=== PATIENT | female | born 1940 | race Caucasian/White ===

== ENCOUNTER 2017-04-21 11:23 | Emergency (ER) | payer MEDICARE, BC ==
[2017-04-21 12:35] LABS: Basophils % (A) 0 %; CH 32.3; CHCM 32.3; Eosinophils % (A) 0 %; HCT 32.3 % (34.0-46.0); HDW 2.77; HGB 10.2 gm/dL (11.4-16.0); Luc # (Auto) 0.16; Luc % (Auto) 1; Lymphocytes # (A) 1.5 k/uL (1.0-4.8); Lymphocytes % (A) 13 %; MCH 31.8 pg (25.0-35.0); MCHC 31.5 g/dL (31.0-37.0); MCV 100.8 fL (80.0-100.0); Macrocytosis Slight; Mean Platelet Volume 7.9; Monocytes # (A) 0.3 k/uL (0-1.0); Monocytes % (A) 2 %; Neutrophils # (A) 9.7 k/uL (1.3-7.7); Neutrophils % (A) 83 %; RDW 15.6 % (11.5-15.5); WBC 11.6 k/uL (3.8-10.6); WBC (Perox) 12.08
[2017-04-21 12:47] LABS: Calcium 9.7 mg/dL (8.4-10.2); Magnesium 1.3 mg/dL (1.6-2.3); Potassium 3.6 mmol/L (3.5-5.1); Total Bilirubin 0.7 mg/dL (0.2-1.3); Total Protein 6.3 g/dL (6.3-8.2)
[2017-04-21 12:55] LABS: Creatine Kinase <20 U/L (30-135)
[2017-04-21 13:08] LABS: Creatine Kinase MB <0.2 ng/mL (0.0-2.4); Troponin I <0.012 ng/mL (0.000-0.034)
[2017-04-21] MEDS: SODIUM CHLORIDE 0.9% 1,000 ML IV STA ×2 (13:11→14:11)
[2017-04-21 13:21] LABS: INR 1.1 (<1.1); Partial Thromboplastin Time 22.6 sec (22.0-30.0); Prothrombin Time 10.7 sec (9.0-12.0)
--- NOTE | 2017-04-21 14:17 | ED ---
Dizziness HPI - General Chief Complaint: Syncope Stated Complaint: General Weakness Time Seen by Provider: 04/21/17 11:40 Source: patient, RN notes reviewed Mode of arrival: wheelchair Limitations: no limitations - History of Present Illness Initial Comments: This is a 76-year-old female was brought here for evaluation. She probably was sitting in the volunteer office in the hospital which she started nodding off her head down. His believes she did eventually pass out. She herself is not sure what she is really here she denies any fevers chills nausea vomiting sweats weakness she does require neurological issues to his left foot drop. Currently it is reported that her glucose is also elevated today. The patient is somewhat vague with her answers. MD Complaint: dizziness, near syncope - Related Data Home Medications Medication Instructions Recorded Confirmed Aspirin 81 mg PO DAILY 02/15/15 04/21/17 Calcium Carbonate/Vitamin D3 1 tab PO DAILY 02/15/15 04/21/17 [Calcium 600 + Vit D Tablet] Lisinopril-Hctz 20-12.5 mg 1 tab PO DAILY 02/15/15 04/21/17 [Zestoretic 20-12.5] Simvastatin [Zocor] 40 mg PO HS 02/15/15 04/21/17 Previous Rx's Medication Instructions Recorded Magnesium 200 mg PO DAILY #14 tablet 04/21/17 Allergies Allergy/AdvReac Type Severity Reaction Status Date / Time No Known Allergies Allergy Verified 04/21/17 12:32 Review of Systems ROS Statement: Those systems with pertinent positive or pertinent negative responses have been documented in the HPI. ROS Other: All systems not noted in ROS Statement are negative. Past Medical History Past Medical History: Hyperlipidemia, Hypertension History of Any Multi-Drug Resistant Organisms: None Reported Past Surgical History: Breast Surgery Past Psychological History: No Psychological Hx Reported Smoking Status: Never smoker Past Alcohol Use History: None Reported Past Drug Use History: None Reported General Exam - General Exam Comments Initial Comments: This is a well-developed well-nourished awake alert oriented 3 female Limitations: no limitations General appearance: alert, in no apparent distress Head exam: Present: atraumatic, normocephalic, normal inspection Eye exam: Present: normal appearance, PERRL, EOMI. Absent: scleral icterus, conjunctival injection, periorbital swelling ENT exam: Present: mucous membranes dry Neck exam: Present: normal inspection. Absent: tenderness, meningismus, lymphadenopathy Respiratory exam: Present: normal lung sounds bilaterally. Absent: respiratory distress, wheezes, rales, rhonchi, stridor Cardiovascular Exam: Present: regular rate, normal rhythm, normal heart sounds. Absent: systolic murmur, diastolic murmur, rubs, gallop, clicks GI/Abdominal exam: Present: soft, normal bowel sounds. Absent: distended, tenderness, guarding, rebound, rigid Extremities exam: Present: normal inspection, full ROM, normal capillary refill. Absent: tenderness, pedal edema, joint swelling, calf tenderness Back exam: Present: normal inspection Neurological exam: Present: alert, oriented X3, CN II-XII intact, motor sensory deficit (Left foot drop there is some extremity weakness) Psychiatric exam: Present: normal affect, normal mood Skin exam: Present: warm, dry, intact, normal color. Absent: rash Course Vital Signs 04/21/17 04/21/17 04/21/17 11:31 11:33 11:56 Temperature 97.3 F L Pulse Rate 82 77 70 Respiratory 18 18 18 Rate Blood Pressure 86/46 82/52 84/51 O2 Sat by Pulse 96 96 98 Oximetry 04/21/17 04/21/17 04/21/17 12:12 13:11 14:12 Temperature Pulse Rate 69 Respiratory 18 Rate Blood Pressure 98/50 92/53 106/53 O2 Sat by Pulse 98 Oximetry 04/21/17 15:46 Temperature Pulse Rate 70 Respiratory 18 Rate Blood Pressure 98/55 O2 Sat by Pulse 93 L Oximetry - Reevaluation(s) Reevaluation #1: 04/21/17 15:51 Reevaluation patient reveals her to be awake alert oriented 3 patient did respond well to IV hydration she will receive IV magnesium be discharged EKG Findings - EKG Results: EKG: interpreted by ERMD, sinus rhythm (Normal sinus rhythm a rate of 71. Interval 176 QRS duration 84 daily since QTC of 3-/417 this is a normal- appearing EKG.), normal axis, normal QRS, normal ST/T, no acute changes Medical Decision Making - Medical Decision Making I did discuss findings with the patient family members patient will be discharged after IV hydration she is encouraged to increase her oral fluid content she will be placed on oral magnesium is follow up with her doctor and return when necessary - Lab Data Result diagrams: 04/21/17 11:40 04/21/17 11:40 Lab Results 04/21/17 04/21/17 04/21/17 Range/Units 11:40 11:40 11:40 WBC 11.6 H (3.8-10.6) k/uL RBC 3.20 L (3.80-5.40) m/uL Hgb 10.2 L (11.4-16.0) gm/dL Hct 32.3 L (34.0-46.0) % MCV 100.8 H (80.0-100.0) fL MCH 31.8 (25.0-35.0) pg MCHC 31.5 (31.0-37.0) g/dL RDW 15.6 H (11.5-15.5) % Plt Count 382 (150-450) k/uL Neutrophils % 83 % Lymphocytes % 13 % Monocytes % 2 % Eosinophils % 0 % Basophils % 0 % Neutrophils # 9.7 H (1.3-7.7) k/uL Lymphocytes # 1.5 (1.0-4.8) k/uL Monocytes # 0.3 (0-1.0) k/uL Eosinophils # 0.0 (0-0.7) k/uL Basophils # 0.0 (0-0.2) k/uL Macrocytosis Slight PT (9.0-12.0) sec INR (<1.1) APTT (22.0-30.0) sec Sodium 136 L (137-145) mmol/L Potassium 3.6 (3.5-5.1) mmol/L Chloride 99 (98-107) mmol/L Carbon Dioxide 25 (22-30) mmol/L Anion Gap 12 mmol/L BUN 39 H (7-17) mg/dL Creatinine 1.80 H (0.52-1.04) mg/dL Est GFR (MDRD) Af Amer 33 (>60 ml/min/1.73 sqM) Est GFR (MDRD) Non-Af 27 (>60 ml/min/1.73 sqM) Glucose 229 H (74-99) mg/dL Calcium 9.7 (8.4-10.2) mg/dL Magnesium 1.3 L (1.6-2.3) mg/dL Total Bilirubin 0.7 (0.2-1.3) mg/dL AST 14 (14-36) U/L ALT 16 (9-52) U/L Alkaline Phosphatase 77 (38-126) U/L Total Creatine Kinase <20 L (30-135) U/L CK-MB (CK-2) <0.2 (0.0-2.4) ng/mL CK-MB (CK-2) Rel Index Troponin I <0.012 (0.000-0.034) ng/mL Total Protein 6.3 (6.3-8.2) g/dL Albumin 3.1 L (3.5-5.0) g/dL 04/21/17 Range/Units 11:40 WBC (3.8-10.6) k/uL RBC (3.80-5.40) m/uL Hgb (11.4-16.0) gm/dL Hct (34.0-46.0) % MCV (80.0-100.0) fL MCH (25.0-35.0) pg MCHC (31.0-37.0) g/dL RDW (11.5-15.5) % Plt Count (150-450) k/uL Neutrophils % % Lymphocytes % % Monocytes % % Eosinophils % % Basophils % % Neutrophils # (1.3-7.7) k/uL Lymphocytes # (1.0-4.8) k/uL Monocytes # (0-1.0) k/uL Eosinophils # (0-0.7) k/uL Basophils # (0-0.2) k/uL Macrocytosis PT 10.7 (9.0-12.0) sec INR 1.1 (<1.1) APTT 22.6 (22.0-30.0) sec Sodium (137-145) mmol/L Potassium (3.5-5.1) mmol/L Chloride (98-107) mmol/L Carbon Dioxide (22-30) mmol/L Anion Gap mmol/L BUN (7-17) mg/dL Creatinine (0.52-1.04) mg/dL Est GFR (MDRD) Af Amer (>60 ml/min/1.73 sqM) Est GFR (MDRD) Non-Af (>60 ml/min/1.73 sqM) Glucose (74-99) mg/dL Calcium (8.4-10.2) mg/dL Magnesium (1.6-2.3) mg/dL Total Bilirubin (0.2-1.3) mg/dL AST (14-36) U/L ALT (9-52) U/L Alkaline Phosphatase (38-126) U/L Total Creatine Kinase (30-135) U/L CK-MB (CK-2) (0.0-2.4) ng/mL CK-MB (CK-2) Rel Index Troponin I (0.000-0.034) ng/mL Total Protein (6.3-8.2) g/dL Albumin (3.5-5.0) g/dL - Radiology Data Radiology results: report reviewed (I did review the imaging and reports no acute findings.), image reviewed Disposition Clinical Impression: Dehydration, Hypomagnesemia, Weakness Disposition: HOME SELF-CARE Condition: Good Instructions: Dehydration (ED), Hypomagnesemia (ED) Prescriptions: Magnesium 200 mg PO DAILY #14 tablet Referrals: Nonstaff,Physician [Primary Care Provider] - 1-2 days
--- NOTE | 2017-04-21 14:24 | CT ---
EXAMINATION TYPE: CT brain wo con DATE OF EXAM: 04/21/2017 HISTORY: Patient complains of syncopal episode and low blood pressure. CT DLP: 766.4 mGycm. Automated Exposure Control for Dose Reduction was Utilized. TECHNIQUE: CT scan of the head is performed without contrast. COMPARISON: CT brain February 07, 2015 FINDINGS: There is no acute intracranial hemorrhage or midline shift identified. There is diffuse v entricular and sulcal prominence consistent with diffuse age-related cerebral atrophy. There is low- attenuation in the periventricular white matter consistent with chronic small vessel ischemic change. 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 Patchy soft t issue density bilateral external auditory canals felt to reflect cerumen. The globes are intact and t he visualized sinuses are clear. There is right frontal calcified 1 cm scalp lesion redemonstrated on axial image 20. IMPRESSION: No acute intracranial hemorrhage or midline shift. 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
--- NOTE | 2017-04-21 14:25 | XR ---
EXAMINATION TYPE: XR chest 2V DATE OF EXAM: 04/21/2017 COMPARISON: Prior chest x-ray 11/27/2015 HISTORY: Syncope TECHNIQUE: Frontal and lateral views of the chest are obtained. FINDINGS: Intrathoracic stomach is again noted. Patient is rotated. No evident pneumothorax or sizab le effusion. Marked arthropathy again noted shoulders. No evident airspace disease. IMPRESSION: No acute cardiopulmonary process. Similar to previous exam.
[2017-04-21] MEDS: MAGNESIUM SULFATE-D5W PMX 1 GM in DEXTROSE/WATER 1 100ML.BAG IVPB ONE (15:45)
[2017-04-21 16:13] VITALS: TEMP 97
[2017-04-21 17:13] VITALS: BP 97/54; PULSE 75; RESP 18
[2017-04-26 07:39] LABS: Glucose,Whole Blood 252 mg/dL (75-99)
== END 2017-04-21 17:09 | disposition home or self-care (01) ==
LOC: EC 11:23
DX: E83.42 Hypomagnesemia (principal); E86.0 Dehydration; M21.372 Foot drop, left foot; E78.5 Hyperlipidemia, unspecified; I10 Essential (primary) hypertension; Z79.82 Long term (current) use of aspirin; Z79.899 Other long term (current) drug therapy
CPT/HCPCS: 36415; 93005; 80053; 82550; 82553; 83735; 84484; 85025; 85610; 85730; 71020; 70450; 99284; 96365; 96361 ×3; J3475

== ENCOUNTER 2017-04-25 10:33 | Inpatient (IN) | payer MEDICARE, BC ==
[2017-04-25] MEDS ORDERED: SODIUM CHLORIDE 0.9% 500 ML IV STA (10:43)
[2017-04-25] MEDS ORDERED: SODIUM CHLORIDE 0.9% 1,000 ML IV STA (10:43)
--- NOTE | 2017-04-25 10:43 | ED ---
General Adult HPI - General Chief complaint: Syncope Stated complaint: near syncope Time Seen by Provider: 04/25/17 10:42 Source: patient, family, EMS, RN notes reviewed, old records reviewed Mode of arrival: EMS Limitations: no limitations - History of Present Illness Initial comments: This is a 76-year-old female ER for evaluation of syncope, near-syncope continued weakness and fall. Patient has medical history consistent of diabetes hypertension and high cholesterol. Patient has no chest pain or stress of breath. Patient was getting in the shower last night, fell and landed on the ground unlikely she connectors overall, patient does low. Assist came to her house today to evaluate patient, helped take the patient to patient take shower patient is syncopal event. Patient is recent hospital ear visit for dehydration and was discharged home. Patient continued to be weak since discharge - Related Data Home Medications Medication Instructions Recorded Confirmed Aspirin 81 mg PO DAILY 02/15/15 04/25/17 Calcium Carbonate/Vitamin D3 1 tab PO DAILY 02/15/15 04/25/17 [Calcium 600 + Vit D Tablet] Lisinopril-Hctz 20-12.5 mg 1 tab PO DAILY 02/15/15 04/25/17 [Zestoretic 20-12.5] Simvastatin [Zocor] 40 mg PO HS 02/15/15 04/25/17 Furosemide [Lasix] 40 mg PO DAILY PRN 04/25/17 04/25/17 Previous Rx's Medication Instructions Recorded Magnesium 200 mg PO DAILY #14 tablet 04/21/17 Allergies Allergy/AdvReac Type Severity Reaction Status Date / Time No Known Allergies Allergy Verified 04/25/17 10:52 Review of Systems ROS Statement: Those systems with pertinent positive or pertinent negative responses have been documented in the HPI. ROS Other: All systems not noted in ROS Statement are negative. Past Medical History Past Medical History: Diabetes Mellitus, Hyperlipidemia, Hypertension History of Any Multi-Drug Resistant Organisms: None Reported Past Surgical History: Orthopedic Surgery Additional Past Surgical History / Comment(s): right wrist Past Psychological History: No Psychological Hx Reported Smoking Status: Never smoker Past Alcohol Use History: None Reported Past Drug Use History: None Reported General Exam Limitations: no limitations General appearance: alert, cachectic Head exam: Present: atraumatic, normocephalic, normal inspection Eye exam: Present: normal appearance, PERRL, EOMI. Absent: scleral icterus, conjunctival injection, periorbital swelling ENT exam: Present: normal exam, mucous membranes dry Neck exam: Present: normal inspection. Absent: tenderness, meningismus, lymphadenopathy Respiratory exam: Present: normal lung sounds bilaterally. Absent: respiratory distress, wheezes, rales, rhonchi, stridor Cardiovascular Exam: Present: regular rate, normal rhythm, normal heart sounds. Absent: systolic murmur, diastolic murmur, rubs, gallop, clicks GI/Abdominal exam: Present: soft, normal bowel sounds. Absent: distended, tenderness, guarding, rebound, rigid Extremities exam: Present: normal inspection, full ROM, normal capillary refill. Absent: tenderness, pedal edema, joint swelling, calf tenderness Back exam: Present: normal inspection Neurological exam: Present: alert, oriented X3, CN II-XII intact Psychiatric exam: Present: normal affect, normal mood Skin exam: Present: warm, dry, intact, normal color. Absent: rash Course Vital Signs 04/25/17 04/25/17 10:34 11:13 Temperature 98.1 F Pulse Rate 74 77 Respiratory 18 Rate Blood Pressure 117/49 96/59 O2 Sat by Pulse 97 96 Oximetry - Reevaluation(s) Reevaluation #1: 04/25/17 12:20 Patient has limited improvement withhydration EKG Findings - EKG Comments: EKG Findings:: EKG shows normal sinus with a rate of 76, OH 160, QRS 68, QTC 432 Medical Decision Making - Medical Decision Making 69 femalte to the ER for evaluation of syncope, near syncope, dehydration and likely UTI. Patient be admitted for IV hydration and continued evaluation cardiopulmonary observation. - Lab Data Result diagrams: 04/25/17 10:47 04/25/17 10:47 Lab Results 04/25/17 04/25/17 04/25/17 Range/Units 10:47 10:47 10:47 WBC 10.4 (3.8-10.6) k/uL RBC 3.24 L (3.80-5.40) m/uL Hgb 10.4 L (11.4-16.0) gm/dL Hct 32.7 L (34.0-46.0) % MCV 100.7 H (80.0-100.0) fL MCH 32.2 (25.0-35.0) pg MCHC 32.0 (31.0-37.0) g/dL RDW 15.5 (11.5-15.5) % Plt Count 384 (150-450) k/uL Neutrophils % 87 % Lymphocytes % 9 % Monocytes % 2 % Eosinophils % 0 % Basophils % 0 % Neutrophils # 9.1 H (1.3-7.7) k/uL Lymphocytes # 1.0 (1.0-4.8) k/uL Monocytes # 0.2 (0-1.0) k/uL Eosinophils # 0.0 (0-0.7) k/uL Basophils # 0.0 (0-0.2) k/uL Macrocytosis Slight PT (9.0-12.0) sec INR (<1.1) APTT (22.0-30.0) sec Sodium 135 L (137-145) mmol/L Potassium 3.6 (3.5-5.1) mmol/L Chloride 100 (98-107) mmol/L Carbon Dioxide 26 (22-30) mmol/L Anion Gap 9 mmol/L BUN 30 H (7-17) mg/dL Creatinine 1.23 H (0.52-1.04) mg/dL Est GFR (MDRD) Af Amer 51 (>60 ml/min/1.73 sqM) Est GFR (MDRD) Non-Af 42 (>60 ml/min/1.73 sqM) Glucose 158 H (74-99) mg/dL Plasma Lactic Acid Erasto (0.7-2.0) mmol/L Calcium 8.7 (8.4-10.2) mg/dL Phosphorus 2.4 L (2.5-4.5) mg/dL Magnesium 1.9 (1.6-2.3) mg/dL Total Bilirubin 0.9 (0.2-1.3) mg/dL AST 25 (14-36) U/L ALT 22 (9-52) U/L Alkaline Phosphatase 81 (38-126) U/L Total Creatine Kinase 250 H (30-135) U/L CK-MB (CK-2) 2.1 (0.0-2.4) ng/mL CK-MB (CK-2) Rel Index 0.8 Troponin I 0.014 (0.000-0.034) ng/mL Total Protein 5.8 L (6.3-8.2) g/dL Albumin 2.8 L (3.5-5.0) g/dL 04/25/17 04/25/17 Range/Units 10:47 10:47 WBC (3.8-10.6) k/uL RBC (3.80-5.40) m/uL Hgb (11.4-16.0) gm/dL Hct (34.0-46.0) % MCV (80.0-100.0) fL MCH (25.0-35.0) pg MCHC (31.0-37.0) g/dL RDW (11.5-15.5) % Plt Count (150-450) k/uL Neutrophils % % Lymphocytes % % Monocytes % % Eosinophils % % Basophils % % Neutrophils # (1.3-7.7) k/uL Lymphocytes # (1.0-4.8) k/uL Monocytes # (0-1.0) k/uL Eosinophils # (0-0.7) k/uL Basophils # (0-0.2) k/uL Macrocytosis PT 10.9 (9.0-12.0) sec INR 1.1 (<1.1) APTT 24.2 (22.0-30.0) sec Sodium (137-145) mmol/L Potassium (3.5-5.1) mmol/L Chloride (98-107) mmol/L Carbon Dioxide (22-30) mmol/L Anion Gap mmol/L BUN (7-17) mg/dL Creatinine (0.52-1.04) mg/dL Est GFR (MDRD) Af Amer (>60 ml/min/1.73 sqM) Est GFR (MDRD) Non-Af (>60 ml/min/1.73 sqM) Glucose (74-99) mg/dL Plasma Lactic Acid Erasto 2.0 (0.7-2.0) mmol/L Calcium (8.4-10.2) mg/dL Phosphorus (2.5-4.5) mg/dL Magnesium (1.6-2.3) mg/dL Total Bilirubin (0.2-1.3) mg/dL AST (14-36) U/L ALT (9-52) U/L Alkaline Phosphatase (38-126) U/L Total Creatine Kinase (30-135) U/L CK-MB (CK-2) (0.0-2.4) ng/mL CK-MB (CK-2) Rel Index Troponin I (0.000-0.034) ng/mL Total Protein (6.3-8.2) g/dL Albumin (3.5-5.0) g/dL Disposition Clinical Impression: Fainting spell, Weakness, Hypomagnesemia, Dehydration Disposition: ADMITTED IP TO THIS [facility] Condition: Fair Referrals: Nonstaff,Physician [Primary Care Provider] - 1-2 days
[2017-04-25 11:00] LABS: Basophils % (A) 0 %; CH 33.2; CHCM 33.2; Eosinophils % (A) 0 %; HCT 32.7 % (34.0-46.0); HGB 10.4 gm/dL (11.4-16.0); Luc % (Auto) 1; Lymphocytes % (A) 9 %; MCH 32.2 pg (25.0-35.0); MCV 100.7 fL (80.0-100.0); Macrocytosis Slight; Monocytes # (A) 0.2 k/uL (0-1.0); Monocytes % (A) 2 %; Neutrophils # (A) 9.1 k/uL (1.3-7.7); Neutrophils % (A) 87 %; RBC 3.24 m/uL (3.80-5.40); RDW 15.5 % (11.5-15.5); WBC 10.4 k/uL (3.8-10.6); WBC (Perox) 10.81
[2017-04-25 11:08] LABS: INR 1.1 (<1.1); Partial Thromboplastin Time 24.2 sec (22.0-30.0); Prothrombin Time 10.9 sec (9.0-12.0)
[2017-04-25 11:14] LABS: Calcium 8.7 mg/dL (8.4-10.2); Magnesium 1.9 mg/dL (1.6-2.3); Phosphorous 2.4 mg/dL (2.5-4.5); Potassium 3.6 mmol/L (3.5-5.1); Total Bilirubin 0.9 mg/dL (0.2-1.3); Total Protein 5.8 g/dL (6.3-8.2)
[2017-04-25 11:37] LABS: Creatine Kinase MB 2.1 ng/mL (0.0-2.4); Troponin I 0.014 ng/mL (0.000-0.034)
[2017-04-25] MEDS ORDERED: SODIUM CHLORIDE 0.9% 1,000 ML IV ONE (12:17)
[2017-04-25 14:28] LABS: Appearance,Urine Cloudy (Clear); Bacteria,Urine Many /hpf; Bilirubin,Urine Negative (Negative); Glucose,Urine (UA) Negative (Negative); Ketones,Urine Negative (Negative); Leukocyte Esterase,Urine Large (Negative); Mucus,Urine Rare /hpf; Nitrite,Urine Negative (Negative); Particle Count 54700; Protein,Urine Negative (Negative); RBC,Urine 11 /hpf (0-5); Specific Gravity,Urine 1.007 (1.001-1.035); Squamous Epithelial Cell,Urine 1 /hpf (0-4); UA Billing (MACRO vs. MICRO) MICRO; Urobilinogen,Urine <2.0 mg/dL (<2.0)
[2017-04-25 17:17] LABS: Glucose,Whole Blood 182 mg/dL (75-99)
[2017-04-25] MEDS: INSULIN LISPRO (humaLOG) 300 UNIT/3 ML VIAL SQ SCH ×2 (17:51→21:23)
[2017-04-25 21:08] LABS: Glucose,Whole Blood 142 mg/dL (75-99)
[2017-04-26 03:24] LABS: Hemoglobin A1C 5.8 % (4.2-6.1)
--- NOTE | 2017-04-26 07:14 | HP ---
DATE OF ADMISSION: CHIEF COMPLAINT: A 76-year-old white female with syncope. HISTORY OF PRESENT ILLNESS: This 76-year-old white female who was admitted for near syncope with weakness following, has a history of hypertension on medications at home. She presents with hypotension here in the hospital. She has diabetes and high cholesterol. No chest pain or shortness of breath. She has been falling at home and she was just in the ER for dehydration and discharged home. She continues to be ( ) at discharge. HOME MEDICATIONS: 1. Aspirin 81 mg a day. 2. Lisinopril hydrochlorothiazide 20/12.5 one daily. 3. Zocor 40 mg daily. 4. Lasix 40 mg daily. ALLERGIES: No known drug allergies. Review of systems negative except for as mentioned in HPI. PAST MEDICAL HISTORY: Hypertension, diabetes mellitus, dyslipidemia, orthopedic surgery. No smoking. No alcohol. No illicit drugs. PHYSICAL EXAM: Vital signs are stable. She is thin, cachectic. OPHTHALMOLOGIC: Pupils equal, round, reactive to light and accommodation. External ear canals within normal limits. CARDIOVASCULAR: S1, S2. LUNGS: Transmitted upper airway sounds. GI: Soft, nontender. HEMATOLOGIC: Negative Homans. VASCULAR: Normal dorsalis pedis, posterior tibial and radial pulses. NEUROLOGIC: Alert and oriented x3. Hemoglobin is 10.4, Sodium 135, potassium 3.6, BUN 30, creatinine 1.23. White count 10.4. Glucose 153. First troponin is negative. Albumin is low at 2.8. ASSESSMENT: 1. Dehydration. 2. Hypotension. 3. Urinary tract infection with urosepsis likely causing hypotension. Blood pressure medicines will be held at this time until rehydration. IV fluids were given. 4. She has got stage III renal insufficiency. 5. Moderate protein calorie malnutrition. Rocephin will be started. IV fluids will be given. Please see further orders. We will monitor lactic acid and hypomagnesium will be replaced. Dehydration, fluid will be given possible orthostatic ( ) will be done.
[2017-04-26 07:15] LABS: Glucose,Whole Blood 104 mg/dL (75-99)
[2017-04-26] MEDS: INSULIN LISPRO (humaLOG) 300 UNIT/3 ML VIAL SQ SCH ×4 (07:44→22:34)
[2017-04-26 08:40] LABS: Basophils % (A) 0 %; CH 33.1; CHCM 33.7; Eosinophils % (A) 1 %; HCT 29.4 % (34.0-46.0); HDW 2.97; HGB 9.6 gm/dL (11.4-16.0); Luc # (Auto) 0.13; Luc % (Auto) 2; Lymphocytes # (A) 1.1 k/uL (1.0-4.8); Lymphocytes % (A) 18 %; MCH 32.4 pg (25.0-35.0); MCHC 32.8 g/dL (31.0-37.0); Macrocytosis Slight; Mean Platelet Volume 7.5; Monocytes # (A) 0.2 k/uL (0-1.0); Monocytes % (A) 3 %; Neutrophils # (A) 4.6 k/uL (1.3-7.7); Neutrophils % (A) 76 %; RBC 2.97 m/uL (3.80-5.40); RDW 15.4 % (11.5-15.5); WBC 6.1 k/uL (3.8-10.6); WBC (Perox) 6.21
[2017-04-26 09:02] LABS: ALT 25 U/L (9-52); AST 20 U/L (14-36); Alkaline Phosphatase 74 U/L (38-126); Anion Gap 7 mmol/L; Blood Urea Nitrogen 23 mg/dL (7-17); Calcium 8.1 mg/dL (8.4-10.2); Carbon Dioxide 24 mmol/L (22-30); Chloride 104 mmol/L (98-107); Glucose 95 mg/dL (74-99); Non-African American GFR(MDRD) >60 (>60 ml/min/1.73 sqM); Potassium 3.4 mmol/L (3.5-5.1); Sodium 135 mmol/L (137-145); Total Bilirubin 0.5 mg/dL (0.2-1.3); Total Protein 5.4 g/dL (6.3-8.2)
[2017-04-26] MEDS ORDERED: Potassium Replacement Protocol 1 EACH MISC MISCELLANE PRN (10:05)
[2017-04-26] MEDS: POTASSIUM CHLORIDE ER 20 MEQ TAB.ER PO SCH ×2 (10:39→12:01)
--- NOTE | 2017-04-26 11:46 | CDI ---
In responding to this query, please exercise your independent professional judgment. The [facility] Coding Staff and Clinical Documentation Specialists appreciate your assistance in clarifying documentation, maintaining compliance with coding guidelines, accurately documenting patients condition and capturing severity of illness. The fact that a question is asked does not imply that any particular answer is desired or expected. Communication forms are a method of clarifying documentation and are not made part of the Legal Health Record. Thank you in advance for your clarification. Last Revision, September 2015 Mehrdad Caldwell [address] [place] [address] Documentation Clarification Form Date: 04/26/2017 11:30:00 AM From: Deepali Burgos RN, CDS Admit Date: 04/25/2017 12:17:00 PM Patient Name: Venessa Morel I Visit Number: [id number] Dr. Mj Snow, 76 yo patient presented to ER for complaints of weakness and falls diagnosed w/ Dehydration, UTI w/ Urosepsis likely causing Hypotension, Stage 3 Renal Insufficiency History/Risk Factors : HTN, DM2 Current BUN/CR/GFR: 23/0.89/>60 -- 30/1./42 on admission Patients Baseline Range: BUN 30-38 CR 1.11-1.80 GFR 28-48 since February 2015: Clinical Indicators : BUN/CR/GFR on admission /., Dehydration and Stage 3 Renal insufficiency documented in H&P, Treatment: NS @100 : In order to capture the severity of condition, please clarify if the condition signifies: CKD Stage 1 (GFR > 90) CKD Stage 2 (GFR 60-89) CKD Stage 3 (GFR 30-59) CKD Stage 4 (GFR 15-29) CKD Stage 5 (GFR <15) Unable to determine Other condition, please specify Please document in your progress notes and discharge summary in order to capture severity of illness and risk of mortality. Include clinical findings that support your diagnosis. FYI: Press F11 to launch patient chart. Place X here if this finding has no clinical significance, is not applicable or if you are not able to provide any additional documentation. DWAIN
--- NOTE | 2017-04-26 12:04 | CDI ---
In responding to this query, please exercise your independent professional judgment. The [facility] Coding Staff and Clinical Documentation Specialists appreciate your assistance in clarifying documentation, maintaining compliance with coding guidelines, accurately documenting patients condition and capturing severity of illness. The fact that a question is asked does not imply that any particular answer is desired or expected. Communication forms are a method of clarifying documentation and are not made part of the Legal Health Record. Thank you in advance for your clarification. Last Revision, September [address] [facility] [place] [address] Documentation Clarification Form Date: 04/26/2017 11:46:00 AM From: Deepali Burgos RN, CDS Admit Date: 04/25/2017 12:17:00 PM Patient Name: Venessa Morel I Visit Number: [id number] Dr. Mj Snow, 76 yo patient presented to ER for complaints of weakness and falls. Diagnosed with Dehydration, UTI with Urosepsis likely causing Hypotension History/Risk Factors: HTN, DM2 Clinical Indicators: UA: small blood, Many Bacteria, Large Leuk Zohreh, Culture pending, "UTI with Urosepsis likely causing Hypotension" documented in H&P Vital Signs: 98.1 74 18 117/49 97 Lowest recorded BP 92/51 and 90/48 WBC: 10.4 and 6.1 Treatment: IV Rocephin, NS@100, UA Culture pending Please document the condition that these clinical indicators signify, whether Present on Admission, and cause if known: UTI Due to Sepsis? Specify organism, if known Identify location of infection (if known) Bladder, Kidney, Urethra, etc.? Unable to determine Other Please document in your progress notes and discharge summary in order to capture severity of illness and risk of mortality. Include clinical findings that support your diagnosis. FYI: Press F11 to launch patient chart. Place X here if this finding has no clinical significance, is not applicable or if you are not able to provide any additional documentation. ANTOND
[2017-04-26 12:16] LABS: Glucose,Whole Blood 99 mg/dL (75-99)
[2017-04-26 13:31] VITALS: BMI 25.1
[2017-04-26 17:20] LABS: Glucose,Whole Blood 121 mg/dL (75-99)
[2017-04-26 21:54] LABS: Glucose,Whole Blood 166 mg/dL (75-99)
[2017-04-26 22:34] LABS: Basophils % (A) 0 %; CH 32.9; CHCM 32.6; Eosinophils % (A) 1 %; HCT 26.1 % (34.0-46.0); HDW 2.83; HGB 8.2 gm/dL (11.4-16.0); Luc % (Auto) 2; Lymphocytes % (A) 16 %; MCH 32.1 pg (25.0-35.0); MCHC 31.6 g/dL (31.0-37.0); MCV 101.6 fL (80.0-100.0); Macrocytosis Slight; Mean Platelet Volume 7.4; Monocytes # (A) 0.2 k/uL (0-1.0); Monocytes % (A) 3 %; Neutrophils # (A) 5.1 k/uL (1.3-7.7); Neutrophils % (A) 79 %; RBC 2.57 m/uL (3.80-5.40); RDW 15.5 % (11.5-15.5); WBC 6.4 k/uL (3.8-10.6); WBC (Perox) 6.56
[2017-04-26 22:57] LABS: ALT 28 U/L (9-52); AST 20 U/L (14-36); Alkaline Phosphatase 70 U/L (38-126); Anion Gap 5 mmol/L; Blood Urea Nitrogen 21 mg/dL (7-17); Calcium 7.3 mg/dL (8.4-10.2); Carbon Dioxide 21 mmol/L (22-30); Chloride 107 mmol/L (98-107); Glucose 132 mg/dL (74-99); Non-African American GFR(MDRD) >60 (>60 ml/min/1.73 sqM); Sodium 133 mmol/L (137-145); Total Bilirubin 0.3 mg/dL (0.2-1.3); Total Protein 4.4 g/dL (6.3-8.2)
[2017-04-27 07:41] LABS: Glucose,Whole Blood 91 mg/dL (75-99)
[2017-04-27] MEDS: INSULIN LISPRO (humaLOG) 300 UNIT/3 ML VIAL SQ SCH ×4 (07:54→20:54)
[2017-04-27 09:46] LABS: Magnesium 1.9 mg/dL (1.6-2.3); Potassium 3.9 mmol/L (3.5-5.1)
[2017-04-27] MEDS ORDERED: FUROSEMIDE 40 MG TAB PO PRN (10:37)
[2017-04-27 12:06] LABS: Glucose,Whole Blood 103 mg/dL (75-99)
[2017-04-27 17:25] LABS: Glucose,Whole Blood 145 mg/dL (75-99)
[2017-04-27 20:32] LABS: Glucose,Whole Blood 164 mg/dL (75-99)
[2017-04-27] MEDS ORDERED: ATORVASTATIN 20 MG TAB PO SCH (21:00)
--- NOTE | 2017-04-28 05:52 | CONS ---
DATE OF CONSULTATION: DATE OF SERVICE: 04/27/2017 REASON FOR CONSULTATION: Urinary tract infection. HISTORY OF PRESENT ILLNESS: The patient is a 76-year-old female who was recently evaluated at [facility] ER on 04/21/2017 where the patient was treated for dehydration and hypomagnesemia, received IV fluid and ( ) subsequently discharged home. Patient apparently did have a fall at home during the shower and the patient said she was unable to get up. The patient did have multiple calls to her neighbor who finally heard her and called the EMS. The patient subsequently has been brought into the ER for further evaluation. Patient does give history of near syncope, weakness and fall. No headache and no chest pain. No shortness of breath or any significant cough. No abdominal pain or any diarrhea. The patient has been evaluated by the ER physician. Patient noticed to have a positive UA with urine now showing gram-negative. She was started on Rocephin. I was asked to see the patient for further recommendation regarding antibiotic therapy. REVIEW OF SYSTEMS: CONSTITUTIONAL: Positive for weakness, but no high-grade fever. EYES: No complaint. ENT: No complaint. RESPIRATORY: No complaint. CARDIOVASCULAR: No complaint. GENITOURINARY: As per HPI. GASTROINTESTINAL: No complaint. INTEGUMENTARY: No complaint. PSYCHOLOGICAL: No complaint. ENDOCRINE: No complaint. NEUROLOGIC: No complaint. PAST MEDICAL HISTORY: Diabetes mellitus, hypertension, hyperlipidemia. PAST SURGICAL HISTORY: Right wrist surgery. SOCIAL HISTORY: No history of smoking, drinking or drug use. FAMILY HISTORY: No pertinent findings were noticed. ALLERGIES: No known drug allergies. Medications include the patient is currently on aspirin, Lipitor, Os-Regino + D, Rocephin 1 gram daily, Lasix, lisinopril hydrochlorothiazide, Humalog, mag oxide. On examination, blood pressure is 101/40 with a pulse of 77, temperature is 97.4. She is 96% on room air. General description is an elderly female lying in bed in no distress. No tachypnea or accessory muscle of respiration use. HEENT EXAMINATION: Pallor. No scleral icterus. Oral mucous membranes dry. NECK: Trachea central. No thyromegaly. LUNGS: Unlabored breathing. Clear to auscultation anteriorly. No wheeze or crackle. HEART: S1, S2. Regular rate and rhythm. ABDOMEN: Soft, no tenderness. No guarding. No rigidity. EXTREMITIES: No edema of feet. SKIN EXAMINATION: No rash or mass palpable. NEUROLOGICALLY: The patient is awake, alert, oriented x3. Mood and affect normal. LABS: Hemoglobin 8.2, white count 6.4 with a BUN of 21, creatinine 0.80. Sodium is 133. Liver enzymes are normal. Urine was positive with large leukocyte esterase and many bacteria. DIAGNOSTIC IMPRESSION AND PLAN: Patient admitted to the hospital with a fall, weakness, lethargy which is likely multifactorial with component of possible ( ). Patient did have positive underlying urinary tract infection from ( ) gram-negative cannot be excluded with the patient currently growing ( ) in her urine. PLAN: 1. Rocephin 1 gram IV ( ) to continue. 2. General dehydration. 3. We will follow up on her clinical condition and cultures to further adjust her medication if needed. Thank you for this consultation. Will follow this patient along with you.
[2017-04-28 07:16] LABS: Glucose,Whole Blood 100 mg/dL (75-99)
[2017-04-28] MEDS: LISINOPRIL-HCTZ 20-12.5 MG 1 EACH TAB PO SCH ×2 (07:16→08:15)
[2017-04-28] MEDS: INSULIN LISPRO (humaLOG) 300 UNIT/3 ML VIAL SQ SCH ×2 (07:24→12:30)
[2017-04-28 07:41] VITALS: PULSE 71; RESP 16; TEMP 98.2
[2017-04-28 09:00] LABS: Basophils % (A) 0 %; CH 32.5; CHCM 33.2; Eosinophils % (A) 1 %; HCT 26.6 % (34.0-46.0); HDW 3.09; HGB 9.1 gm/dL (11.4-16.0); Luc # (Auto) 0.09; Luc % (Auto) 2; Lymphocytes # (A) 1.3 k/uL (1.0-4.8); Lymphocytes % (A) 28 %; MCH 33.7 pg (25.0-35.0); MCHC 34.2 g/dL (31.0-37.0); MCV 98.5 fL (80.0-100.0); Macrocytosis Slight; Mean Platelet Volume 8.3; Monocytes # (A) 0.1 k/uL (0-1.0); Monocytes % (A) 3 %; Neutrophils # (A) 2.9 k/uL (1.3-7.7); Neutrophils % (A) 65 %; RDW 15.8 % (11.5-15.5); WBC 4.4 k/uL (3.8-10.6); WBC (Perox) 4.77
[2017-04-28] MEDS ORDERED: CALCIUM CARB-VIT D 500MG-200UN 1 EACH TAB PO SCH (09:00)
[2017-04-28] MEDS ORDERED: MAGNESIUM OXIDE 400 MG TAB PO SCH (09:00)
[2017-04-28] MEDS ORDERED: ASPIRIN 81 MG CHEW PO SCH (09:00)
[2017-04-28 09:16] LABS: ALT 21 U/L (9-52); AST 24 U/L (14-36); Alkaline Phosphatase 72 U/L (38-126); Anion Gap 4 mmol/L; Blood Urea Nitrogen 13 mg/dL (7-17); Calcium 7.4 mg/dL (8.4-10.2); Carbon Dioxide 22 mmol/L (22-30); Chloride 114 mmol/L (98-107); Glucose 96 mg/dL (74-99); Non-African American GFR(MDRD) >60 (>60 ml/min/1.73 sqM); Potassium 3.8 mmol/L (3.5-5.1); Sodium 140 mmol/L (137-145); Total Bilirubin 0.4 mg/dL (0.2-1.3); Total Protein 4.7 g/dL (6.3-8.2)
--- NOTE | 2017-04-28 12:26 | P.DS ---
Providers Date of admission: 04/25/17 12:17 Expected date of discharge: 04/28/17 Attending physician: Mj Gtz Consults: 04/26/17 21:38 Consult Physician Routine Consulting Provider: Carli Welsh Consult Reason/Comments: urosepsis Do you want consulting provider notified?: Yes Primary care physician: Physician Nonstaff Hospital Course: 76-year-old female presented via the EMS system after patient reportedly had experienced a near syncopal episode. Patient continued to feel weak and had fallen. Patient does have a past medical history consistent with hypertension and hyperlipidemia. Patient denied chest pain denied any shortness of breath. Patient lives in an assisted living facility. In the emergency room a computed tomography scan of the brain was obtained. It showed no acute intracranial hemorrhage. 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 Additionally patient was followed by infectious disease. The urine culture did come back positive for Enterobacter was seen by Dr. Welsh. Started on IV Rocephin. Patient was treated for dehydration sepsis suspect UTI additionally patient was seen by the social media manager patient was requesting to go to a subacute rehab for physical occupational therapy. Patient was felt to be an appropriate candidate was transferred to [facility] patient's choice for subacute rehab Impression discharge diagnosis Present on admission weakness near-syncopal episode poor oral intake with clinical dehydration Present on admission sepsis suspect due to UTI Hypertension essential Present on admission hypotensive suspect due to clinical dehydration with sepsis Chronic debility due to comorbidities Hyperlipidemia Anemia of chronic illness Mild protein calorie malnutrition suspect due to poor caloric intake Present on admission stage III chronic kidney disease The above dictated assessment and findings were discussed with dr gtz Impression and the plan of care have been dictated as directed. Emelina Wilson nurse practitioner acting as a scribe for Dr. Gtz Patient Condition at Discharge: Fair Plan - Discharge Summary New Discharge Prescriptions: New Cefuroxime Axetil [Ceftin] 500 mg PO BID #20 tab Continue Simvastatin [Zocor] 40 mg PO HS Lisinopril-Hctz 20-12.5 mg [Zestoretic 20-12.5] 1 tab PO DAILY Aspirin 81 mg PO DAILY Calcium Carbonate/Vitamin D3 [Calcium 600-Vit D3 400 Tablet] 1 tab PO DAILY Magnesium 200 mg PO DAILY #14 tablet Discontinued Furosemide [Lasix] 40 mg PO DAILY PRN PRN Reason: Edema Discharge Medication List Aspirin 81 mg PO DAILY 02/15/15 [History] Calcium Carbonate/Vitamin D3 [Calcium 600-Vit D3 400 Tablet] 1 tab PO DAILY 09/21 [History] Lisinopril-Hctz 20-12.5 mg [Zestoretic 20-12.5] 1 tab PO DAILY 02/15/15 [History ] Simvastatin [Zocor] 40 mg PO HS 02/15/15 [History] Magnesium 200 mg PO DAILY #14 tablet 04/21/17 [Rx] Cefuroxime Axetil [Ceftin] 500 mg PO BID #20 tab 04/28/17 [Rx] Follow up Appointment(s)/Referral(s): Nonstaff,Physician [Primary Care Provider] - 1-2 days Mj Gtz MD [STAFF PHYSICIAN] - 04/29/17 Discharge Disposition: TRANSFER TO SNF/ECF
[2017-04-28 12:27] LABS: Glucose,Whole Blood 108 mg/dL (75-99)
[2017-04-28] MEDS ORDERED: LEVOFLOXACIN 500 MG TAB PO SCH (12:30)
[2017-04-28 13:57] VITALS: BP 128/56
--- NOTE | 2017-04-28 19:38 | PN ---
DATE OF SERVICE: 04/28/2017 REASON FOR FOLLOWUP: Urinary tract infection. INTERVAL HISTORY: The patient seen early this afternoon. Patient has been breathing comfortably. Denies significant chest pain, shortness of breath or abdominal pain. Did have some diarrhea. On examination, blood pressure 120/57, pulse is 71, temperature 98.2. She is 95% on room air. General description is an elderly female, lying in bed in no distress. RESPIRATORY SYSTEM: Unlabored breathing. Clear to auscultation anteriorly. HEART: S1, S2 with regular rate and rhythm. ABDOMEN: Soft. No tenderness. LAB: Hemoglobin 9.1, white count 4.4 with a BUN of 13, creatinine 0.63. Urine: The Enterobacter there was sensitive to ciprofloxacin. DIAGNOSTIC IMPRESSION AND PLAN: Patient with Enterobacter urinary tract infection, overall clinical improvement. Antibiotic has been switched over to Cipro 500 mg twice daily for another week. Plan of care was discussed with the nurse practitioner for the primary team.
== END 2017-04-28 14:46 | DRG 872 ==
LOC: EC 10:33 → 4MS4W 12:17
PROVIDERS: ADMIT Family Medicine; ATTEND Family Medicine
DX: A41.9 Sepsis, unspecified organism (principal); E44.0 Moderate protein-calorie malnutrition; N39.0 Urinary tract infection, site not specified; D63.8 Anemia in other chronic diseases classified elsewhere; I12.9 Hypertensive chronic kidney disease with stage 1 through stage 4 chronic kidney disease, or unspecified chronic kidney disease; E11.9 Type 2 diabetes mellitus without complications; B96.89 Other specified bacterial agents as the cause of diseases classified elsewhere; E86.0 Dehydration; E78.00 Pure hypercholesterolemia, unspecified; N18.3 Chronic kidney disease, stage 3 (moderate); E78.5 Hyperlipidemia, unspecified; Z91.81 History of falling; Z79.82 Long term (current) use of aspirin; Z79.899 Other long term (current) drug therapy
CPT/HCPCS: 36415; 80053; 81001; 82550; 82553; 83036; 83605; 83735; 84100; 84132; 84484; 85025; 85610; 85730; 87077; 87086; 87186; 93005; 96360; 96361; 99285

== ENCOUNTER 2017-05-17 05:10 | Inpatient (IN) | payer MEDICARE, BC ==
[2017-05-17] MEDS ORDERED: SODIUM CHLORIDE 0.9% 500 ML IV STA (05:34)
[2017-05-17] MEDS ORDERED: ONDANSETRON 4 MG/2 ML VIAL IVP STA (05:34)
[2017-05-17] MEDS ORDERED: SODIUM CHLORIDE 0.9% 1,000 ML IV STA (05:34)
[2017-05-17 05:55] LABS: Basophils % (A) 0 %; CH 32.5; CHCM 33.2; Eosinophils # (A) 0.2 k/uL (0-0.7); Eosinophils % (A) 3 %; HCT 27.2 % (34.0-46.0); HDW 2.89; Luc # (Auto) 0.18; Luc % (Auto) 3; Lymphocytes # (A) 1.5 k/uL (1.0-4.8); Lymphocytes % (A) 20 %; MCH 32.5 pg (25.0-35.0); MCV 98.6 fL (80.0-100.0); Macrocytosis Slight; Mean Platelet Volume 7.3; Monocytes # (A) 0.3 k/uL (0-1.0); Monocytes % (A) 4 %; Neutrophils # (A) 5.2 k/uL (1.3-7.7); Neutrophils % (A) 71 %; RBC 2.76 m/uL (3.80-5.40); RDW 15.5 % (11.5-15.5); WBC 7.3 k/uL (3.8-10.6); WBC (Perox) 7.38
[2017-05-17 06:09] LABS: ALT 30 U/L (9-52); AST 23 U/L (14-36); Alkaline Phosphatase 82 U/L (38-126); Anion Gap 9 mmol/L; Blood Urea Nitrogen 24 mg/dL (7-17); Calcium 9.2 mg/dL (8.4-10.2); Carbon Dioxide 26 mmol/L (22-30); Chloride 104 mmol/L (98-107); Glucose 100 mg/dL (74-99); Magnesium 1.7 mg/dL (1.6-2.3); Non-African American GFR(MDRD) 53 (>60 ml/min/1.73 sqM); Potassium 4.2 mmol/L (3.5-5.1); Sodium 139 mmol/L (137-145); Total Bilirubin 0.4 mg/dL (0.2-1.3)
[2017-05-17 06:10] LABS: Prothrombin Time 10.2 sec (9.0-12.0)
[2017-05-17 06:21] LABS: Creatine Kinase <20 U/L (30-135)
[2017-05-17 06:34] LABS: Creatine Kinase MB <0.2 ng/mL (0.0-2.4); Troponin I <0.012 ng/mL (0.000-0.034)
[2017-05-17 06:43] LABS: Partial Thromboplastin Time 21.9 sec (22.0-30.0)
--- NOTE | 2017-05-17 06:45 | ED ---
General Adult HPI - General Chief complaint: Nausea/Vomiting/Diarrhea Stated complaint: diarrhea Time Seen by Provider: 05/17/17 05:34 Source: patient, EMS, RN notes reviewed, old records reviewed Mode of arrival: EMS Limitations: no limitations - History of Present Illness Initial comments: This is a 76-year-old female the ER for evaluation. This patient presents for evaluation of blood in her stool. Patient sent from [facility] where she is going rehab at this time. The patient herself denies any complaints, no lightheadedness or dizziness no weakness no lightheadedness no abdominal pain. No episodes of syncope or presyncope. Patient is unsure if she is on blood thinners. History obtained from chart and EMS, transferred for evaluation regarding blood in stool - Related Data Home Medications Medication Instructions Recorded Confirmed Aspirin 81 mg PO DAILY 02/15/15 04/25/17 Calcium Carbonate/Vitamin D3 1 tab PO DAILY 02/15/15 04/25/17 [Calcium 600-Vit D3 400 Tablet] Lisinopril-Hctz 20-12.5 mg 1 tab PO DAILY 02/15/15 04/25/17 [Zestoretic 20-12.5] Simvastatin [Zocor] 40 mg PO HS 02/15/15 04/25/17 Previous Rx's Medication Instructions Recorded Magnesium 200 mg PO DAILY #14 tablet 04/21/17 Ciprofloxacin HCl [Cipro] 500 mg PO Q12HR #20 tablet 04/28/17 Allergies Allergy/AdvReac Type Severity Reaction Status Date / Time No Known Allergies Allergy Verified 05/17/17 05:12 Review of Systems ROS Statement: Those systems with pertinent positive or pertinent negative responses have been documented in the HPI. ROS Other: All systems not noted in ROS Statement are negative. Past Medical History Past Medical History: Diabetes Mellitus, Hyperlipidemia, Hypertension, Musculoskeletal Disorder, Neurologic Disorder, Osteoarthritis (OA), Syncope Additional Past Medical History / Comment(s): "Borderline diabetes", current bedsore on sacrum after a recent fall, cerebral palsey, vasovagal syncopal episode, scoliosis, UTIs, some limitated ROM to R hand/wrist. History of Any Multi-Drug Resistant Organisms: None Reported Past Surgical History: Orthopedic Surgery Additional Past Surgical History / Comment(s): right wrist fusion, R knee arthroscopy, L elbow fracture with surgery. Past Psychological History: No Psychological Hx Reported Smoking Status: Never smoker Past Alcohol Use History: None Reported Past Drug Use History: None Reported - Past Family History Father Family Medical History: Myocardial Infarction (DE) Additional Family Medical History / Comment(s): Father of a DE at the age of 60yrs. Mother Family Medical History: Cancer Additional Family Medical History / Comment(s): Mother had leukemia. She at the age of 81 yrs. General Exam Limitations: no limitations General appearance: alert, in no apparent distress Head exam: Present: atraumatic, normocephalic, normal inspection Eye exam: Present: normal appearance, PERRL, EOMI. Absent: scleral icterus, conjunctival injection, periorbital swelling ENT exam: Present: normal exam, mucous membranes moist Neck exam: Present: normal inspection. Absent: tenderness, meningismus, lymphadenopathy Respiratory exam: Present: normal lung sounds bilaterally. Absent: respiratory distress, wheezes, rales, rhonchi, stridor Cardiovascular Exam: Present: regular rate, normal rhythm, normal heart sounds. Absent: systolic murmur, diastolic murmur, rubs, gallop, clicks GI/Abdominal exam: Present: soft, normal bowel sounds. Absent: distended, tenderness, guarding, rebound, rigid Extremities exam: Present: normal inspection, full ROM, normal capillary refill. Absent: tenderness, pedal edema, joint swelling, calf tenderness Back exam: Present: normal inspection Neurological exam: Present: alert, oriented X3, CN II-XII intact Psychiatric exam: Present: normal affect, normal mood Skin exam: Present: warm, dry, intact, normal color. Absent: rash Course Vital Signs 05/17/17 05:12 Temperature 98.9 F Pulse Rate 82 Respiratory 18 Rate Blood Pressure 125/60 O2 Sat by Pulse 95 Oximetry - Reevaluation(s) Reevaluation #1: 05/17/17 06:44 Patient did have 1 positive bloody bowel movement here in the emergency room Medical Decision Making - Medical Decision Making 76 female Status. ER for evaluation. Patient is coming in for evaluation for blood in stool, invasive diarrhea but persistent diarrhea per family. Recent change to blood in her stool. Patient denies complaints of vitamins dizziness or weakness hemoglobin is round I will suggest below baseline vital signs are normal and stable, patient will be admitted for GI evaluation - Lab Data Result diagrams: 05/17/17 05:30 05/17/17 05:30 Lab Results 05/17/17 05/17/17 05/17/17 Range/Units 05:30 05:30 05:30 WBC 7.3 (3.8-10.6) k/uL RBC 2.76 L (3.80-5.40) m/uL Hgb 9.0 L (11.4-16.0) gm/dL Hct 27.2 L (34.0-46.0) % MCV 98.6 (80.0-100.0) fL MCH 32.5 (25.0-35.0) pg MCHC 33.0 (31.0-37.0) g/dL RDW 15.5 (11.5-15.5) % Plt Count 442 (150-450) k/uL Neutrophils % 71 % Lymphocytes % 20 % Monocytes % 4 % Eosinophils % 3 % Basophils % 0 % Neutrophils # 5.2 (1.3-7.7) k/uL Lymphocytes # 1.5 (1.0-4.8) k/uL Monocytes # 0.3 (0-1.0) k/uL Eosinophils # 0.2 (0-0.7) k/uL Basophils # 0.0 (0-0.2) k/uL Macrocytosis Slight Sodium 139 (137-145) mmol/L Potassium 4.2 (3.5-5.1) mmol/L Chloride 104 (98-107) mmol/L Carbon Dioxide 26 (22-30) mmol/L Anion Gap 9 mmol/L BUN 24 H (7-17) mg/dL Creatinine 1.02 (0.52-1.04) mg/dL Est GFR (MDRD) Af Amer >60 (>60 ml/min/1.73 sqM) Est GFR (MDRD) Non-Af 53 (>60 ml/min/1.73 sqM) Glucose 100 H (74-99) mg/dL Plasma Lactic Acid Erasto 0.7 (0.7-2.0) mmol/L Calcium 9.2 (8.4-10.2) mg/dL Magnesium 1.7 (1.6-2.3) mg/dL Total Bilirubin 0.4 (0.2-1.3) mg/dL AST 23 (14-36) U/L ALT 30 (9-52) U/L Alkaline Phosphatase 82 (38-126) U/L Total Protein 6.0 L (6.3-8.2) g/dL Albumin 2.8 L (3.5-5.0) g/dL Lipase 105 (23-300) U/L Disposition Clinical Impression: Diarrhea, GIB (gastrointestinal bleeding), Anemia Disposition: ADMITTED IP TO THIS HOSP Referrals: Nonstaff,Physician [Primary Care Provider] - 1-2 days
[2017-05-17 12:08] LABS: HCT 25.8 % (34.0-46.0); HGB 8.5 gm/dL (11.4-16.0); Hypochromasia Slight; MCH 33.3 pg (25.0-35.0); MCHC 33.1 g/dL (31.0-37.0); MCV 100.7 fL (80.0-100.0); Macrocytosis Slight; Mean Platelet Volume 7.8; RBC 2.56 m/uL (3.80-5.40); RDW 15.1 % (11.5-15.5)
--- NOTE | 2017-05-17 15:56 | P.HPIM ---
History of Present Illness H&P Date: 05/17/17 Chief Complaint: Blood in stool This is a 76-year-old female was recently admitted to a fdc after sustaining a fall due to generalized weakness. Patient was brought into the hospital with concern for a GI bleed Patient was noted to have a large bright red blood stool. Patient's last hemoglobin was around 12 g per DL Currently patient's hemoglobin is around 8.5 mg DL Patient denies having any headaches blurry vision nausea vomiting chest pain dizziness abdominal pain urinary urgency or frequency Patient denies having any pain on defecation No history of hemorrhoids reported Patient has been having loose stools for the last few weeks Patient apparently was last admitted to the hospital with a urinary tract infection Patient has never had a colonoscopy. No overuse of NSAIDs is reported by the patient or family was at bedside Review of Systems All systems: negative (Noted in HPI) Past Medical History Past Medical History: Diabetes Mellitus, Hyperlipidemia, Hypertension, Musculoskeletal Disorder, Neurologic Disorder, Osteoarthritis (OA), Renal Disease, Syncope Additional Past Medical History / Comment(s): Pt recently admitted to [facility] on with near syncope, dehydration, sepsis suspected due to UTI. Other hx: "Borderline diabetes", current decubitus R buttock and yeast infection groins, CKD stage III, chronic anemia, mild protein calorie malnutrition, falls , cerebral palsey, vasovagal syncopal episode, scoliosis, UTIs, some limitated ROM to R hand/wrist. History of Any Multi-Drug Resistant Organisms: None Reported Past Surgical History: Orthopedic Surgery Additional Past Surgical History / Comment(s): right wrist fusion, R knee arthroscopy, L elbow fracture with surgery. Smoking Status: Never smoker - Past Family History Father Family Medical History: Myocardial Infarction (AR) Additional Family Medical History / Comment(s): Father of a AR at the age of 60yrs. Mother Family Medical History: Cancer Additional Family Medical History / Comment(s): Mother had leukemia. She at the age of 81 yrs. Medications and Allergies Home Medications Medication Instructions Recorded Confirmed Type Aspirin 81 mg PO DAILY@1700 02/15/15 05/17/17 History Calcium Carbonate/Vitamin D3 1 tab PO DAILY@1700 02/15/15 05/17/17 History [Calcium 600-Vit D3 400 Tablet] Lisinopril-Hctz 20-12.5 mg 1 tab PO DAILY@0800 02/15/15 05/17/17 History [Zestoretic 20-12.5] Simvastatin [Zocor] 40 mg PO HS@2100 02/15/15 05/17/17 History Bisacodyl [Dulcolax] 10 mg RECTAL DAILY PRN 05/17/17 05/17/17 History Ensure Clear 240 ml PO BID@0800,1700 05/17/17 05/17/17 History Loperamide HCl [Imodium A-D] 2 mg PO DIRECTED PRN MDD 8MG 05/17/17 05/17/17 History Magnesium Hydroxide [Milk of 2,400 mg PO DAILY PRN 05/17/17 05/17/17 History Magnesia] Multivitamins, Thera [Multivitamin 1 tab PO DAILY@1700 05/17/17 05/17/17 History (formulary)] Na Phos,M-B/Na Phos,Di-Ba [Fleet 133 ml RECTAL ONCE PRN 05/17/17 05/17/17 History Adult] Nystatin 1 applic TOPICAL BID 05/17/17 05/17/17 History Allergies Allergy/AdvReac Type Severity Reaction Status Date / Time No Known Allergies Allergy Verified 05/17/17 07:11 Physical Exam Vitals: Vital Signs Temp Pulse Pulse Resp BP BP Pulse Ox 05/17/17 12:00 97.9 F 72 20 99/51 95 05/17/17 08:12 97.1 F L 72 20 101/50 97 05/17/17 06:53 77 16 104/45 98 05/17/17 05:12 98.9 F 82 18 125/60 95 Intake and Output 05/17/17 05/17/17 05/17/17 06:59 14:59 22:59 Intake Total 240 Balance 240 Intake: Oral 240 Other: Voiding Method Diaper Weight 72.575 kg Physical exam Gen. appearance oriented 3 in no distress Neck is supple no JVD Lungs good air entry clear to auscultation no rhonchi or wheezing Heart S1-S2 heard regular rate and rhythm no murmurs appreciated Abdomen is soft nontender no organomegaly bowel sounds are intact Neurologically cranial nerves II-12 grossly intact no focal motor or sensory deficits noted Skin no abnormalities appreciated Results CBC & Chem 7: 05/17/17 11:36 05/17/17 05:30 Labs: Abnormal Lab Results - Last 24 Hours (Table) 05/17/17 05/17/17 05/17/17 Range/Units 05:30 05:30 05:30 RBC 2.76 L (3.80-5.40) m/uL Hgb 9.0 L (11.4-16.0) gm/dL Hct 27.2 L (34.0-46.0) % MCV (80.0-100.0) fL APTT (22.0-30.0) sec BUN 24 H (7-17) mg/dL Glucose 100 H (74-99) mg/dL Total Creatine Kinase <20 L (30-135) U/L Total Protein 6.0 L (6.3-8.2) g/dL Albumin 2.8 L (3.5-5.0) g/dL 05/17/17 05/17/17 Range/Units 05:30 11:36 RBC 2.56 L (3.80-5.40) m/uL Hgb 8.5 L (11.4-16.0) gm/dL Hct 25.8 L (34.0-46.0) % MCV 100.7 H (80.0-100.0) fL APTT 21.9 L (22.0-30.0) sec BUN (7-17) mg/dL Glucose (74-99) mg/dL Total Creatine Kinase (30-135) U/L Total Protein (6.3-8.2) g/dL Albumin (3.5-5.0) g/dL Thrombosis Risk Factor Assmnt - Choose All That Apply Any of the Below Risk Factors Present?: Yes Each Factor Represents 1 point: Obesity (BMI >25) Other Risk Factors: Yes Each Risk Factor Represents 3 Points: Age 75 years or older Other congenital or acquired thrombophilia - If yes, enter type in comment: No Thrombosis Risk Factor Assessment Total Risk Factor Score: 4 Thrombosis Risk Factor Assessment Level: Moderate Risk Assessment and Plan Plan: #1 GI bleed concern for a lower source #2 essential hypertension #3 debility #4 recent urinary tract infection #5 chronic diarrhea #6 vitamin D insufficiency Plan We'll have GI evaluate the patient Hold aspirin at this time Serial hemoglobins Patient is asymptomatic at this time did discuss a conservative approach However patient has never had a colonoscopy
[2017-05-17] MEDS ORDERED: ENSURE CLEAR PO SCH (17:00)
[2017-05-17 17:51] LABS: CHCM 32.3; HCT 24.7 % (34.0-46.0); HDW 2.93; HGB 8.4 gm/dL (11.4-16.0); MCH 33.9 pg (25.0-35.0); MCHC 34.1 g/dL (31.0-37.0); MCV 99.6 fL (80.0-100.0); Macrocytosis Slight; Mean Platelet Volume 7.5; RBC 2.48 m/uL (3.80-5.40); RDW 15.5 % (11.5-15.5); WBC 4.9 k/uL (3.8-10.6)
[2017-05-17] MEDS: ATORVASTATIN 20 MG TAB PO SCH (21:46)
[2017-05-17 23:40] LABS: CH 32.2; CHCM 32.6; HCT 24.2 % (34.0-46.0); HDW 2.95; HGB 7.9 gm/dL (11.4-16.0); MCH 32.8 pg (25.0-35.0); MCHC 32.9 g/dL (31.0-37.0); MCV 99.6 fL (80.0-100.0); Macrocytosis Slight; Mean Platelet Volume 7.2; RBC 2.43 m/uL (3.80-5.40); RDW 15.6 % (11.5-15.5); WBC 4.8 k/uL (3.8-10.6)
--- NOTE | 2017-05-18 03:31 | P.CONS ---
History of Present Illness - Reason for Consult Consult date: 05/17/17 Rectal bleeding. - History of Present Illness Patient is a 76-year old female who was evaluated in the ER for rectal bleeding. Was at [facility] rehab following a fall she had secondary to weakness. Had loose stools over last few weeks, but no abdominal pains or UGI complaints. Has FH of leukemia and breast cancer. No prior colonoscopy. In the hospital, patient continued to pass small clots with liquidy, initially pinkish then turned yellowish stools, and dropped her Hb from around 12 to 8.5 Review of Systems REVIEW OF SYSTEMS: CARDIOPULMONARY: No chest pain or shortness of breath. GENITOURINARY: No dysuria or hematuria. MUSCULOSKELETAL: Unremarkable. SKIN: Unremarkable. ENDOCRINE: Unremarkable. PSYCHIATRIC: Unremarkable. NEUROLOGY: Unremarkable. ENT: Vision unremarkable. CONSTITUTIONAL: No recent weight loss. No fever, chills, night sweats. Past Medical History Past Medical History: Diabetes Mellitus, Hyperlipidemia, Hypertension, Musculoskeletal Disorder, Neurologic Disorder, Osteoarthritis (OA), Renal Disease, Syncope Additional Past Medical History / Comment(s): Pt recently admitted to [facility] on with near syncope, dehydration, sepsis suspected due to UTI. Other hx: "Borderline diabetes", current decubitus R buttock and yeast infection groins, CKD stage III, chronic anemia, mild protein calorie malnutrition, falls , cerebral palsey, vasovagal syncopal episode, scoliosis, UTIs, some limitated ROM to R hand/wrist. History of Any Multi-Drug Resistant Organisms: None Reported Past Surgical History: Orthopedic Surgery Additional Past Surgical History / Comment(s): right wrist fusion, R knee arthroscopy, L elbow fracture with surgery. Smoking Status: Never smoker - Past Family History Father Family Medical History: Myocardial Infarction (NM) Additional Family Medical History / Comment(s): Father of a NM at the age of 60yrs. Mother Family Medical History: Cancer Additional Family Medical History / Comment(s): Mother had leukemia. She at the age of 81 yrs. Medications and Allergies Home Medications Medication Instructions Recorded Confirmed Type Aspirin 81 mg PO DAILY@1700 02/15/15 05/17/17 History Calcium Carbonate/Vitamin D3 1 tab PO DAILY@1700 02/15/15 05/17/17 History [Calcium 600-Vit D3 400 Tablet] Lisinopril-Hctz 20-12.5 mg 1 tab PO DAILY@0800 02/15/15 05/17/17 History [Zestoretic 20-12.5] Simvastatin [Zocor] 40 mg PO HS@2100 02/15/15 05/17/17 History Bisacodyl [Dulcolax] 10 mg RECTAL DAILY PRN 05/17/17 05/17/17 History Ensure Clear 240 ml PO BID@0800,1700 05/17/17 05/17/17 History Loperamide HCl [Imodium A-D] 2 mg PO DIRECTED PRN MDD 8MG 05/17/17 05/17/17 History Magnesium Hydroxide [Milk of 2,400 mg PO DAILY PRN 05/17/17 05/17/17 History Magnesia] Multivitamins, Thera [Multivitamin 1 tab PO DAILY@1700 05/17/17 05/17/17 History (formulary)] Na Phos,M-B/Na Phos,Di-Ba [Fleet 133 ml RECTAL ONCE PRN 05/17/17 05/17/17 History Adult] Nystatin 1 applic TOPICAL BID 05/17/17 05/17/17 History Allergies Allergy/AdvReac Type Severity Reaction Status Date / Time No Known Allergies Allergy Verified 05/17/17 07:11 Physical Exam Vitals: Vital Signs Temp Pulse Pulse Resp BP BP Pulse Ox 05/17/17 15:57 98.2 F 76 20 104/51 93 L 05/17/17 12:00 97.9 F 72 20 99/51 95 05/17/17 08:12 97.1 F L 72 20 101/50 97 05/17/17 06:53 77 16 104/45 98 05/17/17 05:12 98.9 F 82 18 125/60 95 Intake and Output 05/17/17 05/17/17 05/17/17 06:59 14:59 22:59 Intake Total 240 1780 Balance 240 1780 Intake: IV 1300 Sodium Chloride 0.9% 1, 800 000 ml @ 100 mls/hr IV . Q10H STA Rx#:[id number] Sodium Chloride 0.9% 500 500 ml @ 999 mls/hr IV .Q31M STA Rx#:[id number] Oral 240 480 Other: Voiding Method Diaper Diaper Weight 72.575 kg On physical examination, patient appears comfortable in no apparent distress. Vital signs are stable. HEENT: Unremarkable. Conjunctivae pink. Sclerae anicteric. Oral cavity no lesions. NECK: No JVD or lymph node enlargement. CHEST: Clear to auscultation. HEART: Regular rate and rhythm. ABDOMEN: Soft. Bowel sounds are positive. No organomegaly. RECTAL: Yellowish stools. Irregular, firm mass felt in the proximal rectum/ distal sigmoid EXTREMITIES: No pedal edema. SKIN: No rashes. NEUROLOGIC: Alert and oriented x3. No focal deficits. Results CBC & Chem 7: 05/17/17 23:27 05/17/17 05:30 Labs: Abnormal Lab Results - Last 24 Hours (Table) 05/17/17 05/17/17 05/17/17 Range/Units 05:30 05:30 05:30 RBC 2.76 L (3.80-5.40) m/uL Hgb 9.0 L (11.4-16.0) gm/dL Hct 27.2 L (34.0-46.0) % MCV (80.0-100.0) fL APTT (22.0-30.0) sec BUN 24 H (7-17) mg/dL Glucose 100 H (74-99) mg/dL Total Creatine Kinase <20 L (30-135) U/L Total Protein 6.0 L (6.3-8.2) g/dL Albumin 2.8 L (3.5-5.0) g/dL 05/17/17 05/17/17 05/17/17 Range/Units 05:30 11:36 17:36 RBC 2.56 L 2.48 L (3.80-5.40) m/uL Hgb 8.5 L 8.4 L (11.4-16.0) gm/dL Hct 25.8 L 24.7 L (34.0-46.0) % MCV 100.7 H (80.0-100.0) fL APTT 21.9 L (22.0-30.0) sec BUN (7-17) mg/dL Glucose (74-99) mg/dL Total Creatine Kinase (30-135) U/L Total Protein (6.3-8.2) g/dL Albumin (3.5-5.0) g/dL Assessment and Plan Plan: 76-year old female with rectal bleeding, drop in Hb and abnormal rectal exam. Never had colonoscopy. The possibility of a neoplasm is considered. Will prepare tomorrow for colonoscopy . Discussed with patient and family indications, possible complications and alternatives.
[2017-05-18] MEDS ORDERED: LISINOPRIL-HCTZ 20-12.5 MG 1 EACH TAB PO SCH (08:00)
--- NOTE | 2017-05-18 09:01 | P.PN ---
Subjective Principal diagnosis: Anemia and rectal bleeding 76-year-old female [facility] resident admitted with rectal bleeding. Proximal rectum mass felt on exam yesterday. No recurrent bleeding. Denies abdominal pain. Afebrile. Hemoglobin 7.9 last night. Objective - Vital Signs Vital signs: Vital Signs Temp 97.8 F 05/18/17 08:00 Pulse 78 05/18/17 08:00 Resp 16 05/18/17 08:00 BP 106/55 05/18/17 08:00 Pulse Ox 95 05/18/17 08:00 Intake & Output 05/17/17 05/18/17 05/18/17 18:59 06:59 18:59 Intake Total 2019 Balance 2019 Weight 147.5 kg Intake: IV 1300 Sodium Chloride 0.9% 1, 800 000 ml @ 100 mls/hr IV . Q10H STA Rx#:[id number] Sodium Chloride 0.9% 500 500 ml @ 999 mls/hr IV .Q31M STA Rx#:[id number] Oral 720 Other: Voiding Method Diaper Diaper # Voids 2 # Bowel Movements 2 - Exam General appearance: The patient is alert, oriented, in no acute distress. HET: Head is normocephalic and atraumatic. Pupils are equal and reactive. Oropharynx is clear without lesions. Neck: Supple without lymphadenopathy. Trachea midline. Heart: S1 S2. Regular rate and rhythm. Lungs: No crackles or wheezes are heard. Abdomen: Soft, nontender, nondistended with bowel sounds. No peritoneal signs. No palpable organomegaly or masses. Extremities: Normal skin color and turgor. No cyanosis, rash, ulceration, clubbing, or edema. Radial and pedal pulses are 2/4 bilaterally. Neurological: No focal deficits. Strength and sensation are grossly intact. - Labs CBC & Chem 7: 05/17/17 23:27 05/17/17 05:30 Labs: Abnormal Lab Results - Last 24 Hours (Table) 05/17/17 05/17/17 05/17/17 Range/Units 11:36 17:36 23:27 RBC 2.56 L 2.48 L 2.43 L (3.80-5.40) m/uL Hgb 8.5 L 8.4 L 7.9 L (11.4-16.0) gm/dL Hct 25.8 L 24.7 L 24.2 L (34.0-46.0) % MCV 100.7 H (80.0-100.0) fL RDW 15.6 H (11.5-15.5) % Assessment and Plan (1) Rectal bleeding Status: Acute (2) Mass in rectum Status: Acute (3) Acute blood loss anemia Status: Acute Plan: 1. Colonoscopy evaluation tomorrow. CEA level. Nothing by mouth after midnight. The corporate communications manager has discussed the risks, benefits and alternative therapies for the above-mentioned procedure and for both sedation/analgesia as well as necessary blood product administration, if indicated, as they pertain to this patient. The patient has indicated understanding and acceptance of the risks and procedures discussed. Assessment and plan of care discussed with Dr. Benz
[2017-05-18 11:55] LABS: Basophils % (A) 1 %; CH 31.8; CHCM 30.6; Eosinophils # (A) 0.1 k/uL (0-0.7); Eosinophils % (A) 3 %; HDW 2.96; HGB 10.2 gm/dL (11.4-16.0); Hypochromasia Moderate; Luc # (Auto) 0.13; Luc % (Auto) 3; Lymphocytes # (A) 1.2 k/uL (1.0-4.8); Lymphocytes % (A) 24 %; MCH 32.3 pg (25.0-35.0); MCHC 30.8 g/dL (31.0-37.0); Macrocytosis Moderate; Mean Platelet Volume 7.2; Monocytes # (A) 0.2 k/uL (0-1.0); Monocytes % (A) 3 %; Neutrophils # (A) 3.5 k/uL (1.3-7.7); Neutrophils % (A) 68 %; RBC 3.15 m/uL (3.80-5.40); RDW 15.3 % (11.5-15.5); WBC 5.1 k/uL (3.8-10.6); WBC (Perox) 5.22
[2017-05-18 12:03] LABS: MCV 104.8 fL (80.0-100.0)
[2017-05-18] MEDS ORDERED: PEG 3350-NA SULF,BICARB,CL/KCL 4,000 ML BOTTLE PO ONE (15:00)
--- NOTE | 2017-05-18 16:00 | P.PN ---
Subjective This is a 76-year-old female was recently admitted to a [facility] after sustaining a fall due to generalized weakness. Patient was brought into the hospital with concern for a GI bleed Patient was noted to have a large bright red blood stool. Patient's last hemoglobin was around 12 g per DL Currently patient's hemoglobin is around 8.5 mg DL Patient denies having any headaches blurry vision nausea vomiting chest pain dizziness abdominal pain urinary urgency or frequency Patient denies having any pain on defecation No history of hemorrhoids reported Patient has been having loose stools for the last few weeks Patient apparently was last admitted to the hospital with a urinary tract infection Patient has never had a colonoscopy. No overuse of NSAIDs is reported by the patient or family was at bedside 05/18/2017 Patient states to be doing well denies having blurry vision dizziness nausea vomiting chest pain abdominal pain Has had a bowel movement without any blood loss 24 hours Objective - Vital Signs Vital signs: Vital Signs Temp 97.9 F 05/18/17 15:41 Pulse 68 05/18/17 15:41 Resp 16 05/18/17 15:41 BP 105/53 05/18/17 15:41 Pulse Ox 97 05/18/17 15:41 Intake & Output 05/17/17 05/18/17 05/18/17 18:59 06:59 18:59 Intake Total 2019 250 Balance 2019 250 Weight 147.5 kg Intake: IV 1300 Sodium Chloride 0.9% 1, 800 000 ml @ 100 mls/hr IV . Q10H STA Rx#:[id number] Sodium Chloride 0.9% 500 500 ml @ 999 mls/hr IV .Q31M STA Rx#:[id number] Oral 720 250 Other: Voiding Method Diaper Diaper # Voids 2 # Bowel Movements 2 - Exam Physical exam Gen. appearance oriented 3 in no distress Neck is supple no JVD Lungs good air entry clear to auscultation no rhonchi or wheezing Heart S1-S2 heard regular rate and rhythm no murmurs appreciated Abdomen is soft nontender no organomegaly bowel sounds are intact Neurologically cranial nerves II-12 grossly intact no focal motor or sensory deficits noted Skin no abnormalities appreciated - Labs CBC & Chem 7: 05/18/17 10:43 05/17/17 05:30 Labs: Abnormal Lab Results - Last 24 Hours (Table) 05/17/17 05/17/17 05/18/17 Range/Units 17:36 23:27 10:43 RBC 2.48 L 2.43 L 3.15 L (3.80-5.40) m/uL Hgb 8.4 L 7.9 L 10.2 L (11.4-16.0) gm/dL Hct 24.7 L 24.2 L 33.0 L (34.0-46.0) % MCV 104.8 H D (80.0-100.0) fL MCHC 30.8 L (31.0-37.0) g/dL RDW 15.6 H (11.5-15.5) % Plt Count 458 H (150-450) k/uL Assessment and Plan Plan: #1 GI bleed concern for a lower source, a rectal mass #2 essential hypertension #3 debility #4 recent urinary tract infection #5 chronic diarrhea #6 vitamin D insufficiency Plan Colonoscopy in the a.m. Monitor serial hemoglobins Patient can be triaged out of the selective floor
[2017-05-18 21:41] LABS: Glucose,Whole Blood 111 mg/dL (75-99)
[2017-05-18] MEDS: ATORVASTATIN 20 MG TAB PO SCH (21:53)
[2017-05-18] MEDS: LACTATED RINGERS 1,000 ML IV SCH (21:53)
[2017-05-19 07:48] LABS: Glucose,Whole Blood 93 mg/dL (75-99)
[2017-05-19] MEDS ORDERED: ePHEDrine 50 MG/ML 1 ML AMP ONE ×2 (09:07)
[2017-05-19] MEDS ORDERED: ePHEDrine SULFATE/0.9% NACL/PF 50 MG/5 ML SYRINGE IV ONE (09:07)
[2017-05-19] MEDS ORDERED: IV FLUID CONTINUATION 800 ML IV ONE (09:07)
[2017-05-19] MEDS ORDERED: PROPOFOL 10 MG/ML 20 ML VIAL IV ONE (09:07)
--- NOTE | 2017-05-19 09:27 | P.PCN ---
Date of Procedure: 05/19/17 Preoperative Diagnosis: Postoperative Diagnosis: Procedure(s) Performed: Procedure: Sigmoidoscopy and biopsy/this was a planned colonoscopy. Preoperative diagnosis: Rectal bleeding. Postoperative diagnosis: Partially obstructing mass in the distal sigmoid/ rectosigmoid junction biopsy. Preparation: GoLYTELY prep. Sedation: Was provided by anesthesia. Brief clinical history: The patient is a 76-year old female who was evaluated in the ER for rectal bleeding. Was at [facility] rehab following a fall she had secondary to weakness. Had loose stools over last few weeks, but no abdominal pains or UGI complaints. Has FH of leukemia and breast cancer. No prior colonoscopy. In the hospital, patient continued to pass small clots with liquidy , initially pinkish then turned yellowish stools, and dropped her Hb from around 12 to 8.5, then dropped further to 7.9 for which she received transfusions. There was a possible mass on digital rectal examination. This evaluation is to assess for a source of rectal bleeding. The details as summarized in the history and physical and dictated consultation. Procedure: With the patient on her left lateral decubitus position and after informed consent and adequate sedation, the perianal area was inspected and it did not show any fissures or fistulas. There were no masses definitely felt on digital rectal examination. The Olympus CFQ 160L video colonoscope was then inserted in the rectum and the usual fashion, however, I was not able to advance beyond the distal sigmoid/rectosigmoid junction because of a partially obstructing mass consistent with cancer. I obtained a picture and biopsy then the endoscope was withdrawn. The patient tolerated the procedure well. Plan: I summarized her findings to the patient. We will consult surgery and await the biopsy results. Implants: Indications for Procedure: Operative Findings: Description of Procedure:
[2017-05-19 10:15] LABS: Basophils % (A) 0 %; CH 32.2; CHCM 32.5; Eosinophils # (A) 0.1 k/uL (0-0.7); Eosinophils % (A) 2 %; HCT 24.6 % (34.0-46.0); HDW 3.03; Luc % (Auto) 2; Lymphocytes # (A) 0.9 k/uL (1.0-4.8); Lymphocytes % (A) 20 %; MCH 32.2 pg (25.0-35.0); MCHC 32.2 g/dL (31.0-37.0); Macrocytosis Slight; Mean Platelet Volume 7.5; Monocytes # (A) 0.2 k/uL (0-1.0); Monocytes % (A) 4 %; Neutrophils # (A) 3.2 k/uL (1.3-7.7); Neutrophils % (A) 72 %; RBC 2.46 m/uL (3.80-5.40); RDW 15.2 % (11.5-15.5); WBC 4.5 k/uL (3.8-10.6); WBC (Perox) 4.64
[2017-05-19 10:17] LABS: HGB 7.9 gm/dL (11.4-16.0); MCV 99.8 fL (80.0-100.0)
--- NOTE | 2017-05-19 12:50 | P.GSCN ---
History of Present Illness Consult date: 05/19/17 Reason for Consult: Sigmoid colon obstructing mass History of present illness: Is a 76-year-old female who underwent colonoscopy by Dr. Frankel today. Patient has a history of GI bleed. Dr. Frankel performed colonoscopy is found have a suspicious mass in the sigmoid colon causing high-grade obstruction. Past Medical History Past Medical History: Diabetes Mellitus, Hyperlipidemia, Hypertension, Musculoskeletal Disorder, Neurologic Disorder, Osteoarthritis (OA), Renal Disease, Syncope Additional Past Medical History / Comment(s): Pt recently admitted to [facility] on with near syncope, dehydration, sepsis suspected due to UTI. Other hx: "Borderline diabetes", current decubitus R buttock and yeast infection groins, CKD stage III, chronic anemia, mild protein calorie malnutrition, falls , cerebral palsey, vasovagal syncopal episode, scoliosis, UTIs, some limitated ROM to R hand/wrist. History of Any Multi-Drug Resistant Organisms: None Reported Past Surgical History: Orthopedic Surgery Additional Past Surgical History / Comment(s): right wrist fusion, R knee arthroscopy, L elbow fracture with surgery. Smoking Status: Never smoker - Past Family History Father Family Medical History: Myocardial Infarction (HI) Additional Family Medical History / Comment(s): Father of a HI at the age of 60yrs. Mother Family Medical History: Cancer Additional Family Medical History / Comment(s): Mother had leukemia. She at the age of 81 yrs. Medications and Allergies Home Medications Medication Instructions Recorded Confirmed Type Aspirin 81 mg PO DAILY@1700 02/15/15 05/17/17 History Calcium Carbonate/Vitamin D3 1 tab PO DAILY@1700 02/15/15 05/17/17 History [Calcium 600-Vit D3 400 Tablet] Lisinopril-Hctz 20-12.5 mg 1 tab PO DAILY@0800 02/15/15 05/17/17 History [Zestoretic 20-12.5] Simvastatin [Zocor] 40 mg PO HS@2100 02/15/15 05/17/17 History Bisacodyl [Dulcolax] 10 mg RECTAL DAILY PRN 05/17/17 05/17/17 History Ensure Clear 240 ml PO BID@0800,1700 05/17/17 05/17/17 History Loperamide HCl [Imodium A-D] 2 mg PO DIRECTED PRN MDD 8MG 05/17/17 05/17/17 History Magnesium Hydroxide [Milk of 2,400 mg PO DAILY PRN 05/17/17 05/17/17 History Magnesia] Multivitamins, Thera [Multivitamin 1 tab PO DAILY@1700 05/17/17 05/17/17 History (formulary)] Na Phos,M-B/Na Phos,Di-Ba [Fleet 133 ml RECTAL ONCE PRN 05/17/17 05/17/17 History Adult] Nystatin 1 applic TOPICAL BID 05/17/17 05/17/17 History Allergies Allergy/AdvReac Type Severity Reaction Status Date / Time No Known Allergies Allergy Verified 05/17/17 07:11 Surgical - Exam Vital Signs Temp Pulse Resp BP Pulse Ox 98.9 F 82 18 125/60 95 05/17/17 05:12 05/17/17 05:12 05/17/17 05:12 05/17/17 05:12 05/17/17 05:12 - General well developed, no distress - Eyes PERRL - ENT normal pinna - Neck no masses - Respiratory normal expansion - Cardiovascular Rhythm: regular - Abdomen Abdomen: soft, non tender Results - Labs 05/19/17 09:53 05/17/17 05:30 Abnormal Lab Results - Last 24 Hours (Table) 05/18/17 05/19/17 Range/Units 21:27 09:53 RBC 2.46 L (3.80-5.40) m/uL Hgb 7.9 L D (11.4-16.0) gm/dL Hct 24.6 L (34.0-46.0) % Lymphocytes # 0.9 L (1.0-4.8) k/uL POC Glucose (mg/dL) 111 H (75-99) mg/dL Assessment and Plan Plan: Sigmoid colon mass causing high-grade obstruction. Patient will undergo low anterior resection tomorrow. I discussed the patient and her family the risk of possible colostomy, bleeding and wound infection.
--- NOTE | 2017-05-19 16:26 | P.PN ---
Subjective This is a 76-year-old female was recently admitted to a correction after sustaining a fall due to generalized weakness. Patient was brought into the hospital with concern for a GI bleed Patient was noted to have a large bright red blood stool. Patient's last hemoglobin was around 12 g per DL Currently patient's hemoglobin is around 8.5 mg DL Patient denies having any headaches blurry vision nausea vomiting chest pain dizziness abdominal pain urinary urgency or frequency Patient denies having any pain on defecation No history of hemorrhoids reported Patient has been having loose stools for the last few weeks Patient apparently was last admitted to the hospital with a urinary tract infection Patient has never had a colonoscopy. No overuse of NSAIDs is reported by the patient or family was at bedside 05/18/2017 Patient states to be doing well denies having blurry vision dizziness nausea vomiting chest pain abdominal pain Has had a bowel movement without any blood loss 24 hours 05/19/2017 Patient went to an attempted colonoscopy. However scope could not be passed due to significant obstructive mass Denies having dizziness chest pain nausea vomiting headaches blurry vision abdominal pain Objective - Vital Signs Vital signs: Vital Signs Temp 98.0 F 05/19/17 15:00 Pulse 75 05/19/17 15:00 Resp 16 05/19/17 15:00 BP 88/47 05/19/17 15:00 Pulse Ox 92 L 05/19/17 15:00 Intake & Output 05/18/17 05/19/17 05/19/17 18:59 06:59 18:59 Intake Total 950 600 520 Balance 950 600 520 Intake: IV 200 Oral 950 600 320 Other: Voiding Method Diaper Diaper Diaper # Voids 1 2 # Bowel Movements 1 1 2 - Exam Physical exam Gen. appearance oriented 3 in no distress Neck is supple no JVD Lungs good air entry clear to auscultation no rhonchi or wheezing Heart S1-S2 heard regular rate and rhythm no murmurs appreciated Abdomen is soft nontender no organomegaly bowel sounds are intact Neurologically cranial nerves II-12 grossly intact no focal motor or sensory deficits noted Skin no abnormalities appreciated - Labs CBC & Chem 7: 05/19/17 09:53 05/17/17 05:30 Labs: Abnormal Lab Results - Last 24 Hours (Table) 05/18/17 05/19/17 Range/Units 21:27 09:53 RBC 2.46 L (3.80-5.40) m/uL Hgb 7.9 L D (11.4-16.0) gm/dL Hct 24.6 L (34.0-46.0) % Lymphocytes # 0.9 L (1.0-4.8) k/uL POC Glucose (mg/dL) 111 H (75-99) mg/dL Assessment and Plan Plan: #1 GI bleed concern for a lower source, a rectal mass #2 essential hypertension #3 debility #4 recent urinary tract infection #5 chronic diarrhea #6 vitamin D insufficiency Plan Patient will have a surgical resection tomorrow Patient was able to ambulate with help with the urgency of this procedure no further workup is necessary for cardiovascular risk assessment Did discuss that patient would have a high risk as patient is not able to perform 4 METS at baseline. However the patient and the family member at bedside verbalized understanding the risks and decided to proceed with surgery Repeat hemoglobin continue monitoring
[2017-05-19] MEDS ORDERED: HYDROmorphone 1 MG/ML 1 ML SYRINGE IVP PRN (19:18)
[2017-05-19] MEDS ORDERED: MIDAZOLAM 2 MG/2 ML VIAL IV PRN (19:18)
[2017-05-19] MEDS: ATORVASTATIN 20 MG TAB PO SCH (21:16)
[2017-05-19] MEDS: LACTATED RINGERS 1,000 ML IV SCH ×2 (21:16→22:18)
[2017-05-19] MEDS: DEXAMETHASONE SOD PHOSPHATE 10 MG/ML 1 ML VIAL IV ONE (22:14)
[2017-05-19] MEDS: ONDANSETRON 4 MG/2 ML VIAL IVP ONE (22:15)
[2017-05-20 08:03] LABS: Basophils % (A) 0 %; CH 31.8; CHCM 31.6; Eosinophils % (A) 1 %; HCT 26.4 % (34.0-46.0); HDW 2.97; HGB 8.5 gm/dL (11.4-16.0); Hypochromasia Slight; Luc # (Auto) 0.04; Luc % (Auto) 2; Lymphocytes # (A) 0.7 k/uL (1.0-4.8); Lymphocytes % (A) 22 %; MCH 32.6 pg (25.0-35.0); MCHC 32.2 g/dL (31.0-37.0); MCV 101.2 fL (80.0-100.0); Macrocytosis Slight; Monocytes % (A) 1 %; Neutrophils # (A) 2.2 k/uL (1.3-7.7); Neutrophils % (A) 74 %; RBC 2.61 m/uL (3.80-5.40); WBC 2.9 k/uL (3.8-10.6); WBC (Perox) 3.08
[2017-05-20 08:13] LABS: ALT 21 U/L (9-52); AST 16 U/L (14-36); Alkaline Phosphatase 77 U/L (38-126); Anion Gap 6 mmol/L; Blood Urea Nitrogen 11 mg/dL (7-17); Calcium 8.5 mg/dL (8.4-10.2); Carbon Dioxide 26 mmol/L (22-30); Chloride 107 mmol/L (98-107); Glucose 131 mg/dL (74-99); Non-African American GFR(MDRD) >60 (>60 ml/min/1.73 sqM); Potassium 4.4 mmol/L (3.5-5.1); Sodium 139 mmol/L (137-145); Total Bilirubin 0.2 mg/dL (0.2-1.3); Total Protein 5.3 g/dL (6.3-8.2)
[2017-05-20] MEDS: LACTATED RINGERS 1,000 ML IV SCH ×3 (11:58→20:34)
[2017-05-20] MEDS: ONDANSETRON 4 MG/2 ML VIAL IVP ONE (12:01)
[2017-05-20] MEDS: DEXAMETHASONE SOD PHOSPHATE 10 MG/ML 1 ML VIAL IV ONE (12:01)
[2017-05-20] MEDS ORDERED: fentaNYL (PF) 50 MCG/ML 2 ML AMP IVP ONE (12:30)
[2017-05-20] MEDS ORDERED: HEPARIN SODIUM,PORCINE 5,000 UNIT/ML 1 ML VIAL SQ ONE (12:46)
[2017-05-20] MEDS ORDERED: NALOXONE 0.4 MG/ML 1 ML VIAL IV PRN (12:51)
[2017-05-20] MEDS ORDERED: HYDROmorphone (PF) 1 MG/ML ONE (13:18)
[2017-05-20] MEDS ORDERED: NEOSTIGMINE 1 MG/ML 10 ML VIAL ONE (13:18)
[2017-05-20] MEDS ORDERED: MIDAZOLAM 2 MG/2 ML VIAL ONE (13:18)
[2017-05-20] MEDS ORDERED: LIDOCAINE 1% INJ 10MG/ML (20 ML MDV) ONE (13:18)
[2017-05-20] MEDS ORDERED: ROCURONIUM BROMIDE 10 MG/ML 10 ML VIAL IV ONE (13:18)
[2017-05-20] MEDS ORDERED: fentaNYL (PF) 50 MCG/ML 2 ML AMP ONE (13:18)
[2017-05-20] MEDS ORDERED: GLYCOPYRROLATE 0.2 MG/ML 2 ML VIAL ONE (13:18)
[2017-05-20] MEDS ORDERED: PROPOFOL 10 MG/ML 20 ML VIAL IV ONE (13:18)
[2017-05-20] MEDS ORDERED: metroNIDAZOLE-NS PMX 500 MG in SALINE 1 100ML.BAG IVPB STA (13:35)
[2017-05-20] MEDS ORDERED: SODIUM CHLORIDE 0.9% 50 ML with ceFAZolin 2,000 MG IV ONE ×2 (13:48)
[2017-05-20] MEDS ORDERED: BENZOCAINE/MENTHOL LOZENG 1 EACH LOZENGE MUCOUS MEM PRN (14:28)
[2017-05-20] MEDS ORDERED: HYDROmorphone 1 MG/ML 1 ML SYRINGE IVP PRN (14:28)
--- NOTE | 2017-05-20 14:28 | P.OP ---
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 She received general anesthesia. Her abdomen was prepped and draped usual sterile fashion. He was placed in dorsal 5 position. The abdomen was entered through a low midline incision. The descending colon appeared to be grossly distended. The tumor was seen in the distal sigmoid. Just above the peritoneal reflection. This point the proximal; was transected with a GI stapler. And then using sharp and then sharp dissection and LigaSure device the colon was mobilized medially. There was extension of the tumor to the lateral pelvic wall. The tumor extended down towards the rectum. There appeared to be evidence of tumor extension into the pelvic sidewall on the left side. The old appeared to be entirely replaced by tumor just below the peritoneal reflection. The dissection continued towards the rectum and the rectum was then transected with the contour stapler. The rectum. Be very friable. It was decided not to perform anastomosis due to the poor condition of the distal rectum and the evidence of metastatic tumor. At this point the specimens of pathology. The abdomen was irrigated. There is no significant bleeding in the pelvis. A WALTER drain is placed into the pelvic area and brought out through the right lower quadrant and then the colostomy was brought up through the left abdominal wall. The fascia was closed with #1 PDS suture. A fascial WALTER drain is placed over top of the fascial closure and brought out through the epigastric position. The skin was closed angella. The colostomy was matured with 3-0 Vicryl suture. Patient was sent to recovery in stable condition.
[2017-05-20] MEDS ORDERED: LACTATED RINGERS 1,000 ML IV ONE (14:30)
[2017-05-20] MEDS: BUPIVACAINE (PF) 0.5% 31.3 ML, HYDROMORPHONE (PF) 5 MG in SODIUM CHLORIDE 0.9% 218 ML EPIDURAL PRN ×2 (14:56→15:26)
[2017-05-20 16:43] LABS: Basophils % (A) 0 %; CHCM 32.1; Eosinophils # (A) 0.2 k/uL (0-0.7); Eosinophils % (A) 1 %; HCT 29.9 % (34.0-46.0); HGB 9.7 gm/dL (11.4-16.0); Hypochromasia Slight; Luc # (Auto) 0.09; Luc % (Auto) 1; Lymphocytes # (A) 1.3 k/uL (1.0-4.8); Lymphocytes % (A) 9 %; MCH 32.6 pg (25.0-35.0); MCHC 32.5 g/dL (31.0-37.0); MCV 100.4 fL (80.0-100.0); Macrocytosis Slight; Mean Platelet Volume 8.4; Monocytes # (A) 0.2 k/uL (0-1.0); Monocytes % (A) 1 %; Neutrophils # (A) 12.3 k/uL (1.3-7.7); Neutrophils % (A) 87 %; RBC 2.98 m/uL (3.80-5.40); WBC 14.1 k/uL (3.8-10.6); WBC (Perox) 15.13
[2017-05-20 17:01] LABS: Anion Gap 8 mmol/L; Blood Urea Nitrogen 12 mg/dL (7-17); Calcium 8.6 mg/dL (8.4-10.2); Carbon Dioxide 22 mmol/L (22-30); Chloride 108 mmol/L (98-107); Glucose 162 mg/dL (74-99); Non-African American GFR(MDRD) >60 (>60 ml/min/1.73 sqM); Potassium 4.5 mmol/L (3.5-5.1); Sodium 138 mmol/L (137-145)
[2017-05-20] MEDS: D5-0.45% NACL WITH KCL 20MEQ/L 1,000 ML IV SCH ×2 (17:50→23:59)
[2017-05-20] MEDS: PIPERACILLIN-TAZOBACTAM 3.375 GM in DEXTROSE/WATER 1 50ML.BAG IVPB SCH ×2 (17:50→23:31)
[2017-05-20] MEDS: ATORVASTATIN 20 MG TAB PO SCH (20:45)
[2017-05-20] MEDS: FAMOTIDINE 20 MG/2 ML VIAL IV SCH (21:32)
[2017-05-20] MEDS: HEPARIN SODIUM,PORCINE 5,000 UNIT/ML 1 ML VIAL SQ SCH (23:59)
[2017-05-21] MEDS: D5-0.45% NACL WITH KCL 20MEQ/L 1,000 ML IV SCH ×3 (05:11→22:03)
[2017-05-21] MEDS: FAMOTIDINE 20 MG/2 ML VIAL IV SCH ×2 (08:00→22:02)
[2017-05-21] MEDS: PIPERACILLIN-TAZOBACTAM 3.375 GM in DEXTROSE/WATER 1 50ML.BAG IVPB SCH ×3 (08:01→23:50)
[2017-05-21] MEDS: HEPARIN SODIUM,PORCINE 5,000 UNIT/ML 1 ML VIAL SQ SCH ×3 (08:01→23:50)
[2017-05-21] MEDS: ONDANSETRON 4 MG/2 ML VIAL IVP PRN (08:11)
[2017-05-21 08:46] LABS: Basophils % (A) 0 %; CHCM 31.2; Eosinophils % (A) 0 %; HDW 3.03; HGB 9.1 gm/dL (11.4-16.0); Hypochromasia Slight; Luc # (Auto) 0.15; Luc % (Auto) 1; Lymphocytes # (A) 1.1 k/uL (1.0-4.8); Lymphocytes % (A) 11 %; MCH 32.3 pg (25.0-35.0); MCHC 31.3 g/dL (31.0-37.0); MCV 103.1 fL (80.0-100.0); Macrocytosis Slight; Monocytes # (A) 0.4 k/uL (0-1.0); Monocytes % (A) 4 %; Neutrophils # (A) 8.7 k/uL (1.3-7.7); Neutrophils % (A) 83 %; RBC 2.81 m/uL (3.80-5.40); RDW 15.2 % (11.5-15.5); WBC 10.4 k/uL (3.8-10.6); WBC (Perox) 10.71
[2017-05-21 09:10] LABS: Anion Gap 5 mmol/L; Blood Urea Nitrogen 15 mg/dL (7-17); Calcium 8.3 mg/dL (8.4-10.2); Carbon Dioxide 25 mmol/L (22-30); Chloride 106 mmol/L (98-107); Glucose 171 mg/dL (74-99); Non-African American GFR(MDRD) 57 (>60 ml/min/1.73 sqM); Potassium 4.7 mmol/L (3.5-5.1); Sodium 136 mmol/L (137-145)
--- NOTE | 2017-05-21 09:15 | PN ---
DATE OF SERVICE: 05/20/2017 INTERVAL HISTORY: Mr. Morel is a 76-year-old female who was recently [facility] the [facility] after sustaining fall due to generalized weakness. The patient was brought to the hospital with concerns for GI bleed. Patient had attempted colonoscopy initially on 05/19/2017 and scope could not be passed due to significant obstructing mass. Today patient was taken to OR for low anterior resection of the sigmoid and colostomy bag placement was done today. Otherwise currently the patient is drowsy and could not provide any history. Complete review of systems could not be obtained at this time. The patient is still drowsy due to general anesthesia. Current medications include: Lipitor, Cepacol, Bupivacaine, Pepcid, heparin subcu, Dilaudid, Ringer lactate, Narcan, Zofran, Zosyn, potassium chloride, dextrose. PHYSICAL EXAMINATION: A 76-year-old female lying in bed comfortably, awake, alert, oriented x2 to 3. Appears to be in no apparent distress. VITALS: Blood pressure is 113/60, pulse rate is 60, respiratory rate 16, temperature afebrile, pulse ox 94% on room air. HEENT: Atraumatic, normocephalic. NECK: Supple. No JVD. CVS: S1, S2 heard. No murmurs, no gallop, no rub. LUNGS: Bilateral air entry is present. No wheezing, no crackles. Nonlabored breathing. ABDOMEN: Soft, nontender. Colostomy bag is in place. No active bleeding at the site. 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 EXTREMITIES: No edema. Pulses palpable bilaterally. No clubbing or cyanosis. PSYCHIATRY: Cooperative. LABORATORY DATA: WBC 14.1, hemoglobin 9.7, platelets 589, sodium 138, potassium 4.5, chloride 108, bicarb is 22, BUN 12, creatinine 0.8, calcium 8.6, albumin is 2.6. IMPRESSION: 1. Acute blood loss anemia secondary to lower gastrointestinal bleed secondary to sigmoid mass. 2. Sigmoid mass status post low anterior resection and colostomy bag placement , postoperative day 0. 3. Essential hypertension. 4. Medical debility. 5. Recent urinary tract infection. 6. Chronic diarrhea. 7. Vitamin D deficiency. DISCUSSION AND PLAN: The patient will be continued with pain management, continue with colostomy bag and will start on diet in the next 24 hours and follow closely. General Surgery is following the patient. Continue with IV fluids. Further recommendations based on the clinical course. MTDD
--- NOTE | 2017-05-21 09:57 | P.PN ---
Progress Note - Text Patient is postop low anterior resection w Colostomy by Dr. Levy . Coming along fairly well. Somewhat resistant to doing her incentive spirometry and to ambulate. Strongly encouraged to do both the today and she now agrees. Feels a little nauseous. The not really able to take any po fluids. On examination the patient is awake alert the. No fever. Vitals are stable. Mucous membranes a moist. Abdomen is soft incision looks fine. Colostomy is viable and pink no activity just yet as expected. Usual postoperative tenderness. Labs were noted the. BUN/creatinine's stable. Impression stable postoperative course. Usual tenderness and nausea. Recommendation encouraged to ambulate incentive spirometry. Monitor her INR was spastic from the WALTER drains. Also urine output will be monitored symphysis borderline right now.
--- NOTE | 2017-05-21 12:55 | P.PN ---
Progress Note - Text Postop day 1 from low anterior resection, epidural catheter inserted for postop pain control. Epidural solution: Bupivacaine 0.625% with Dilaudid 20 mcgs/ml running at 5 mL an hour. Patient pain is well controlled with visual analog score of 0-1/10. No nausea vomiting, itching, weakness or numbness in the legs or headache reported by the patient. Plan: To continue the epidural infusion at the current rate.
[2017-05-21] MEDS: ATORVASTATIN 20 MG TAB PO SCH (22:02)
[2017-05-22] MEDS: D5-0.45% NACL WITH KCL 20MEQ/L 1,000 ML IV SCH ×3 (06:03→21:14)
[2017-05-22] MEDS: PIPERACILLIN-TAZOBACTAM 3.375 GM in DEXTROSE/WATER 1 50ML.BAG IVPB SCH ×2 (07:55→15:13)
[2017-05-22] MEDS: HEPARIN SODIUM,PORCINE 5,000 UNIT/ML 1 ML VIAL SQ SCH ×2 (07:56→15:13)
[2017-05-22] MEDS: FAMOTIDINE 20 MG/2 ML VIAL IV SCH ×2 (07:56→21:14)
[2017-05-22] MEDS ORDERED: HYDROmorphone 1 MG/ML 1 ML SYRINGE IV PRN (10:11)
--- NOTE | 2017-05-22 10:24 | P.PN ---
Progress Note - Text The patient is tolerating a liquid diet. Denies any urinary or vomiting. Minimal discomfort. On examination she is afebrile. Vitals are stable. She is in good spirits. Abdomen is soft with mild the tenderness. Incision looks good. Stoma is healthy. No activity yet. Urine output is improved. Impression stable post low anterior resection with colostomy for large obstructing malignancy. Improving. Recommendation. Plan is to DC the epidural. We'll DC Galo tomorrow. Advance her diet. Encouraged ambulation.
[2017-05-22] MEDS: ONDANSETRON 4 MG/2 ML VIAL IVP PRN (12:08)
--- NOTE | 2017-05-22 16:39 | P.PN ---
Subjective Principal diagnosis: Sigmoid colon cancer status post resection Mr. Morel is a 76-year-old female who was recently admitted to the long-term after sustaining fall due to generalized weakness. The patient was brought to the hospital with concerns for GI bleed. Patient had attempted colonoscopy initially on 05/19/2017 and scope could not be passed due to significant obstructing mass. On 05/20/2017 patient was taken to OR for low anterior resection of the sigmoid and colostomy bag placement was done. On 05/21/2017 Agent is more awake and oriented today. Patient is tolerating liquid diet but feels nauseous now, as her chest pain or short of breath. Hemoglobin is stable. Patient is on epidural. Review of systems Patient denied any, soft chest pain or short of breath. Patient is nauseous no abdominal pain noted no longer drinks. No cough or phlegm production. No numbness or tingling. No headache or dizziness. All other review of systems negative except above Objective - Vital Signs Vital signs: Vital Signs Temp 96.8 F L 05/22/17 07:46 Pulse 57 L 05/22/17 07:46 Resp 20 05/22/17 07:46 BP 105/70 05/22/17 07:46 Pulse Ox 100 05/22/17 07:46 Intake & Output 05/21/17 05/22/17 05/22/17 18:59 06:59 18:59 Intake Total 1090 1550 1090 Output Total 330 525 180 Balance 760 1025 910 Weight 81.647 kg Intake: IV 1090 Bupivacaine (Pf) 0.5% 31. 40 3 ml Hydromorphone (Pf) 5 mg In Sodium Chloride 0. 9% 218 ml @ Per Protocol EPIDURAL .Q0M PRN Rx#: [id number] D5-0.45% NaCl with KCl 1000 20Meq/l 1,000 ml @ 125 mls/hr IV .Q8H [facility] Rx#: [id number] Piperacillin-Tazobactam 3 50 .375 gm In Dextrose/Water 1 50ml.bag @ 12.5 mls/hr IVPB Q8HR [facility] Rx#: [id number] Intake, IV Titration 1090 1550 Amount Bupivacaine (Pf) 0.5% 31. 40 3 ml Hydromorphone (Pf) 5 mg In Sodium Chloride 0. 9% 218 ml @ Per Protocol EPIDURAL .Q0M PRN Rx#: [id number] D5-0.45% NaCl with KCl 1000 1500 20Meq/l 1,000 ml @ 125 mls/hr IV .Q8H [facility] Rx#: [id number] Piperacillin-Tazobactam 3 50 50 .375 gm In Dextrose/Water 1 50ml.bag @ 12.5 mls/hr IVPB Q8HR [facility] Rx#: [id number] Output: Drainage 80 80 180 Left Abdomen 10 20 0 Right Abdomen 70 60 180 Urine 250 445 Other: Voiding Method Indwelling Catheter Indwelling Catheter Indwelling Catheter # Voids 1 - Exam A 76-year-old female lying in bed comfortably, awake, alert, oriented x2 to 3. Appears to be in no apparent distress. HEENT: Atraumatic, normocephalic. No nostril area discharge NECK: Supple. No JVD. CVS: S1, S2 heard. No murmurs, no gallop, no rub. LUNGS: Bilateral air entry is present. No wheezing, no crackles. Nonlabored breathing. ABDOMEN: Soft, nontender. Colostomy bag is in place. No active bleeding at the site. Bowel sounds are sluggish to absent CONSTITUTIONAL LAW PROFESSOR: Awake, alert, oriented x3 able to move all extremities. EXTREMITIES: No edema. Pulses palpable bilaterally. No clubbing or cyanosis. PSYCHIATRY: Cooperative. - Labs CBC & Chem 7: 05/21/17 07:49 05/21/17 07:49 Assessment and Plan Plan: 1. Acute blood loss anemia secondary to lower gastrointestinal bleed secondary to sigmoid mass. Hemoglobin stable 2. Sigmoid mass status post low anterior resection and colostomy bag placement , postoperative day 1 3. Essential hypertension. 4. Medical debility. 5. Recent urinary tract infection. 6. Chronic diarrhea. 7. Vitamin D deficiency. DISCUSSION AND PLAN: The patient will be continued with pain management, continue with colostomy bag and started on liquid diet. General Surgery is following the patient. Continue with IV fluids. Further recommendations based on the clinical course. Patient was encouraged with ambulation and also incentive spirometry. Time with Patient: Greater than 30
--- NOTE | 2017-05-22 17:13 | P.PN ---
Subjective Principal diagnosis: Sigmoid colon cancer status post resection Mr. Morel is a 76-year-old female who was recently admitted to the custodial after sustaining fall due to generalized weakness. The patient was brought to the hospital with concerns for GI bleed. Patient had attempted colonoscopy initially on 05/19/2017 and scope could not be passed due to significant obstructing mass. On 05/20/2017 patient was taken to OR for low anterior resection of the sigmoid and colostomy bag placement was done. On 05/21/2017 Agent is more awake and oriented today. Patient is tolerating liquid diet but feels nauseous now, as her chest pain or short of breath. Hemoglobin is stable. Patient is on epidural. On 05/22/2017 Patient says that her nausea is improved. Epidural pain management is being discontinued today. No fever no chills. No complaints of abdominal pain. Patient is tolerating liquid diet today. Otherwise no chest pain or short of breath. Review of systems Patient denied any, soft chest pain or short of breath. Patient is nauseous no abdominal pain noted no longer drinks. No cough or phlegm production. No numbness or tingling. No headache or dizziness. All other review of systems negative except above Objective - Vital Signs Vital signs: Vital Signs Temp 96.8 F L 05/22/17 07:46 Pulse 57 L 05/22/17 07:46 Resp 20 05/22/17 07:46 BP 105/70 05/22/17 07:46 Pulse Ox 100 05/22/17 07:46 Intake & Output 05/21/17 05/22/17 05/22/17 18:59 06:59 18:59 Intake Total 1090 1550 1090 Output Total 330 525 180 Balance 760 1025 910 Weight 81.647 kg Intake: IV 1090 Bupivacaine (Pf) 0.5% 31. 40 3 ml Hydromorphone (Pf) 5 mg In Sodium Chloride 0. 9% 218 ml @ Per Protocol EPIDURAL .Q0M [facility] Rx#: [id number] D5-0.45% NaCl with KCl 1000 20Meq/l 1,000 ml @ 125 mls/hr IV .Q8H [facility] Rx#: [id number] Piperacillin-Tazobactam 3 50 .375 gm In Dextrose/Water 1 50ml.bag @ 12.5 mls/hr IVPB Q8HR [facility] Rx#: [id number] Intake, IV Titration 1090 1550 Amount Bupivacaine (Pf) 0.5% 31. 40 3 ml Hydromorphone (Pf) 5 mg In Sodium Chloride 0. 9% 218 ml @ Per Protocol EPIDURAL .Q0M [facility] Rx#: [id number] D5-0.45% NaCl with KCl 1000 1500 20Meq/l 1,000 ml @ 125 mls/hr IV .Q8H [facility] Rx#: [id number] Piperacillin-Tazobactam 3 50 50 .375 gm In Dextrose/Water 1 50ml.bag @ 12.5 mls/hr IVPB Q8HR [facility] Rx#: [id number] Output: Drainage 80 80 180 Left Abdomen 10 20 0 Right Abdomen 70 60 180 Urine 250 445 Other: Voiding Method Indwelling Catheter Indwelling Catheter Indwelling Catheter # Voids 1 - Exam A 76-year-old female lying in bed comfortably, awake, alert, oriented x2 to 3. Appears to be in no apparent distress. HEENT: Atraumatic, normocephalic. No nostril area discharge NECK: Supple. No JVD. CVS: S1, S2 heard. No murmurs, no gallop, no rub. LUNGS: Bilateral air entry is present. No wheezing, no crackles. Nonlabored breathing. ABDOMEN: Soft, nontender. Colostomy bag is in place. No active bleeding at the site. Bowel sounds are sluggish to absent VALIDATION ARCHITECT: Awake, alert, oriented x3 able to move all extremities. EXTREMITIES: No edema. Pulses palpable bilaterally. No clubbing or cyanosis. PSYCHIATRY: Cooperative. - Labs CBC & Chem 7: 05/21/17 07:49 05/21/17 07:49 Assessment and Plan Plan: 1. Acute blood loss anemia secondary to lower gastrointestinal bleed secondary to sigmoid mass. Hemoglobin stable 2. Sigmoid mass status post low anterior resection and colostomy bag placement , postoperative day 2 3. Essential hypertension. 4. Medical debility. 5. Recent urinary tract infection. 6. Chronic diarrhea. 7. Vitamin D deficiency. DISCUSSION AND PLAN: The patient will be continued with pain management, continue with colostomy bag and started on liquid diet. Patient is tolerating liquid diet. patient General Surgery is following the patient. Continue with IV fluids. Further recommendations based on the clinical course. Patient was encouraged with ambulation and also incentive spirometry. Time with Patient: Less than 30
--- NOTE | 2017-05-22 20:19 | P.PN ---
Progress Note - Text Postop day 2 status post low anterior resection, epidural catheter inserted for post operative pain control , patient was on combination infusion bupivacaine/ Dilaudid, at 5 ML per hour , patient doing well, vital signs stable, pain well controlled, the epidural catheter, continued, and management as per primary team
[2017-05-22] MEDS: ATORVASTATIN 20 MG TAB PO SCH (21:14)
[2017-05-23] MEDS: HEPARIN SODIUM,PORCINE 5,000 UNIT/ML 1 ML VIAL SQ SCH ×3 (00:14→17:44)
[2017-05-23] MEDS: PIPERACILLIN-TAZOBACTAM 3.375 GM in DEXTROSE/WATER 1 50ML.BAG IVPB SCH ×3 (00:15→17:44)
[2017-05-23] MEDS: ONDANSETRON 4 MG/2 ML VIAL IVP PRN ×2 (00:25→13:36)
[2017-05-23] MEDS: D5-0.45% NACL WITH KCL 20MEQ/L 1,000 ML IV SCH ×2 (04:55→17:47)
[2017-05-23] MEDS: FAMOTIDINE 20 MG/2 ML VIAL IV SCH (08:29)
[2017-05-23 08:45] LABS: Basophils % (A) 0 %; CH 32.1; CHCM 31.8; Eosinophils % (A) 0 %; HCT 31.7 % (34.0-46.0); HDW 3.19; HGB 10.2 gm/dL (11.4-16.0); Hypochromasia Slight; Luc # (Auto) 0.08; Luc % (Auto) 1; Lymphocytes # (A) 0.9 k/uL (1.0-4.8); Lymphocytes % (A) 8 %; MCH 32.7 pg (25.0-35.0); Macrocytosis Slight; Mean Platelet Volume 7.9; Monocytes # (A) 0.2 k/uL (0-1.0); Monocytes % (A) 2 %; Neutrophils # (A) 9.6 k/uL (1.3-7.7); Neutrophils % (A) 89 %; RBC 3.11 m/uL (3.80-5.40); RDW 15.1 % (11.5-15.5); WBC 10.8 k/uL (3.8-10.6); WBC (Perox) 11.52
[2017-05-23 09:21] LABS: ALT 18 U/L (9-52); AST 18 U/L (14-36); Alkaline Phosphatase 59 U/L (38-126); Anion Gap 6 mmol/L; Blood Urea Nitrogen 12 mg/dL (7-17); Calcium 8.4 mg/dL (8.4-10.2); Carbon Dioxide 21 mmol/L (22-30); Chloride 106 mmol/L (98-107); Glucose 171 mg/dL (74-99); Non-African American GFR(MDRD) 59 (>60 ml/min/1.73 sqM); Potassium 5.1 mmol/L (3.5-5.1); Sodium 133 mmol/L (137-145); Total Bilirubin 0.2 mg/dL (0.2-1.3)
[2017-05-23 09:51] LABS: Appearance,Urine Turbid (Clear); Bilirubin,Urine Negative (Negative); Glucose,Urine (UA) Trace (Negative); Ketones,Urine Negative (Negative); Leukocyte Esterase,Urine Moderate (Negative); Nitrite,Urine Negative (Negative); PH, Urine 5.5 (5.0-8.0); Particle Count 49925; Protein,Urine 1+ (Negative); RBC,Urine 94 /hpf (0-5); Specific Gravity,Urine 1.016 (1.001-1.035); UA Billing (MACRO vs. MICRO) MICRO; Uric Acid Crystals,Urine Many /hpf; Urobilinogen,Urine <2.0 mg/dL (<2.0); WBC,Urine 3 /hpf (0-5)
[2017-05-23 10:04] LABS: Total Protein 5.2 g/dL (6.3-8.2)
--- NOTE | 2017-05-23 14:39 | P.PN ---
Progress Note - Text The patient is afebrile. Did have a little nausea and 1 episode of vomiting last night. Feels a little hungry today. Has had very minimal output from her colostomy. WALTER drain drained about the 400 the over the last 24 hours but less so over the last 8 hours. Appears to be serosanguineous in nature. Nation the patient is awake, alert in no distress. Vitals are stable. Abdomen is soft not particularly distended stoma looks healthy. There is a small amount of brownish stool in the bag. Incision looks fine. No significant tenderness. Labs were noted BUN/creatinine are normal. WBC is normal. Impression. Ileus improving. Recommendation. We will try her back on clear liquid diet the closely monitor her. I suspect in the next day or 2 she should start having increasing bowel action and will progressively advance the diet then.
[2017-05-23] MEDS: ATORVASTATIN 20 MG TAB PO SCH (20:23)
[2017-05-24] MEDS: PIPERACILLIN-TAZOBACTAM 3.375 GM in DEXTROSE/WATER 1 50ML.BAG IVPB SCH ×3 (00:19→15:53)
[2017-05-24] MEDS: HEPARIN SODIUM,PORCINE 5,000 UNIT/ML 1 ML VIAL SQ SCH ×3 (00:19→15:52)
[2017-05-24] MEDS: D5-0.45% NACL WITH KCL 20MEQ/L 1,000 ML IV SCH ×3 (00:21→15:52)
--- NOTE | 2017-05-24 07:29 | P.PN ---
Progress Note - Text The patient remains fairly stable. Still having nausea and a few episodes of small amounts of emesis. She is now day for almost the low anterior resection with colostomy for a large obstructing Ca. No output from her colostomy. Has a fair amount of drainage from her WALTER drain over 300 MLS in 24 hours. The The otherwise on exam patient is awake alert in no distress. Temperature is normal vitals are normal. Abdomen is quite soft not distended incision looks good. Stoma looks healthy with no output yet. Her graft noted. The creatinine is normal. Urine output is still borderline. Impression stable postop course. Still protuberant bowel function. Probably ileus. We will check a urine and the WALTER drain for creatinine. Obtain abdominal x-rays today.
--- NOTE | 2017-05-24 08:15 | XR ---
EXAMINATION TYPE: XR abdomen complete w decub , 4 VIEWS DATE OF EXAM ORDERED: 05/24/2017 HISTORY: vomiting. COMPARISON: None. FINDINGS: There are surgical angella overlying the lower abdomen and pelvis on the right. Multiple d rainage tubes are in place. A mildly dilated loops of large and small bowel throughout the abdomen. T here are multiple air-fluid levels. I cannot exclude a small amount of free air on the decubitus view . There are degenerative changes in the spine. There is evidence of previous trauma to the symphysis pu bis on the right. IMPRESSION: 1. POSTOPERATIVE CHANGE. 2. I CANNOT EXCLUDE A SMALL AMOUNT OF FREE AIR. 3. FINDINGS CONSISTENT WITH GENERALIZED ILEUS.
[2017-05-24] MEDS: FAMOTIDINE 20 MG/2 ML VIAL IV SCH (08:51)
[2017-05-24 10:21] LABS: Amorphous Sediment,Urine Rare /hpf; Appearance,Urine Turbid (Clear); Bilirubin,Urine Negative (Negative); Calcium Oxalate Crystals,Urine Many /hpf; Glucose,Urine (UA) Trace (Negative); Ketones,Urine Negative (Negative); Leukocyte Esterase,Urine Moderate (Negative); Mucus,Urine Rare /hpf; Nitrite,Urine Negative (Negative); Particle Count 39299; Protein,Urine 2+ (Negative); RBC,Urine >182 /hpf (0-5); Specific Gravity,Urine 1.019 (1.001-1.035); UA Billing (MACRO vs. MICRO) MICRO; Urobilinogen,Urine <2.0 mg/dL (<2.0); WBC,Urine 63 /hpf (0-5)
[2017-05-24] MEDS: HYDROcodone/APAP 5-325MG 1 EACH TAB PO PRN (18:07)
[2017-05-24] MEDS: ATORVASTATIN 20 MG TAB PO SCH (20:06)
--- NOTE | 2017-05-24 22:58 | P.PN ---
Subjective Principal diagnosis: Sigmoid colon cancer status post resection Mr. Morel is a 76-year-old female who was recently admitted to the correction after sustaining fall due to generalized weakness. The patient was brought to the hospital with concerns for GI bleed. Patient had attempted colonoscopy initially on 05/19/2017 and scope could not be passed due to significant obstructing mass. On 05/20/2017 patient was taken to OR for low anterior resection of the sigmoid and colostomy bag placement was done. On 05/21/2017 Agent is more awake and oriented today. Patient is tolerating liquid diet but feels nauseous now, as her chest pain or short of breath. Hemoglobin is stable. Patient is on epidural. On 05/22/2017 Patient says that her nausea is improved. Epidural pain management is being discontinued today. No fever no chills. No complaints of abdominal pain. Patient is tolerating liquid diet today. Otherwise no chest pain or short of breath. On 05/23/2017 Patient is tolerating by mouth liquid diet. She has been moving her bowels and has some stool in the colostomy bag. Review of systems Patient denied any, soft chest pain or short of breath. Patient is nauseous no abdominal pain noted no longer drinks. No cough or phlegm production. No numbness or tingling. No headache or dizziness. All other review of systems negative except above Objective - Vital Signs Vital signs: Vital Signs Temp 97.6 F 05/23/17 14:55 Pulse 77 05/23/17 14:55 Resp 18 05/23/17 14:55 BP 131/62 05/23/17 14:55 Pulse Ox 97 05/23/17 14:55 Intake & Output 05/23/17 05/23/17 05/24/17 06:59 18:59 06:59 Intake Total 1550 Output Total 1075 466 81 Balance 475 -466 -81 Intake: IV 1550 D5-0.45% NaCl with KCl 1500 20Meq/l 1,000 ml @ 125 mls/hr IV .Q8H [facility] Rx#: [id number] Piperacillin-Tazobactam 3 50 .375 gm In Dextrose/Water 1 50ml.bag @ 12.5 mls/hr IVPB Q8HR [facility] Rx#: [id number] Output: Drainage 425 63 81 Left Abdomen 5 3 1 Right Abdomen 420 60 80 Urine 500 200 Emesis 150 203 Other: Voiding Method Indwelling Catheter Indwelling Catheter # Voids 1 # Emeses 1 - Exam A 76-year-old female lying in bed comfortably, awake, alert, oriented x2 to 3. Appears to be in no apparent distress. HEENT: Atraumatic, normocephalic. No nostril area discharge NECK: Supple. No JVD. CVS: S1, S2 heard. No murmurs, no gallop, no rub. LUNGS: Bilateral air entry is present. No wheezing, no crackles. Nonlabored breathing. ABDOMEN: Soft, nontender. Colostomy bag is in place. No active bleeding at the site. Bowel sounds are sluggish to absent LABORATORY APPARATUS GLASS BLOWER: Awake, alert, oriented x3 able to move all extremities. EXTREMITIES: No edema. Pulses palpable bilaterally. No clubbing or cyanosis. PSYCHIATRY: Cooperative. - Labs CBC & Chem 7: 05/23/17 07:33 05/23/17 07:33 Labs: Abnormal Lab Results - Last 24 Hours (Table) 05/23/17 05/23/17 05/23/17 Range/Units 07:33 07:33 08:57 WBC 10.8 H (3.8-10.6) k/uL RBC 3.11 L (3.80-5.40) m/uL Hgb 10.2 L (11.4-16.0) gm/dL Hct 31.7 L (34.0-46.0) % MCV 102.0 H (80.0-100.0) fL Plt Count 515 H (150-450) k/uL Neutrophils # 9.6 H (1.3-7.7) k/uL Lymphocytes # 0.9 L (1.0-4.8) k/uL Sodium 133 L (137-145) mmol/L Carbon Dioxide 21 L (22-30) mmol/L Glucose 171 H (74-99) mg/dL Total Protein 5.2 L (6.3-8.2) g/dL Albumin 2.4 L (3.5-5.0) g/dL Urine Appearance Turbid H (Clear) Urine Protein 1+ H (Negative) Urine Glucose (UA) Trace H (Negative) Urine Blood Moderate H (Negative) Ur Leukocyte Esterase Moderate H (Negative) Urine RBC 94 H (0-5) /hpf Uric Acid Crystals Many H (None) /hpf Microbiology - Last 24 Hours (Table) 05/23/17 08:57 Urine Culture - Preliminary Urine,Catheterized Assessment and Plan Plan: 1. Acute blood loss anemia secondary to lower gastrointestinal bleed secondary to sigmoid mass. Hemoglobin stable 2. Sigmoid mass status post low anterior resection and colostomy bag placement , postoperative day 2 3. Essential hypertension. 4. Medical debility. 5. Recent urinary tract infection. 6. Chronic diarrhea. 7. Vitamin D deficiency. DISCUSSION AND PLAN: The patient will be continued with pain management, continue with colostomy bag and started on liquid diet. Patient is tolerating liquid diet. patient General Surgery is following the patient. Continue with IV fluids. Further recommendations based on the clinical course. Patient was encouraged with ambulation and also incentive spirometry.
--- NOTE | 2017-05-24 23:02 | P.PN ---
Subjective Principal diagnosis: Sigmoid colon cancer status post resection Mr. Morel is a 76-year-old female who was recently admitted to the [facility] after sustaining fall due to generalized weakness. The patient was brought to the hospital with concerns for GI bleed. Patient had attempted colonoscopy initially on 05/19/2017 and scope could not be passed due to significant obstructing mass. On 05/20/2017 patient was taken to OR for low anterior resection of the sigmoid and colostomy bag placement was done. On 05/21/2017 Agent is more awake and oriented today. Patient is tolerating liquid diet but feels nauseous now, as her chest pain or short of breath. Hemoglobin is stable. Patient is on epidural. On 05/22/2017 Patient says that her nausea is improved. Epidural pain management is being discontinued today. No fever no chills. No complaints of abdominal pain. Patient is tolerating liquid diet today. Otherwise no chest pain or short of breath. On 05/23/2017 Patient is tolerating by mouth liquid diet. She has been moving her bowels and has some stool in the colostomy bag. On 05/24/2017 Patient has been tolerating liquid diet well. Patient has been transferred to a chair beside the bed. Patient has a small amount of stool in the colostomy bag and passing flatus. Review of systems Patient denied any, soft chest pain or short of breath. Patient is nauseous no abdominal pain noted no longer drinks. No cough or phlegm production. No numbness or tingling. No headache or dizziness. All other review of systems negative except above Objective - Vital Signs Vital signs: Vital Signs Temp 97.2 F L 05/24/17 14:48 Pulse 98 05/24/17 14:48 Resp 16 05/24/17 14:48 BP 110/53 05/24/17 14:48 Pulse Ox 96 05/24/17 14:48 Intake & Output 05/24/17 05/24/17 05/25/17 06:59 18:59 06:59 Intake Total 500 Output Total 152 310 Balance -152 190 Weight 81.647 kg Intake: Oral 500 Output: Drainage 152 60 Left Abdomen 2 Right Abdomen 150 60 Urine 250 Other: Voiding Method Indwelling Catheter # Emeses 4 - Exam A 76-year-old female lying in bed comfortably, awake, alert, oriented x2 to 3. Appears to be in no apparent distress. HEENT: Atraumatic, normocephalic. No nostril area discharge NECK: Supple. No JVD. CVS: S1, S2 heard. No murmurs, no gallop, no rub. LUNGS: Bilateral air entry is present. No wheezing, no crackles. Nonlabored breathing. ABDOMEN: Soft, nontender. Colostomy bag is in place. No active bleeding at the site. 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 EXTREMITIES: No edema. Pulses palpable bilaterally. No clubbing or cyanosis. PSYCHIATRY: Cooperative. - Labs CBC & Chem 7: 05/23/17 07:33 05/23/17 07:33 Labs: Abnormal Lab Results - Last 24 Hours (Table) 05/24/17 Range/Units 09:00 Urine Appearance Turbid H (Clear) Urine Protein 2+ H (Negative) Urine Glucose (UA) Trace H (Negative) Urine Blood Large H (Negative) Ur Leukocyte Esterase Moderate H (Negative) Urine RBC >182 H (0-5) /hpf Urine WBC 63 H (0-5) /hpf Calcium Oxalate Crystal Many H (None) /hpf Amorphous Sediment Rare H (None) /hpf Urine Mucus Rare H (None) /hpf Microbiology - Last 24 Hours (Table) 05/24/17 09:00 Urine Culture - Preliminary Urine,Catheterized 05/23/17 08:57 Urine Culture - Final Urine,Catheterized Assessment and Plan Plan: 1. Acute blood loss anemia secondary to lower gastrointestinal bleed secondary to sigmoid mass. Hemoglobin stable 2. Sigmoid mass status post low anterior resection and colostomy bag placement 3. Essential hypertension. 4. Medical debility. 5. Recent urinary tract infection. 6. Chronic diarrhea. 7. Vitamin D deficiency. DISCUSSION AND PLAN: The patient will be continued with pain management, continue with colostomy bag and started on liquid diet. Patient is tolerating liquid diet. patient General Surgery is following the patient. Continue with IV fluids. Further recommendations based on the clinical course. Patient was encouraged with ambulation and also incentive spirometry.
[2017-05-25] MEDS: D5-0.45% NACL WITH KCL 20MEQ/L 1,000 ML IV SCH ×2 (00:07→10:03)
[2017-05-25] MEDS: HEPARIN SODIUM,PORCINE 5,000 UNIT/ML 1 ML VIAL SQ SCH ×3 (00:07→16:10)
[2017-05-25] MEDS: PIPERACILLIN-TAZOBACTAM 3.375 GM in DEXTROSE/WATER 1 50ML.BAG IVPB SCH ×3 (00:11→16:14)
[2017-05-25] MEDS ORDERED: FUROSEMIDE 10 MG/ML 4 ML VIAL IV STA (00:29)
[2017-05-25] MEDS ORDERED: PROPOFOL 1,000 MG/100 ML VIAL IV ONE (02:22)
[2017-05-25] MEDS ORDERED: NOREPINEPHRIN 4 MG-0.9% NS PMX 4 MG/250 ML ML IV ONE (03:12)
[2017-05-25] MEDS ORDERED: IPRATROPIUM-ALBUTEROL 3 ML NEB INHALATION PRN (03:24)
--- NOTE | 2017-05-25 03:52 | XR ---
EXAM: XR Chest, 1 View CLINICAL HISTORY: Reason: ETT placement TECHNIQUE: Frontal view of the chest. COMPARISON: 04/21/2017 FINDINGS: Lungs: Opacity with air bronchograms overlying the right lower lung zone suggestive of consolidation, not seen on prior study, likely within the right middle lobe. Pleural space: Unremarkable. No pneumothorax. Heart: The heart is unchanged. Mediastinum: The mediastinum is unchanged. Bones/joints: Degenerative changes involving both shoulders, unchanged. Tubes, lines and devices: Interval placement of ET tube distal and entering the right mainstem bronchus. Interval placement of NG tube with distal end curled up within a large hiatal hernia. IMPRESSION: Interval placement of ET tube with distal and entering the right mainstem bronchus; approximate 5 cm retraction recommended. Interval placement of NG tube with distal end curled up within a large hiatal hernia. Opacity with air bronchograms overlying the right lower lung zone suggestive of consolidation, likely within the right middle lobe. [employer] 05/25/17 03:47 Call Doctor Regarding Other, called ALYSON Guillen on 05/25 03:46 (-04:00)
[2017-05-25 03:56] LABS: INR 1.5 (<1.2); Prothrombin Time 14.6 sec (9.0-12.0)
[2017-05-25 03:58] LABS: CH 31.8; CHCM 30.6; HCT 28.4 % (34.0-46.0); HDW 3.24; Hypochromasia Marked; Immature Gran Flag Slight; MCH 32.1 pg (25.0-35.0); MCHC 30.7 g/dL (31.0-37.0); MCV 104.5 fL (80.0-100.0); Macrocytosis Moderate; Mean Platelet Volume 7.2; RBC 2.72 m/uL (3.80-5.40); RDW 15.1 % (11.5-15.5); WBC (Perox) 45.24
--- NOTE | 2017-05-25 04:02 | XR ---
EXAM: XR Abdomen Complete, 2 or More Views CLINICAL HISTORY: Reason: ABD surgery TECHNIQUE: Frontal view of the abdomen/pelvis with upright view of the abdomen. COMPARISON: 05/24/2017 FINDINGS: Intraperitoneal space: A small amount of free air cannot be definitively excluded. Gastrointestinal tract: Mildly dilated air-filled small and large bowel loops are again seen, measuring up to 3.3 and 6.8 cm, respectively, more conspicuous on this study than the prior, likely representing ileus. Bones/joints: Degenerative changes of the spine are again seen, stable. Prior trauma to the right symphysis pubis is again seen, unchanged. Other findings: Surgical angella are again seen overlying the lower abdomen and pelvis on the right. Multiple drains are again seen, unchanged. Distal end of NG tube is again noted to be curled within a large hiatal hernia, as seen on recent chest x-ray. IMPRESSION: Mildly dilated air-filled small and large bowel loops, measuring up to 3. 3 and 6.8 cm, respectively, more conspicuous on this study than the prior, likely representing ileus given the patient's postsurgical state. [employer] 05/25/17 04:01 Call Doctor Regarding Other, called ALYSON Guillen on pervious exam on 05/25 04:00 (-04:00)
[2017-05-25] MEDS: IPRATROPIUM-ALBUTEROL 3 ML NEB INHALATION SCH ×6 (04:03→23:03)
[2017-05-25 04:05] LABS: ABG Base Excess -10.9 mmol/L; ABG HCO3 16 mmol/L (21-25); ABG PCO2 49 mmHg (35-45); ABG PH 7.15 (7.35-7.45); ABG PO2 205 mmHg (83-108); ABG TCO2 18 mmol/L (19-24)
[2017-05-25 04:06] LABS: HGB 8.7 gm/dL (11.4-16.0)
[2017-05-25 04:07] LABS: WBC 42.4 k/uL (3.8-10.6)
[2017-05-25 04:17] LABS: Add Differential Manual Differential
[2017-05-25] MEDS: NOREPINEPHRIN 16 MG-0.9%NS PMX 16 MG/250 ML ML IV SCH ×3 (04:17→21:17)
[2017-05-25 04:19] LABS: Manual Review Performed; Nucleated Red Blood Cells 0 /100 WBC (0-0); Total Cells Counted 100
[2017-05-25 04:21] LABS: Calcium 7.3 mg/dL (8.4-10.2); Magnesium 1.2 mg/dL (1.6-2.3); Phosphorous 3.3 mg/dL (2.5-4.5); Potassium 4.9 mmol/L (3.5-5.1); Total Bilirubin 0.3 mg/dL (0.2-1.3); Total Protein 4.1 g/dL (6.3-8.2)
[2017-05-25 04:25] LABS: Toxic Granulation Present; Toxic Vacuolation Present
[2017-05-25] MEDS ORDERED: SODIUM CHLORIDE 0.9% 2,000 ML IV ONE (04:45)
[2017-05-25] MEDS ORDERED: IV VANCOMYCIN PER PHARMACY 1 EACH MISC MISCELLANE PRN (04:45)
[2017-05-25] MEDS: LEVOFLOXACIN 500MG-D5W PMX 500 MG in DEXTROSE/WATER 1 100ML.BAG IVPB SCH (05:44)
[2017-05-25] MEDS: VANCOMYCIN 1,500 MG in SODIUM CHLORIDE 0.9% 250 ML IVPB SCH (05:45)
[2017-05-25] MEDS ORDERED: Magnesium Replacement Protocol 1 EACH MISC MISCELLANE PRN (06:17)
[2017-05-25] MEDS: MAGNESIUM SULFATE-D5W PMX 1 GM in DEXTROSE/WATER 1 100ML.BAG IVPB SCH ×3 (06:50→10:03)
[2017-05-25] MEDS: PROPOFOL 1,000 MG/100 ML VIAL IV SCH ×4 (07:14→21:15)
--- NOTE | 2017-05-25 07:17 | ED ---
CPR HPI - General Chief Complaint: Nausea/Vomiting/Diarrhea Stated Complaint: diarrhea Time Seen by Provider: 05/17/17 05:34 Source: patient, EMS, RN notes reviewed, old records reviewed Mode of arrival: EMS Limitations: no limitations - History of Present Illness Initial Comments: This patient was found unresponsive and a CODE BLUE was called. I arrived to find the patient's being resuscitated by ACLS procedure. CPR was in progress and bag mask ventilation performed. Epinephrine administered. Patient intubated by anesthesia. Good bilateral breath sounds. After rounds of epinephrine there was ROSC. I then becoming the patient to the ICU, where I placed a central line, please see the procedure note. MD Complaint: found unresponsive - Related Data Home Medications Medication Instructions Recorded Confirmed Aspirin 81 mg PO DAILY@1700 02/15/15 05/17/17 Calcium Carbonate/Vitamin D3 1 tab PO DAILY@1700 02/15/15 05/17/17 [Calcium 600-Vit D3 400 Tablet] Lisinopril-Hctz 20-12.5 mg 1 tab PO DAILY@0800 02/15/15 05/17/17 [Zestoretic 20-12.5] Simvastatin [Zocor] 40 mg PO HS@2100 02/15/15 05/17/17 Bisacodyl [Dulcolax] 10 mg RECTAL DAILY PRN 05/17/17 05/17/17 Ensure Clear 240 ml PO BID@0800,1700 05/17/17 05/17/17 Loperamide HCl [Imodium A-D] 2 mg PO DIRECTED PRN MDD 8MG 05/17/17 05/17/17 Magnesium Hydroxide [Milk of 2,400 mg PO DAILY PRN 05/17/17 05/17/17 Magnesia] Multivitamins, Thera [Multivitamin 1 tab PO DAILY@1700 05/17/17 05/17/17 (formulary)] Na Phos,M-B/Na Phos,Di-Ba [Fleet 133 ml RECTAL ONCE PRN 05/17/17 05/17/17 Adult] Nystatin 1 applic TOPICAL BID 05/17/17 05/17/17 Allergies Allergy/AdvReac Type Severity Reaction Status Date / Time No Known Allergies Allergy Verified 05/17/17 07:11 Review of Systems ROS Statement: Those systems with pertinent positive or pertinent negative responses have been documented in the HPI. ROS Other: All systems not noted in ROS Statement are negative. Past Medical History Past Medical History: Diabetes Mellitus, Hyperlipidemia, Hypertension, Musculoskeletal Disorder, Neurologic Disorder, Osteoarthritis (OA), Renal Disease, Syncope Additional Past Medical History / Comment(s): Pt recently admitted to [facility] on with near syncope, dehydration, sepsis suspected due to UTI. Other hx: "Borderline diabetes", current decubitus R buttock and yeast infection groins, CKD stage III, chronic anemia, mild protein calorie malnutrition, falls , cerebral palsey, vasovagal syncopal episode, scoliosis, UTIs, some limitated ROM to R hand/wrist. History of Any Multi-Drug Resistant Organisms: None Reported Past Surgical History: Orthopedic Surgery Additional Past Surgical History / Comment(s): right wrist fusion, R knee arthroscopy, L elbow fracture with surgery. Smoking Status: Never smoker - Past Family History Father Family Medical History: Myocardial Infarction (SD) Additional Family Medical History / Comment(s): Father of a SD at the age of 60yrs. Mother Family Medical History: Cancer Additional Family Medical History / Comment(s): Mother had leukemia. She at the age of 81 yrs. General Exam Limitations: no limitations General appearance: alert, in no apparent distress Course Vital Signs 05/17/17 05/17/17 05:12 06:53 Temperature 98.9 F Pulse Rate 82 77 Respiratory 18 16 Rate Blood Pressure 125/60 104/45 O2 Sat by Pulse 95 98 Oximetry Procedures - Central Line Placement Right Femoral Consent Obtained: emergent situation Patient Placed on Monitor/Pulse Ox: Yes MD Prep: mask, gown, gloves Central Line Prep: Chlorhexidine scrub Local Anesthesia Used: Lidocaine 1% Central Line Lumen Inserted: triple Central Line Position: good blood return, all ports aspirated, flushed, capped, sutured in place with 3-0 nylon Patient Tolerated Procedure: no complications Additional Comments: I initially attempted to place a central line in the patient's right subclavian or the right IJ area and was not successful. I switched the right femoral area and the line was placed without complication. Chest x-ray was reviewed and I do not observe any pneumothorax. Medical Decision Making - Lab Data Result diagrams: 05/25/17 03:20 05/25/17 03:20 Lab Results 05/17/17 05/17/1705/17/17 Range/Units 05:30 05:30 05:30 WBC 7.3 (3.8-10.6) k/uL RBC 2.76 L (3.80-5.40) m/uL Hgb 9.0 L (11.4-16.0) gm/dL Hct 27.2 L (34.0-46.0) % MCV 98.6 (80.0-100.0) fL MCH 32.5 (25.0-35.0) pg MCHC 33.0 (31.0-37.0) g/dL RDW 15.5 (11.5-15.5) % Plt Count 442 (150-450) k/uL Neutrophils % 71 % Lymphocytes % 20 % Monocytes % 4 % Eosinophils % 3 % Basophils % 0 % Neutrophils # 5.2 (1.3-7.7) k/uL Lymphocytes # 1.5 (1.0-4.8) k/uL Monocytes # 0.3 (0-1.0) k/uL Eosinophils # 0.2 (0-0.7) k/uL Basophils # 0.0 (0-0.2) k/uL Macrocytosis Slight PT (9.0-12.0) sec INR (<1.1) APTT (22.0-30.0) sec Sodium 139 (137-145) mmol/L Potassium 4.2 (3.5-5.1) mmol/L Chloride 104 (98-107) mmol/L Carbon Dioxide 26 (22-30) mmol/L Anion Gap 9 mmol/L BUN 24 H (7-17) mg/dL Creatinine 1.02 (0.52-1.04) mg/dL Est GFR (MDRD) Af Amer >60 (>60 ml/min/1.73 sqM) Est GFR (MDRD) Non-Af 53 (>60 ml/min/1.73 sqM) Glucose 100 H (74-99) mg/dL Plasma Lactic Acid Erasto (0.7-2.0) mmol/L Calcium 9.2 (8.4-10.2) mg/dL Magnesium 1.7 (1.6-2.3) mg/dL Total Bilirubin 0.4 (0.2-1.3) mg/dL AST 23 (14-36) U/L ALT 30 (9-52) U/L Alkaline Phosphatase 82 (38-126) U/L Total Creatine Kinase <20 L (30-135) U/L CK-MB (CK-2) <0.2 (0.0-2.4) ng/mL CK-MB (CK-2) Rel Index Troponin I <0.012 (0.000-0.034) ng/mL Total Protein 6.0 L (6.3-8.2) g/dL Albumin 2.8 L (3.5-5.0) g/dL Lipase 105 (23-300) U/L Carcinoembryonic Ag (0.0-5.0) ng/mL Blood Type Blood Type Recheck Antibody Screen Spec Expiration Date 05/17/17 05/17/17 05/17/17 Range/Units 05:30 05:30 05:30 WBC (3.8-10.6) k/uL RBC (3.80-5.40) m/uL Hgb (11.4-16.0) gm/dL Hct (34.0-46.0) % MCV (80.0-100.0) fL MCH (25.0-35.0) pg MCHC (31.0-37.0) g/dL RDW (11.5-15.5) % Plt Count (150-450) k/uL Neutrophils % % Lymphocytes % % Monocytes % % Eosinophils % % Basophils % % Neutrophils # (1.3-7.7) k/uL Lymphocytes # (1.0-4.8) k/uL Monocytes # (0-1.0) k/uL Eosinophils # (0-0.7) k/uL Basophils # (0-0.2) k/uL Macrocytosis PT 10.2 (9.0-12.0) sec INR 1.0 (<1.1) APTT 21.9 L (22.0-30.0) sec Sodium (137-145) mmol/L Potassium (3.5-5.1) mmol/L Chloride (98-107) mmol/L Carbon Dioxide (22-30) mmol/L Anion Gap mmol/L BUN (7-17) mg/dL Creatinine (0.52-1.04) mg/dL Est GFR (MDRD) Af Amer (>60 ml/min/1.73 sqM) Est GFR (MDRD) Non-Af (>60 ml/min/1.73 sqM) Glucose (74-99) mg/dL Plasma Lactic Acid Erasto 0.7 (0.7-2.0) mmol/L Calcium (8.4-10.2) mg/dL Magnesium (1.6-2.3) mg/dL Total Bilirubin (0.2-1.3) mg/dL AST (14-36) U/L ALT (9-52) U/L Alkaline Phosphatase (38-126) U/L Total Creatine Kinase (30-135) U/L CK-MB (CK-2) (0.0-2.4) ng/mL CK-MB (CK-2) Rel Index Troponin I (0.000-0.034) ng/mL Total Protein (6.3-8.2) g/dL Albumin (3.5-5.0) g/dL Lipase (23-300) U/L Carcinoembryonic Ag (0.0-5.0) ng/mL Blood Type O Negative Blood Type Recheck No Antibody Screen NEGATIVE Spec Expiration Date 05/20/2017 - 232905/17/17 Range/Units 05:30 WBC (3.8-10.6) k/uL RBC (3.80-5.40) m/uL Hgb (11.4-16.0) gm/dL Hct (34.0-46.0) % MCV (80.0-100.0) fL MCH (25.0-35.0) pg MCHC (31.0-37.0) g/dL RDW (11.5-15.5) % Plt Count (150-450) k/uL Neutrophils % % Lymphocytes % % Monocytes % % Eosinophils % % Basophils % % Neutrophils # (1.3-7.7) k/uL Lymphocytes # (1.0-4.8) k/uL Monocytes # (0-1.0) k/uL Eosinophils # (0-0.7) k/uL Basophils # (0-0.2) k/uL Macrocytosis PT (9.0-12.0) sec INR (<1.1) APTT (22.0-30.0) sec Sodium (137-145) mmol/L Potassium (3.5-5.1) mmol/L Chloride (98-107) mmol/L Carbon Dioxide (22-30) mmol/L Anion Gap mmol/L BUN (7-17) mg/dL Creatinine (0.52-1.04) mg/dL Est GFR (MDRD) Af Amer (>60 ml/min/1.73 sqM) Est GFR (MDRD) Non-Af (>60 ml/min/1.73 sqM) Glucose (74-99) mg/dL Plasma Lactic Acid Erasto (0.7-2.0) mmol/L Calcium (8.4-10.2) mg/dL Magnesium (1.6-2.3) mg/dL Total Bilirubin (0.2-1.3) mg/dL AST (14-36) U/L ALT (9-52) U/L Alkaline Phosphatase (38-126) U/L Total Creatine Kinase (30-135) U/L CK-MB (CK-2) (0.0-2.4) ng/mL CK-MB (CK-2) Rel Index Troponin I (0.000-0.034) ng/mL Total Protein (6.3-8.2) g/dL Albumin (3.5-5.0) g/dL Lipase (23-300) U/L Carcinoembryonic Ag 2.1 (0.0-5.0) ng/mL Blood Type Blood Type Recheck Antibody Screen Spec Expiration Date Disposition Clinical Impression: Diarrhea, GIB (gastrointestinal bleeding), Anemia Disposition: ADMITTED IP TO THIS HOSP
[2017-05-25] MEDS: SODIUM CHLORIDE 0.9% 99 ML with VASOPRESSIN 20 UNIT IV SCH ×4 (07:55→18:03)
[2017-05-25 08:01] LABS: Amorphous Sediment,Urine Rare /hpf; Appearance,Urine Turbid (Clear); Bilirubin,Urine Negative (Negative); Calcium Oxalate Crystals,Urine Few /hpf; Glucose,Urine (UA) 1+ (Negative); Ketones,Urine Trace (Negative); Leukocyte Esterase,Urine Large (Negative); Nitrite,Urine Negative (Negative); PH, Urine 5.5 (5.0-8.0); Particle Count 40244; Protein,Urine 2+ (Negative); RBC,Urine >182 /hpf (0-5); Specific Gravity,Urine 1.021 (1.001-1.035); Squamous Epithelial Cell,Urine <1 /hpf (0-4); UA Billing (MACRO vs. MICRO) MICRO; Urobilinogen,Urine <2.0 mg/dL (<2.0); WBC,Urine 8 /hpf (0-5)
[2017-05-25] MEDS ORDERED: SODIUM CHLORIDE 0.9% 1,000 ML IV ONE (08:01)
[2017-05-25] MEDS ORDERED: EPINEPHrine 10 ML SYRINGE (0.1 MG/ML) ONE (08:22)
[2017-05-25 08:23] LABS: ABG HCO3 14 mmol/L (21-25); ABG PCO2 26 mmHg (35-45); ABG PH 7.36 (7.35-7.45); ABG PO2 123 mmHg (83-108)
[2017-05-25 08:24] LABS: ABG Base Excess -10.3 mmol/L; ABG Oxygen Saturation 98.7 % (94-97); ABG TCO2 15 mmol/L (19-24)
[2017-05-25 09:06] LABS: Glucose,Whole Blood 175 mg/dL (75-99)
[2017-05-25] MEDS: FAMOTIDINE 20 MG/2 ML VIAL IV SCH (09:15)
[2017-05-25] MEDS: CHLORHEXIDINE GLUCONATE 15 ML CUP MUCOUS MEM SCH ×2 (09:15→21:15)
[2017-05-25 09:38] LABS: Potassium 5.4 mmol/L (3.5-5.1)
[2017-05-25 09:49] LABS: Glucose,Whole Blood 191 mg/dL (75-99)
--- NOTE | 2017-05-25 09:52 | P.CNPUL ---
History of Present Illness Consult date: 05/25/17 Chief complaint: Acute cardiopulmonary arrest History of present illness: 76-year-old female patient who presented to the hospital because of a high grade sigmoid colon obstruction with a suspicious mass. The patient underwent a colonoscopy by gastroenterology and the patient was found to have a partially obstructing mass in the distal sigmoid colon/rectosigmoid junction. The patient was having on and off rectal bleeding. She was rehabilitating at [facility] after a fall due to a generalized weakness. She was having some loose stools over the past few weeks but no significant abdominal pain or GI discomfort. The patient's hemoglobin had dropped down to 7.9 from a baseline of 12 and she was receiving transfusion. Based on all this, the patient was taken to the operating room on 05/23/2017 and the patient underwent a low AP resection with diverting colostomy. 2 abdominal drains also placed. Last night, the patient was found to be in acute respiratory distress.. The patient had a witnessed respiratory arrest and subsequent cardiac arrest. This occurred at around 1:50 AM this morning. Initially the pulse was identified. The patient was resuscitated for a total of 9 minutes and she was given 3 doses of epinephrine 1 mg. She was intubated and placed on a mechanical ventilator. She was given a triple lumen catheter in her right femoral vein. She was given a total of 2 L of IV fluids and her blood pressure remained low in the mid 60s. Following that she was started on pressors which ultimately titrated and she was placed on high-dose epinephrine infusion today to 60 g. The post intubation blood gas showed a pH of 7.15 with a pCO2 of 49 and pO2 of 205 this was an FiO2 of 100% with a PEEP of 5 and tidal volume of 350 and the rate of 14 Overnight the patient was given further fluid resuscitation and she has already received a total of 5 L of IV fluids. Currently she is on vasopressin 0.03 units per minute and she is also on norepinephrine infusion at 40 mics. She started making some urine output. Her urine output over the past 1 hour is around 100 mL an hour. The patient is sedated Diprivan at 40 mics. She would respond to painful stimuli and she would move all 4 extremities once she is taken to lower dose of Diprivan. Meanwhile, the necessity vent changes were done. I increased tidal volume to 450. I put the rate of 24 and drop the FiO2 down to 60%. Subsequent blood gases showed a pH of 7.36 with a pCO2 of 26 and pO2 of 123. Chest x-ray shows a large consolidation of the right lung involving the right middle lobe and right lower lobe. Orogastric tube was placed immediately following intubation and a total of 1600 mL of gastric aspirate was obtained. Note that the chest x-ray preoperatively had shown or the a large intrathoracic hiatal hernia. The patient subsequently had an abdominal x-ray yesterday that was indicating some ileus. The chest x-ray from this morning is showing that the patient has a right lung pneumonia and the OG tube is coiled in the hiatal hernia within the thorax. No gastric material is being suctioned from the TRACHEAL tube although is very much likely the patient could have aspirated. Her white cell count is up to 42. Venous lactate is at 1.7. The patient's colostomy site is functional. There is some minimal amount of fecal material collecting in the colostomy bag. Abdomen is nondistended at this point. Positive lower oximetry is palpable. Review of Systems ROS unobtainable: due to endotracheal tube Past Medical History Past Medical History: Diabetes Mellitus, Hyperlipidemia, Hypertension, Musculoskeletal Disorder, Neurologic Disorder, Osteoarthritis (OA), Renal Disease, Syncope Additional Past Medical History / Comment(s): Cerebral palsy, diabetes mellitus , hyperlipidemia, chronic renal failure, osteoarthritis, chronic anemia, high- grade rectosigmoid obstruction details discussed above, history of vasovagal syncope, scoliosis, frequent urine checked infections, Limited mobility and the patient has been using a walker based on the family members. The patient also had a limited range of motion the right hand and right wrist area. History of Any Multi-Drug Resistant Organisms: None Reported Past Surgical History: Orthopedic Surgery Additional Past Surgical History / Comment(s): right wrist fusion, R knee arthroscopy, L elbow fracture with surgery. Smoking Status: Never smoker - Past Family History Father Family Medical History: Myocardial Infarction (AR) Additional Family Medical History / Comment(s): Father of a AR at the age of 60yrs. Mother Family Medical History: Cancer Additional Family Medical History / Comment(s): Mother had leukemia. She at the age of 81 yrs. Medications and Allergies Home Medications Medication Instructions Recorded Confirmed Type Aspirin 81 mg PO DAILY@1700 02/15/15 05/17/17 History Calcium Carbonate/Vitamin D3 1 tab PO DAILY@1700 02/15/15 05/17/17 History [Calcium 600-Vit D3 400 Tablet] Lisinopril-Hctz 20-12.5 mg 1 tab PO DAILY@0800 02/15/15 05/17/17 History [Zestoretic 20-12.5] Simvastatin [Zocor] 40 mg PO HS@2100 02/15/15 05/17/17 History Bisacodyl [Dulcolax] 10 mg RECTAL DAILY PRN 05/17/17 05/17/17 History Ensure Clear 240 ml PO BID@0800,1700 05/17/17 05/17/17 History Loperamide HCl [Imodium A-D] 2 mg PO DIRECTED PRN MDD 8MG 05/17/17 05/17/17 History Magnesium Hydroxide [Milk of 2,400 mg PO DAILY PRN 05/17/17 05/17/17 History Magnesia] Multivitamins, Thera [Multivitamin 1 tab PO DAILY@1700 05/17/17 05/17/17 History (formulary)] Na Phos,M-B/Na Phos,Di-Ba [Fleet 133 ml RECTAL ONCE PRN 05/17/17 05/17/17 History Adult] Nystatin 1 applic TOPICAL BID 05/17/17 05/17/17 History Allergies Allergy/AdvReac Type Severity Reaction Status Date / Time No Known Allergies Allergy Verified 05/17/17 07:11 Physical Exam Vitals: Vital Signs Temp Pulse Pulse Resp BP BP Pulse Ox 05/25/17 09:00 75 24 115/60 100 05/25/17 08:30 79 24 123/59 98 05/25/17 08:27 82 05/25/17 08:09 80 05/25/17 08:00 87 24 91/41 99 05/25/17 07:30 81 24 82/43 99 05/25/17 07:00 89 24 80/46 98 05/25/17 06:50 94 24 93/43 98 05/25/17 06:40 91 24 91/44 99 05/25/17 06:30 93 24 94/45 98 05/25/17 06:20 92 24 91/46 98 05/25/17 06:10 92 24 98/48 98 05/25/17 06:00 87 24 103/47 98 05/25/17 05:50 87 24 95/44 98 05/25/17 05:40 88 24 103/48 98 05/25/17 05:30 90 24 98/49 98 05/25/17 05:20 89 13 106/49 98 05/25/17 05:10 88 23 95/46 98 05/25/17 05:00 87 6 L 91/46 98 05/25/17 04:50 88 19 91/49 99 05/25/17 04:40 80 19 79/35 99 05/25/17 04:30 82 19 99 05/25/17 04:20 87 20 83/34 99 05/25/17 04:10 101 H 28 H 63/51 96 05/25/17 04:00 96 96/46 98 05/25/17 03:50 99 75/51 99 05/25/17 03:40 95 88/35 99 05/25/17 03:30 113 H 98 05/25/17 03:20 144 H 98 05/25/17 03:10 108 H 97 05/25/17 03:00 110 H 22 77/51 97 05/25/17 02:50 117 H 28 H 137/73 98 05/25/17 02:40 101 H 22 137/73 96 05/25/17 02:30 103 H 19 122/69 97 05/25/17 01:30 93 26 H 128/57 95 05/25/17 00:30 109 H 24 102/52 94 L 05/25/17 00:24 90 22 124/66 05/24/17 23:00 97.3 F L 93 20 143/64 94 L 05/24/17 14:48 97.2 F L 98 16 110/53 96 Intake and Output 05/24/17 05/25/17 05/25/17 22:59 06:59 14:59 Intake Total 4055.625 1309.282 Output Total 85 295 Balance 3970.625 1014.282 Intake: IV 4000 50 D5-0.45% NaCl with KCl 0 20Meq/l 1,000 ml @ 125 mls/hr IV .Q8H AMAN Rx#: [id number] Piperacillin-Tazobactam 3 50 .375 gm In Dextrose/Water 1 50ml.bag @ 12.5 mls/hr IVPB Q8HR AMAN Rx#: [id number] Sodium Chloride 0.9% 2, 4000 000 ml @ 999 mls/hr IV . Q2H1M ONE Rx#:[id number] Intake, IV Titration 55.625 1259.282 Amount Magnesium Sulfate-D5w Pmx 100 1 gm In Dextrose/Water 1 100ml.bag @ 100 mls/hr IVPB Q1H [facility] Rx#: [id number] Norepinephrin 16 mg-0.9% 55.625 159.282 Ns Pmx 16 mg In 250 ml @ Titrate IV .Q0M [facility] Rx#: [id number] Sodium Chloride 0.9% 1, 1000 000 ml @ 999 mls/hr IV . Q1H1M ONE Rx#:[id number] Output: Urine 85 295 Other: Voiding Method Indwelling Catheter Indwelling Catheter Weight 81.647 kg Head exam was generally normal. There was no scleral icterus or corneal arcus. Mucous membranes were moist. The patient is intubated on a mechanical ventilator. Orogastric and orotracheal tube are both in place.Neck was supple and without jugular venous distension, thyromegaly, or carotid bruits. Carotids were easily palpable bilaterally. There was no adenopathy. Lung sounds are equal and symmetrical bilaterally and there is no significant wheezes overall currently crackles. Heart sounds are regular rate and rhythm normal S1-S2 and there is no significant murmurs appreciated. Abdomen is soft. Nondistended. Colostomy site is viable and functional. The patient has a infraumbilical incision with angella are being replaced. No active drainage. WALTER drains also in place and output is essentially serosanguineous and minimal. Extremities are showing diminished pulses and there is no cyanosis or clubbing. Neurologic the patient is sedated. No facial asymmetry. Pupils around 2 mm in size. No nystagmus. She is withdrawing to deep painful stimuli in all 4 extremities. Results - Laboratory Findings CBC and BMP: 05/25/17 03:20 05/25/17 03:20 ABG ABG pH 7.36 (7.35-7.45) 05/25/17 08:09 ABG pCO2 26 mmHg (35-45) L 05/25/17 08:09 ABG pO2 123 mmHg (83-108) H 05/25/17 08:09 ABG O2 Saturation 98.7 % (94-97) H 05/25/17 08:09 PT/INR, D-dimer PT 14.6 sec (9.0-12.0) H 05/25/17 03:20 INR 1.5 (<1.2) H 05/25/17 03:20 Abnormal lab findings: Abnormal Labs 05/17/17 05/17/17 05/17/17 05:30 05:30 05:30 WBC RBC 2.76 L Hgb 9.0 L Hct 27.2 L MCV MCHC RDW Plt Count Neutrophils # Neutrophils # (Manual) Lymphocytes # PT INR APTT ABG pH ABG pCO2 ABG pO2 ABG HCO3 ABG Total CO2 ABG O2 Saturation Sodium Chloride Carbon Dioxide BUN 24 H Creatinine Glucose 100 H POC Glucose (mg/dL) Calcium Magnesium AST Total Creatine Kinase <20 L Total Protein 6.0 L Albumin 2.8 L Urine Appearance Urine Protein Urine Glucose (UA) Urine Ketones Urine Blood Ur Leukocyte Esterase Urine RBC Urine WBC Calcium Oxalate Crystal Uric Acid Crystals Amorphous Sediment Urine Mucus 05/17/17 05/17/17 05/17/17 05:30 11:36 17:36 WBC RBC 2.56 L 2.48 L Hgb 8.5 L 8.4 L Hct 25.8 L 24.7 L MCV 100.7 H MCHC RDW Plt Count Neutrophils # Neutrophils # (Manual) Lymphocytes # PT INR APTT 21.9 L ABG pH ABG pCO2 ABG pO2 ABG HCO3 ABG Total CO2 ABG O2 Saturation Sodium Chloride Carbon Dioxide BUN Creatinine Glucose POC Glucose (mg/dL) Calcium Magnesium AST Total Creatine Kinase Total Protein Albumin Urine Appearance Urine Protein Urine Glucose (UA) Urine Ketones Urine Blood Ur Leukocyte Esterase Urine RBC Urine WBC Calcium Oxalate Crystal Uric Acid Crystals Amorphous Sediment Urine Mucus 05/17/17 05/18/17 05/18/17 23:27 10:43 21:27 WBC RBC 2.43 L 3.15 L Hgb 7.9 L 10.2 L Hct 24.2 L 33.0 L MCV 104.8 H D MCHC 30.8 L RDW 15.6 H Plt Count 458 H Neutrophils # Neutrophils # (Manual) Lymphocytes # PT INR APTT ABG pH ABG pCO2 ABG pO2 ABG HCO3 ABG Total CO2 ABG O2 Saturation Sodium Chloride Carbon Dioxide BUN Creatinine Glucose POC Glucose (mg/dL) 111 H Calcium Magnesium AST Total Creatine Kinase Total Protein Albumin Urine Appearance Urine Protein Urine Glucose (UA) Urine Ketones Urine Blood Ur Leukocyte Esterase Urine RBC Urine WBC Calcium Oxalate Crystal Uric Acid Crystals Amorphous Sediment Urine Mucus 05/19/17 05/20/17 05/20/17 09:53 07:21 07:21 WBC 2.9 L RBC 2.46 L 2.61 L Hgb 7.9 L D 8.5 L Hct 24.6 L 26.4 L MCV 101.2 H MCHC RDW Plt Count 456 H Neutrophils # Neutrophils # (Manual) Lymphocytes # 0.9 L 0.7 L PT INR APTT ABG pH ABG pCO2 ABG pO2 ABG HCO3 ABG Total CO2 ABG O2 Saturation Sodium Chloride Carbon Dioxide BUN Creatinine Glucose 131 H POC Glucose (mg/dL) Calcium Magnesium AST Total Creatine Kinase Total Protein 5.3 L Albumin 2.6 L Urine Appearance Urine Protein Urine Glucose (UA) Urine Ketones Urine Blood Ur Leukocyte Esterase Urine RBC Urine WBC Calcium Oxalate Crystal Uric Acid Crystals Amorphous Sediment Urine Mucus 05/20/17 05/20/17 05/21/17 16:26 16:26 07:49 WBC 14.1 H RBC 2.98 L 2.81 L Hgb 9.7 L 9.1 L Hct 29.9 L 29.0 L MCV 100.4 H 103.1 H MCHC RDW Plt Count 589 H 595 H Neutrophils # 12.3 H 8.7 H Neutrophils # (Manual) Lymphocytes # PT INR APTT ABG pH ABG pCO2 ABG pO2 ABG HCO3 ABG Total CO2 ABG O2 Saturation Sodium Chloride 108 H Carbon Dioxide BUN Creatinine Glucose 162 H POC Glucose (mg/dL) Calcium Magnesium AST Total Creatine Kinase Total Protein Albumin Urine Appearance Urine Protein Urine Glucose (UA) Urine Ketones Urine Blood Ur Leukocyte Esterase Urine RBC Urine WBC Calcium Oxalate Crystal Uric Acid Crystals Amorphous Sediment Urine Mucus 05/21/17 05/23/17 05/23/17 07:49 07:33 07:33 WBC 10.8 H RBC 3.11 L Hgb 10.2 L Hct 31.7 L MCV 102.0 H MCHC RDW Plt Count 515 H Neutrophils # 9.6 H Neutrophils # (Manual) Lymphocytes # 0.9 L PT INR APTT ABG pH ABG pCO2 ABG pO2 ABG HCO3 ABG Total CO2 ABG O2 Saturation Sodium 136 L 133 L Chloride Carbon Dioxide 21 L BUN Creatinine Glucose 171 H 171 H POC Glucose (mg/dL) Calcium 8.3 L Magnesium AST Total Creatine Kinase Total Protein 5.2 L Albumin 2.4 L Urine Appearance Urine Protein Urine Glucose (UA) Urine Ketones Urine Blood Ur Leukocyte Esterase Urine RBC Urine WBC Calcium Oxalate Crystal Uric Acid Crystals Amorphous Sediment Urine Mucus 05/23/17 05/24/17 05/25/17 08:57 09:00 03:20 WBC RBC Hgb Hct MCV MCHC RDW Plt Count Neutrophils # Neutrophils # (Manual) Lymphocytes # PT INR APTT ABG pH ABG pCO2 ABG pO2 ABG HCO3 ABG Total CO2 ABG O2 Saturation Sodium 128 L Chloride Carbon Dioxide 16 L BUN 19 H Creatinine 1.10 H Glucose 183 H POC Glucose (mg/dL) Calcium 7.3 L Magnesium 1.2 L AST 41 H Total Creatine Kinase Total Protein 4.1 L Albumin 1.9 L Urine Appearance Turbid H Turbid H Urine Protein 1+ H 2+ H Urine Glucose (UA) Trace H Trace H Urine Ketones Urine Blood Moderate H Large H Ur Leukocyte Esterase Moderate H Moderate H Urine RBC 94 H >182 H Urine WBC 63 H Calcium Oxalate Crystal Many H Uric Acid Crystals Many H Amorphous Sediment Rare H Urine Mucus Rare H 05/25/17 05/25/17 05/25/17 03:20 03:20 03:34 WBC 42.4 H* RBC 2.72 L Hgb 8.7 L D Hct 28.4 L MCV 104.5 H MCHC 30.7 L RDW Plt Count 696 H Neutrophils # Neutrophils # (Manual) 38.2 H Lymphocytes # PT 14.6 H INR 1.5 H APTT 36.0 H ABG pH 7.15 L* ABG pCO2 49 H ABG pO2 205 H ABG HCO3 16 L ABG Total CO2 18 L ABG O2 Saturation 99.0 H Sodium Chloride Carbon Dioxide BUN Creatinine Glucose POC Glucose (mg/dL) Calcium Magnesium AST Total Creatine Kinase Total Protein Albumin Urine Appearance Urine Protein Urine Glucose (UA) Urine Ketones Urine Blood Ur Leukocyte Esterase Urine RBC Urine WBC Calcium Oxalate Crystal Uric Acid Crystals Amorphous Sediment Urine Mucus 05/25/17 05/25/17 05/25/17 06:30 08:09 09:05 WBC RBC Hgb Hct MCV MCHC RDW Plt Count Neutrophils # Neutrophils # (Manual) Lymphocytes # PT INR APTT ABG pH ABG pCO2 26 L ABG pO2 123 H ABG HCO3 14 L ABG Total CO2 15 L ABG O2 Saturation 98.7 H Sodium Chloride Carbon Dioxide BUN Creatinine Glucose POC Glucose (mg/dL) 175 H Calcium Magnesium AST Total Creatine Kinase Total Protein Albumin Urine Appearance Turbid H Urine Protein 2+ H Urine Glucose (UA) 1+ H Urine Ketones Trace H Urine Blood Moderate H Ur Leukocyte Esterase Large H Urine RBC >182 H Urine WBC 8 H Calcium Oxalate Crystal Few H Uric Acid Crystals Amorphous Sediment Rare H Urine Mucus - Diagnostic Findings Chest x-ray: image reviewed Assessment and Plan Plan: Assessment 1 acute cardiopulmonary arrest. I think the patient essentially went to respiratory arrest with subsequent cardiac arrest and she was down for less than 10 minutes. The patient during the code received a total of 3 rounds of epinephrine and she was intubated placed on mechanical ventilator and got transferred to the intensive care unit. Rule out pneumonia causing acute respiratory failure. Rule out possibility of an aspiration pneumonia versus a hospital-acquired pneumonia knowing that the patient's right lung is extensively consolidated 2 extensive right lung pneumonia. Suspect aspiration pneumonia versus a hospital-acquired pneumonia 3 shock with profound hypotension and the patient is pressor dependent at this point with a combination of norepinephrine infusion and vasopressin. The patient has been given a total of 5 L of IV fluids. Urine output is improving. Triple-lumen catheter is in place. Strongly suspect septic shock. Doubt a cardiogenic component at this point 4 high-grade bowel obstruction at the level of rectosigmoid. The patient underwent a low AP resection with diverting colostomy. The patient is postop day #2. 5 anemia secondary to lower gastrointestinal bleeding secondary to rectosigmoid mass 6 hyponatremia 7 mild non-anion gap metabolic acidosis 8 acute respiratory failure, currently intubated on a mechanical ventilator, secondary to above 9 cerebral palsy, history of with significant permanent AV performance and functional status 10 diabetes mellitus 11 hyperlipidemia, 12 chronic renal failure, as the patient has chronic stage III kidney disease 13 history of vasovagal syncope, scoliosis 14 frequent urine checked infections 15 Limited mobility and the patient has been using a walker based on the family members. The patient also had a limited range of motion the right hand and right wrist area. 16 large intrathoracic hiatal hernia as evident on the patient's chest x-ray. NG tube scored within the stomach. Plan Condition is critical at this point. The patient is in profound septic shock likely secondary to right lung pneumonia which could be potentially aspiration versus hospital-acquired. We'll check an echocardiogram to assess for LV function. We'll continue fluid resuscitation will put the patient on D5 normal saline infusion today to 1 25 mL an hour. Continue pressors and gradually wean down the norepinephrine infusion to deep a map of above 65. Continue monitoring the urine output. Continue vent support. The necessary vent changes were done. Keep the patient broad-spectrum antibiotics and I cover this patient with a combination of Zosyn, Levaquin and vancomycin. Sputum Gram stain and culture. Blood culture. Sliding scale insulin coverage for blood sugar control. CAT scan of the abdomen and pelvis with oral contrast. May consider TPN if unable to initiate enteral feeding. Wrapped FiO2 down to 50%. Continue the rest of the supportive care. In our clinic B inserted. We'll continue to follow. Condition is critical. Family has been updated. There is only a brother a few cousins. The patient has never been and she doesn' t have any significant other or any kids.
--- NOTE | 2017-05-25 10:08 | ECHOF ---
Referral Reason:cardiac arrest MEASUREMENTS -------- HEIGHT: 154.9 cm WEIGHT: 81.6 kg BP: 80/46 IVSd: 1.0 cm (0.6 - 1.1) LVIDd: 3.2 cm (3.9 - 5.3) LVPWd: 1.1 cm (0.6 - 1.1) IVSs: 1.4 cm LVIDs: 2.2 cm LVPWs: 1.3 cm LAESV Index (A-L): 28.37 ml/m Ao Diam: 2.9 cm (2.0 - 3.7) AV Cusp: 1.6 cm (1.5 - 2.6) LA Diam: 3.3 cm (2.7 - 3.8) MV EXCURSION: 16.399 mm (> 18.000) MV EF SLOPE: 119 mm/s (70 - 150) EPSS: 0.4 cm MV E [place]: 1.01 m/s MV DecT: 134 ms MV A [place]: 1.34 m/s MV E/A Ratio: 0.76 RAP: 5.00 mmHg RVSP: 61.00 mmHg FINDINGS -------- Sinus rhythm. This was a technically good study. The left ventricular size is normal. Left ventricular wall thickness is normal. Overall left ventricular systolic function is normal with, an EF between 55 - 60 %. The right ventricle is normal in size and function. Normal LA size by volume 22+/-6 ml/m2. The right atrium is normal in size. Aortic valve is trileaflet and is mildly thickened. The mitral valve leaflets are mildly thickened. Severe mitral regurgitation is present. Moderate to severe tricuspid regurgitation present. There is moderate to severe pulmonary hypertension. The right ventricular systolic pressure, as measured by Doppler, is 61.00mmHg. There is no pulmonic regurgitation present. The aortic root size is normal. There is no pericardial effusion. CONCLUSIONS -------- 1. Sinus rhythm. 2. There is moderate to severe pulmonary hypertension. 3. There is no pulmonic regurgitation present. 4. The aortic root size is normal. 5. There is no pericardial effusion. 6. This was a technically good study. 7. Left ventricular wall thickness is normal. 8. Overall left ventricular systolic function is normal with, an EF between 55 - 60 %. 9. Normal LA size by volume 22+/-6 ml/m2. 10. Aortic valve is trileaflet and is mildly thickened. 11. The mitral valve leaflets are mildly thickened. 12. Severe mitral regurgitation is present. 13. Moderate to severe tricuspid regurgitation present. CLERK SECRETARY: Ines Wilder RDCS
[2017-05-25] MEDS: IOHEXOL 350 MG/ML 25 ML BOTTLE (ORAL USE) PO PRN ×2 (10:49→11:58)
[2017-05-25] MEDS: DEXTROSE 5%-0.9% NACL 1,000 ML IV SCH ×2 (11:00→21:18)
[2017-05-25] MEDS ORDERED: IOHEXOL 350 MG/ML 25 ML BOTTLE (ORAL USE) PO ONE (11:43)
[2017-05-25] MEDS: INSULIN LISPRO (humaLOG) 300 UNIT/3 ML VIAL SQ SCH ×3 (11:56→21:18)
[2017-05-25 11:57] LABS: Glucose,Whole Blood 231 mg/dL (75-99)
--- NOTE | 2017-05-25 12:15 | CDI ---
In responding to this query, please exercise your independent professional judgment. The [facility] Coding Staff and Clinical Documentation Specialists appreciate your assistance in clarifying documentation, maintaining compliance with coding guidelines, accurately documenting patients condition and capturing severity of illness. The fact that a question is asked does not imply that any particular answer is desired or expected. Communication forms are a method of clarifying documentation and are not made part of the Legal Health Record. Thank you in advance for your clarification. Last Revision, January 2016 Mehrdad Caldwell [address] [place] [place] [address] Documentation Clarification Form Date: 05/25/2017 12:00:00 PM From: Diamond Leone CCS, CCDS Admit Date: 05/17/2017 6:43:00 AM Patient Name: Venessa Morel I Visit Number: [id number] Discharge Date: Dr. Venita De Anda: 76 yo female, admitted with possible GI bleed, status post Sigmoidoscopy with biopsy for rectal mass, status post Stefan procedure with colostomy. Postoperative, patient went into acute respiratory & cardiac arrest requiring resuscitation, currently in ICU intubated & on mechanical ventilation. History/Risk Factors: DM II, Hypertension, Recurrent UTIs, Cerebral palsy, recent fall with admission to rehab. Clinical Indicators: VS postop 05/25: P 103-117, R 26-28, BP 122/69-77/51, PO 95 on nrb. Lung/Breathing assessment: SOB, labored, shallow, prior to intubation. ABG/CBG: pH 7.15*, pCO2 49^, pHCO3 16 Treatment: Intubated on vent, IV Dilaudid, IV Dextrose, Albuterol INH, IV Lasix , IV Narcan, IV Norepinephrine, IV Diprivan, IV Vanco, IV fluid bolus x2, IV MagSulfate. In your professional opinion, can you please clarify if these findings signify one of the following conditions? Acuity: o Acute o Chronic o Acute on Chronic Respiratory Status: o Respiratory failure o Respiratory failure with hypercapnia o Respiratory failure with hypoxia o Acute Respiratory Distress o Other Diagnosis, please specify o Unable to determine Please document in your progress notes and discharge summary in order to capture severity of illness and risk of mortality. Include clinical findings that support your diagnosis. FYI: Press F11 to launch patient chart. MTDD
--- NOTE | 2017-05-25 12:27 | CDI ---
In responding to this query, please exercise your independent professional judgment. The [facility] Coding Staff and Clinical Documentation Specialists appreciate your assistance in clarifying documentation, maintaining compliance with coding guidelines, accurately documenting patients condition and capturing severity of illness. The fact that a question is asked does not imply that any particular answer is desired or expected. Communication forms are a method of clarifying documentation and are not made part of the Legal Health Record. Thank you in advance for your clarification. Last Revision, January 2016 Mehrdad Caldwell [address] [place] [address] Documentation Clarification Form Date: 05/25/2017 12:16:00 PM From: Diamond Leone CCS, CCDS Admit Date: 05/17/2017 6:43:00 AM Patient Name: Venessa Morel I Visit Number: [id number] Discharge Date: Dr. Roman Alvarenga: Per the Surgical Progress Note 05/24: Impression stable postop course. Still protuberant bowel function. Probably ileus. 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 Clinical Indicators: Radiology: Abdominal XR: Mildly dilated air-filled small & large bowel loops measuring up to 3.3 & 6.8 cm, respectively, more conspicuous on this study than the prior, likely representing ileus given the patient's postsurgical state. Labs: WBC 42.4^^, Hgb 8.7*, Hct 28.4*, Pl Ct 696^, Regino 7.0, Mag 1.2, AST 41, Total Prot 4.1, Albumin 1.9 VS: T 96.1*, P 69, R 24, BP 103/53, PO 100 on vent. Treatment: IV fluids, IV antibiotics, Updrafts, mechanical ventilation, IV Lasix , IV mag Sulfate. Please confirm in your documentation if the patient's ileus is an expected or unexpected outcome of the surgery: Ileus o Postoperative expected outcome of surgery o Postoperative unexpected outcome of surgery o Integral to surgery o Inherent to surgery o Undetermined o Other If this condition was ruled out or documented in error, please indicate in your progress notes and/or discharge summary. FYI: Press F11 to launch patient chart Thank You. DWAIN
[2017-05-25 12:32] LABS: Basophils % (A) 0 %; CH 31.9; Eosinophils % (A) 0 %; HCT 27.8 % (34.0-46.0); HDW 3.44; Hypochromasia Slight; Luc % (Auto) 0; Lymphocytes # (A) 2.2 k/uL (1.0-4.8); Lymphocytes % (A) 8 %; MCH 32.5 pg (25.0-35.0); MCHC 32.3 g/dL (31.0-37.0); MCV 100.5 fL (80.0-100.0); Macrocytosis Slight; Mean Platelet Volume 7.6; Monocytes # (A) 0.5 k/uL (0-1.0); Monocytes % (A) 2 %; Neutrophils # (A) 25.2 k/uL (1.3-7.7); Neutrophils % (A) 90 %; Poikilocytosis Slight; RBC 2.77 m/uL (3.80-5.40); RDW 15.4 % (11.5-15.5); WBC (Perox) 27.49
[2017-05-25 12:32] LABS: Hemoglobin A1C 5.9 % (4.2-6.1)
[2017-05-25 12:36] LABS: Calcium 6.9 mg/dL (8.4-10.2); Potassium 4.9 mmol/L (3.5-5.1)
[2017-05-25 12:53] LABS: Manual Review Performed
[2017-05-25 12:54] LABS: Toxic Granulation Present
--- NOTE | 2017-05-25 13:25 | CT ---
EXAMINATION TYPE: CT ChestAbdPelvis wo con DATE OF EXAM: 05/25/2017 COMPARISON: NONE HISTORY: Patient had recent surgery for mass removal and resection. Patient condition worsening. CT DLP: 1251 mGycm Automated exposure control for dose reduction was used. TECHNIQUE: Helical acquisition through the abdomen and pelvis was obtained with oral but without intr avenous contrast. The data was formatted in the axial, coronal and sagittal projections. FINDINGS: The patient is intubated. There is bibasilar airspace disease. There are bilateral effusions there is atelectatic change in the left upper lobe. There is diffuse groundglass opacity which may be an invasive alveolitis or pulmona ry edema. There is a small, 5 mm pericardial effusion. The heart is mildly enlarged. There is a large hiatal hernia. Within the abdomen, there are small calculi within the gallbladder. Liver and spleen appear normal. Both adrenal glands appear normal. There is no evidence of hydronephrosis or nephrolithiasis. The pancreas is not well-visualized. There is mild/moderate atheromatous calcification of the aorta. There is no significant retroperitone al adenopathy. The uterus is unremarkable. The ovaries are not seen with certainty. There is a Galo catheter within the bladder. There is a percutaneous drain extending into the pelvis. There are radiopaque bodies within the dista l sigmoid colon. There is no significant diverticular disease and is no radiographic evidence of diverticulitis. There are prominent loops of small bowel without a definite transition point. No significant free fluid is seen. No free air is identified. There is stranding about the pelvis. This is likely postsurgical change. There is diffuse anasarca. There is a moderate dextroscoliosis. There is moderately severe hypertrophic spondylosis at the thora columbar junction. There is diffuse degenerative disc disease and facet arthropathy in the lumbar spi ne. IMPRESSION: 1. BILATERAL EFFUSIONS, GREATER ON THE RIGHT THAN THE LEFT. 2. BIBASILAR CONSOLIDATION. 3. SMALL PERICARDIAL EFFUSION. 4. CARDIOMEGALY. 5. LARGE HIATAL HERNIA. 6. CHOLELITHIASIS. 7. DIFFUSE ANASARCA. 8. POSTSURGICAL CHANGE. 9. MODERATELY SEVERE DEXTROSCOLIOSIS AND ASSOCIATED DEGENERATIVE CHANGES WITHIN THE SPINE.
[2017-05-25 16:27] LABS: Glucose,Whole Blood 248 mg/dL (75-99)
--- NOTE | 2017-05-25 18:25 | P.PN ---
Subjective Principal diagnosis: Sigmoid mass Overnight the patient experienced a respiratory arrest. She is currently on the ventilator. White blood cell count is elevated. She is on pressors. CAT scan was performed which shows no evidence of intra-abdominal sepsis. Patient had 1600 cc of gastric output after placement of a oral gastric tube. There was a suspected aspiration at the time of the respiratory arrest. Objective - Vital Signs Vital signs: Vital Signs Temp 96.7 F L 05/25/17 17:00 Pulse 77 05/25/17 18:00 Resp 24 05/25/17 18:00 BP 90/53 05/25/17 18:00 Pulse Ox 99 05/25/17 18:00 Intake & Output 05/24/17 05/25/17 05/25/17 18:59 06:59 18:59 Intake Total 500 4055.625 3424.312 Output Total 310 85 735 Balance 190 3970.625 2689.312 Weight 81.647 kg 81.647 kg 81.647 kg Intake: IV 4000 100 D5-0.45% NaCl with KCl 0 20Meq/l 1,000 ml @ 125 mls/hr IV .Q8H AMAN Rx#: [id number] Piperacillin-Tazobactam 3 100 .375 gm In Dextrose/Water 1 50ml.bag @ 12.5 mls/hr IVPB Q8HR AMAN Rx#: [id number] Sodium Chloride 0.9% 2, 4000 000 ml @ 999 mls/hr IV . Q2H1M ONE Rx#:[id number] Intake, IV Titration 55.625 2724.312 Amount Dextrose 5%-0.9% NaCl 1, 1000 000 ml @ 125 mls/hr IV . Q8H AMAN Rx#:[id number] Magnesium Sulfate-D5w Pmx 200 1 gm In Dextrose/Water 1 100ml.bag @ 100 mls/hr IVPB Q1H AMAN Rx#: [id number] Norepinephrin 16 mg-0.9% 55.625 330.909 Ns Pmx 16 mg In 250 ml @ Titrate IV .Q0M AMAN Rx#: [id number] Propofol 1,000 mg In 100 193.403 ml @ Titrate IV .Q0M AMAN Rx#:[id number] Sodium Chloride 0.9% 1, 1000 000 ml @ 999 mls/hr IV . Q1H1M ONE Rx#:[id number] Oral 500 600 Output: Drainage 60 25 Left Abdomen 0 Right Abdomen 60 25 Urine 250 85 710 Other: Voiding Method Indwelling Catheter Indwelling Catheter Indwelling Catheter ABP, PAP, CO, CI - Last Documented Arterial Blood Pressure 92/45 - Exam Abdomen: Soft, minimal distention, ostomy with small amount of stool, dressing intact - Labs CBC & Chem 7: 05/25/17 11:55 05/25/17 11:55 Labs: Abnormal Lab Results - Last 24 Hours (Table) 05/25/17 05/25/17 05/25/17 Range/Units 03:20 03:20 03:20 WBC 42.4 H* (3.8-10.6) k/uL RBC 2.72 L (3.80-5.40) m/uL Hgb 8.7 L D (11.4-16.0) gm/dL Hct 28.4 L (34.0-46.0) % MCV 104.5 H (80.0-100.0) fL MCHC 30.7 L (31.0-37.0) g/dL Plt Count 696 H (150-450) k/uL Neutrophils # (1.3-7.7) k/uL Neutrophils # (Manual) 38.2 H (1.3-7.7) k/uL PT 14.6 H (9.0-12.0) sec INR 1.5 H (<1.2) APTT 36.0 H (22.0-30.0) sec ABG pH (7.35-7.45) ABG pCO2 (35-45) mmHg ABG pO2 (83-108) mmHg ABG HCO3 (21-25) mmol/L ABG Total CO2 (19-24) mmol/L ABG O2 Saturation (94-97) % Sodium 128 L (137-145) mmol/L Potassium (3.5-5.1) mmol/L Chloride (98-107) mmol/L Carbon Dioxide 16 L (22-30) mmol/L BUN 19 H (7-17) mg/dL Creatinine 1.10 H (0.52-1.04) mg/dL Glucose 183 H (74-99) mg/dL POC Glucose (mg/dL) (75-99) mg/dL Calcium 7.3 L (8.4-10.2) mg/dL Magnesium 1.2 L (1.6-2.3) mg/dL AST 41 H (14-36) U/L Total Protein 4.1 L (6.3-8.2) g/dL Albumin 1.9 L (3.5-5.0) g/dL Urine Appearance (Clear) Urine Protein (Negative) Urine Glucose (UA) (Negative) Urine Ketones (Negative) Urine Blood (Negative) Ur Leukocyte Esterase (Negative) Urine RBC (0-5) /hpf Urine WBC (0-5) /hpf Calcium Oxalate Crystal (None) /hpf Amorphous Sediment (None) /hpf 05/25/17 05/25/17 05/25/17 Range/Units 03:34 06:30 08:09 WBC (3.8-10.6) k/uL RBC (3.80-5.40) m/uL Hgb (11.4-16.0) gm/dL Hct (34.0-46.0) % MCV (80.0-100.0) fL MCHC (31.0-37.0) g/dL Plt Count (150-450) k/uL Neutrophils # (1.3-7.7) k/uL Neutrophils # (Manual) (1.3-7.7) k/uL PT (9.0-12.0) sec INR (<1.2) APTT (22.0-30.0) sec ABG pH 7.15 L* (7.35-7.45) ABG pCO2 49 H 26 L (35-45) mmHg ABG pO2 205 H 123 H (83-108) mmHg ABG HCO3 16 L 14 L (21-25) mmol/L ABG Total CO2 18 L 15 L (19-24) mmol/L ABG O2 Saturation 99.0 H 98.7 H (94-97) % Sodium (137-145) mmol/L Potassium (3.5-5.1) mmol/L Chloride (98-107) mmol/L Carbon Dioxide (22-30) mmol/L BUN (7-17) mg/dL Creatinine (0.52-1.04) mg/dL Glucose (74-99) mg/dL POC Glucose (mg/dL) (75-99) mg/dL Calcium (8.4-10.2) mg/dL Magnesium (1.6-2.3) mg/dL AST (14-36) U/L Total Protein (6.3-8.2) g/dL Albumin (3.5-5.0) g/dL Urine Appearance Turbid H (Clear) Urine Protein 2+ H (Negative) Urine Glucose (UA) 1+ H (Negative) Urine Ketones Trace H (Negative) Urine Blood Moderate H (Negative) Ur Leukocyte Esterase Large H (Negative) Urine RBC >182 H (0-5) /hpf Urine WBC 8 H (0-5) /hpf Calcium Oxalate Crystal Few H (None) /hpf Amorphous Sediment Rare H (None) /hpf 05/25/17 05/25/17 05/25/17 Range/Units 08:40 09:05 09:47 WBC (3.8-10.6) k/uL RBC (3.80-5.40) m/uL Hgb (11.4-16.0) gm/dL Hct (34.0-46.0) % MCV (80.0-100.0) fL MCHC (31.0-37.0) g/dL Plt Count (150-450) k/uL Neutrophils # (1.3-7.7) k/uL Neutrophils # (Manual) (1.3-7.7) k/uL PT (9.0-12.0) sec INR (<1.2) APTT (22.0-30.0) sec ABG pH (7.35-7.45) ABG pCO2 (35-45) mmHg ABG pO2 (83-108) mmHg ABG HCO3 (21-25) mmol/L ABG Total CO2 (19-24) mmol/L ABG O2 Saturation (94-97) % Sodium 129 L (137-145) mmol/L Potassium 5.4 H (3.5-5.1) mmol/L Chloride 110 H (98-107) mmol/L Carbon Dioxide 13 L (22-30) mmol/L BUN 18 H (7-17) mg/dL Creatinine 1.08 H (0.52-1.04) mg/dL Glucose 161 H (74-99) mg/dL POC Glucose (mg/dL) 175 H 191 H (75-99) mg/dL Calcium 7.0 L (8.4-10.2) mg/dL Magnesium (1.6-2.3) mg/dL AST (14-36) U/L Total Protein (6.3-8.2) g/dL Albumin (3.5-5.0) g/dL Urine Appearance (Clear) Urine Protein (Negative) Urine Glucose (UA) (Negative) Urine Ketones (Negative) Urine Blood (Negative) Ur Leukocyte Esterase (Negative) Urine RBC (0-5) /hpf Urine WBC (0-5) /hpf Calcium Oxalate Crystal (None) /hpf Amorphous Sediment (None) /hpf 05/25/17 05/25/17 05/25/17 Range/Units 11:54 11:55 11:55 WBC 28.0 H* (3.8-10.6) k/uL RBC 2.77 L (3.80-5.40) m/uL Hgb 9.0 L (11.4-16.0) gm/dL Hct 27.8 L (34.0-46.0) % MCV 100.5 H (80.0-100.0) fL MCHC (31.0-37.0) g/dL Plt Count 652 H (150-450) k/uL Neutrophils # 25.2 H (1.3-7.7) k/uL Neutrophils # (Manual) (1.3-7.7) k/uL PT (9.0-12.0) sec INR (<1.2) APTT (22.0-30.0) sec ABG pH (7.35-7.45) ABG pCO2 (35-45) mmHg ABG pO2 (83-108) mmHg ABG HCO3 (21-25) mmol/L ABG Total CO2 (19-24) mmol/L ABG O2 Saturation (94-97) % Sodium 127 L (137-145) mmol/L Potassium (3.5-5.1) mmol/L Chloride (98-107) mmol/L Carbon Dioxide 13 L (22-30) mmol/L BUN 18 H (7-17) mg/dL Creatinine 1.12 H (0.52-1.04) mg/dL Glucose 214 H (74-99) mg/dL POC Glucose (mg/dL) 231 H (75-99) mg/dL Calcium 6.9 L (8.4-10.2) mg/dL Magnesium (1.6-2.3) mg/dL AST (14-36) U/L Total Protein (6.3-8.2) g/dL Albumin (3.5-5.0) g/dL Urine Appearance (Clear) Urine Protein (Negative) Urine Glucose (UA) (Negative) Urine Ketones (Negative) Urine Blood (Negative) Ur Leukocyte Esterase (Negative) Urine RBC (0-5) /hpf Urine WBC (0-5) /hpf Calcium Oxalate Crystal (None) /hpf Amorphous Sediment (None) /hpf 05/25/17 Range/Units 16:24 WBC (3.8-10.6) k/uL RBC (3.80-5.40) m/uL Hgb (11.4-16.0) gm/dL Hct (34.0-46.0) % MCV (80.0-100.0) fL MCHC (31.0-37.0) g/dL Plt Count (150-450) k/uL Neutrophils # (1.3-7.7) k/uL Neutrophils # (Manual) (1.3-7.7) k/uL PT (9.0-12.0) sec INR (<1.2) APTT (22.0-30.0) sec ABG pH (7.35-7.45) ABG pCO2 (35-45) mmHg ABG pO2 (83-108) mmHg ABG HCO3 (21-25) mmol/L ABG Total CO2 (19-24) mmol/L ABG O2 Saturation (94-97) % Sodium (137-145) mmol/L Potassium (3.5-5.1) mmol/L Chloride (98-107) mmol/L Carbon Dioxide (22-30) mmol/L BUN (7-17) mg/dL Creatinine (0.52-1.04) mg/dL Glucose (74-99) mg/dL POC Glucose (mg/dL) 248 H (75-99) mg/dL Calcium (8.4-10.2) mg/dL Magnesium (1.6-2.3) mg/dL AST (14-36) U/L Total Protein (6.3-8.2) g/dL Albumin (3.5-5.0) g/dL Urine Appearance (Clear) Urine Protein (Negative) Urine Glucose (UA) (Negative) Urine Ketones (Negative) Urine Blood (Negative) Ur Leukocyte Esterase (Negative) Urine RBC (0-5) /hpf Urine WBC (0-5) /hpf Calcium Oxalate Crystal (None) /hpf Amorphous Sediment (None) /hpf Microbiology - Last 24 Hours (Table) 05/24/17 09:00 Urine Culture - Final Urine,Catheterized Assessment and Plan (1) Mass in rectum Narrative/Plan: Continue nothing by mouth for now. Wean pressors as able. IV antibiotics. Pulmonary support. Status: Acute
[2017-05-25 19:48] LABS: Glucose,Whole Blood 210 mg/dL (75-99)
[2017-05-25] MEDS: ATORVASTATIN 20 MG TAB PO SCH (21:45)
--- NOTE | 2017-05-25 22:49 | PCN ---
ARTERIAL LINE PLACEMENT Indication: Hemodynamic monitoring. PREOPERATIVE DIAGNOSIS: Septic shock. POSTOPERATIVE DIAGNOSIS: Septic shock. A time-out was completed verifying correct patient, procedure, site, positioning , and implant(s) or special equipment if applicable. Allens test was performed to ensure adequate perfusion. The patients left wrist was prepped and draped in sterile fashion. 1% Lidocaine was used to anesthetize the area. An 18G Arrow arterial line was introduced into the left radial artery. The catheter was threaded over the guide wire and the needle was removed with appropriate pulsatile blood return. Blood loss was minimal. The catheter was then sutured in place to the skin and a sterile dressing applied. Perfusion to the extremity distal to the point of catheter insertion was checked and found to be adequate. The patient tolerated the procedure well and there were no bedside complications or bleeding at this point. DWAIN
--- NOTE | 2017-05-25 23:36 | P.PN ---
Subjective Principal diagnosis: Sigmoid colon cancer status post resection Mr. Morel is a 76-year-old female who was recently admitted to the detention after sustaining fall due to generalized weakness. The patient was brought to the hospital with concerns for GI bleed. Patient had attempted colonoscopy initially on 05/19/2017 and scope could not be passed due to significant obstructing mass. On 05/20/2017 patient was taken to OR for low anterior resection of the sigmoid and colostomy bag placement was done. On 05/21/2017 Agent is more awake and oriented today. Patient is tolerating liquid diet but feels nauseous now, as her chest pain or short of breath. Hemoglobin is stable. Patient is on epidural. On 05/22/2017 Patient says that her nausea is improved. Epidural pain management is being discontinued today. No fever no chills. No complaints of abdominal pain. Patient is tolerating liquid diet today. Otherwise no chest pain or short of breath. On 05/23/2017 Patient is tolerating by mouth liquid diet. She has been moving her bowels and has some stool in the colostomy bag. On 05/24/2017 Patient has been tolerating liquid diet well. Patient has been transferred to a chair beside the bed. Patient has a small amount of stool in the colostomy bag and passing flatus. On 05/25/2017 Last night the patient developed respiratory failure and eventually had cardiac arrest. Patient was resuscitated for a total of 9 minutes. She received 3 doses of epinephrine and received 2 L of IV fluid bolus , intubated and taken to the ICU. As her blood pressure was running her she was also started on pressors . Overnight the patient was given 5 more Lt of IV fluids. Her blood pressure was still running low and she was started on Levophed and vasopressin. The patient subsequently had a chest x-ray was showing a large right lung consolidation, and the patient has a large intrathoracic had a hernia. So most likely that the patient might have aspirated overnight. Review of systems - could not be done as the patient is intubated Objective - Vital Signs Vital signs: Vital Signs Temp 97.5 F L 05/25/17 20:00 Pulse 82 05/25/17 23:05 Resp 24 05/25/17 23:00 BP 92/45 05/25/17 22:00 Pulse Ox 98 05/25/17 23:00 Intake & Output 07/05/25/17 05/26/17 06:59 18:59 06:59 Intake Total 4055.625 3482.437 613.042 Output Total 85 735 137 Balance 3970.625 2747.437 476.042 Weight 81.647 kg 81.647 kg Intake: IV 4000 100 375 D5-0.45% NaCl with KCl 0 20Meq/l 1,000 ml @ 125 mls/hr IV .Q8H AMAN Rx#: [id number] Dextrose 5%-0.9% NaCl 1, 375 000 ml @ 125 mls/hr IV . Q8H AMAN Rx#:[id number] Piperacillin-Tazobactam 3 100 .375 gm In Dextrose/Water 1 50ml.bag @ 12.5 mls/hr IVPB Q8HR AMAN Rx#: [id number] Sodium Chloride 0.9% 2, 4000 000 ml @ 999 mls/hr IV . Q2H1M ONE Rx#:[id number] Intake, IV Titration 55.625 2782.437 238.042 Amount Dextrose 5%-0.9% NaCl 1, 1000 125 000 ml @ 125 mls/hr IV . Q8H AMAN Rx#:[id number] Magnesium Sulfate-D5w Pmx 200 1 gm In Dextrose/Water 1 100ml.bag @ 100 mls/hr IVPB Q1H AMAN Rx#: [id number] Norepinephrin 16 mg-0.9% 55.625 389.034 55.341 Ns Pmx 16 mg In 250 ml @ Titrate IV .Q0M AMAN Rx#: [id number] Propofol 1,000 mg In 100 193.403 57.701 ml @ Titrate IV .Q0M AMAN Rx#:[id number] Sodium Chloride 0.9% 1, 1000 000 ml @ 999 mls/hr IV . Q1H1M ONE Rx#:[id number] Oral 600 Output: Drainage 25 Left Abdomen 0 Right Abdomen 25 Urine 85 710 137 Other: Voiding Method Indwelling Catheter Indwelling Catheter Indwelling Catheter ABP, PAP, CO, CI - Last Documented Arterial Blood Pressure 105/52 - Exam A 76-year-old female lying in bed in the ICU. She is sedated. HEENT: Atraumatic, normocephalic. No nostril area discharge NECK: Supple. No JVD. CVS: S1, S2 heard. No murmurs, no gallop, no rub. LUNGS: Coarse breath sounds bilaterally. ABDOMEN: Soft, nontender. Colostomy bag is in place. No active bleeding at the site. Bowel sounds are sluggish to absent [employer]: Awake, alert, oriented x3 able to move all extremities. EXTREMITIES: No edema. Pulses palpable bilaterally. No clubbing or cyanosis. . - Labs CBC & Chem 7: 05/25/17 11:55 05/25/17 11:55 Labs: Abnormal Lab Results - Last 24 Hours (Table) 05/25/17 05/25/17 05/25/17 Range/Units 03:20 03:20 03:20 WBC 42.4 H* (3.8-10.6) k/uL RBC 2.72 L (3.80-5.40) m/uL Hgb 8.7 L D (11.4-16.0) gm/dL Hct 28.4 L (34.0-46.0) % MCV 104.5 H (80.0-100.0) fL MCHC 30.7 L (31.0-37.0) g/dL Plt Count 696 H (150-450) k/uL Neutrophils # (1.3-7.7) k/uL Neutrophils # (Manual) 38.2 H (1.3-7.7) k/uL PT 14.6 H (9.0-12.0) sec INR 1.5 H (<1.2) APTT 36.0 H (22.0-30.0) sec ABG pH (7.35-7.45) ABG pCO2 (35-45) mmHg ABG pO2 (83-108) mmHg ABG HCO3 (21-25) mmol/L ABG Total CO2 (19-24) mmol/L ABG O2 Saturation (94-97) % Sodium 128 L (137-145) mmol/L Potassium (3.5-5.1) mmol/L Chloride (98-107) mmol/L Carbon Dioxide 16 L (22-30) mmol/L BUN 19 H (7-17) mg/dL Creatinine 1.10 H (0.52-1.04) mg/dL Glucose 183 H (74-99) mg/dL POC Glucose (mg/dL) (75-99) mg/dL Calcium 7.3 L (8.4-10.2) mg/dL Magnesium 1.2 L (1.6-2.3) mg/dL AST 41 H (14-36) U/L Total Protein 4.1 L (6.3-8.2) g/dL Albumin 1.9 L (3.5-5.0) g/dL Urine Appearance (Clear) Urine Protein (Negative) Urine Glucose (UA) (Negative) Urine Ketones (Negative) Urine Blood (Negative) Ur Leukocyte Esterase (Negative) Urine RBC (0-5) /hpf Urine WBC (0-5) /hpf Calcium Oxalate Crystal (None) /hpf Amorphous Sediment (None) /hpf 05/25/17 05/25/17 05/25/17 Range/Units 03:34 06:30 08:09 WBC (3.8-10.6) k/uL RBC (3.80-5.40) m/uL Hgb (11.4-16.0) gm/dL Hct (34.0-46.0) % MCV (80.0-100.0) fL MCHC (31.0-37.0) g/dL Plt Count (150-450) k/uL Neutrophils # (1.3-7.7) k/uL Neutrophils # (Manual) (1.3-7.7) k/uL PT (9.0-12.0) sec INR (<1.2) APTT (22.0-30.0) sec ABG pH 7.15 L* (7.35-7.45) ABG pCO2 49 H 26 L (35-45) mmHg ABG pO2 205 H 123 H (83-108) mmHg ABG HCO3 16 L 14 L (21-25) mmol/L ABG Total CO2 18 L 15 L (19-24) mmol/L ABG O2 Saturation 99.0 H 98.7 H (94-97) % Sodium (137-145) mmol/L Potassium (3.5-5.1) mmol/L Chloride (98-107) mmol/L Carbon Dioxide (22-30) mmol/L BUN (7-17) mg/dL Creatinine (0.52-1.04) mg/dL Glucose (74-99) mg/dL POC Glucose (mg/dL) (75-99) mg/dL Calcium (8.4-10.2) mg/dL Magnesium (1.6-2.3) mg/dL AST (14-36) U/L Total Protein (6.3-8.2) g/dL Albumin (3.5-5.0) g/dL Urine Appearance Turbid H (Clear) Urine Protein 2+ H (Negative) Urine Glucose (UA) 1+ H (Negative) Urine Ketones Trace H (Negative) Urine Blood Moderate H (Negative) Ur Leukocyte Esterase Large H (Negative) Urine RBC >182 H (0-5) /hpf Urine WBC 8 H (0-5) /hpf Calcium Oxalate Crystal Few H (None) /hpf Amorphous Sediment Rare H (None) /hpf 05/25/17 05/25/17 05/25/17 Range/Units 08:40 09:05 09:47 WBC (3.8-10.6) k/uL RBC (3.80-5.40) m/uL Hgb (11.4-16.0) gm/dL Hct (34.0-46.0) % MCV (80.0-100.0) fL MCHC (31.0-37.0) g/dL Plt Count (150-450) k/uL Neutrophils # (1.3-7.7) k/uL Neutrophils # (Manual) (1.3-7.7) k/uL PT (9.0-12.0) sec INR (<1.2) APTT (22.0-30.0) sec ABG pH (7.35-7.45) ABG pCO2 (35-45) mmHg ABG pO2 (83-108) mmHg ABG HCO3 (21-25) mmol/L ABG Total CO2 (19-24) mmol/L ABG O2 Saturation (94-97) % Sodium 129 L (137-145) mmol/L Potassium 5.4 H (3.5-5.1) mmol/L Chloride 110 H (98-107) mmol/L Carbon Dioxide 13 L (22-30) mmol/L BUN 18 H (7-17) mg/dL Creatinine 1.08 H (0.52-1.04) mg/dL Glucose 161 H (74-99) mg/dL POC Glucose (mg/dL) 175 H 191 H (75-99) mg/dL Calcium 7.0 L (8.4-10.2) mg/dL Magnesium (1.6-2.3) mg/dL AST (14-36) U/L Total Protein (6.3-8.2) g/dL Albumin (3.5-5.0) g/dL Urine Appearance (Clear) Urine Protein (Negative) Urine Glucose (UA) (Negative) Urine Ketones (Negative) Urine Blood (Negative) Ur Leukocyte Esterase (Negative) Urine RBC (0-5) /hpf Urine WBC (0-5) /hpf Calcium Oxalate Crystal (None) /hpf Amorphous Sediment (None) /hpf 05/25/17 05/25/17 05/25/17 Range/Units 11:54 11:55 11:55 WBC 28.0 H* (3.8-10.6) k/uL RBC 2.77 L (3.80-5.40) m/uL Hgb 9.0 L (11.4-16.0) gm/dL Hct 27.8 L (34.0-46.0) % MCV 100.5 H (80.0-100.0) fL MCHC (31.0-37.0) g/dL Plt Count 652 H (150-450) k/uL Neutrophils # 25.2 H (1.3-7.7) k/uL Neutrophils # (Manual) (1.3-7.7) k/uL PT (9.0-12.0) sec INR (<1.2) APTT (22.0-30.0) sec ABG pH (7.35-7.45) ABG pCO2 (35-45) mmHg ABG pO2 (83-108) mmHg ABG HCO3 (21-25) mmol/L ABG Total CO2 (19-24) mmol/L ABG O2 Saturation (94-97) % Sodium 127 L (137-145) mmol/L Potassium (3.5-5.1) mmol/L Chloride (98-107) mmol/L Carbon Dioxide 13 L (22-30) mmol/L BUN 18 H (7-17) mg/dL Creatinine 1.12 H (0.52-1.04) mg/dL Glucose 214 H (74-99) mg/dL POC Glucose (mg/dL) 231 H (75-99) mg/dL Calcium 6.9 L (8.4-10.2) mg/dL Magnesium (1.6-2.3) mg/dL AST (14-36) U/L Total Protein (6.3-8.2) g/dL Albumin (3.5-5.0) g/dL Urine Appearance (Clear) Urine Protein (Negative) Urine Glucose (UA) (Negative) Urine Ketones (Negative) Urine Blood (Negative) Ur Leukocyte Esterase (Negative) Urine RBC (0-5) /hpf Urine WBC (0-5) /hpf Calcium Oxalate Crystal (None) /hpf Amorphous Sediment (None) /hpf 05/25/17 05/25/17 Range/Units 16:24 19:47 WBC (3.8-10.6) k/uL RBC (3.80-5.40) m/uL Hgb (11.4-16.0) gm/dL Hct (34.0-46.0) % MCV (80.0-100.0) fL MCHC (31.0-37.0) g/dL Plt Count (150-450) k/uL Neutrophils # (1.3-7.7) k/uL Neutrophils # (Manual) (1.3-7.7) k/uL PT (9.0-12.0) sec INR (<1.2) APTT (22.0-30.0) sec ABG pH (7.35-7.45) ABG pCO2 (35-45) mmHg ABG pO2 (83-108) mmHg ABG HCO3 (21-25) mmol/L ABG Total CO2 (19-24) mmol/L ABG O2 Saturation (94-97) % Sodium (137-145) mmol/L Potassium (3.5-5.1) mmol/L Chloride (98-107) mmol/L Carbon Dioxide (22-30) mmol/L BUN (7-17) mg/dL Creatinine (0.52-1.04) mg/dL Glucose (74-99) mg/dL POC Glucose (mg/dL) 248 H 210 H (75-99) mg/dL Calcium (8.4-10.2) mg/dL Magnesium (1.6-2.3) mg/dL AST (14-36) U/L Total Protein (6.3-8.2) g/dL Albumin (3.5-5.0) g/dL Urine Appearance (Clear) Urine Protein (Negative) Urine Glucose (UA) (Negative) Urine Ketones (Negative) Urine Blood (Negative) Ur Leukocyte Esterase (Negative) Urine RBC (0-5) /hpf Urine WBC (0-5) /hpf Calcium Oxalate Crystal (None) /hpf Amorphous Sediment (None) /hpf Microbiology - Last 24 Hours (Table) 05/24/17 09:00 Urine Culture - Final Urine,Catheterized Assessment and Plan Plan: ASSESSMENT Acute cardiopulmonary arrest -downtime of 9-10 mins Right Lung Pneumonia - most likely secondary to Aspiration Septic shock - most likley secondary to above Acute blood loss anemia secondary to lower gastrointestinal bleed secondary to sigmoid mass. Hemoglobin stable Sigmoid mass status post low anterior resection and colostomy bag placement Hyponatremia Essential hypertension. Medical debility. Recent urinary tract infection. Chronic diarrhea. Vitamin D deficiency. DISCUSSION AND PLAN: Patient is currently on pressor support and mechanically ventilated. Antibiotics initiated. Overall prognosis is poor. Patient's family members that have been informed of her status. Further recommendations to follow depending on the progress of the patient.
[2017-05-26] MEDS: PIPERACILLIN-TAZOBACTAM 3.375 GM in DEXTROSE/WATER 1 50ML.BAG IVPB SCH ×4 (00:28→23:11)
[2017-05-26 00:29] LABS: Glucose,Whole Blood 185 mg/dL (75-99)
[2017-05-26] MEDS: HEPARIN SODIUM,PORCINE 5,000 UNIT/ML 1 ML VIAL SQ SCH ×4 (00:29→23:12)
[2017-05-26] MEDS: INSULIN LISPRO (humaLOG) 300 UNIT/3 ML VIAL SQ SCH ×7 (00:29→23:41)
[2017-05-26] MEDS: DEXTROSE 5%-0.9% NACL 1,000 ML IV SCH ×3 (02:37→16:09)
[2017-05-26] MEDS: PROPOFOL 1,000 MG/100 ML VIAL IV SCH ×4 (02:38→23:11)
[2017-05-26] MEDS: IPRATROPIUM-ALBUTEROL 3 ML NEB INHALATION SCH ×6 (03:04→23:16)
[2017-05-26 03:58] LABS: Glucose,Whole Blood 164 mg/dL (75-99)
[2017-05-26 04:05] LABS: Basophils % (A) 0 %; CH 32.6; CHCM 32.9; Eosinophils # (A) 0.2 k/uL (0-0.7); Eosinophils % (A) 1 %; HDW 3.53; HGB 7.9 gm/dL (11.4-16.0); Luc # (Auto) 0.09; Luc % (Auto) 1; Lymphocytes # (A) 1.7 k/uL (1.0-4.8); Lymphocytes % (A) 13 %; MCV 99.9 fL (80.0-100.0); Macrocytosis Slight; Mean Platelet Volume 8.5; Monocytes # (A) 0.3 k/uL (0-1.0); Monocytes % (A) 2 %; Neutrophils # (A) 11.3 k/uL (1.3-7.7); Neutrophils % (A) 83 %; Poikilocytosis Slight; WBC 13.5 k/uL (3.8-10.6); WBC (Perox) 12.35
[2017-05-26 04:30] LABS: Calcium 6.9 mg/dL (8.4-10.2); Magnesium 1.6 mg/dL (1.6-2.3); Phosphorous 2.2 mg/dL (2.5-4.5); Potassium 4.3 mmol/L (3.5-5.1)
[2017-05-26] MEDS: LEVOFLOXACIN 500MG-D5W PMX 500 MG in DEXTROSE/WATER 1 100ML.BAG IVPB SCH (05:00)
[2017-05-26 05:23] LABS: ABG Base Excess -10.8 mmol/L; ABG HCO3 13 mmol/L (21-25); ABG PCO2 23 mmHg (35-45); ABG PH 7.38 (7.35-7.45); ABG PO2 150 mmHg (83-108); ABG TCO2 14 mmol/L (19-24)
[2017-05-26] MEDS ORDERED: Magnesium Replacement Protocol 1 EACH MISC MISCELLANE PRN (05:42)
[2017-05-26] MEDS: MAGNESIUM SULFATE-D5W PMX 1 GM in DEXTROSE/WATER 1 100ML.BAG IVPB SCH ×2 (07:04→08:49)
[2017-05-26] MEDS: SODIUM CHLORIDE 0.9% 99 ML with VASOPRESSIN 20 UNIT IV SCH ×4 (07:05→15:50)
[2017-05-26] MEDS: VANCOMYCIN 1,500 MG in SODIUM CHLORIDE 0.9% 250 ML IVPB SCH (07:05)
--- NOTE | 2017-05-26 08:32 | P.PN ---
Progress Note - Text The patient's ileus is a expected outcome of the patient's colon resection surgery.
--- NOTE | 2017-05-26 08:47 | XR ---
EXAMINATION TYPE: XR chest 1V portable DATE OF EXAM: 05/26/2017 COMPARISON: 05/25/2017 HISTORY: Tube placement TECHNIQUE: Single frontal view of the chest is obtained. FINDINGS: ET tube seen in somewhat low in position approximately 1.4 cm above the mony. NG tube is seen extending into the abdomen. Bilateral infiltrate and pleural effusion seen. Arthropathy of the shoulders. No pneumothorax. Heart size stable. Scoliotic curvature and degenerative change of the spi ne. IMPRESSION: 1. Bilateral infiltrate and pleural effusion. Underlying venous congestion not excluded. 2. ET tube a slightly low in position measuring 1.4 cm above mony.
[2017-05-26 08:58] LABS: Glucose,Whole Blood 142 mg/dL (75-99)
[2017-05-26] MEDS: CHLORHEXIDINE GLUCONATE 15 ML CUP MUCOUS MEM SCH ×2 (09:03→20:06)
[2017-05-26] MEDS: FAMOTIDINE 20 MG/2 ML VIAL IV SCH (09:03)
[2017-05-26] MEDS: NOREPINEPHRIN 16 MG-0.9%NS PMX 16 MG/250 ML ML IV SCH (09:06)
[2017-05-26 12:33] LABS: Glucose,Whole Blood 124 mg/dL (75-99)
[2017-05-26] MEDS: METOCLOPRAMIDE 5 MG/ML 2 ML VIAL IVP SCH ×3 (12:51→23:13)
--- NOTE | 2017-05-26 13:32 | P.PN ---
Subjective 76-year-old female patient who presented to the hospital because of a high grade sigmoid colon obstruction with a suspicious mass. The patient underwent a colonoscopy by gastroenterology and the patient was found to have a partially obstructing mass in the distal sigmoid colon/rectosigmoid junction. The patient was having on and off rectal bleeding. She was rehabilitating at [facility] after a fall due to a generalized weakness. She was having some loose stools over the past few weeks but no significant abdominal pain or GI discomfort. The patient's hemoglobin had dropped down to 7.9 from a baseline of 12 and she was receiving transfusion. Based on all this, the patient was taken to the operating room on 05/23/2017 and the patient underwent a low AP resection with diverting colostomy. 2 abdominal drains also placed. Last night, the patient was found to be in acute respiratory distress.. The patient had a witnessed respiratory arrest and subsequent cardiac arrest. This occurred at around 1:50 AM this morning. Initially the pulse was identified. The patient was resuscitated for a total of 9 minutes and she was given 3 doses of epinephrine 1 mg. She was intubated and placed on a mechanical ventilator. She was given a triple lumen catheter in her right femoral vein. She was given a total of 2 L of IV fluids and her blood pressure remained low in the mid 60s. Following that she was started on pressors which ultimately titrated and she was placed on high-dose epinephrine infusion today to 60 g. The post intubation blood gas showed a pH of 7.15 with a pCO2 of 49 and pO2 of 205 this was an FiO2 of 100% with a PEEP of 5 and tidal volume of 350 and the rate of 14 Overnight the patient was given further fluid resuscitation and she has already received a total of 5 L of IV fluids. Currently she is on vasopressin 0.03 units per minute and she is also on norepinephrine infusion at 40 mics. She started making some urine output. Her urine output over the past 1 hour is around 100 mL an hour. The patient is sedated Diprivan at 40 mics. She would respond to painful stimuli and she would move all 4 extremities once she is taken to lower dose of Diprivan. Meanwhile, the necessity vent changes were done. I increased tidal volume to 450. I put the rate of 24 and drop the FiO2 down to 60%. Subsequent blood gases showed a pH of 7.36 with a pCO2 of 26 and pO2 of 123. Chest x-ray shows a large consolidation of the right lung involving the right middle lobe and right lower lobe. Orogastric tube was placed immediately following intubation and a total of 1600 mL of gastric aspirate was obtained. Note that the chest x-ray preoperatively had shown or the a large intrathoracic hiatal hernia. The patient subsequently had an abdominal x-ray yesterday that was indicating some ileus. The chest x-ray from this morning is showing that the patient has a right lung pneumonia and the OG tube is coiled in the hiatal hernia within the thorax. No gastric material is being suctioned from the TRACHEAL tube although is very much likely the patient could have aspirated. Her white cell count is up to 42. Venous lactate is at 1.7. The patient's colostomy site is functional. There is some minimal amount of fecal material collecting in the colostomy bag. Abdomen is nondistended at this point. Positive lower oximetry is palpable. On 05/26/2017 the patient is being seen in follow-up. The patient is still intubated on a mechanical ventilator. The patient is afebrile. She is doing well on a mechanical ventilator and she is in a assist-control mode at the rate of 24, tidal volume 450, FiO2 is down to 40% and PEEP of 5. Her morning blood gases with a pH of 7.38 with a pCO2 of 23 and pO2 150. Chest x-ray showing small bilateral pleural effusions and infiltrates in lung bases bilaterally. ET tube is in a good location. There is also a triple lumen catheter in place. The patient had a CAT scan of the abdomen and pelvis yesterday that showed lower lobe consolidation of the lungs along with pleural effusions. No intra- abdominal abscess. No other intra-abdominal abnormalities. The patient is a large hiatal hernia. Orogastric tube is in place and the patient will be started on tube feeds today. Colostomy site is healthy and viable looking. Hemodynamically she is improved compared to yesterday. She is on a vasopressin drip at physiologic dose and the patient is also on norepinephrine infusion that was weaned down to 20 mics. The patient is sedated with Diprivan and she is calm and comfortable. The patient remains on a combination of Zosyn and Levaquin and vancomycin. The blood cultures of been negative. The sputum culture been negative. White cell count is improving. Afebrile. Producing adequate amount of urine output. Echocardiogram showed a preserved LV function. There was a severe degree of mitral regurgitation secondary pulmonary hypertension. Objective - Vital Signs Vital signs: Vital Signs Temp 96.8 F L 05/26/17 05:00 Pulse 75 05/26/17 12:00 Resp 24 05/26/17 12:00 BP 93/49 05/26/17 12:00 Pulse Ox 99 05/26/17 12:00 Intake & Output 05/25/17 05/26/17 05/26/17 18:59 06:59 18:59 Intake Total 3482.437 5436.844 2030.031 Output Total 735 1442 1175 Balance 2747.437 326.167 -12.969 Weight 81.647 kg 82.6 kg 82.6 kg Intake: IV 100 1375 475 D5-0.45% NaCl with KCl 0 20Meq/l 1,000 ml @ 125 mls/hr IV .Q8H AMAN Rx#: [id number] Dextrose 5%-0.9% NaCl 1, 1375 375 000 ml @ 125 mls/hr IV . Q8H AMAN Rx#:[id number] Piperacillin-Tazobactam 3 100 100 .375 gm In Dextrose/Water 1 50ml.bag @ 12.5 mls/hr IVPB Q8HR AMAN Rx#: [id number] Intake, IV Titration 2782.437 393.167 677.031 Amount Dextrose 5%-0.9% NaCl 1, 1000 125 000 ml @ 125 mls/hr IV . Q8H AMAN Rx#:[id number] Dextrose 5%-0.9% NaCl 1, 120 000 ml @ 40 mls/hr IV . Q24H AMAN Rx#:[id number] Levofloxacin 250Mg-D5w 200 Pmx 250 mg In Dextrose/ Water 1 50ml.bag @ 50 mls /hr IVPB Q24H AMAN Rx#: [id number] Magnesium Sulfate-D5w Pmx 200 1 gm In Dextrose/Water 1 100ml.bag @ 100 mls/hr IVPB Q1H AMAN Rx#: [id number] Norepinephrin 16 mg-0.9% 389.034 110.466 257.031 Ns Pmx 16 mg In 250 ml @ Titrate IV .Q0M AMAN Rx#: [id number] Propofol 1,000 mg In 100 193.403 157.701 100 ml @ Titrate IV .Q0M AMAN Rx#:[id number] Sodium Chloride 0.9% 1, 1000 000 ml @ 999 mls/hr IV . Q1H1M ONE Rx#:[id number] Oral 600 Tube Feeding 10 Output: Drainage 25 30 Left Abdomen 0 10 Right Abdomen 25 20 Urine 710 442 245 Stool 1000 900 Other: Voiding Method Indwelling Catheter Indwelling Catheter Indwelling Catheter ABP, PAP, CO, CI - Last Documented Arterial Blood Pressure 113/50 - Exam Head exam was generally normal. There was no scleral icterus or corneal arcus. Mucous membranes were moist. The patient is intubated on a mechanical ventilator. Orogastric and orotracheal tube are both in place.Neck was supple and without jugular venous distension, thyromegaly, or carotid bruits. Carotids were easily palpable bilaterally. There was no adenopathy. Lung sounds are equal and symmetrical bilaterally and there is no significant wheezes overall currently crackles. Heart sounds are regular rate and rhythm normal S1-S2 and there is no significant murmurs appreciated. Abdomen is soft. Nondistended. Colostomy site is viable and functional. The patient has a infraumbilical incision with angella are being replaced. No active drainage. WALTER drains also in place and output is essentially serosanguineous and minimal. Extremities are showing diminished pulses and there is no cyanosis or clubbing. Neurologic the patient is sedated. No facial asymmetry. Pupils around 2 mm in size. No nystagmus. She is withdrawing to deep painful stimuli in all 4 extremities. - Labs CBC & Chem 7: 05/26/17 03:20 05/26/17 03:20 Labs: Abnormal Lab Results - Last 24 Hours (Table) 05/25/17 05/25/17 05/26/17 Range/Units 16:24 19:47 00:27 WBC (3.8-10.6) k/uL RBC (3.80-5.40) m/uL Hgb (11.4-16.0) gm/dL Hct (34.0-46.0) % RDW (11.5-15.5) % Neutrophils # (1.3-7.7) k/uL ABG pCO2 (35-45) mmHg ABG pO2 (83-108) mmHg ABG HCO3 (21-25) mmol/L ABG Total CO2 (19-24) mmol/L ABG O2 Saturation (94-97) % Sodium (137-145) mmol/L Chloride (98-107) mmol/L Carbon Dioxide (22-30) mmol/L BUN (7-17) mg/dL Creatinine (0.52-1.04) mg/dL Glucose (74-99) mg/dL POC Glucose (mg/dL) 248 H 210 H 185 H (75-99) mg/dL Calcium (8.4-10.2) mg/dL Phosphorus (2.5-4.5) mg/dL 05/26/17 05/26/17 05/26/17 Range/Units 03:20 03:20 03:56 WBC 13.5 H (3.8-10.6) k/uL RBC 2.40 L (3.80-5.40) m/uL Hgb 7.9 L (11.4-16.0) gm/dL Hct 24.0 L (34.0-46.0) % RDW 16.0 H (11.5-15.5) % Neutrophils # 11.3 H (1.3-7.7) k/uL ABG pCO2 (35-45) mmHg ABG pO2 (83-108) mmHg ABG HCO3 (21-25) mmol/L ABG Total CO2 (19-24) mmol/L ABG O2 Saturation (94-97) % Sodium 129 L (137-145) mmol/L Chloride 108 H (98-107) mmol/L Carbon Dioxide 14 L (22-30) mmol/L BUN 20 H (7-17) mg/dL Creatinine 1.38 H (0.52-1.04) mg/dL Glucose 145 H (74-99) mg/dL POC Glucose (mg/dL) 164 H (75-99) mg/dL Calcium 6.9 L (8.4-10.2) mg/dL Phosphorus 2.2 L (2.5-4.5) mg/dL 05/26/17 05/26/17 05/26/17 Range/Units 05:11 08:53 12:32 WBC (3.8-10.6) k/uL RBC (3.80-5.40) m/uL Hgb (11.4-16.0) gm/dL Hct (34.0-46.0) % RDW (11.5-15.5) % Neutrophils # (1.3-7.7) k/uL ABG pCO2 23 L (35-45) mmHg ABG pO2 150 H (83-108) mmHg ABG HCO3 13 L (21-25) mmol/L ABG Total CO2 14 L (19-24) mmol/L ABG O2 Saturation 99.0 H (94-97) % Sodium (137-145) mmol/L Chloride (98-107) mmol/L Carbon Dioxide (22-30) mmol/L BUN (7-17) mg/dL Creatinine (0.52-1.04) mg/dL Glucose (74-99) mg/dL POC Glucose (mg/dL) 142 H 124 H (75-99) mg/dL Calcium (8.4-10.2) mg/dL Phosphorus (2.5-4.5) mg/dL Microbiology - Last 24 Hours (Table) 05/25/17 13:05 Gram Stain - Preliminary Sputum 05/24/17 09:00 Urine Culture - Final Urine,Catheterized Assessment and Plan Plan: Assessment 1 acute cardiopulmonary arrest. I think the patient essentially went to respiratory arrest with subsequent cardiac arrest and she was down for less than 10 minutes. The patient during the code received a total of 3 rounds of epinephrine and she was intubated placed on mechanical ventilator and got transferred to the intensive care unit. Patient has developed bilateral pneumonia involving the lower lobes. Rule out aspiration pneumonia. Rule out hospital-acquired pneumonia. The patient remains intubated on a mechanical ventilator. A sedation holiday was given today and she seems to be arousing well and moving all 4 extremities. 2 bilateral lower lobe pneumonia. Suspect aspiration pneumonia versus a hospital-acquired pneumonia 3 shock with profound hypotension and the patient is pressor dependent at this point with a combination of norepinephrine infusion and vasopressin. This is likely a septic shock and the patient has been aggressively resuscitated IV fluids and pressors and antibiotics. Echocardiogram showing preserved LV function. 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 The patient underwent a low AP resection with diverting colostomy. The patient is postop day #6. 5 anemia secondary to lower gastrointestinal bleeding secondary to rectosigmoid mass, stable hemoglobin at 7.9 6 hyponatremia, mild 7 mild non-anion gap metabolic acidosis 8 acute respiratory failure, currently intubated on a mechanical ventilator, secondary to above 9 cerebral palsy, history of with significant permanent AV performance and functional status 10 diabetes mellitus 11 hyperlipidemia, 12 chronic renal failure, as the patient has chronic stage III kidney disease 13 history of vasovagal syncope, scoliosis 14 frequent urine checked infections 15 Limited mobility and the patient has been using a walker based on the family members. The patient also had a limited range of motion the right hand and right wrist area. 16 large intrathoracic hiatal hernia as evident on the patient's chest x-ray. NG tube scored within the stomach. 17 severe mitral regurgitation with a preserved LV function and secondary pulmonary hypertension. Plan Condition remains critical. The patient remains in profound septic shock. She is aggressively resuscitated with IV fluids. We will cut down the fluids to 40 mL an hour. We'll initiate tube feeds and dietary consultation was requested. I think is reasonable to initiate feeding knowing that the patient has not been eating well since her surgery and the patient may be able to tolerate enteral feeding for nutritional support. We will add Reglan for bowel motility. Colostomy site is viable at this point. Surgical wound site is clean. WALTER drains are all in place. CAT scan of the abdomen and pelvis was noted. Surgeries on the case. Continue same antibiotic coverage. Wean down the pressors with prior to above weaning down the norepinephrine infusion. Continue the vasopressin. Continue rest of the supportive care. No changes on the vent. The patient has been actually taking well. She is well ventilated. Chest x-ray was reviewed. We'll continue to follow. Echocardiac Nasir was noted. Condition is critical. Evaluation was done and more than 30 minutes. Family was updated on the condition I spoke with her cousin at the bedside. Time with Patient: Greater than 30
[2017-05-26 15:54] LABS: Glucose,Whole Blood 123 mg/dL (75-99)
[2017-05-26 20:06] LABS: Glucose,Whole Blood 165 mg/dL (75-99)
[2017-05-26] MEDS: ATORVASTATIN 20 MG TAB PO SCH (20:06)
--- NOTE | 2017-05-26 22:48 | P.PN ---
Subjective Principal diagnosis: Sigmoid mass Patient stable on vent. She still on high-dose pressors. No significant bowel function. Oral gastric tube output has improved. Objective - Vital Signs Vital signs: Vital Signs Temp 97.7 F 05/26/17 20:00 Pulse 83 05/26/17 21:00 Resp 24 05/26/17 21:00 BP 102/49 05/26/17 19:00 Pulse Ox 99 05/26/17 21:00 Intake & Output 05/26/17 05/26/17 05/27/17 06:59 18:59 06:59 Intake Total 5024.451 5380.134 140 Output Total 1442 845 83 Balance 326.167 906.134 57 Weight 82.6 kg 82.6 kg Intake: IV 1375 615 120 Dextrose 5%-0.9% NaCl 1, 1375 375 000 ml @ 125 mls/hr IV . Q8H AMAN Rx#:[id number] Dextrose 5%-0.9% NaCl 1, 40 120 000 ml @ 40 mls/hr IV . Q24H AMAN Rx#:[id number] Piperacillin-Tazobactam 3 200 .375 gm In Dextrose/Water 1 50ml.bag @ 12.5 mls/hr IVPB Q8HR AMAN Rx#: [id number] Intake, IV Titration 852.207 9840.134 Amount Dextrose 5%-0.9% NaCl 1, 125 000 ml @ 125 mls/hr IV . Q8H AMAN Rx#:[id number] Dextrose 5%-0.9% NaCl 1, 320 000 ml @ 40 mls/hr IV . Q24H AMAN Rx#:[id number] Levofloxacin 250Mg-D5w 200 Pmx 250 mg In Dextrose/ Water 1 50ml.bag @ 50 mls /hr IVPB Q24H MAAN Rx#: [id number] Norepinephrin 16 mg-0.9% 110.466 340.844 Ns Pmx 16 mg In 250 ml @ Titrate IV .Q0M AMAN Rx#: [id number] Propofol 1,000 mg In 100 157.701 155.290 ml @ Titrate IV .Q0M AMAN Rx#:[id number] Tube Feeding 60 20 Other 60 Output: Drainage 60 20 Left Abdomen 10 0 Right Abdomen 50 20 Urine 442 385 63 Stool 1000 400 Other: Voiding Method Indwelling Catheter Indwelling Catheter Indwelling Catheter ABP, PAP, CO, CI - Last Documented Arterial Blood Pressure 129/48 - Exam Abdomen: Soft, minimal distention, nontender, incision clean and dry, ostomy pink - Labs CBC & Chem 7: 05/26/17 03:20 05/26/17 03:20 Labs: Abnormal Lab Results - Last 24 Hours (Table) 05/26/17 05/26/17 05/26/17 Range/Units 00:27 03:20 03:20 WBC 13.5 H (3.8-10.6) k/uL RBC 2.40 L (3.80-5.40) m/uL Hgb 7.9 L (11.4-16.0) gm/dL Hct 24.0 L (34.0-46.0) % RDW 16.0 H (11.5-15.5) % Neutrophils # 11.3 H (1.3-7.7) k/uL ABG pCO2 (35-45) mmHg ABG pO2 (83-108) mmHg ABG HCO3 (21-25) mmol/L ABG Total CO2 (19-24) mmol/L ABG O2 Saturation (94-97) % Sodium 129 L (137-145) mmol/L Chloride 108 H (98-107) mmol/L Carbon Dioxide 14 L (22-30) mmol/L BUN 20 H (7-17) mg/dL Creatinine 1.38 H (0.52-1.04) mg/dL Glucose 145 H (74-99) mg/dL POC Glucose (mg/dL) 185 H (75-99) mg/dL Calcium 6.9 L (8.4-10.2) mg/dL Phosphorus 2.2 L (2.5-4.5) mg/dL 05/26/17 05/26/17 05/26/17 Range/Units 03:56 05:11 08:53 WBC (3.8-10.6) k/uL RBC (3.80-5.40) m/uL Hgb (11.4-16.0) gm/dL Hct (34.0-46.0) % RDW (11.5-15.5) % Neutrophils # (1.3-7.7) k/uL ABG pCO2 23 L (35-45) mmHg ABG pO2 150 H (83-108) mmHg ABG HCO3 13 L (21-25) mmol/L ABG Total CO2 14 L (19-24) mmol/L ABG O2 Saturation 99.0 H (94-97) % Sodium (137-145) mmol/L Chloride (98-107) mmol/L Carbon Dioxide (22-30) mmol/L BUN (7-17) mg/dL Creatinine (0.52-1.04) mg/dL Glucose (74-99) mg/dL POC Glucose (mg/dL) 164 H 142 H (75-99) mg/dL Calcium (8.4-10.2) mg/dL Phosphorus (2.5-4.5) mg/dL 05/26/17 05/26/17 05/26/17 Range/Units 12:32 15:52 20:05 WBC (3.8-10.6) k/uL RBC (3.80-5.40) m/uL Hgb (11.4-16.0) gm/dL Hct (34.0-46.0) % RDW (11.5-15.5) % Neutrophils # (1.3-7.7) k/uL ABG pCO2 (35-45) mmHg ABG pO2 (83-108) mmHg ABG HCO3 (21-25) mmol/L ABG Total CO2 (19-24) mmol/L ABG O2 Saturation (94-97) % Sodium (137-145) mmol/L Chloride (98-107) mmol/L Carbon Dioxide (22-30) mmol/L BUN (7-17) mg/dL Creatinine (0.52-1.04) mg/dL Glucose (74-99) mg/dL POC Glucose (mg/dL) 124 H 123 H 165 H (75-99) mg/dL Calcium (8.4-10.2) mg/dL Phosphorus (2.5-4.5) mg/dL Microbiology - Last 24 Hours (Table) 05/25/17 19:00 Blood Culture - Preliminary Blood No Growth after 24 hours 05/25/17 13:05 Gram Stain - Preliminary Sputum Assessment and Plan (1) Mass in rectum Narrative/Plan: Continue oral gastric tube to suction. Wean pressors as able. Prognosis remains guarded. Status: Acute
[2017-05-26 23:42] LABS: Glucose,Whole Blood 114 mg/dL (75-99)
[2017-05-27] MEDS: IPRATROPIUM-ALBUTEROL 3 ML NEB INHALATION SCH ×6 (03:22→23:29)
[2017-05-27] MEDS: PROPOFOL 1,000 MG/100 ML VIAL IV SCH (03:38)
[2017-05-27] MEDS: NOREPINEPHRIN 16 MG-0.9%NS PMX 16 MG/250 ML ML IV SCH (03:39)
[2017-05-27] MEDS: SODIUM CHLORIDE 0.9% 99 ML with VASOPRESSIN 20 UNIT IV SCH ×4 (03:40→16:56)
[2017-05-27] MEDS: INSULIN LISPRO (humaLOG) 300 UNIT/3 ML VIAL SQ SCH ×5 (03:42→20:10)
[2017-05-27 03:44] LABS: Glucose,Whole Blood 126 mg/dL (75-99)
[2017-05-27 04:45] LABS: Anisocytosis Slight; Basophils % (A) 0 %; CH 32.6; CHCM 32.5; Eosinophils % (A) 1 %; HCT 22.2 % (34.0-46.0); HDW 3.53; HGB 7.1 gm/dL (11.4-16.0); Hypochromasia Slight; Luc # (Auto) 0.08; Luc % (Auto) 1; Lymphocytes % (A) 10 %; MCH 32.3 pg (25.0-35.0); MCHC 31.9 g/dL (31.0-37.0); MCV 101.2 fL (80.0-100.0); Macrocytosis Slight; Mean Platelet Volume 8.9; Monocytes # (A) 0.3 k/uL (0-1.0); Monocytes % (A) 3 %; Neutrophils # (A) 8.2 k/uL (1.3-7.7); Neutrophils % (A) 86 %; Poikilocytosis Slight; RBC 2.19 m/uL (3.80-5.40); RDW 16.1 % (11.5-15.5); WBC 9.5 k/uL (3.8-10.6); WBC (Perox) 9.02
[2017-05-27 05:10] LABS: Calcium 7.1 mg/dL (8.4-10.2); Phosphorous 2.7 mg/dL (2.5-4.5); Potassium 4.1 mmol/L (3.5-5.1)
[2017-05-27] MEDS: LEVOFLOXACIN 250MG-D5W PMX 250 MG in DEXTROSE/WATER 1 50ML.BAG IVPB SCH (05:15)
[2017-05-27] MEDS: VANCOMYCIN 1,500 MG in SODIUM CHLORIDE 0.9% 250 ML IVPB SCH (05:15)
[2017-05-27] MEDS: METOCLOPRAMIDE 5 MG/ML 2 ML VIAL IVP SCH ×3 (05:16→17:00)
[2017-05-27 05:27] LABS: ABG PCO2 22 mmHg (35-45); ABG PH 7.38 (7.35-7.45)
[2017-05-27 05:28] LABS: ABG Base Excess -11.3 mmol/L; ABG HCO3 13 mmol/L (21-25); ABG PO2 124 mmHg (83-108); ABG TCO2 14 mmol/L (19-24)
[2017-05-27 07:56] LABS: Glucose,Whole Blood 138 mg/dL (75-99)
--- NOTE | 2017-05-27 08:28 | XR ---
EXAMINATION TYPE: XR chest 1V portable DATE OF EXAM: 05/27/2017 COMPARISON: 05/26/2017 HISTORY: Shortness of breath TECHNIQUE: Single frontal view of the chest is obtained. FINDINGS: Interstitial pattern with bilateral infiltrate and pleural effusion stable. ET tube 2.8 cm above mony and NG tube noted. No pneumothorax. Arthropathy of the shoulders. IMPRESSION: 1. Bilateral lower lobe infiltrate and small effusion with findings suggestive of CHF.
[2017-05-27] MEDS: PIPERACILLIN-TAZOBACTAM 3.375 GM in DEXTROSE/WATER 1 50ML.BAG IVPB SCH ×2 (08:42→16:55)
[2017-05-27] MEDS: HEPARIN SODIUM,PORCINE 5,000 UNIT/ML 1 ML VIAL SQ SCH ×2 (08:43→16:56)
[2017-05-27] MEDS: CHLORHEXIDINE GLUCONATE 15 ML CUP MUCOUS MEM SCH ×2 (08:44→21:55)
[2017-05-27] MEDS: FAMOTIDINE 20 MG/2 ML VIAL IV SCH (08:44)
[2017-05-27 10:49] LABS: Mis test requested (Non-blood) BODY FLUID CREAT
[2017-05-27] MEDS ORDERED: FUROSEMIDE 10 MG/ML 4 ML VIAL IV STA (10:59)
--- NOTE | 2017-05-27 11:08 | CDI ---
In responding to this query, please exercise your independent professional judgment. The [facility] Coding Staff and Clinical Documentation Specialists appreciate your assistance in clarifying documentation, maintaining compliance with coding guidelines, accurately documenting patients condition and capturing severity of illness. The fact that a question is asked does not imply that any particular answer is desired or expected. Communication forms are a method of clarifying documentation and are not made part of the Legal Health Record. Thank you in advance for your clarification. Last Revision, January 2016 Mehrdad Caldwell [address] [place] [address] Documentation Clarification Form Date: 05/25/2017 12:00:00 PM From: Diamond Leone CCS, CCDS Admit Date: 05/17/2017 6:43:00 AM Patient Name: Venessa Morel I Visit Number: [id number] Discharge Date: Dr. Venita De Anda: 76 yo female, admitted with possible GI bleed, status post Sigmoidoscopy with biopsy for rectal mass, status post Stefan procedure with colostomy. Postoperative, patient went into acute respiratory & cardiac arrest requiring resuscitation, currently in ICU intubated & on mechanical ventilation. History/Risk Factors: DM II, Hypertension, Recurrent UTIs, Cerebral palsy, recent fall with admission to rehab. Clinical Indicators: VS postop 05/25: P 103-117, R 26-28, BP 122/69-77/51, PO 95 on nrb. Lung/Breathing assessment: SOB, labored, shallow, prior to intubation. ABG/CBG: pH 7.15*, pCO2 49^, pHCO3 16 Treatment: Intubated on vent, IV Dilaudid, IV Dextrose, Albuterol INH, IV Lasix , IV Narcan, IV Norepinephrine, IV Diprivan, IV Vanco, IV fluid bolus x2, IV MagSulfate. In your professional opinion, can you please clarify if these findings signify one of the following conditions? Respiratory Status: o Respiratory failure with hypercapnia o Respiratory failure with hypoxia o Other Diagnosis, please specify o Unable to determine Please document in your progress notes and discharge summary in order to capture severity of illness and risk of mortality. Include clinical findings that support your diagnosis. FYI: Press F11 to launch patient chart. Thank You. DWAIN
[2017-05-27 11:58] LABS: Glucose,Whole Blood 120 mg/dL (75-99)
--- NOTE | 2017-05-27 12:38 | P.PN ---
Subjective 76-year-old female patient who presented to the hospital because of a high grade sigmoid colon obstruction with a suspicious mass. The patient underwent a colonoscopy by gastroenterology and the patient was found to have a partially obstructing mass in the distal sigmoid colon/rectosigmoid junction. The patient was having on and off rectal bleeding. She was rehabilitating at [facility] after a fall due to a generalized weakness. She was having some loose stools over the past few weeks but no significant abdominal pain or GI discomfort. The patient's hemoglobin had dropped down to 7.9 from a baseline of 12 and she was receiving transfusion. Based on all this, the patient was taken to the operating room on 05/23/2017 and the patient underwent a low AP resection with diverting colostomy. 2 abdominal drains also placed. Last night, the patient was found to be in acute respiratory distress.. The patient had a witnessed respiratory arrest and subsequent cardiac arrest. This occurred at around 1:50 AM this morning. Initially the pulse was identified. The patient was resuscitated for a total of 9 minutes and she was given 3 doses of epinephrine 1 mg. She was intubated and placed on a mechanical ventilator. She was given a triple lumen catheter in her right femoral vein. She was given a total of 2 L of IV fluids and her blood pressure remained low in the mid 60s. Following that she was started on pressors which ultimately titrated and she was placed on high-dose epinephrine infusion today to 60 g. The post intubation blood gas showed a pH of 7.15 with a pCO2 of 49 and pO2 of 205 this was an FiO2 of 100% with a PEEP of 5 and tidal volume of 350 and the rate of 14 Overnight the patient was given further fluid resuscitation and she has already received a total of 5 L of IV fluids. Currently she is on vasopressin 0.03 units per minute and she is also on norepinephrine infusion at 40 mics. She started making some urine output. Her urine output over the past 1 hour is around 100 mL an hour. The patient is sedated Diprivan at 40 mics. She would respond to painful stimuli and she would move all 4 extremities once she is taken to lower dose of Diprivan. Meanwhile, the necessity vent changes were done. I increased tidal volume to 450. I put the rate of 24 and drop the FiO2 down to 60%. Subsequent blood gases showed a pH of 7.36 with a pCO2 of 26 and pO2 of 123. Chest x-ray shows a large consolidation of the right lung involving the right middle lobe and right lower lobe. Orogastric tube was placed immediately following intubation and a total of 1600 mL of gastric aspirate was obtained. Note that the chest x-ray preoperatively had shown or the a large intrathoracic hiatal hernia. The patient subsequently had an abdominal x-ray yesterday that was indicating some ileus. The chest x-ray from this morning is showing that the patient has a right lung pneumonia and the OG tube is coiled in the hiatal hernia within the thorax. No gastric material is being suctioned from the TRACHEAL tube although is very much likely the patient could have aspirated. Her white cell count is up to 42. Venous lactate is at 1.7. The patient's colostomy site is functional. There is some minimal amount of fecal material collecting in the colostomy bag. Abdomen is nondistended at this point. Positive lower oximetry is palpable. On 05/26/2017 the patient is being seen in follow-up. The patient is still intubated on a mechanical ventilator. The patient is afebrile. She is doing well on a mechanical ventilator and she is in a assist-control mode at the rate of 24, tidal volume 450, FiO2 is down to 40% and PEEP of 5. Her morning blood gases with a pH of 7.38 with a pCO2 of 23 and pO2 150. Chest x-ray showing small bilateral pleural effusions and infiltrates in lung bases bilaterally. ET tube is in a good location. There is also a triple lumen catheter in place. The patient had a CAT scan of the abdomen and pelvis yesterday that showed lower lobe consolidation of the lungs along with pleural effusions. No intra- abdominal abscess. No other intra-abdominal abnormalities. The patient is a large hiatal hernia. Orogastric tube is in place and the patient will be started on tube feeds today. Colostomy site is healthy and viable looking. Hemodynamically she is improved compared to yesterday. She is on a vasopressin drip at physiologic dose and the patient is also on norepinephrine infusion that was weaned down to 20 mics. The patient is sedated with Diprivan and she is calm and comfortable. The patient remains on a combination of Zosyn and Levaquin and vancomycin. The blood cultures of been negative. The sputum culture been negative. White cell count is improving. Afebrile. Producing adequate amount of urine output. Echocardiogram showed a preserved LV function. There was a severe degree of mitral regurgitation secondary pulmonary hypertension. On 05/27/2017 the patient is being seen in follow-up. Earlier this morning the patient was still intubated on a mechanical ventilator. She was taken off the sedation and she woke up appropriately and she was able to follow commands and move her extremities without any limitation. She had a weak cough. Had rapid shallow breathing index was less than 100. She was given a spontaneous breathing trial with a pressure support of 5 and a PEEP of 5 and following that the patient was extubated to a nasal cannula. Note that the extubation blood gases showed a pH of 7.38 with a pCO2 of 22 and pO2 of 124 and this was done assist-control mode of ventilation with an FiO2 of 40%. The chest x-ray from earlier this morning shows interval improvement of the right lung pneumonia. His left-sided atelectasis and small effusion. Hemodynamically, the patient is still pressor dependent. The patient is on a physiologic dose of vasopressin 0.03 units per minute and the patient is levo fed has been weaned down to 12 mics. She is producing urine output in the order of 20-25 mL an hour. She has however developed an acute kidney injury, probably a hypotension-induced ATN with a creatinine is up to 1.6 and this is a non-oliguric renal failure. She is on broad-spectrum antibiotics which included a combination of Zosyn, Levaquin and vancomycin. Sputum analysis has yielded no positivity and there is no microbial growth for now. The patient has been tolerating her tube feeds. She is receiving enteral nutrition and her colostomy site is functional and intact at this point. No abdominal distention. Trace edema in the lower extremities bilaterally. Objective - Vital Signs Vital signs: Vital Signs Temp 98.7 F 05/27/17 08:00 Pulse 82 05/27/17 11:23 Resp 24 05/27/17 11:00 BP 100/47 05/27/17 11:00 Pulse Ox 98 05/27/17 11:00 Intake & Output 05/26/17 05/27/17 05/27/17 18:59 06:59 18:59 Intake Total 3081.072 4038.991 431.227 Output Total 845 333 25 Balance 906.134 707.991 406.227 Weight 82.6 kg 84.7 kg 84.7 kg Intake: IV 615 480 250.0 Dextrose 5%-0.9% NaCl 1, 375 000 ml @ 125 mls/hr IV . Q8H [facility]AN Rx#:[id number] Dextrose 5%-0.9% NaCl 1, 40 480 200 000 ml @ 40 mls/hr IV . Q24H [facility]AN Rx#:[id number] Piperacillin-Tazobactam 3 200 50.0 .375 gm In Dextrose/Water 1 50ml.bag @ 12.5 mls/hr IVPB Q8HR [facility]AN Rx#: [id number] Intake, IV Titration 1016.134 250.991 156.227 Amount Dextrose 5%-0.9% NaCl 1, 320 000 ml @ 40 mls/hr IV . Q24H [facility]AN Rx#:[id number] Levofloxacin 250Mg-D5w 200 Pmx 250 mg In Dextrose/ Water 1 50ml.bag @ 50 mls /hr IVPB Q24H [facility]AN Rx#: [id number] Norepinephrin 16 mg-0.9% 340.844 104.031 84.706 Ns Pmx 16 mg In 250 ml @ Titrate IV .Q0M [facility]AN Rx#: [id number] Propofol 1,000 mg In 100 155.290 146.960 71.521 ml @ Titrate IV .Q0M AMAN Rx#:[id number] Tube Feeding 60 250 25 Other 60 60 Output: Drainage 60 40 Left Abdomen 10 0 Right Abdomen 50 40 Urine 385 293 25 Stool 400 Other: Voiding Method Indwelling Catheter Indwelling Catheter Indwelling Catheter ABP, PAP, CO, CI - Last Documented Arterial Blood Pressure 137/54 - Exam Head exam was generally normal. The patient is awake and following simple commands. The patient is still intubated on a mechanical ventilator. She has been given a sedation holiday and currently she is off sedation. There was no scleral icterus or corneal arcus. Mucous membranes were moist. The patient is intubated on a mechanical ventilator. Orogastric and orotracheal tube are both in place.Neck was supple and without jugular venous distension, thyromegaly, or carotid bruits. Carotids were easily palpable bilaterally. There was no adenopathy. Lung sounds are equal and symmetrical bilaterally and there is no significant wheezes overall currently crackles. Heart sounds are regular rate and rhythm normal S1-S2 and there is no significant murmurs appreciated. Abdomen is soft. Nondistended. Colostomy site is viable and functional. The patient has a infraumbilical incision with angella are being replaced. No active drainage. WALTER drains also in place and output is essentially serosanguineous and minimal. Extremities are showing diminished pulses and there is no cyanosis or clubbing. Neurologic the patient is awake. No facial asymmetry. Pupils around 5 mm in size. No nystagmus. She is withdrawing and moving all 4 extremities without any limitation. - Labs CBC & Chem 7: 05/27/17 04:30 05/27/17 04:30 Labs: Abnormal Lab Results - Last 24 Hours (Table) 05/26/17 05/26/17 05/26/17 Range/Units 12:32 15:52 20:05 RBC (3.80-5.40) m/uL Hgb (11.4-16.0) gm/dL Hct (34.0-46.0) % MCV (80.0-100.0) fL RDW (11.5-15.5) % Neutrophils # (1.3-7.7) k/uL ABG pCO2 (35-45) mmHg ABG pO2 (83-108) mmHg ABG HCO3 (21-25) mmol/L ABG Total CO2 (19-24) mmol/L ABG O2 Saturation (94-97) % Sodium (137-145) mmol/L Chloride (98-107) mmol/L Carbon Dioxide (22-30) mmol/L BUN (7-17) mg/dL Creatinine (0.52-1.04) mg/dL Glucose (74-99) mg/dL POC Glucose (mg/dL) 124 H 123 H 165 H (75-99) mg/dL Calcium (8.4-10.2) mg/dL 05/26/17 05/27/17 05/27/17 Range/Units 23:40 03:42 04:30 RBC 2.19 L (3.80-5.40) m/uL Hgb 7.1 L (11.4-16.0) gm/dL Hct 22.2 L (34.0-46.0) % MCV 101.2 H (80.0-100.0) fL RDW 16.1 H (11.5-15.5) % Neutrophils # 8.2 H (1.3-7.7) k/uL ABG pCO2 (35-45) mmHg ABG pO2 (83-108) mmHg ABG HCO3 (21-25) mmol/L ABG Total CO2 (19-24) mmol/L ABG O2 Saturation (94-97) % Sodium (137-145) mmol/L Chloride (98-107) mmol/L Carbon Dioxide (22-30) mmol/L BUN (7-17) mg/dL Creatinine (0.52-1.04) mg/dL Glucose (74-99) mg/dL POC Glucose (mg/dL) 114 H 126 H (75-99) mg/dL Calcium (8.4-10.2) mg/dL 05/27/17 05/27/17 05/27/17 Range/Units 04:30 05:14 07:54 RBC (3.80-5.40) m/uL Hgb (11.4-16.0) gm/dL Hct (34.0-46.0) % MCV (80.0-100.0) fL RDW (11.5-15.5) % Neutrophils # (1.3-7.7) k/uL ABG pCO2 22 L (35-45) mmHg ABG pO2 124 H (83-108) mmHg ABG HCO3 13 L (21-25) mmol/L ABG Total CO2 14 L (19-24) mmol/L ABG O2 Saturation 99.0 H (94-97) % Sodium 127 L (137-145) mmol/L Chloride 108 H (98-107) mmol/L Carbon Dioxide 13 L (22-30) mmol/L BUN 23 H (7-17) mg/dL Creatinine 1.60 H (0.52-1.04) mg/dL Glucose 123 H (74-99) mg/dL POC Glucose (mg/dL) 138 H (75-99) mg/dL Calcium 7.1 L (8.4-10.2) mg/dL 05/27/17 Range/Units 11:57 RBC (3.80-5.40) m/uL Hgb (11.4-16.0) gm/dL Hct (34.0-46.0) % MCV (80.0-100.0) fL RDW (11.5-15.5) % Neutrophils # (1.3-7.7) k/uL ABG pCO2 (35-45) mmHg ABG pO2 (83-108) mmHg ABG HCO3 (21-25) mmol/L ABG Total CO2 (19-24) mmol/L ABG O2 Saturation (94-97) % Sodium (137-145) mmol/L Chloride (98-107) mmol/L Carbon Dioxide (22-30) mmol/L BUN (7-17) mg/dL Creatinine (0.52-1.04) mg/dL Glucose (74-99) mg/dL POC Glucose (mg/dL) 120 H (75-99) mg/dL Calcium (8.4-10.2) mg/dL Microbiology - Last 24 Hours (Table) 05/25/17 13:05 Gram Stain - Final Sputum Sputum Culture - Final 05/25/17 19:00 Blood Culture - Preliminary Blood No Growth after 24 hours Assessment and Plan Plan: Assessment 1 acute cardiopulmonary arrest. I think the patient essentially went to respiratory arrest with subsequent cardiac arrest and she was down for less than 10 minutes. The patient during the code received a total of 3 rounds of epinephrine and she was intubated placed on mechanical ventilator and got transferred to the intensive care unit. Patient has developed bilateral pneumonia involving the lower lobes. Rule out aspiration pneumonia. Rule out hospital-acquired pneumonia. The patient remains intubated on a mechanical ventilator. A sedation holiday was given today and she seems to be arousing well and moving all 4 extremities. 2 bilateral lower lobe pneumonia. Suspect aspiration pneumonia versus a hospital-acquired pneumonia 3 shock with profound hypotension and the patient is pressor dependent at this point with a combination of norepinephrine infusion and vasopressin. This is likely a septic shock and the patient has been aggressively resuscitated IV fluids and pressors and antibiotics. Echocardiogram showing preserved LV function. 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 The patient underwent a low AP resection with diverting colostomy. The patient is postop day #7. 5 anemia secondary to lower gastrointestinal bleeding secondary to rectosigmoid mass, stable hemoglobin at 7.1 6 hyponatremia, mild 7 mild non-anion gap metabolic acidosis 8 acute respiratory failure, currently intubated on a mechanical ventilator, secondary to above 9 cerebral palsy, history of with significant permanent AV performance and functional status 10 diabetes mellitus 11 hyperlipidemia, 12 acute kidney injury, possibly secondary to hypotension-induced ATN. 13 history of vasovagal syncope, scoliosis 14 frequent urine checked infections 15 Limited mobility and the patient has been using a walker based on the family members. The patient also had a limited range of motion the right hand and right wrist area. 16 large intrathoracic hiatal hernia as evident on the patient's chest x-ray. NG tube scored within the stomach. 17 severe mitral regurgitation with a preserved LV function and secondary pulmonary hypertension. Plan Patient's condition is more stabilized. The pneumonia is clearing up on the right. The patient is improved in terms of her hemodynamics. Pressors have been cut down and she is on a lower dose of norepinephrine infusion. The patient will be extubated to nasal cannula. The patient will have her or G- tube converted to an NG and will continue enteral feeding to keep up with her nutrition. A swallow evaluation will be done at a later stage. We'll give her 40 of Lasix IV push. We'll monitor the urine output. Monitor renal function. Monitor sodium level. Monitor hemoglobin. Keep her in the ICU. Aspiration precautions. We'll continue to follow. Critically care evaluation. More than 30 minutes. Time with Patient: Greater than 30
--- NOTE | 2017-05-27 13:07 | XR ---
EXAMINATION TYPE: XR chest 1V portable DATE OF EXAM: 05/27/2017 COMPARISON: 05/27/2017 HISTORY: Tube placement TECHNIQUE: Single frontal view of the chest is obtained. FINDINGS: NG tube appears to be coiled overlying the central part of the heart which may be within a hiatal hernia. ET tube appears to been removed. Diffuse interstitial pattern with bilateral effusion and consolidation noted. Severe arthropathy of the shoulders with diffuse osteopenia. IMPRESSION: 1. Progressive airspace disease compatible with worsening CHF or pneumonia. 2. NG tube appears coiled overlying the central aspect of the heart which may lie within a large hiat al hernia. Previous CT scan has been reviewed and this does correspond to the hernia noted.
[2017-05-27 16:07] LABS: Glucose,Whole Blood 104 mg/dL (75-99)
--- NOTE | 2017-05-27 18:47 | P.PN ---
Progress Note - Text The patient was extubated earlier today. Her oral gastric tube was exchanged for a nasogastric tube. Patient's NG tube was coiled in her hiatal hernia. I' ve asked the nurses to remove the NG tube. On exam her vital signs appear stable. Patient is on low-dose Levophed. Her abdomen soft nontender. Status post low anterior section with aspiration was likely related to hiatal hernia. Patient will undergo swallowing evaluation. She may try some clear liquids.
[2017-05-27 20:08] LABS: Glucose,Whole Blood 87 mg/dL (75-99)
[2017-05-27] MEDS: ATORVASTATIN 20 MG TAB PO SCH (21:55)
--- NOTE | 2017-05-27 23:11 | P.PN ---
Subjective Principal diagnosis: Sigmoid colon cancer status post resection Mr. Morel is a 76-year-old female who was recently admitted to the correction after sustaining fall due to generalized weakness. The patient was brought to the hospital with concerns for GI bleed. Patient had attempted colonoscopy initially on 05/19/2017 and scope could not be passed due to significant obstructing mass. On 05/20/2017 patient was taken to OR for low anterior resection of the sigmoid and colostomy bag placement was done. On 05/21/2017 Agent is more awake and oriented today. Patient is tolerating liquid diet but feels nauseous now, as her chest pain or short of breath. Hemoglobin is stable. Patient is on epidural. On 05/22/2017 Patient says that her nausea is improved. Epidural pain management is being discontinued today. No fever no chills. No complaints of abdominal pain. Patient is tolerating liquid diet today. Otherwise no chest pain or short of breath. On 05/23/2017 Patient is tolerating by mouth liquid diet. She has been moving her bowels and has some stool in the colostomy bag. On 05/24/2017 Patient has been tolerating liquid diet well. Patient has been transferred to a chair beside the bed. Patient has a small amount of stool in the colostomy bag and passing flatus. On 05/25/2017 Last night the patient developed respiratory failure and eventually had cardiac arrest. Patient was resuscitated for a total of 9 minutes. She received 3 doses of epinephrine and received 2 L of IV fluid bolus , intubated and taken to the ICU. As her blood pressure was running her she was also started on pressors . Overnight the patient was given 5 more Lt of IV fluids. Her blood pressure was still running low and she was started on Levophed and vasopressin. The patient subsequently had a chest x-ray was showing a large right lung consolidation, and the patient has a large intrathoracic had a hernia. So most likely that the patient might have aspirated overnight. On 05/26 - Pt is still intubated. CT abdomen was done showing post surgical ileus. Still on vasopressors. NG tube feeds have been started, She had a large bowel movement yesterday. Review of systems - could not be done as the patient is intubated Objective - Vital Signs Vital signs: Vital Signs Vital Signs Temp 96.8 F L 05/26/17 05:00 Pulse 75 05/26/17 12:00 Resp 24 05/26/17 12:00 BP 93/49 05/26/17 12:00 Pulse Ox 99 05/26/17 12:00 - Exam A 76-year-old female lying in bed in the ICU. She is sedated and intubated. HEENT: Atraumatic, normocephalic. No nostril area discharge NECK: Supple. No JVD. CVS: S1, S2 heard. No murmurs, no gallop, no rub. LUNGS: Coarse breath sounds bilaterally. ABDOMEN: Soft, nontender. Colostomy bag is in place. No active bleeding at the site. Bowel sounds are sluggish to absent THERAPIST: Awake, alert, oriented x3 able to move all extremities. EXTREMITIES: No edema. Pulses palpable bilaterally. No clubbing or cyanosis. . - Labs CBC & Chem 7: 05/27/17 04:30 05/27/17 04:30 Labs: Abnormal Lab Results - Last 24 Hours (Table) 05/26/17 05/27/17 05/27/17 Range/Units 23:40 03:42 04:30 RBC 2.19 L (3.80-5.40) m/uL Hgb 7.1 L (11.4-16.0) gm/dL Hct 22.2 L (34.0-46.0) % MCV 101.2 H (80.0-100.0) fL RDW 16.1 H (11.5-15.5) % Neutrophils # 8.2 H (1.3-7.7) k/uL ABG pCO2 (35-45) mmHg ABG pO2 (83-108) mmHg ABG HCO3 (21-25) mmol/L ABG Total CO2 (19-24) mmol/L ABG O2 Saturation (94-97) % Sodium (137-145) mmol/L Chloride (98-107) mmol/L Carbon Dioxide (22-30) mmol/L BUN (7-17) mg/dL Creatinine (0.52-1.04) mg/dL Glucose (74-99) mg/dL POC Glucose (mg/dL) 114 H 126 H (75-99) mg/dL Calcium (8.4-10.2) mg/dL 05/27/17 05/27/17 05/27/17 Range/Units 04:30 05:14 07:54 RBC (3.80-5.40) m/uL Hgb (11.4-16.0) gm/dL Hct (34.0-46.0) % MCV (80.0-100.0) fL RDW (11.5-15.5) % Neutrophils # (1.3-7.7) k/uL ABG pCO2 22 L (35-45) mmHg ABG pO2 124 H (83-108) mmHg ABG HCO3 13 L (21-25) mmol/L ABG Total CO2 14 L (19-24) mmol/L ABG O2 Saturation 99.0 H (94-97) % Sodium 127 L (137-145) mmol/L Chloride 108 H (98-107) mmol/L Carbon Dioxide 13 L (22-30) mmol/L BUN 23 H (7-17) mg/dL Creatinine 1.60 H (0.52-1.04) mg/dL Glucose 123 H (74-99) mg/dL POC Glucose (mg/dL) 138 H (75-99) mg/dL Calcium 7.1 L (8.4-10.2) mg/dL 05/27/17 05/27/17 Range/Units 11:57 16:05 RBC (3.80-5.40) m/uL Hgb (11.4-16.0) gm/dL Hct (34.0-46.0) % MCV (80.0-100.0) fL RDW (11.5-15.5) % Neutrophils # (1.3-7.7) k/uL ABG pCO2 (35-45) mmHg ABG pO2 (83-108) mmHg ABG HCO3 (21-25) mmol/L ABG Total CO2 (19-24) mmol/L ABG O2 Saturation (94-97) % Sodium (137-145) mmol/L Chloride (98-107) mmol/L Carbon Dioxide (22-30) mmol/L BUN (7-17) mg/dL Creatinine (0.52-1.04) mg/dL Glucose (74-99) mg/dL POC Glucose (mg/dL) 120 H 104 H (75-99) mg/dL Calcium (8.4-10.2) mg/dL Microbiology - Last 24 Hours (Table) 05/25/17 19:00 Blood Culture - Preliminary Blood No Growth after 48 hours 05/25/17 13:05 Gram Stain - Final Sputum Sputum Culture - Final Assessment and Plan Plan: ASSESSMENT Acute cardiopulmonary arrest -downtime of 9-10 mins Right Lung Pneumonia - most likely secondary to Aspiration Septic shock - most likley secondary to above Acute blood loss anemia secondary to lower gastrointestinal bleed secondary to sigmoid mass. Hemoglobin stable Sigmoid mass status post low anterior resection and colostomy bag placement Hyponatremia Essential hypertension. Medical debility. Recent urinary tract infection. Chronic diarrhea. Vitamin D deficiency. DISCUSSION AND PLAN: Patient is currently on pressor support and mechanically ventilated. Antibiotics initiated. Overall prognosis is poor. Patient's family members that have been informed of her status. Further recommendations to follow depending on the progress of the patient.
[2017-05-28 00:34] LABS: Glucose,Whole Blood 88 mg/dL (75-99)
[2017-05-28] MEDS: INSULIN LISPRO (humaLOG) 300 UNIT/3 ML VIAL SQ SCH ×5 (00:34→20:28)
[2017-05-28] MEDS: METOCLOPRAMIDE 5 MG/ML 2 ML VIAL IVP SCH ×4 (00:40→19:02)
[2017-05-28] MEDS: HEPARIN SODIUM,PORCINE 5,000 UNIT/ML 1 ML VIAL SQ SCH ×3 (00:40→16:17)
[2017-05-28] MEDS: PIPERACILLIN-TAZOBACTAM 3.375 GM in DEXTROSE/WATER 1 50ML.BAG IVPB SCH ×3 (00:40→15:57)
--- NOTE | 2017-05-28 01:54 | P.PN ---
Subjective Principal diagnosis: Sigmoid colon cancer status post resection Mr. Morel is a 76-year-old female who was recently admitted to the assisted after sustaining fall due to generalized weakness. The patient was brought to the hospital with concerns for GI bleed. Patient had attempted colonoscopy initially on 05/19/2017 and scope could not be passed due to significant obstructing mass. On 05/20/2017 patient was taken to OR for low anterior resection of the sigmoid and colostomy bag placement was done. On 05/21/2017 Agent is more awake and oriented today. Patient is tolerating liquid diet but feels nauseous now, as her chest pain or short of breath. Hemoglobin is stable. Patient is on epidural. On 05/22/2017 Patient says that her nausea is improved. Epidural pain management is being discontinued today. No fever no chills. No complaints of abdominal pain. Patient is tolerating liquid diet today. Otherwise no chest pain or short of breath. On 05/23/2017 Patient is tolerating by mouth liquid diet. She has been moving her bowels and has some stool in the colostomy bag. On 05/24/2017 Patient has been tolerating liquid diet well. Patient has been transferred to a chair beside the bed. Patient has a small amount of stool in the colostomy bag and passing flatus. On 05/25/2017 Last night the patient developed respiratory failure and eventually had cardiac arrest. Patient was resuscitated for a total of 9 minutes. She received 3 doses of epinephrine and received 2 L of IV fluid bolus , intubated and taken to the ICU. As her blood pressure was running her she was also started on pressors . Overnight the patient was given 5 more Lt of IV fluids. Her blood pressure was still running low and she was started on Levophed and vasopressin. The patient subsequently had a chest x-ray was showing a large right lung consolidation, and the patient has a large intrathoracic had a hernia. So most likely that the patient might have aspirated overnight. On 05/26 - Pt is still intubated. CT abdomen was done showing post surgical ileus. Still on vasopressors. NG tube feeds have been started, She had a large bowel movement yesterday. on 05/27/17 Pt. was succcessfull extubated. Pt. is awake but could not speak at this time. Still on Pressor support. no fever/chills. Review of systems - could not be done as the patient is intubated Objective - Vital Signs Vital signs: Vital Signs Temp 96.4 F L 05/27/17 20:00 Pulse 80 05/27/17 21:28 Resp 21 05/27/17 20:00 BP 82/56 05/27/17 18:00 Pulse Ox 100 05/27/17 20:00 Intake & Output 05/27/17 05/27/17 05/28/17 06:59 18:59 06:59 Intake Total 1040.991 696.227 173.469 Output Total 333 885 175 Balance 707.991 -188.773 -1.531 Weight 84.7 kg 95.4 kg Intake: IV 480 515.0 83.0 Dextrose 5%-0.9% NaCl 1, 480 440 40 000 ml @ 40 mls/hr IV . Q24H [facility] Rx#:[id number] Piperacillin-Tazobactam 3 75.0 25.0 .375 gm In Dextrose/Water 1 50ml.bag @ 12.5 mls/hr IVPB Q8HR [facility] Rx#: [id number] Sodium Chloride 0.9% 99 18 ml @ 0.03 UNITS/MIN 9 mls /hr IV .Q11H7M [facility] with Vasopressin 20 unit Rx#: [id number] Intake, IV Titration 250.991 156.227 90.469 Amount Norepinephrin 16 mg-0.9% 104.031 84.706 90.469 Ns Pmx 16 mg In 250 ml @ Titrate IV .Q0M [facility] Rx#: [id number] Propofol 1,000 mg In 100 146.960 71.521 ml @ Titrate IV .Q0M [facility] Rx#:[id number] Tube Feeding 250 25 Other 60 Output: Drainage 40 160 Left Abdomen 0 130 Right Abdomen 40 30 Urine 293 625 175 Stool 100 Other: Voiding Method Indwelling Catheter Indwelling Catheter ABP, PAP, CO, CI - Last Documented Arterial Blood Pressure 107/38 - Exam A 76-year-old female lying in bed in the ICU. She is sedated and intubated. HEENT: Atraumatic, normocephalic. No nostril area discharge NECK: Supple. No JVD. CVS: S1, S2 heard. No murmurs, no gallop, no rub. LUNGS: Coarse breath sounds bilaterally. ABDOMEN: Soft, nontender. Colostomy bag is in place. No active bleeding at the site. Bowel sounds are sluggish to absent PIE TOPPER: Awake, alert, oriented x3 able to move all extremities. EXTREMITIES: No edema. Pulses palpable bilaterally. No clubbing or cyanosis. . - Labs CBC & Chem 7: 05/27/17 04:30 05/27/17 04:30 Labs: Abnormal Lab Results - Last 24 Hours (Table) 05/26/17 05/27/17 05/27/17 Range/Units 23:40 03:42 04:30 RBC 2.19 L (3.80-5.40) m/uL Hgb 7.1 L (11.4-16.0) gm/dL Hct 22.2 L (34.0-46.0) % MCV 101.2 H (80.0-100.0) fL RDW 16.1 H (11.5-15.5) % Neutrophils # 8.2 H (1.3-7.7) k/uL ABG pCO2 (35-45) mmHg ABG pO2 (83-108) mmHg ABG HCO3 (21-25) mmol/L ABG Total CO2 (19-24) mmol/L ABG O2 Saturation (94-97) % Sodium (137-145) mmol/L Chloride (98-107) mmol/L Carbon Dioxide (22-30) mmol/L BUN (7-17) mg/dL Creatinine (0.52-1.04) mg/dL Glucose (74-99) mg/dL POC Glucose (mg/dL) 114 H 126 H (75-99) mg/dL Calcium (8.4-10.2) mg/dL 05/27/17 05/27/17 05/27/17 Range/Units 04:30 05:14 07:54 RBC (3.80-5.40) m/uL Hgb (11.4-16.0) gm/dL Hct (34.0-46.0) % MCV (80.0-100.0) fL RDW (11.5-15.5) % Neutrophils # (1.3-7.7) k/uL ABG pCO2 22 L (35-45) mmHg ABG pO2 124 H (83-108) mmHg ABG HCO3 13 L (21-25) mmol/L ABG Total CO2 14 L (19-24) mmol/L ABG O2 Saturation 99.0 H (94-97) % Sodium 127 L (137-145) mmol/L Chloride 108 H (98-107) mmol/L Carbon Dioxide 13 L (22-30) mmol/L BUN 23 H (7-17) mg/dL Creatinine 1.60 H (0.52-1.04) mg/dL Glucose 123 H (74-99) mg/dL POC Glucose (mg/dL) 138 H (75-99) mg/dL Calcium 7.1 L (8.4-10.2) mg/dL 05/27/17 05/27/17 Range/Units 11:57 16:05 RBC (3.80-5.40) m/uL Hgb (11.4-16.0) gm/dL Hct (34.0-46.0) % MCV (80.0-100.0) fL RDW (11.5-15.5) % Neutrophils # (1.3-7.7) k/uL ABG pCO2 (35-45) mmHg ABG pO2 (83-108) mmHg ABG HCO3 (21-25) mmol/L ABG Total CO2 (19-24) mmol/L ABG O2 Saturation (94-97) % Sodium (137-145) mmol/L Chloride (98-107) mmol/L Carbon Dioxide (22-30) mmol/L BUN (7-17) mg/dL Creatinine (0.52-1.04) mg/dL Glucose (74-99) mg/dL POC Glucose (mg/dL) 120 H 104 H (75-99) mg/dL Calcium (8.4-10.2) mg/dL Microbiology - Last 24 Hours (Table) 05/25/17 19:00 Blood Culture - Preliminary Blood No Growth after 48 hours 05/25/17 13:05 Gram Stain - Final Sputum Sputum Culture - Final Assessment and Plan Plan: ASSESSMENT Acute cardiopulmonary arrest -downtime of 9-10 mins Right Lung Pneumonia - most likely secondary to Aspiration Septic shock - most likley secondary to above. still on Pressor support Acute blood loss anemia secondary to lower gastrointestinal bleed secondary to sigmoid mass. Hemoglobin stable Sigmoid mass status post low anterior resection and colostomy bag placement colonic ileus. improved Hyponatremia Essential hypertension. Medical debility. Recent urinary tract infection. Chronic diarrhea. Vitamin D deficiency. DISCUSSION AND PLAN: Patient is currently on pressor support. extubated sucessfully. Antibiotics initiated. Overall prognosis is guarded. Patient's family members that have been informed of her status. Further recommendations to follow depending on the progress of the patient.
[2017-05-28] MEDS: IPRATROPIUM-ALBUTEROL 3 ML NEB INHALATION SCH ×6 (02:36→23:41)
[2017-05-28] MEDS: SODIUM CHLORIDE 0.9% 99 ML with VASOPRESSIN 20 UNIT IV SCH ×6 (03:30→16:35)
[2017-05-28 04:38] LABS: Glucose,Whole Blood 72 mg/dL (75-99)
[2017-05-28 05:08] LABS: Glucose,Whole Blood 75 mg/dL (75-99)
[2017-05-28 05:20] LABS: Anisocytosis Slight; Basophils % (A) 0 %; CH 32.2; CHCM 31.8; Eosinophils % (A) 0 %; HCT 22.1 % (34.0-46.0); HDW 3.63; Hypochromasia Slight; Luc % (Auto) 1; Lymphocytes # (A) 0.8 k/uL (1.0-4.8); Lymphocytes % (A) 11 %; MCH 32.6 pg (25.0-35.0); MCHC 31.9 g/dL (31.0-37.0); MCV 102.3 fL (80.0-100.0); Macrocytosis Slight; Mean Platelet Volume 9.2; Monocytes # (A) 0.2 k/uL (0-1.0); Monocytes % (A) 3 %; Neutrophils # (A) 6.3 k/uL (1.3-7.7); Neutrophils % (A) 84 %; Poikilocytosis Slight; RBC 2.16 m/uL (3.80-5.40); WBC 7.5 k/uL (3.8-10.6); WBC (Perox) 7.53
[2017-05-28 05:39] LABS: Calcium 7.5 mg/dL (8.4-10.2); Magnesium 1.9 mg/dL (1.6-2.3); Phosphorous 3.8 mg/dL (2.5-4.5)
--- NOTE | 2017-05-28 08:01 | XR ---
EXAMINATION TYPE: XR chest 1V portable DATE OF EXAM: 05/28/2017 HISTORY: Shortness of breath. COMPARISON: 05/27/2017 TECHNIQUE: Single view of the chest is submitted. FINDINGS: NG tube has been removed. Demonstrated are scattered senescent parenchymal change. There is continued cardiomegaly with pulmonary venous congestion scattered infiltrates as well as eff usions suspicious for congestive failure. Hilar and mediastinal structures are within normal limits. Degenerative changes are seen of the dorsal spine. Arthropathy of the shoulders. IMPRESSION: 1. There is continued cardiomegaly with pulmonary venous congestion scattered infiltrates as well as effusions suspicious for congestive failure.
[2017-05-28 08:12] LABS: Glucose,Whole Blood 71 mg/dL (75-99)
[2017-05-28] MEDS: FAMOTIDINE 20 MG/2 ML VIAL IV SCH (08:47)
[2017-05-28] MEDS: LEVOFLOXACIN 250MG-D5W PMX 250 MG in DEXTROSE/WATER 1 50ML.BAG IVPB SCH (08:47)
[2017-05-28 12:32] LABS: Glucose,Whole Blood 85 mg/dL (75-99)
--- NOTE | 2017-05-28 12:41 | P.PN ---
Progress Note - Text The patient is resting in her bed. She has no significant complaints of pain. On exam her vital signs appear stable. Her abdomen soft. Her incision site is clean dry and intact. Status post heart procedure for obstructing colon cancer. Patient has had aspiration due to a large hiatal hernia. The patient will be observed. When she is medically stable we will consider J-tube placement. She'll receive TPN currently.
--- NOTE | 2017-05-28 12:47 | P.PN ---
Subjective 76-year-old female patient who presented to the hospital because of a high grade sigmoid colon obstruction with a suspicious mass. The patient underwent a colonoscopy by gastroenterology and the patient was found to have a partially obstructing mass in the distal sigmoid colon/rectosigmoid junction. The patient was having on and off rectal bleeding. She was rehabilitating at [facility] after a fall due to a generalized weakness. She was having some loose stools over the past few weeks but no significant abdominal pain or GI discomfort. The patient's hemoglobin had dropped down to 7.9 from a baseline of 12 and she was receiving transfusion. Based on all this, the patient was taken to the operating room on 05/23/2017 and the patient underwent a low AP resection with diverting colostomy. 2 abdominal drains also placed. Last night, the patient was found to be in acute respiratory distress.. The patient had a witnessed respiratory arrest and subsequent cardiac arrest. This occurred at around 1:50 AM this morning. Initially the pulse was identified. The patient was resuscitated for a total of 9 minutes and she was given 3 doses of epinephrine 1 mg. She was intubated and placed on a mechanical ventilator. She was given a triple lumen catheter in her right femoral vein. She was given a total of 2 L of IV fluids and her blood pressure remained low in the mid 60s. Following that she was started on pressors which ultimately titrated and she was placed on high-dose epinephrine infusion today to 60 g. The post intubation blood gas showed a pH of 7.15 with a pCO2 of 49 and pO2 of 205 this was an FiO2 of 100% with a PEEP of 5 and tidal volume of 350 and the rate of 14 Overnight the patient was given further fluid resuscitation and she has already received a total of 5 L of IV fluids. Currently she is on vasopressin 0.03 units per minute and she is also on norepinephrine infusion at 40 mics. She started making some urine output. Her urine output over the past 1 hour is around 100 mL an hour. The patient is sedated Diprivan at 40 mics. She would respond to painful stimuli and she would move all 4 extremities once she is taken to lower dose of Diprivan. Meanwhile, the necessity vent changes were done. I increased tidal volume to 450. I put the rate of 24 and drop the FiO2 down to 60%. Subsequent blood gases showed a pH of 7.36 with a pCO2 of 26 and pO2 of 123. Chest x-ray shows a large consolidation of the right lung involving the right middle lobe and right lower lobe. Orogastric tube was placed immediately following intubation and a total of 1600 mL of gastric aspirate was obtained. Note that the chest x-ray preoperatively had shown or the a large intrathoracic hiatal hernia. The patient subsequently had an abdominal x-ray yesterday that was indicating some ileus. The chest x-ray from this morning is showing that the patient has a right lung pneumonia and the OG tube is coiled in the hiatal hernia within the thorax. No gastric material is being suctioned from the TRACHEAL tube although is very much likely the patient could have aspirated. Her white cell count is up to 42. Venous lactate is at 1.7. The patient's colostomy site is functional. There is some minimal amount of fecal material collecting in the colostomy bag. Abdomen is nondistended at this point. Positive lower oximetry is palpable. On 05/26/2017 the patient is being seen in follow-up. The patient is still intubated on a mechanical ventilator. The patient is afebrile. She is doing well on a mechanical ventilator and she is in a assist-control mode at the rate of 24, tidal volume 450, FiO2 is down to 40% and PEEP of 5. Her morning blood gases with a pH of 7.38 with a pCO2 of 23 and pO2 150. Chest x-ray showing small bilateral pleural effusions and infiltrates in lung bases bilaterally. ET tube is in a good location. There is also a triple lumen catheter in place. The patient had a CAT scan of the abdomen and pelvis yesterday that showed lower lobe consolidation of the lungs along with pleural effusions. No intra- abdominal abscess. No other intra-abdominal abnormalities. The patient is a large hiatal hernia. Orogastric tube is in place and the patient will be started on tube feeds today. Colostomy site is healthy and viable looking. Hemodynamically she is improved compared to yesterday. She is on a vasopressin drip at physiologic dose and the patient is also on norepinephrine infusion that was weaned down to 20 mics. The patient is sedated with Diprivan and she is calm and comfortable. The patient remains on a combination of Zosyn and Levaquin and vancomycin. The blood cultures of been negative. The sputum culture been negative. White cell count is improving. Afebrile. Producing adequate amount of urine output. Echocardiogram showed a preserved LV function. There was a severe degree of mitral regurgitation secondary pulmonary hypertension. On 05/27/2017 the patient is being seen in follow-up. Earlier this morning the patient was still intubated on a mechanical ventilator. She was taken off the sedation and she woke up appropriately and she was able to follow commands and move her extremities without any limitation. She had a weak cough. Had rapid shallow breathing index was less than 100. She was given a spontaneous breathing trial with a pressure support of 5 and a PEEP of 5 and following that the patient was extubated to a nasal cannula. Note that the extubation blood gases showed a pH of 7.38 with a pCO2 of 22 and pO2 of 124 and this was done assist-control mode of ventilation with an FiO2 of 40%. The chest x-ray from earlier this morning shows interval improvement of the right lung pneumonia. His left-sided atelectasis and small effusion. Hemodynamically, the patient is still pressor dependent. The patient is on a physiologic dose of vasopressin 0.03 units per minute and the patient is levo fed has been weaned down to 12 mics. She is producing urine output in the order of 20-25 mL an hour. She has however developed an acute kidney injury, probably a hypotension-induced ATN with a creatinine is up to 1.6 and this is a non-oliguric renal failure. She is on broad-spectrum antibiotics which included a combination of Zosyn, Levaquin and vancomycin. Sputum analysis has yielded no positivity and there is no microbial growth for now. The patient has been tolerating her tube feeds. She is receiving enteral nutrition and her colostomy site is functional and intact at this point. No abdominal distention. Trace edema in the lower extremities bilaterally. On 05/28/2017 the patient remains extubated. She is awake and following simple commands. She has a congested cough and the chest x-ray from today shows worsening in the volume status and development of bilateral pleural effusions. There is haziness bilaterally nothing it's related to pleural effusion. The patient has not been fed enterally knowing that there is a concern of the positioning of the NG tube. I discussed this further with Dr. Tristian coy from surgery. We have decided not to feed again due to concern of recurrent aspiration knowing that the patient has a large hiatal hernia. Ultimately she may benefit from a PEG tube or NG tube if she is unable to swallow. She failed her swallow evaluation for the time being. Meanwhile, I thought is reasonable to start the patient on some hyperalimentation via TPN to meet her caloric requirements. She is hemodynamically improving however she has developed an acute kidney injury. Her pressors are much less and currently she is still on a physiologic dose vasopressin and 2-3 mics of norepinephrine infusion. She is however producing less urine output in the creatinine is up to 2.0. She is anemic with a hemoglobin of 7.0. Rest of the electrodes showed a component of non-anion gap metabolic acidosis. Her colostomy site is functional and intact at this point and is viable. No abdominal distention. WALTER drains are all in place. Objective - Vital Signs Vital signs: Vital Signs Temp 98.9 F 05/28/17 08:00 Pulse 78 05/28/17 11:48 Resp 19 05/28/17 08:00 BP 84/49 05/28/17 02:00 Pulse Ox 98 05/28/17 08:34 Intake & Output 05/27/17 05/28/17 05/28/17 18:59 06:59 18:59 Intake Total 696.227 633.469 157.25 Output Total 885 950 230 Balance -188.773 -316.531 -72.75 Weight 95.4 kg 95.2 kg Intake: IV 515.0 543.0 110.5 Dextrose 5%-0.9% NaCl 1, 440 360 80 000 ml @ 40 mls/hr IV . Q24H [facility] Rx#:[id number] Piperacillin-Tazobactam 3 75.0 75.0 12.5 .375 gm In Dextrose/Water 1 50ml.bag @ 12.5 mls/hr IVPB Q8HR [facility] Rx#: [id number] Sodium Chloride 0.9% 99 108 18 ml @ 0.03 UNITS/MIN 9 mls /hr IV .Q11H7M [facility] with Vasopressin 20 unit Rx#: [id number] Intake, IV Titration 156.227 90.469 46.75 Amount Norepinephrin 16 mg-0.9% 84.706 90.469 46.75 Ns Pmx 16 mg In 250 ml @ Titrate IV .Q0M [facility] Rx#: [id number] Propofol 1,000 mg In 100 71.521 ml @ Titrate IV .Q0M [facility] Rx#:[id number] Tube Feeding 25 Output: Drainage 160 70 Left Abdomen 130 0 Right Abdomen 30 70 Urine 625 880 130 Stool 100 100 Other: Voiding Method Indwelling Catheter Indwelling Catheter Indwelling Catheter ABP, PAP, CO, CI - Last Documented Arterial Blood Pressure 106/42 - Exam Head exam was generally normal. The patient is awake and following simple commands. The patient is extubated currently on oxygen by nasal cannula at 2 L/ m. . There was no scleral icterus or corneal arcus. Mucous membranes were moist. The patient is intubated on a mechanical ventilator. Neck was supple and without jugular venous distension, thyromegaly, or carotid bruits. Carotids were easily palpable bilaterally. There was no adenopathy. Lung sounds are equal and symmetrical bilaterally and there is no significant wheezes overall currently crackles. Heart sounds are regular rate and rhythm normal S1-S2 and there is no significant murmurs appreciated. Abdomen is soft. Nondistended. Colostomy site is viable and functional. The patient has a infraumbilical incision with angella are being replaced. No active drainage. WALTER drains also in place and output is essentially serosanguineous and minimal. Extremities are showing diminished pulses and there is no cyanosis or clubbing. Neurologic the patient is awake. No facial asymmetry. Pupils around 5 mm in size. No nystagmus. She is withdrawing and moving all 4 extremities without any limitation. - Labs CBC & Chem 7: 05/28/17 05:05 05/28/17 05:05 Labs: Abnormal Lab Results - Last 24 Hours (Table) 05/27/17 05/28/17 05/28/17 Range/Units 16:05 04:37 05:05 RBC 2.16 L (3.80-5.40) m/uL Hgb 7.0 L* (11.4-16.0) gm/dL Hct 22.1 L (34.0-46.0) % MCV 102.3 H (80.0-100.0) fL RDW 16.0 H (11.5-15.5) % Lymphocytes # 0.8 L (1.0-4.8) k/uL Sodium (137-145) mmol/L Chloride (98-107) mmol/L Carbon Dioxide (22-30) mmol/L BUN (7-17) mg/dL Creatinine (0.52-1.04) mg/dL Glucose (74-99) mg/dL POC Glucose (mg/dL) 104 H 72 L (75-99) mg/dL Calcium (8.4-10.2) mg/dL 05/28/17 05/28/17 Range/Units 05:05 08:11 RBC (3.80-5.40) m/uL Hgb (11.4-16.0) gm/dL Hct (34.0-46.0) % MCV (80.0-100.0) fL RDW (11.5-15.5) % Lymphocytes # (1.0-4.8) k/uL Sodium 132 L (137-145) mmol/L Chloride 110 H (98-107) mmol/L Carbon Dioxide 14 L (22-30) mmol/L BUN 25 H (7-17) mg/dL Creatinine 2.05 H (0.52-1.04) mg/dL Glucose 65 L (74-99) mg/dL POC Glucose (mg/dL) 71 L (75-99) mg/dL Calcium 7.5 L (8.4-10.2) mg/dL Microbiology - Last 24 Hours (Table) 05/25/17 19:00 Blood Culture - Preliminary Blood No Growth after 48 hours 05/25/17 13:05 Gram Stain - Final Sputum Sputum Culture - Final Assessment and Plan Plan: Assessment 1 acute cardiopulmonary arrest. I think the patient essentially went to respiratory arrest with subsequent cardiac arrest and she was down for less than 10 minutes. The patient during the code received a total of 3 rounds of epinephrine and she was intubated placed on mechanical ventilator and got transferred to the intensive care unit. Patient has developed bilateral pneumonia involving the lower lobes. Rule out aspiration pneumonia. Rule out hospital-acquired pneumonia. The patient was intubated due to pneumonia, septic shock and hemodynamic collapse and the patient was aggressively resuscitated IV fluids and pressors and she had to be also intubated and placed on a mechanical ventilator and she was extubated yesterday. 2 bilateral lower lobe pneumonia. Suspect aspiration pneumonia versus a hospital-acquired pneumonia 3 shock with profound hypotension and the patient is pressor dependent at this point with a combination of norepinephrine infusion and vasopressin. Echocardiogram showing preserved LV function. The patient's pressor requirements have improved considerably and currently she is only a few mics of levo fed and physiologic dose of vasopressin. 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 The patient underwent a low AP resection with diverting colostomy. The patient is postop day #8. 5 anemia secondary to lower gastrointestinal bleeding secondary to rectosigmoid mass, stable hemoglobin at 7.0 6 hyponatremia, mild, recovered 7 mild non-anion gap metabolic acidosis 8 acute respiratory failure, currently intubated on a mechanical ventilator, secondary to above 9 cerebral palsy, history of with significant permanent AV performance and functional status 10 diabetes mellitus 11 hyperlipidemia, 12 acute kidney injury, possibly secondary to hypotension-induced ATN. 13 history of vasovagal syncope, scoliosis 14 frequent urine checked infections 15 Limited mobility and the patient has been using a walker based on the family members. The patient also had a limited range of motion the right hand and right wrist area. 16 large intrathoracic hiatal hernia as evident on the patient's chest x-ray. NG tube scored within the stomach. 17 severe mitral regurgitation with a preserved LV function and secondary pulmonary hypertension. Plan The patient is to be stated ICU. The patient will be started on TPN for nutritional support. Kept on IV fluids to KVO. Start the patient on Lasix 40 mg every 12 hours. Aspiration precautions. Continue same antibiotic coverage. Consult with surgery for a possibility of a PEG or a J-tube insertion at a later stage. Kept on the norepinephrine infusion and wean it off and discontinue if possible. Vasopressin can be discontinued later stage was the patient is more hemodynamically stable. Continue same antibiotic coverage. Cultures have not resulted in to any positive findings. We'll continue to follow make further recommendations based on her progress. She is weak and somewhat lethargic. She has underlying cerebral palsy. She is however cooperating with the treatment. Her swallowing is weak yet and she cannot swallow and she has failed a swallow evaluation. Her condition remains critical. We'll continue to follow make further recommendations based on her progress. This examination was done more than 30 minutes. Time with Patient: Greater than 30
[2017-05-28] MEDS ORDERED: MVI, ADULT NO.4 WITH VIT K 10 ML, TRACE (CONC-1ML/DOSE) 1 ML in AMINO ACID 4.25%-D10W+L... IV SCH ×3 (14:00)
[2017-05-28 16:07] LABS: Glucose,Whole Blood 80 mg/dL (75-99)
[2017-05-28] MEDS: FUROSEMIDE 10 MG/ML 4 ML VIAL IV SCH ×2 (16:13→20:29)
[2017-05-28] MEDS: DEXTROSE 5%-0.9% NACL 1,000 ML IV SCH (16:18)
--- NOTE | 2017-05-28 19:20 | P.PN ---
Subjective Mr. Morel is a 76-year-old female who was recently admitted to the assisted after sustaining fall due to generalized weakness. The patient was brought to the hospital with concerns for GI bleed. Patient had attempted colonoscopy initially on 05/19/2017 and scope could not be passed due to significant obstructing mass. On 05/20/2017 patient was taken to OR for low anterior resection of the sigmoid and colostomy bag placement was done. On 05/21/2017 Agent is more awake and oriented today. Patient is tolerating liquid diet but feels nauseous now, as her chest pain or short of breath. Hemoglobin is stable. Patient is on epidural. On 05/22/2017 Patient says that her nausea is improved. Epidural pain management is being discontinued today. No fever no chills. No complaints of abdominal pain. Patient is tolerating liquid diet today. Otherwise no chest pain or short of breath. On 05/23/2017 Patient is tolerating by mouth liquid diet. She has been moving her bowels and has some stool in the colostomy bag. On 05/24/2017 Patient has been tolerating liquid diet well. Patient has been transferred to a chair beside the bed. Patient has a small amount of stool in the colostomy bag and passing flatus. On 05/25/2017 Last night the patient developed respiratory failure and eventually had cardiac arrest. Patient was resuscitated for a total of 9 minutes. She received 3 doses of epinephrine and received 2 L of IV fluid bolus , intubated and taken to the ICU. As her blood pressure was running her she was also started on pressors . Overnight the patient was given 5 more Lt of IV fluids. Her blood pressure was still running low and she was started on Levophed and vasopressin. The patient subsequently had a chest x-ray was showing a large right lung consolidation, and the patient has a large intrathoracic had a hernia. So most likely that the patient might have aspirated overnight. On 05/26 - Pt is still intubated. CT abdomen was done showing post surgical ileus. Still on vasopressors. NG tube feeds have been started, She had a large bowel movement yesterday. on 05/27/17 Pt. was succcessfull extubated. Pt. is awake but could not speak at this time. Still on Pressor support. no fever/chills. Review of systems - could not be done as the patient is intubated 05/28/17 failed NG placement Continues to be on a trivial dose of levophed and vasopressin to be started on TPN today - Exam A 76-year-old female lying in bed in the ICU. awake however non verbal HEENT: Atraumatic, normocephalic. NECK: Supple. No JVD. CVS: S1, S2 heard. No murmurs, no gallop, no rub. LUNGS: Coarse breath sounds bilaterally. ABDOMEN: Soft, nontender. Colostomy bag is in place. No active bleeding at the site. Bowel sounds are sluggish to absent ASSISTANT PROFESSOR OF PHYSICS: Aable to move all extremities. EXTREMITIES: anasarca Pulses palpable bilaterally. No clubbing or cyanosis. Assessment and Plan Plan: ASSESSMENT Acute cardiopulmonary arrest -downtime of 9-10 mins Right Lung Pneumonia - most likely secondary to Aspiration Septic shock - most likley secondary to above. still on Pressor support Acute blood loss anemia secondary to lower gastrointestinal bleed secondary to sigmoid mass. Hemoglobin stable Sigmoid mass status post low anterior resection and colostomy bag placement colonic ileus. improved Hyponatremia Essential hypertension. Medical debility. Recent urinary tract infection. Chronic diarrhea. Vitamin D deficiency. DISCUSSION AND PLAN: titrate off vasopressor support has anasarca TPN to be started diuretics as needed critically ill prognosis is poor Objective - Vital Signs Vital signs: Vital Signs Temp 97.6 F 05/28/17 16:00 Pulse 84 05/28/17 19:00 Resp 22 05/28/17 19:00 BP 94/52 05/28/17 18:00 Pulse Ox 83 L 05/28/17 19:00 Intake & Output 05/28/17 05/28/17 05/29/17 06:59 18:59 06:59 Intake Total 633.469 810.325 81.5 Output Total 950 850 100 Balance -316.531 -39.675 -18.5 Weight 95.2 kg Intake: IV 543.0 735.5 81.5 Dextrose 5%-0.9% NaCl 1, 360 390 10 000 ml @ 10 mls/hr IV . Q24H [facility] Rx#:[id number] Mvi, Adult No.4 with Vit 150 50 K 10 ml Trace (Conc-1Ml/ Dose) 1 ml In Amino Acid 4.25%-D10w+Lytes*E* 1,000 ml @ 50 mls/hr IV . [id number] [facility] Rx#:[id number] Piperacillin-Tazobactam 3 75.0 87.5 12.5 .375 gm In Dextrose/Water 1 50ml.bag @ 12.5 mls/hr IVPB Q8HR [facility] Rx#: [id number] Sodium Chloride 0.9% 99 108 108 9 ml @ 0.03 UNITS/MIN 9 mls /hr IV .Q11H7M [facility] with Vasopressin 20 unit Rx#: [id number] Intake, IV Titration 90.469 74.825 Amount Norepinephrin 16 mg-0.9% 90.469 74.825 Ns Pmx 16 mg In 250 ml @ Titrate IV .Q0M [facility] Rx#: [id number] Output: Drainage 70 Left Abdomen 0 Right Abdomen 70 Urine 880 650 100 Stool 200 Other: Voiding Method Indwelling Catheter Indwelling Catheter ABP, PAP, CO, CI - Last Documented Arterial Blood Pressure 101/47 - Labs CBC & Chem 7: 05/28/17 05:05 05/28/17 05:05 Labs: Abnormal Lab Results - Last 24 Hours (Table) 05/28/17 05/28/17 05/28/17 Range/Units 04:37 05:05 05:05 RBC 2.16 L (3.80-5.40) m/uL Hgb 7.0 L* (11.4-16.0) gm/dL Hct 22.1 L (34.0-46.0) % MCV 102.3 H (80.0-100.0) fL RDW 16.0 H (11.5-15.5) % Lymphocytes # 0.8 L (1.0-4.8) k/uL Sodium 132 L (137-145) mmol/L Chloride 110 H (98-107) mmol/L Carbon Dioxide 14 L (22-30) mmol/L BUN 25 H (7-17) mg/dL Creatinine 2.05 H (0.52-1.04) mg/dL Glucose 65 L (74-99) mg/dL POC Glucose (mg/dL) 72 L (75-99) mg/dL Calcium 7.5 L (8.4-10.2) mg/dL 05/28/17 Range/Units 08:11 RBC (3.80-5.40) m/uL Hgb (11.4-16.0) gm/dL Hct (34.0-46.0) % MCV (80.0-100.0) fL RDW (11.5-15.5) % Lymphocytes # (1.0-4.8) k/uL Sodium (137-145) mmol/L Chloride (98-107) mmol/L Carbon Dioxide (22-30) mmol/L BUN (7-17) mg/dL Creatinine (0.52-1.04) mg/dL Glucose (74-99) mg/dL POC Glucose (mg/dL) 71 L (75-99) mg/dL Calcium (8.4-10.2) mg/dL Microbiology - Last 24 Hours (Table) 05/25/17 19:00 Blood Culture - Preliminary Blood No Growth after 48 hours
[2017-05-28 20:13] LABS: Glucose,Whole Blood 109 mg/dL (75-99)
[2017-05-28] MEDS: ATORVASTATIN 20 MG TAB PO SCH (20:28)
[2017-05-28] MEDS: NOREPINEPHRIN 16 MG-0.9%NS PMX 16 MG/250 ML ML IV SCH (21:17)
[2017-05-29] MEDS: HEPARIN SODIUM,PORCINE 5,000 UNIT/ML 1 ML VIAL SQ SCH ×3 (00:04→17:02)
[2017-05-29] MEDS: INSULIN LISPRO (humaLOG) 300 UNIT/3 ML VIAL SQ SCH ×4 (00:05→18:07)
[2017-05-29 00:08] LABS: Glucose,Whole Blood 116 mg/dL (75-99)
[2017-05-29] MEDS: PIPERACILLIN-TAZOBACTAM 3.375 GM in DEXTROSE/WATER 1 50ML.BAG IVPB SCH ×3 (00:08→17:06)
[2017-05-29] MEDS: METOCLOPRAMIDE 5 MG/ML 2 ML VIAL IVP SCH ×4 (00:08→18:06)
[2017-05-29] MEDS: IPRATROPIUM-ALBUTEROL 3 ML NEB INHALATION SCH ×6 (03:25→23:40)
[2017-05-29 04:11] LABS: Basophils % (A) 0 %; CH 32.1; CHCM 31.6; Eosinophils # (A) 0.1 k/uL (0-0.7); Eosinophils % (A) 1 %; HCT 22.3 % (34.0-46.0); HDW 3.65; HGB 7.1 gm/dL (11.4-16.0); Hypochromasia Moderate; Luc # (Auto) 0.07; Luc % (Auto) 1; Lymphocytes # (A) 0.8 k/uL (1.0-4.8); Lymphocytes % (A) 13 %; MCH 32.8 pg (25.0-35.0); MCHC 31.9 g/dL (31.0-37.0); MCV 102.8 fL (80.0-100.0); Macrocytosis Slight; Mean Platelet Volume 9.2; Monocytes # (A) 0.2 k/uL (0-1.0); Monocytes % (A) 3 %; Neutrophils # (A) 4.9 k/uL (1.3-7.7); Neutrophils % (A) 82 %; Poikilocytosis Slight; RBC 2.17 m/uL (3.80-5.40); RDW 15.9 % (11.5-15.5); WBC (Perox) 5.89
[2017-05-29 04:45] LABS: Calcium 8.1 mg/dL (8.4-10.2); Phosphorous 4.9 mg/dL (2.5-4.5)
[2017-05-29] MEDS: LEVOFLOXACIN 250MG-D5W PMX 250 MG in DEXTROSE/WATER 1 50ML.BAG IVPB SCH (05:15)
--- NOTE | 2017-05-29 08:01 | XR ---
EXAMINATION TYPE: XR chest 1V portable DATE OF EXAM: 05/29/2017 HISTORY: Shortness of breath. COMPARISON: 05/28/2017 TECHNIQUE: Single view of the chest is submitted. FINDINGS: Demonstrated are scattered senescent parenchymal change. Stable diffuse airspace infiltrates and pleural effusions noted. The heart is stable. Hilar and mediastinal structures are within normal limits. Degenerative changes are seen of the dorsal spine. Suspect large fixed hiatal hernia. IMPRESSION: 1. Stable diffuse airspace infiltrates and pleural effusions noted.
[2017-05-29] MEDS: FAMOTIDINE 20 MG/2 ML VIAL IV SCH (08:36)
[2017-05-29] MEDS: FUROSEMIDE 10 MG/ML 4 ML VIAL IV SCH ×2 (08:36→22:31)
[2017-05-29] MEDS: 1: MVI, ADULT NO.4 WITH VIT K 10 ML, TRACE (CONC-1ML/DOSE) 1 ML in AMINO ACID 4.25%-D10W IV SCH ×6 (09:27→22:33)
--- NOTE | 2017-05-29 10:16 | P.PN ---
Progress Note - Text The patient remains in the ICU. She is almost entirely off of her vasopressor support. She still having some pulmonary issues. On exam her vital signs are stable. Her abdomen soft. Incision sites clean dry and intact. The subcutaneous drain is leaking some air. There is some serous drainage in her pelvic drain. The patient will be scheduled for J-tube insertion once she is medically stable. Patient had a good candidate for a PEG tube due to her large hiatal hernia. The patient will be at risk of future aspiration she had a PEG tube.
--- NOTE | 2017-05-29 11:33 | P.PN ---
Subjective 76-year-old female patient who presented to the hospital because of a high grade sigmoid colon obstruction with a suspicious mass. The patient underwent a colonoscopy by gastroenterology and the patient was found to have a partially obstructing mass in the distal sigmoid colon/rectosigmoid junction. The patient was having on and off rectal bleeding. She was rehabilitating at [facility] after a fall due to a generalized weakness. She was having some loose stools over the past few weeks but no significant abdominal pain or GI discomfort. The patient's hemoglobin had dropped down to 7.9 from a baseline of 12 and she was receiving transfusion. Based on all this, the patient was taken to the operating room on 05/23/2017 and the patient underwent a low AP resection with diverting colostomy. 2 abdominal drains also placed. Last night, the patient was found to be in acute respiratory distress.. The patient had a witnessed respiratory arrest and subsequent cardiac arrest. This occurred at around 1:50 AM this morning. Initially the pulse was identified. The patient was resuscitated for a total of 9 minutes and she was given 3 doses of epinephrine 1 mg. She was intubated and placed on a mechanical ventilator. She was given a triple lumen catheter in her right femoral vein. She was given a total of 2 L of IV fluids and her blood pressure remained low in the mid 60s. Following that she was started on pressors which ultimately titrated and she was placed on high-dose epinephrine infusion today to 60 g. The post intubation blood gas showed a pH of 7.15 with a pCO2 of 49 and pO2 of 205 this was an FiO2 of 100% with a PEEP of 5 and tidal volume of 350 and the rate of 14 Overnight the patient was given further fluid resuscitation and she has already received a total of 5 L of IV fluids. Currently she is on vasopressin 0.03 units per minute and she is also on norepinephrine infusion at 40 mics. She started making some urine output. Her urine output over the past 1 hour is around 100 mL an hour. The patient is sedated Diprivan at 40 mics. She would respond to painful stimuli and she would move all 4 extremities once she is taken to lower dose of Diprivan. Meanwhile, the necessity vent changes were done. I increased tidal volume to 450. I put the rate of 24 and drop the FiO2 down to 60%. Subsequent blood gases showed a pH of 7.36 with a pCO2 of 26 and pO2 of 123. Chest x-ray shows a large consolidation of the right lung involving the right middle lobe and right lower lobe. Orogastric tube was placed immediately following intubation and a total of 1600 mL of gastric aspirate was obtained. Note that the chest x-ray preoperatively had shown or the a large intrathoracic hiatal hernia. The patient subsequently had an abdominal x-ray yesterday that was indicating some ileus. The chest x-ray from this morning is showing that the patient has a right lung pneumonia and the OG tube is coiled in the hiatal hernia within the thorax. No gastric material is being suctioned from the TRACHEAL tube although is very much likely the patient could have aspirated. Her white cell count is up to 42. Venous lactate is at 1.7. The patient's colostomy site is functional. There is some minimal amount of fecal material collecting in the colostomy bag. Abdomen is nondistended at this point. Positive lower oximetry is palpable. On 05/26/2017 the patient is being seen in follow-up. The patient is still intubated on a mechanical ventilator. The patient is afebrile. She is doing well on a mechanical ventilator and she is in a assist-control mode at the rate of 24, tidal volume 450, FiO2 is down to 40% and PEEP of 5. Her morning blood gases with a pH of 7.38 with a pCO2 of 23 and pO2 150. Chest x-ray showing small bilateral pleural effusions and infiltrates in lung bases bilaterally. ET tube is in a good location. There is also a triple lumen catheter in place. The patient had a CAT scan of the abdomen and pelvis yesterday that showed lower lobe consolidation of the lungs along with pleural effusions. No intra- abdominal abscess. No other intra-abdominal abnormalities. The patient is a large hiatal hernia. Orogastric tube is in place and the patient will be started on tube feeds today. Colostomy site is healthy and viable looking. Hemodynamically she is improved compared to yesterday. She is on a vasopressin drip at physiologic dose and the patient is also on norepinephrine infusion that was weaned down to 20 mics. The patient is sedated with Diprivan and she is calm and comfortable. The patient remains on a combination of Zosyn and Levaquin and vancomycin. The blood cultures of been negative. The sputum culture been negative. White cell count is improving. Afebrile. Producing adequate amount of urine output. Echocardiogram showed a preserved LV function. There was a severe degree of mitral regurgitation secondary pulmonary hypertension. On 05/27/2017 the patient is being seen in follow-up. Earlier this morning the patient was still intubated on a mechanical ventilator. She was taken off the sedation and she woke up appropriately and she was able to follow commands and move her extremities without any limitation. She had a weak cough. Had rapid shallow breathing index was less than 100. She was given a spontaneous breathing trial with a pressure support of 5 and a PEEP of 5 and following that the patient was extubated to a nasal cannula. Note that the extubation blood gases showed a pH of 7.38 with a pCO2 of 22 and pO2 of 124 and this was done assist-control mode of ventilation with an FiO2 of 40%. The chest x-ray from earlier this morning shows interval improvement of the right lung pneumonia. His left-sided atelectasis and small effusion. Hemodynamically, the patient is still pressor dependent. The patient is on a physiologic dose of vasopressin 0.03 units per minute and the patient is levo fed has been weaned down to 12 mics. She is producing urine output in the order of 20-25 mL an hour. She has however developed an acute kidney injury, probably a hypotension-induced ATN with a creatinine is up to 1.6 and this is a non-oliguric renal failure. She is on broad-spectrum antibiotics which included a combination of Zosyn, Levaquin and vancomycin. Sputum analysis has yielded no positivity and there is no microbial growth for now. The patient has been tolerating her tube feeds. She is receiving enteral nutrition and her colostomy site is functional and intact at this point. No abdominal distention. Trace edema in the lower extremities bilaterally. On 05/28/2017 the patient remains extubated. She is awake and following simple commands. She has a congested cough and the chest x-ray from today shows worsening in the volume status and development of bilateral pleural effusions. There is haziness bilaterally nothing it's related to pleural effusion. The patient has not been fed enterally knowing that there is a concern of the positioning of the NG tube. I discussed this further with Dr. Tristian coy from surgery. We have decided not to feed again due to concern of recurrent aspiration knowing that the patient has a large hiatal hernia. Ultimately she may benefit from a PEG tube or NG tube if she is unable to swallow. She failed her swallow evaluation for the time being. Meanwhile, I thought is reasonable to start the patient on some hyperalimentation via TPN to meet her caloric requirements. She is hemodynamically improving however she has developed an acute kidney injury. Her pressors are much less and currently she is still on a physiologic dose vasopressin and 2-3 mics of norepinephrine infusion. She is however producing less urine output in the creatinine is up to 2.0. She is anemic with a hemoglobin of 7.0. Rest of the electrodes showed a component of non-anion gap metabolic acidosis. Her colostomy site is functional and intact at this point and is viable. No abdominal distention. WALTER drains are all in place. On 05/26/2017 the patient remains extubated. She is much more alert and interactive today. She is being treated with broad-spectrum antibiotics for aspiration pneumonia. Chest x-ray from today shows consolidation in bilateral pleural effusion in addition to a large intrathoracic hiatal hernia. Nevertheless, the volume status is slightly improved compared to yesterday knowing that the patient is being diuresis with IV Lasix 40 mg IV push every 12 hours. The patient has been producing more than 100 mL an hour of urine output on an hourly basis. Her creatinine is up to 2.4 however she is nonoliguric. Rest of the electrodes are all within normal limits. The patient's hemoglobin is stable at 7.1. White cell count is dropped down to 6. She is still on broad -spectrum antibiotics. Abdominal wound is clean and there is some minimal drainage from the WALTER insertion site. The colostomy site is functional and intact and viable. The patient is unable to swallow yet. TPN was started yesterday for nutritional support. IV fluids to KVO. Afebrile. Trying to do adequate pulmonate toileting however she is unable to cough up rest or secretions. Family is at the bedside. Objective - Vital Signs Vital signs: Vital Signs Temp 97.7 F 05/29/17 04:00 Pulse 79 05/29/17 08:20 Resp 22 05/29/17 07:00 BP 98/51 05/29/17 07:00 Pulse Ox 99 05/29/17 08:02 Intake & Output 05/28/17 05/29/17 05/29/17 18:59 06:59 18:59 Intake Total 810.325 963.721 Output Total 850 2340 Balance -39.675 -1376.279 Weight 95.2 kg Intake: IV 735.5 950.5 Amino Acid 4.25%-D10w+ 249 Lytes*E* 1,000 ml @ 83 mls/hr IV .[facility] Rx#:[id number] Dextrose 5%-0.9% NaCl 1, 390 80 000 ml @ 10 mls/hr IV . Q24H [facility] Rx#:[id number] Levofloxacin 250Mg-D5w 50 Pmx 250 mg In Dextrose/ Water 1 50ml.bag @ 50 mls /hr IVPB Q24H [facility] Rx#: [id number] Mvi, Adult No.4 with Vit 150 500 K 10 ml Trace (Conc-1Ml/ Dose) 1 ml In Amino Acid 4.25%-D10w+Lytes*E* 1,000 ml @ 50 mls/hr IV . [id number] [facility] Rx#:[id number] Piperacillin-Tazobactam 3 87.5 62.5 .375 gm In Dextrose/Water 1 50ml.bag @ 12.5 mls/hr IVPB Q8HR [facility] Rx#: [id number] Sodium Chloride 0.9% 99 108 9 ml @ 0.03 UNITS/MIN 9 mls /hr IV .Q11H7M [facility] with Vasopressin 20 unit Rx#: [id number] Intake, IV Titration 74.825 13.221 Amount Norepinephrin 16 mg-0.9% 74.825 13.221 Ns Pmx 16 mg In 250 ml @ Titrate IV .Q0M [facility] Rx#: [id number] Output: Drainage 15 Right Abdomen 15 Urine 650 1775 Stool 200 550 Other: Voiding Method Indwelling Catheter Indwelling Catheter ABP, PAP, CO, CI - Last Documented Arterial Blood Pressure 94/85 - Exam Head exam was generally normal. The patient is awake and following simple commands. The patient is extubated currently on oxygen by nasal cannula at 2 L/ m. There was no scleral icterus or corneal arcus. Mucous membranes were moist. Neck was supple and without jugular venous distension, thyromegaly, or carotid bruits. Carotids were easily palpable bilaterally. There was no adenopathy. Lung sounds are equal and symmetrical bilaterally and there is no significant wheezes overall currently crackles. Heart sounds are regular rate and rhythm normal S1-S2 and there is no significant murmurs appreciated. Abdomen is soft. Nondistended. Colostomy site is viable and functional. The patient has a infraumbilical incision with angella are being replaced. No active drainage. WALTER drains also in place and output is essentially serosanguineous and minimal. Extremities are showing diminished pulses and there is no cyanosis or clubbing. Neurologic the patient is awake. The cough and mechanism is weak. Unable to bring up her respiratory secretions yet. She has cerebral palsy and some chronic contractures in the upper extremities bilaterally. - Labs CBC & Chem 7: 05/29/17 04:05 05/29/17 04:05 Labs: Abnormal Lab Results - Last 24 Hours (Table) 05/28/17 05/29/17 05/29/17 Range/Units 20:11 00:05 04:05 RBC 2.17 L (3.80-5.40) m/uL Hgb 7.1 L (11.4-16.0) gm/dL Hct 22.3 L (34.0-46.0) % MCV 102.8 H (80.0-100.0) fL RDW 15.9 H (11.5-15.5) % Lymphocytes # 0.8 L (1.0-4.8) k/uL Sodium (137-145) mmol/L Chloride (98-107) mmol/L Carbon Dioxide (22-30) mmol/L BUN (7-17) mg/dL Creatinine (0.52-1.04) mg/dL Glucose (74-99) mg/dL POC Glucose (mg/dL) 109 H 116 H (75-99) mg/dL Calcium (8.4-10.2) mg/dL Phosphorus (2.5-4.5) mg/dL 05/29/17 Range/Units 04:05 RBC (3.80-5.40) m/uL Hgb (11.4-16.0) gm/dL Hct (34.0-46.0) % MCV (80.0-100.0) fL RDW (11.5-15.5) % Lymphocytes # (1.0-4.8) k/uL Sodium 131 L (137-145) mmol/L Chloride 109 H (98-107) mmol/L Carbon Dioxide 14 L (22-30) mmol/L BUN 31 H (7-17) mg/dL Creatinine 2.40 H (0.52-1.04) mg/dL Glucose 106 H (74-99) mg/dL POC Glucose (mg/dL) (75-99) mg/dL Calcium 8.1 L (8.4-10.2) mg/dL Phosphorus 4.9 H (2.5-4.5) mg/dL Microbiology - Last 24 Hours (Table) 05/25/17 19:00 Blood Culture - Preliminary Blood No Growth after 72 hours Assessment and Plan Plan: Assessment 1 acute cardiopulmonary arrest. I think the patient essentially went to respiratory arrest with subsequent cardiac arrest and she was down for less than 10 minutes. The patient during the code received a total of 3 rounds of epinephrine and she was intubated placed on mechanical ventilator and got transferred to the intensive care unit. Patient has developed bilateral pneumonia involving the lower lobes. Rule out aspiration pneumonia. Rule out hospital-acquired pneumonia. The patient was intubated due to pneumonia, septic shock and hemodynamic collapse and the patient was aggressively resuscitated IV fluids and pressors and she had to be also intubated and placed on a mechanical ventilator and she was extubated for more than 48 hours. 2 bilateral lower lobe pneumonia. Suspect aspiration pneumonia versus a hospital-acquired pneumonia 3 shock with profound hypotension and the patient is pressor dependent at this point with a combination of norepinephrine infusion and vasopressin. Echocardiogram showing preserved LV function. The patient's pressor requirements have improved considerably and currently she is only a few mics of levo fed and physiologic dose of vasopressin. 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 The patient underwent a low AP resection with diverting colostomy. The patient is postop day #8. 5 anemia secondary to lower gastrointestinal bleeding secondary to rectosigmoid mass, stable hemoglobin at 7.1 6 hyponatremia, mild, recovered 7 mild non-anion gap metabolic acidosis 8 acute respiratory failure, currently intubated on a mechanical ventilator, secondary to above 9 cerebral palsy, history of with significant permanent AV performance and functional status 10 diabetes mellitus 11 hyperlipidemia, 12 acute kidney injury, possibly secondary to hypotension-induced ATN. Is on the rise is up to 2.4. The patient is nonoliguric and producing adequate amount of urine output. 13 history of vasovagal syncope, scoliosis 14 frequent urine infections 15 Limited mobility and the patient has been using a walker based on the family members. The patient also had a limited range of motion the right hand and right wrist area. 16 large intrathoracic hiatal hernia as evident on the patient's chest x-ray. Unable to swallow. The patient is receiving TPN for nutritional support. 17 severe mitral regurgitation with a preserved LV function and secondary pulmonary hypertension. Plan Keep the patient in the intensive care units. Continue TPN for nutritional support. A official swallow evaluation to be done tomorrow. Contemplating J- tube insertion for enteral feeding and nutritional support. Monitor the urine output. Monitor electrolytes. Repeat renal function in a.m. Continue Lasix. Wean off levo fed and discontinue to keep him map of above 65. Aggressive pulmonary toileting. We'll set that up on a chair. We'll try to set up in a sitting up position in her bed. We'll continue to follow make further recommendations based on her progress. Family is the bedside. There were informed of the above-mentioned changes.
[2017-05-29 12:17] LABS: Glucose,Whole Blood 154 mg/dL (75-99)
[2017-05-29] MEDS: DEXTROSE 5%-0.9% NACL 1,000 ML IV SCH (13:18)
[2017-05-29] MEDS: SODIUM CHLORIDE 0.9% 99 ML with VASOPRESSIN 20 UNIT IV SCH ×4 (13:22→17:02)
--- NOTE | 2017-05-29 14:50 | P.PN ---
Subjective Mr. Morel is a 76-year-old female who was recently admitted to the group home after sustaining fall due to generalized weakness. The patient was brought to the hospital with concerns for GI bleed. Patient had attempted colonoscopy initially on 05/19/2017 and scope could not be passed due to significant obstructing mass. On 05/20/2017 patient was taken to OR for low anterior resection of the sigmoid and colostomy bag placement was done. On 05/21/2017 Agent is more awake and oriented today. Patient is tolerating liquid diet but feels nauseous now, as her chest pain or short of breath. Hemoglobin is stable. Patient is on epidural. On 05/22/2017 Patient says that her nausea is improved. Epidural pain management is being discontinued today. No fever no chills. No complaints of abdominal pain. Patient is tolerating liquid diet today. Otherwise no chest pain or short of breath. On 05/23/2017 Patient is tolerating by mouth liquid diet. She has been moving her bowels and has some stool in the colostomy bag. On 05/24/2017 Patient has been tolerating liquid diet well. Patient has been transferred to a chair beside the bed. Patient has a small amount of stool in the colostomy bag and passing flatus. On 05/25/2017 Last night the patient developed respiratory failure and eventually had cardiac arrest. Patient was resuscitated for a total of 9 minutes. She received 3 doses of epinephrine and received 2 L of IV fluid bolus , intubated and taken to the ICU. As her blood pressure was running her she was also started on pressors . Overnight the patient was given 5 more Lt of IV fluids. Her blood pressure was still running low and she was started on Levophed and vasopressin. The patient subsequently had a chest x-ray was showing a large right lung consolidation, and the patient has a large intrathoracic had a hernia. So most likely that the patient might have aspirated overnight. On 05/26 - Pt is still intubated. CT abdomen was done showing post surgical ileus. Still on vasopressors. NG tube feeds have been started, She had a large bowel movement yesterday. on 05/27/17 Pt. was succcessfull extubated. Pt. is awake but could not speak at this time. Still on Pressor support. no fever/chills. Review of systems - could not be done as the patient is intubated 05/28/17 failed NG placement Continues to be on a trivial dose of levophed and vasopressin to be started on TPN today 05/29/2017 Patient is more awake Is still on a trivial dose of Levophed and vasopressin Still strict nothing by mouth No overnight events reported - Exam A 76-year-old female lying in bed in the ICU. awake however non verbal HEENT: Atraumatic, normocephalic. NECK: Supple. No JVD. CVS: S1, S2 heard. No murmurs, no gallop, no rub. LUNGS: Coarse breath sounds bilaterally. ABDOMEN: Soft, nontender. Colostomy bag is in place. No active bleeding at the site. Bowel sounds are sluggish to absent [employer]: Aable to move all extremities. EXTREMITIES: anasarca Pulses palpable bilaterally. No clubbing or cyanosis. Assessment and Plan Plan: ASSESSMENT Acute cardiopulmonary arrest -downtime of 9-10 mins Right Lung Pneumonia - most likely secondary to Aspiration Septic shock - most likley secondary to above. still on Pressor support Acute blood loss anemia secondary to lower gastrointestinal bleed secondary to sigmoid mass. Hemoglobin stable Sigmoid mass status post low anterior resection and colostomy bag placement colonic ileus. improved Hyponatremia Essential hypertension. Medical debility. Recent urinary tract infection. Chronic diarrhea. Vitamin D deficiency. Acute kidney injury likely multifactorial including ATN due to hypotension Swallow eval TPN to continue IV Lasix to continue due to anasarca Continue renal function monitoring We'll obtain a urine sodium and urine osmolarity at this time as patient has complex volume status Objective - Vital Signs Vital signs: Vital Signs Temp 97.7 F 05/29/17 04:00 Pulse 75 05/29/17 12:10 Resp 22 05/29/17 07:00 BP 98/51 05/29/17 07:00 Pulse Ox 99 05/29/17 08:02 Intake & Output 05/28/17 05/29/17 05/29/17 18:59 06:59 18:59 Intake Total 810.325 963.721 Output Total 850 2340 Balance -39.675 -1376.279 Weight 95.2 kg Intake: IV 735.5 950.5 Amino Acid 4.25%-D10w+ 249 Lytes*E* 1,000 ml @ 83 mls/hr IV .BY DURATION [facility] Rx#:[id number] Dextrose 5%-0.9% NaCl 1, 390 80 000 ml @ 10 mls/hr IV . Q24H [facility] Rx#:[id number] Levofloxacin 250Mg-D5w 50 Pmx 250 mg In Dextrose/ Water 1 50ml.bag @ 50 mls /hr IVPB Q24H [facility] Rx#: [id number] Mvi, Adult No.4 with Vit 150 500 K 10 ml Trace (Conc-1Ml/ Dose) 1 ml In Amino Acid 4.25%-D10w+Lytes*E* 1,000 ml @ 50 mls/hr IV . [id number] [facility] Rx#:[id number] Piperacillin-Tazobactam 3 87.5 62.5 .375 gm In Dextrose/Water 1 50ml.bag @ 12.5 mls/hr IVPB Q8HR [facility] Rx#: [id number] Sodium Chloride 0.9% 99 108 9 ml @ 0.03 UNITS/MIN 9 mls /hr IV .[id number] [facility] with Vasopressin 20 unit Rx#: [id number] Intake, IV Titration 74.825 13.221 Amount Norepinephrin 16 mg-0.9% 74.825 13.221 Ns Pmx 16 mg In 250 ml @ Titrate IV .Q0M [facility] Rx#: [id number] Output: Drainage 15 Right Abdomen 15 Urine 650 1775 Stool 200 550 Other: Voiding Method Indwelling Catheter Indwelling Catheter ABP, PAP, CO, CI - Last Documented Arterial Blood Pressure 94/85 - Labs CBC & Chem 7: 05/29/17 04:05 05/29/17 04:05 Labs: Abnormal Lab Results - Last 24 Hours (Table) 05/28/17 05/29/17 05/29/17 Range/Units 20:11 00:05 04:05 RBC 2.17 L (3.80-5.40) m/uL Hgb 7.1 L (11.4-16.0) gm/dL Hct 22.3 L (34.0-46.0) % MCV 102.8 H (80.0-100.0) fL RDW 15.9 H (11.5-15.5) % Lymphocytes # 0.8 L (1.0-4.8) k/uL Sodium (137-145) mmol/L Chloride (98-107) mmol/L Carbon Dioxide (22-30) mmol/L BUN (7-17) mg/dL Creatinine (0.52-1.04) mg/dL Glucose (74-99) mg/dL POC Glucose (mg/dL) 109 H 116 H (75-99) mg/dL Calcium (8.4-10.2) mg/dL Phosphorus (2.5-4.5) mg/dL 05/29/17 05/29/17 Range/Units 04:05 12:16 RBC (3.80-5.40) m/uL Hgb (11.4-16.0) gm/dL Hct (34.0-46.0) % MCV (80.0-100.0) fL RDW (11.5-15.5) % Lymphocytes # (1.0-4.8) k/uL Sodium 131 L (137-145) mmol/L Chloride 109 H (98-107) mmol/L Carbon Dioxide 14 L (22-30) mmol/L BUN 31 H (7-17) mg/dL Creatinine 2.40 H (0.52-1.04) mg/dL Glucose 106 H (74-99) mg/dL POC Glucose (mg/dL) 154 H (75-99) mg/dL Calcium 8.1 L (8.4-10.2) mg/dL Phosphorus 4.9 H (2.5-4.5) mg/dL Microbiology - Last 24 Hours (Table) 05/25/17 19:00 Blood Culture - Preliminary Blood No Growth after 72 hours
[2017-05-29] MEDS: ATORVASTATIN 20 MG TAB PO SCH (17:55)
[2017-05-29 18:08] LABS: Glucose,Whole Blood 117 mg/dL (75-99)
[2017-05-29 19:45] LABS: Amorphous Sediment,Urine Rare /hpf; Appearance,Urine Turbid (Clear); Bacteria,Urine Few /hpf; Bilirubin,Urine Negative (Negative); Glucose,Urine (UA) Negative (Negative); Ketones,Urine Negative (Negative); Leukocyte Esterase,Urine Trace (Negative); Mucus,Urine Rare /hpf; Nitrite,Urine Negative (Negative); Particle Count 3720; Protein,Urine Negative (Negative); RBC,Urine 13 /hpf (0-5); Specific Gravity,Urine 1.006 (1.001-1.035); Squamous Epithelial Cell,Urine <1 /hpf (0-4); UA Billing (MACRO vs. MICRO) MICRO; Uric Acid Crystals,Urine Occasional /hpf; Urobilinogen,Urine <2.0 mg/dL (<2.0); WBC,Urine <1 /hpf (0-5)
[2017-05-30] MEDS: PIPERACILLIN-TAZOBACTAM 3.375 GM in DEXTROSE/WATER 1 50ML.BAG IVPB SCH ×3 (00:14→21:23)
[2017-05-30] MEDS: METOCLOPRAMIDE 5 MG/ML 2 ML VIAL IVP SCH ×3 (00:16→16:27)
[2017-05-30] MEDS: INSULIN LISPRO (humaLOG) 300 UNIT/3 ML VIAL SQ SCH ×4 (00:19→18:41)
[2017-05-30 00:22] LABS: Glucose,Whole Blood 149 mg/dL (75-99)
[2017-05-30] MEDS: HEPARIN SODIUM,PORCINE 5,000 UNIT/ML 1 ML VIAL SQ SCH ×3 (00:22→16:27)
[2017-05-30] MEDS: IPRATROPIUM-ALBUTEROL 3 ML NEB INHALATION SCH ×6 (03:27→23:06)
[2017-05-30] MEDS: SODIUM CHLORIDE 0.9% 99 ML with VASOPRESSIN 20 UNIT IV SCH ×4 (05:36→21:22)
[2017-05-30 06:28] LABS: Glucose,Whole Blood 129 mg/dL (75-99)
[2017-05-30 06:31] LABS: Basophils % (A) 0 %; CH 31.7; CHCM 31.7; Eosinophils # (A) 0.1 k/uL (0-0.7); Eosinophils % (A) 2 %; HCT 21.3 % (34.0-46.0); HDW 3.67; Hypochromasia Moderate; Luc # (Auto) 0.12; Luc % (Auto) 2; Lymphocytes # (A) 0.8 k/uL (1.0-4.8); Lymphocytes % (A) 11 %; MCH 32.8 pg (25.0-35.0); MCHC 32.3 g/dL (31.0-37.0); MCV 101.2 fL (80.0-100.0); Macrocytosis Slight; Mean Platelet Volume 8.2; Monocytes # (A) 0.3 k/uL (0-1.0); Monocytes % (A) 5 %; Neutrophils # (A) 5.5 k/uL (1.3-7.7); Neutrophils % (A) 80 %; Poikilocytosis Slight; RDW 15.6 % (11.5-15.5); WBC 6.8 k/uL (3.8-10.6); WBC (Perox) 6.87
[2017-05-30 06:33] LABS: Calcium 8.1 mg/dL (8.4-10.2); Magnesium 1.9 mg/dL (1.6-2.3); Phosphorous 5.6 mg/dL (2.5-4.5); Potassium 4.1 mmol/L (3.5-5.1)
[2017-05-30 06:53] LABS: HGB 6.9 gm/dL (11.4-16.0)
--- NOTE | 2017-05-30 07:01 | XR ---
EXAMINATION TYPE: XR chest 1V portable DATE OF EXAM: 05/30/2017 HISTORY: Tube placement. REFERENCE: Previous study dated 05/29/2017. FINDINGS: The heart is enlarged. There are bibasilar infiltrates. There is vascular congestion. There are bilateral effusions. Note is made of severe degenerative change of both shoulders, greater on the right than the left. IMPRESSION: 1. CARDIOMEGALY. 2. BIBASILAR INFILTRATES. 3. BILATERAL EFFUSIONS. 4. VASCULAR CONGESTION
[2017-05-30] MEDS: FUROSEMIDE 10 MG/ML 4 ML VIAL IV SCH (08:09)
[2017-05-30] MEDS: LEVOFLOXACIN 250MG-D5W PMX 250 MG in DEXTROSE/WATER 1 50ML.BAG IVPB SCH ×2 (08:20→08:37)
[2017-05-30] MEDS: FAMOTIDINE 20 MG/2 ML VIAL IV SCH (09:46)
[2017-05-30] MEDS: FAT EMULSION 20% 250 ML IV SCH (10:20)
[2017-05-30] MEDS: 1: MVI, ADULT NO.4 WITH VIT K 10 ML, TRACE (CONC-1ML/DOSE) 1 ML, PARENTERAL ELECTROLYTES IV SCH ×5 (10:20)
[2017-05-30] MEDS: DEXTROSE 5%-0.9% NACL 1,000 ML IV SCH (11:08)
[2017-05-30 11:28] LABS: Glucose,Whole Blood 141 mg/dL (75-99)
[2017-05-30 12:11] LABS: Glucose,Whole Blood 140 mg/dL (75-99)
--- NOTE | 2017-05-30 12:30 | P.PN ---
Subjective 76-year-old female patient who presented to the hospital because of a high grade sigmoid colon obstruction with a suspicious mass. The patient underwent a colonoscopy by gastroenterology and the patient was found to have a partially obstructing mass in the distal sigmoid colon/rectosigmoid junction. The patient was having on and off rectal bleeding. She was rehabilitating at [facility] after a fall due to a generalized weakness. She was having some loose stools over the past few weeks but no significant abdominal pain or GI discomfort. The patient's hemoglobin had dropped down to 7.9 from a baseline of 12 and she was receiving transfusion. Based on all this, the patient was taken to the operating room on 05/23/2017 and the patient underwent a low AP resection with diverting colostomy. 2 abdominal drains also placed. Last night, the patient was found to be in acute respiratory distress.. The patient had a witnessed respiratory arrest and subsequent cardiac arrest. This occurred at around 1:50 AM this morning. Initially the pulse was identified. The patient was resuscitated for a total of 9 minutes and she was given 3 doses of epinephrine 1 mg. She was intubated and placed on a mechanical ventilator. She was given a triple lumen catheter in her right femoral vein. She was given a total of 2 L of IV fluids and her blood pressure remained low in the mid 60s. Following that she was started on pressors which ultimately titrated and she was placed on high-dose epinephrine infusion today to 60 g. The post intubation blood gas showed a pH of 7.15 with a pCO2 of 49 and pO2 of 205 this was an FiO2 of 100% with a PEEP of 5 and tidal volume of 350 and the rate of 14 Overnight the patient was given further fluid resuscitation and she has already received a total of 5 L of IV fluids. Currently she is on vasopressin 0.03 units per minute and she is also on norepinephrine infusion at 40 mics. She started making some urine output. Her urine output over the past 1 hour is around 100 mL an hour. The patient is sedated Diprivan at 40 mics. She would respond to painful stimuli and she would move all 4 extremities once she is taken to lower dose of Diprivan. Meanwhile, the necessity vent changes were done. I increased tidal volume to 450. I put the rate of 24 and drop the FiO2 down to 60%. Subsequent blood gases showed a pH of 7.36 with a pCO2 of 26 and pO2 of 123. Chest x-ray shows a large consolidation of the right lung involving the right middle lobe and right lower lobe. Orogastric tube was placed immediately following intubation and a total of 1600 mL of gastric aspirate was obtained. Note that the chest x-ray preoperatively had shown or the a large intrathoracic hiatal hernia. The patient subsequently had an abdominal x-ray yesterday that was indicating some ileus. The chest x-ray from this morning is showing that the patient has a right lung pneumonia and the OG tube is coiled in the hiatal hernia within the thorax. No gastric material is being suctioned from the TRACHEAL tube although is very much likely the patient could have aspirated. Her white cell count is up to 42. Venous lactate is at 1.7. The patient's colostomy site is functional. There is some minimal amount of fecal material collecting in the colostomy bag. Abdomen is nondistended at this point. Positive lower oximetry is palpable. On 05/26/2017 the patient is being seen in follow-up. The patient is still intubated on a mechanical ventilator. The patient is afebrile. She is doing well on a mechanical ventilator and she is in a assist-control mode at the rate of 24, tidal volume 450, FiO2 is down to 40% and PEEP of 5. Her morning blood gases with a pH of 7.38 with a pCO2 of 23 and pO2 150. Chest x-ray showing small bilateral pleural effusions and infiltrates in lung bases bilaterally. ET tube is in a good location. There is also a triple lumen catheter in place. The patient had a CAT scan of the abdomen and pelvis yesterday that showed lower lobe consolidation of the lungs along with pleural effusions. No intra- abdominal abscess. No other intra-abdominal abnormalities. The patient is a large hiatal hernia. Orogastric tube is in place and the patient will be started on tube feeds today. Colostomy site is healthy and viable looking. Hemodynamically she is improved compared to yesterday. She is on a vasopressin drip at physiologic dose and the patient is also on norepinephrine infusion that was weaned down to 20 mics. The patient is sedated with Diprivan and she is calm and comfortable. The patient remains on a combination of Zosyn and Levaquin and vancomycin. The blood cultures of been negative. The sputum culture been negative. White cell count is improving. Afebrile. Producing adequate amount of urine output. Echocardiogram showed a preserved LV function. There was a severe degree of mitral regurgitation secondary pulmonary hypertension. On 05/27/2017 the patient is being seen in follow-up. Earlier this morning the patient was still intubated on a mechanical ventilator. She was taken off the sedation and she woke up appropriately and she was able to follow commands and move her extremities without any limitation. She had a weak cough. Had rapid shallow breathing index was less than 100. She was given a spontaneous breathing trial with a pressure support of 5 and a PEEP of 5 and following that the patient was extubated to a nasal cannula. Note that the extubation blood gases showed a pH of 7.38 with a pCO2 of 22 and pO2 of 124 and this was done assist-control mode of ventilation with an FiO2 of 40%. The chest x-ray from earlier this morning shows interval improvement of the right lung pneumonia. His left-sided atelectasis and small effusion. Hemodynamically, the patient is still pressor dependent. The patient is on a physiologic dose of vasopressin 0.03 units per minute and the patient is levo fed has been weaned down to 12 mics. She is producing urine output in the order of 20-25 mL an hour. She has however developed an acute kidney injury, probably a hypotension-induced ATN with a creatinine is up to 1.6 and this is a non-oliguric renal failure. She is on broad-spectrum antibiotics which included a combination of Zosyn, Levaquin and vancomycin. Sputum analysis has yielded no positivity and there is no microbial growth for now. The patient has been tolerating her tube feeds. She is receiving enteral nutrition and her colostomy site is functional and intact at this point. No abdominal distention. Trace edema in the lower extremities bilaterally. On 05/28/2017 the patient remains extubated. She is awake and following simple commands. She has a congested cough and the chest x-ray from today shows worsening in the volume status and development of bilateral pleural effusions. There is haziness bilaterally nothing it's related to pleural effusion. The patient has not been fed enterally knowing that there is a concern of the positioning of the NG tube. I discussed this further with Dr. Tristian coy from surgery. We have decided not to feed again due to concern of recurrent aspiration knowing that the patient has a large hiatal hernia. Ultimately she may benefit from a PEG tube or NG tube if she is unable to swallow. She failed her swallow evaluation for the time being. Meanwhile, I thought is reasonable to start the patient on some hyperalimentation via TPN to meet her caloric requirements. She is hemodynamically improving however she has developed an acute kidney injury. Her pressors are much less and currently she is still on a physiologic dose vasopressin and 2-3 mics of norepinephrine infusion. She is however producing less urine output in the creatinine is up to 2.0. She is anemic with a hemoglobin of 7.0. Rest of the electrodes showed a component of non-anion gap metabolic acidosis. Her colostomy site is functional and intact at this point and is viable. No abdominal distention. WALTER drains are all in place. On 05/29/2017 the patient remains extubated. She is much more alert and interactive today. She is being treated with broad-spectrum antibiotics for aspiration pneumonia. Chest x-ray from today shows consolidation in bilateral pleural effusion in addition to a large intrathoracic hiatal hernia. Nevertheless, the volume status is slightly improved compared to yesterday knowing that the patient is being diuresis with IV Lasix 40 mg IV push every 12 hours. The patient has been producing more than 100 mL an hour of urine output on an hourly basis. Her creatinine is up to 2.4 however she is nonoliguric. Rest of the electrodes are all within normal limits. The patient's hemoglobin is stable at 7.1. White cell count is dropped down to 6. She is still on broad -spectrum antibiotics. Abdominal wound is clean and there is some minimal drainage from the WALTER insertion site. The colostomy site is functional and intact and viable. The patient is unable to swallow yet. TPN was started yesterday for nutritional support. IV fluids to KVO. Afebrile. Trying to do adequate pulmonate toileting however she is unable to cough up rest or secretions. Family is at the bedside. On 05/30/2017 the patient remains extubated. The patient is currently off norepinephrine infusion and currently she is only on vasopressin at a low physiologic dose which will hopefully get wean down the discontinued today. She was diuresis over the past 48 hours and I will stop the diuresis knowing that the patient is developing acute kidney injury secondary to prolonged hypotension and the patient is an nonoliguric acute renal failure. This swallow will be rechecked today although I have a high suspicion that the patient will failed the swallow evaluation. Her cough is weak. She has a congested cough. Unable to bring up much sputum. Chest exit shows a large intrathoracic hiatal hernia along with bilateral lower lobe pleural effusions and consolidations. The patient on oxygen at 3 L/m nasal cannula. Resting comfortably in bed. The patient on TPN for nutritional support. This surgical wound site is clean and intact. The patient has 2 WALTER drains with are not actively draining. The patient also has a colostomy site which is viable intact and healthy. The patient is afebrile. IV fluids are to KVO for now. She is on same antibiotic coverage. Her hemoglobin down to 6.9 today and the patient will be receiving a unit of packed RBC. Objective - Vital Signs Vital signs: Vital Signs Temp 97.4 F L 05/30/17 11:29 Pulse 81 05/30/17 12:00 Resp 17 05/30/17 12:00 BP 107/44 05/30/17 12:00 Pulse Ox 97 05/30/17 12:00 Intake & Output 05/29/17 05/30/17 05/30/17 18:59 06:59 18:59 Intake Total 1399.390 4358.5 871 Output Total 1450 2045 1575 Balance -283.371 -665.5 -704 Weight 95.4 kg 95.4 kg Intake: IV 1159.5 1379.5 498 Amino Acid 4.25%-D10w+ 913 1079 415 Lytes*E* 1,000 ml @ 83 mls/hr IV .BY DURATION AMAN Rx#:[id number] Dextrose 5%-0.9% NaCl 1, 110 130 50 000 ml @ 10 mls/hr IV . Q24H AMAN Rx#:[id number] Piperacillin-Tazobactam 3 37.5 62.5 .375 gm In Dextrose/Water 1 50ml.bag @ 12.5 mls/hr IVPB Q8HR AMAN Rx#: [id number] Sodium Chloride 0.9% 99 99 108 33 ml @ 0.03 UNITS/MIN 9 mls /hr IV .Q11H7M AMAN with Vasopressin 20 unit Rx#: [id number] Intake, IV Titration 7.129 63 Amount Fat Emulsion 20% 250 ml @ 63 21 mls/hr IV MoWeFr AMAN Rx#:[id number] Norepinephrin 16 mg-0.9% 7.129 Ns Pmx 16 mg In 250 ml @ Titrate IV .Q0M AMAN Rx#: [id number] Blood Product 310 Rc As-1 Unit 0 [id number] Output: Drainage 20 Left Abdomen 0 Right Abdomen 20 Urine 1450 1950 1425 Stool 75 150 Other: Voiding Method Indwelling Catheter Indwelling Catheter Indwelling Catheter # Voids 1 ABP, PAP, CO, CI - Last Documented Arterial Blood Pressure 94/85 - Exam Head exam was generally normal. The patient is awake and following simple commands. The patient is extubated currently on oxygen by nasal cannula at 2 L/ m. There was no scleral icterus or corneal arcus. Mucous membranes were moist. Neck was supple and without jugular venous distension, thyromegaly, or carotid bruits. Carotids were easily palpable bilaterally. There was no adenopathy. Lung sounds are equal and symmetrical bilaterally and there is no significant wheezes overall currently crackles. Heart sounds are regular rate and rhythm normal S1-S2 and there is no significant murmurs appreciated. Abdomen is soft. Nondistended. Colostomy site is viable and functional. The patient has a infraumbilical incision with angella are being replaced. No active drainage. WALTER drains also in place and output is essentially serosanguineous and minimal. Extremities are showing diminished pulses and there is no cyanosis or clubbing. Neurologic the patient is awake. The cough and mechanism is weak. Unable to bring up her respiratory secretions yet. She has cerebral palsy and some chronic contractures in the upper extremities bilaterally. - Labs CBC & Chem 7: 05/30/17 06:15 05/30/17 06:15 Labs: Abnormal Lab Results - Last 24 Hours (Table) 05/29/17 05/29/17 05/29/17 Range/Units 17:00 17:00 18:07 RBC (3.80-5.40) m/uL Hgb (11.4-16.0) gm/dL Hct (34.0-46.0) % MCV (80.0-100.0) fL RDW (11.5-15.5) % Lymphocytes # (1.0-4.8) k/uL Sodium (137-145) mmol/L Carbon Dioxide (22-30) mmol/L BUN (7-17) mg/dL Creatinine (0.52-1.04) mg/dL Glucose (74-99) mg/dL POC Glucose (mg/dL) 117 H (75-99) mg/dL Calcium (8.4-10.2) mg/dL Phosphorus (2.5-4.5) mg/dL Urine Appearance Turbid H (Clear) Urine Blood Small H (Negative) Ur Leukocyte Esterase Trace H (Negative) Urine RBC 13 H (0-5) /hpf Uric Acid Crystals Occasional H (None) /hpf Amorphous Sediment Rare H (None) /hpf Urine Bacteria Few H (None) /hpf Urine Mucus Rare H (None) /hpf Ur Random Sodium 122 H (30-90) mmol/L Crossmatch 05/30/17 05/30/17 05/30/17 Range/Units 00:19 06:15 06:15 RBC 2.10 L (3.80-5.40) m/uL Hgb 6.9 L* (11.4-16.0) gm/dL Hct 21.3 L (34.0-46.0) % MCV 101.2 H (80.0-100.0) fL RDW 15.6 H (11.5-15.5) % Lymphocytes # 0.8 L (1.0-4.8) k/uL Sodium 132 L (137-145) mmol/L Carbon Dioxide 16 L (22-30) mmol/L BUN 43 H (7-17) mg/dL Creatinine 2.62 H (0.52-1.04) mg/dL Glucose 119 H (74-99) mg/dL POC Glucose (mg/dL) 149 H (75-99) mg/dL Calcium 8.1 L (8.4-10.2) mg/dL Phosphorus 5.6 H (2.5-4.5) mg/dL Urine Appearance (Clear) Urine Blood (Negative) Ur Leukocyte Esterase (Negative) Urine RBC (0-5) /hpf Uric Acid Crystals (None) /hpf Amorphous Sediment (None) /hpf Urine Bacteria (None) /hpf Urine Mucus (None) /hpf Ur Random Sodium (30-90) mmol/L Crossmatch 05/30/17 05/30/17 05/30/17 Range/Units 06:25 07:46 11:27 RBC (3.80-5.40) m/uL Hgb (11.4-16.0) gm/dL Hct (34.0-46.0) % MCV (80.0-100.0) fL RDW (11.5-15.5) % Lymphocytes # (1.0-4.8) k/uL Sodium (137-145) mmol/L Carbon Dioxide (22-30) mmol/L BUN (7-17) mg/dL Creatinine (0.52-1.04) mg/dL Glucose (74-99) mg/dL POC Glucose (mg/dL) 129 H 141 H (75-99) mg/dL Calcium (8.4-10.2) mg/dL Phosphorus (2.5-4.5) mg/dL Urine Appearance (Clear) Urine Blood (Negative) Ur Leukocyte Esterase (Negative) Urine RBC (0-5) /hpf Uric Acid Crystals (None) /hpf Amorphous Sediment (None) /hpf Urine Bacteria (None) /hpf Urine Mucus (None) /hpf Ur Random Sodium (30-90) mmol/L Crossmatch See Detail 05/30/17 Range/Units 12:09 RBC (3.80-5.40) m/uL Hgb (11.4-16.0) gm/dL Hct (34.0-46.0) % MCV (80.0-100.0) fL RDW (11.5-15.5) % Lymphocytes # (1.0-4.8) k/uL Sodium (137-145) mmol/L Carbon Dioxide (22-30) mmol/L BUN (7-17) mg/dL Creatinine (0.52-1.04) mg/dL Glucose (74-99) mg/dL POC Glucose (mg/dL) 140 H (75-99) mg/dL Calcium (8.4-10.2) mg/dL Phosphorus (2.5-4.5) mg/dL Urine Appearance (Clear) Urine Blood (Negative) Ur Leukocyte Esterase (Negative) Urine RBC (0-5) /hpf Uric Acid Crystals (None) /hpf Amorphous Sediment (None) /hpf Urine Bacteria (None) /hpf Urine Mucus (None) /hpf Ur Random Sodium (30-90) mmol/L Crossmatch Microbiology - Last 24 Hours (Table) 05/25/17 19:00 Blood Culture - Preliminary Blood No Growth after 96 hours Assessment and Plan Plan: Assessment 1 acute cardiopulmonary arrest. I think the patient essentially went to respiratory arrest with subsequent cardiac arrest and she was down for less than 10 minutes. The patient during the code received a total of 3 rounds of epinephrine and she was intubated placed on mechanical ventilator and got transferred to the intensive care unit. Patient has developed bilateral pneumonia involving the lower lobes. Rule out aspiration pneumonia. Rule out hospital-acquired pneumonia. The patient was intubated due to pneumonia, septic shock and hemodynamic collapse and the patient was aggressively resuscitated IV fluids and pressors and she had to be also intubated and placed on a mechanical ventilator and she was extubated for more than 48 hours. 2 bilateral lower lobe pneumonia. Suspect aspiration pneumonia versus a hospital-acquired pneumonia 3 shock with profound hypotension and the patient is pressor dependent at this point with a combination of norepinephrine infusion and vasopressin. Echocardiogram showing preserved LV function. The patient's pressor requirements have improved considerably and currently she is nearly of pressors and she is only on vasopressin physiologic dose. 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 The patient underwent a low AP resection with diverting colostomy. The patient is postop day #9. 5 anemia secondary to lower gastrointestinal bleeding secondary to rectosigmoid mass, hemoglobin today is down to 6.9 and the patient will be receiving a unit of packed RBC. 6 hyponatremia, mild, recovered 7 mild non-anion gap metabolic acidosis, improving 8 acute respiratory failure, currently intubated on a mechanical ventilator, secondary to above 9 cerebral palsy, history of with significant permanent AV performance and functional status 10 diabetes mellitus 11 hyperlipidemia, 12 acute kidney injury, possibly secondary to hypotension-induced ATN. 13 history of vasovagal syncope, scoliosis 14 frequent urine infections 15 Limited mobility and the patient has been using a walker based on the family members. The patient also had a limited range of motion the right hand and right wrist area. 16 large intrathoracic hiatal hernia as evident on the patient's chest x-ray. Unable to swallow. The patient is receiving TPN for nutritional support. 17 severe mitral regurgitation with a preserved LV function and secondary pulmonary hypertension. Plan Transfuse the patient with a unit of packed RBC. Aggressive pulmonary toileting. Aspiration precautions. Continue same antibiotic coverage. Wean off vasopressin. Stop Lasix for today. Continue TPN for nutritional support. Proceed with a PICC line insertion. Swallow evaluation. J-tube probably later stage if she feels her swallow test. We'll continue to follow.
[2017-05-30] MEDS ORDERED: LIDOCAINE 2% INJ 20 MG/ML SQ ONE (14:09)
--- NOTE | 2017-05-30 14:32 | XR ---
EXAMINATION TYPE: XR chest 1V portable DATE OF EXAM: 05/30/2017 COMPARISON: Prior chest x-ray 05/30/2017 HISTORY: Status post PICC line placement TECHNIQUE: Single frontal view of the chest is obtained. FINDINGS: Interval left-sided PICC line, distal tip overlying the region of the cavoatrial junction. No evident pneumothorax. Patient is markedly rotated, no other interval change is evident. IMPRESSION: No evident complication status post PICC line placement
--- NOTE | 2017-05-30 15:23 | IR ---
EXAMINATION TYPE: IR cvc insert >=5 years DATE OF EXAM: 05/30/2017 COMPARISON: NONE HISTORY: Pleural effusions, status post abdominal mass removal, needs long-term intravenous access fo r therapy FINDINGS: Maximal barrier technique was utilized. The skin overlying the left basilic vein was local ized with ultrasound and noted to be compressible and patent by ultrasound. An ultrasound image was obtained and submitted on patient's chart. Sterile technique utilized with the ultrasound machine. Th e skin overlying was prepped and draped and Lidocaine used for local anesthesia. A skin shayla was mad e with a scalpel. Access was gained to the vein under direct ultrasound guidance with a 21-gauge nee dle and a 0.018 inch wire was advanced. Access site was dilated with a peel-away sheath and the cath eter tailored to length. Catheter advanced centrally and a post procedure chest x-ray verified place ment with the tip in the superior vena cava. Catheter was fixed to the skin with suture and a steril e dressing placed. Hemostasis achieved and the catheter was aspirated and flushed with sterile salin e. The patient remained in stable condition. IMPRESSION: STATUS POST ULTRASOUND GUIDED PICC LINE PLACEMENT, READY FOR USE. THIS PROCEDURE WAS PER FORMED BY THE UNDERSIGNED.
[2017-05-30 16:43] LABS: Anisocytosis Slight; Basophils % (A) 0 %; CH 31.6; CHCM 32.3; Eosinophils # (A) 0.1 k/uL (0-0.7); Eosinophils % (A) 2 %; HCT 26.5 % (34.0-46.0); HDW 3.45; Hypochromasia Slight; Luc # (Auto) 0.12; Luc % (Auto) 2; Lymphocytes # (A) 0.7 k/uL (1.0-4.8); Lymphocytes % (A) 11 %; MCH 31.3 pg (25.0-35.0); MCHC 31.7 g/dL (31.0-37.0); MCV 98.8 fL (80.0-100.0); Macrocytosis Slight; Mean Platelet Volume 8.7; Monocytes # (A) 0.2 k/uL (0-1.0); Monocytes % (A) 3 %; Neutrophils # (A) 5.6 k/uL (1.3-7.7); Neutrophils % (A) 82 %; Poikilocytosis Slight; RBC 2.68 m/uL (3.80-5.40); RDW 16.5 % (11.5-15.5); WBC 6.8 k/uL (3.8-10.6); WBC (Perox) 7.16
[2017-05-30 16:58] LABS: HGB 8.4 gm/dL (11.4-16.0)
--- NOTE | 2017-05-30 17:28 | P.PN ---
Subjective Mr. Morel is a 76-year-old female who was recently admitted to the shelter after sustaining fall due to generalized weakness. The patient was brought to the hospital with concerns for GI bleed. Patient had attempted colonoscopy initially on 05/19/2017 and scope could not be passed due to significant obstructing mass. On 05/20/2017 patient was taken to OR for low anterior resection of the sigmoid and colostomy bag placement was done. On 05/21/2017 Agent is more awake and oriented today. Patient is tolerating liquid diet but feels nauseous now, as her chest pain or short of breath. Hemoglobin is stable. Patient is on epidural. On 05/22/2017 Patient says that her nausea is improved. Epidural pain management is being discontinued today. No fever no chills. No complaints of abdominal pain. Patient is tolerating liquid diet today. Otherwise no chest pain or short of breath. On 05/23/2017 Patient is tolerating by mouth liquid diet. She has been moving her bowels and has some stool in the colostomy bag. On 05/24/2017 Patient has been tolerating liquid diet well. Patient has been transferred to a chair beside the bed. Patient has a small amount of stool in the colostomy bag and passing flatus. On 05/25/2017 Last night the patient developed respiratory failure and eventually had cardiac arrest. Patient was resuscitated for a total of 9 minutes. She received 3 doses of epinephrine and received 2 L of IV fluid bolus , intubated and taken to the ICU. As her blood pressure was running her she was also started on pressors . Overnight the patient was given 5 more Lt of IV fluids. Her blood pressure was still running low and she was started on Levophed and vasopressin. The patient subsequently had a chest x-ray was showing a large right lung consolidation, and the patient has a large intrathoracic had a hernia. So most likely that the patient might have aspirated overnight. On 05/26 - Pt is still intubated. CT abdomen was done showing post surgical ileus. Still on vasopressors. NG tube feeds have been started, She had a large bowel movement yesterday. on 05/27/17 Pt. was succcessfull extubated. Pt. is awake but could not speak at this time. Still on Pressor support. no fever/chills. Review of systems - could not be done as the patient is intubated 05/28/17 failed NG placement Continues to be on a trivial dose of levophed and vasopressin to be started on TPN today 05/29/2017 Patient is more awake Is still on a trivial dose of Levophed and vasopressin Still strict nothing by mouth No overnight events reported 05/30/17 of levophed more awake on trivial dose of vasopressin failed swallow eval - Exam A 76-year-old female lying in bed in the ICU. awake however non verbal HEENT: Atraumatic, normocephalic. NECK: Supple. No JVD. CVS: S1, S2 heard. No murmurs, no gallop, no rub. LUNGS: Coarse breath sounds bilaterally. ABDOMEN: Soft, nontender. Colostomy bag is in place. No active bleeding at the site. Bowel sounds are sluggish to absent [employer]: Aable to move all extremities. EXTREMITIES: anasarca Pulses palpable bilaterally. No clubbing or cyanosis. Assessment and Plan Plan: ASSESSMENT Acute cardiopulmonary arrest -downtime of 9-10 mins Right Lung Pneumonia - most likely secondary to Aspiration Septic shock - most likley secondary to above. still on Pressor support Acute blood loss anemia secondary to lower gastrointestinal bleed secondary to sigmoid mass. Hemoglobin stable Sigmoid mass status post low anterior resection and colostomy bag placement colonic ileus. improved Hyponatremia Essential hypertension. Medical debility. Recent urinary tract infection. Chronic diarrhea. Vitamin D deficiency. Acute kidney injury likely multifactorial including ATN due to hypotension plan TPN to continue Continue renal function monitoring taper off vasopressin Objective - Vital Signs Vital signs: Vital Signs Temp 97.4 F L 05/30/17 11:29 Pulse 85 05/30/17 16:34 Resp 17 05/30/17 12:00 BP 107/44 05/30/17 12:00 Pulse Ox 97 05/30/17 12:00 Intake & Output 05/29/17 05/30/17 05/30/17 18:59 06:59 18:59 Intake Total 4617.352 1301.5 1181 Output Total 1450 2045 1575 Balance -283.371 -665.5 -394 Weight 95.4 kg 95.4 kg Intake: IV 1159.5 1379.5 498 Amino Acid 4.25%-D10w+ 913 1079 415 Lytes*E* 1,000 ml @ 83 mls/hr IV .BY DURATION [facility] Rx#:[id number] Dextrose 5%-0.9% NaCl 1, 110 130 50 000 ml @ 10 mls/hr IV . Q24H [facility] Rx#:[id number] Piperacillin-Tazobactam 3 37.5 62.5 .375 gm In Dextrose/Water 1 50ml.bag @ 12.5 mls/hr IVPB Q8HR [facility] Rx#: [id number] Sodium Chloride 0.9% 99 99 108 33 ml @ 0.03 UNITS/MIN 9 mls /hr IV .Q11H7M [facility] with Vasopressin 20 unit Rx#: [id number] Intake, IV Titration 7.129 63 Amount Fat Emulsion 20% 250 ml @ 63 21 mls/hr IV MoWeFr [facility] Rx#:[id number] Norepinephrin 16 mg-0.9% 7.129 Ns Pmx 16 mg In 250 ml @ Titrate IV .Q0M [facility] Rx#: [id number] Blood Product 620 Rc As-1 Unit 310 [id number] Output: Drainage 20 Left Abdomen 0 Right Abdomen 20 Urine 1450 1950 1425 Stool 75 150 Other: Voiding Method Indwelling Catheter Indwelling Catheter Indwelling Catheter # Voids 1 ABP, PAP, CO, CI - Last Documented Arterial Blood Pressure 94/85 - Labs CBC & Chem 7: 05/30/17 16:30 05/30/17 06:15 Labs: Abnormal Lab Results - Last 24 Hours (Table) 05/29/17 05/29/17 05/29/17 Range/Units 17:00 17:00 18:07 RBC (3.80-5.40) m/uL Hgb (11.4-16.0) gm/dL Hct (34.0-46.0) % MCV (80.0-100.0) fL RDW (11.5-15.5) % Lymphocytes # (1.0-4.8) k/uL Sodium (137-145) mmol/L Carbon Dioxide (22-30) mmol/L BUN (7-17) mg/dL Creatinine (0.52-1.04) mg/dL Glucose (74-99) mg/dL POC Glucose (mg/dL) 117 H (75-99) mg/dL Calcium (8.4-10.2) mg/dL Phosphorus (2.5-4.5) mg/dL Urine Appearance Turbid H (Clear) Urine Blood Small H (Negative) Ur Leukocyte Esterase Trace H (Negative) Urine RBC 13 H (0-5) /hpf Uric Acid Crystals Occasional H (None) /hpf Amorphous Sediment Rare H (None) /hpf Urine Bacteria Few H (None) /hpf Urine Mucus Rare H (None) /hpf Ur Random Sodium 122 H (30-90) mmol/L Crossmatch 05/30/17 05/30/17 05/30/17 Range/Units 00:19 06:15 06:15 RBC 2.10 L (3.80-5.40) m/uL Hgb 6.9 L* (11.4-16.0) gm/dL Hct 21.3 L (34.0-46.0) % MCV 101.2 H (80.0-100.0) fL RDW 15.6 H (11.5-15.5) % Lymphocytes # 0.8 L (1.0-4.8) k/uL Sodium 132 L (137-145) mmol/L Carbon Dioxide 16 L (22-30) mmol/L BUN 43 H (7-17) mg/dL Creatinine 2.62 H (0.52-1.04) mg/dL Glucose 119 H (74-99) mg/dL POC Glucose (mg/dL) 149 H (75-99) mg/dL Calcium 8.1 L (8.4-10.2) mg/dL Phosphorus 5.6 H (2.5-4.5) mg/dL Urine Appearance (Clear) Urine Blood (Negative) Ur Leukocyte Esterase (Negative) Urine RBC (0-5) /hpf Uric Acid Crystals (None) /hpf Amorphous Sediment (None) /hpf Urine Bacteria (None) /hpf Urine Mucus (None) /hpf Ur Random Sodium (30-90) mmol/L Crossmatch 05/30/17 05/30/17 05/30/17 Range/Units 06:25 07:46 11:27 RBC (3.80-5.40) m/uL Hgb (11.4-16.0) gm/dL Hct (34.0-46.0) % MCV (80.0-100.0) fL RDW (11.5-15.5) % Lymphocytes # (1.0-4.8) k/uL Sodium (137-145) mmol/L Carbon Dioxide (22-30) mmol/L BUN (7-17) mg/dL Creatinine (0.52-1.04) mg/dL Glucose (74-99) mg/dL POC Glucose (mg/dL) 129 H 141 H (75-99) mg/dL Calcium (8.4-10.2) mg/dL Phosphorus (2.5-4.5) mg/dL Urine Appearance (Clear) Urine Blood (Negative) Ur Leukocyte Esterase (Negative) Urine RBC (0-5) /hpf Uric Acid Crystals (None) /hpf Amorphous Sediment (None) /hpf Urine Bacteria (None) /hpf Urine Mucus (None) /hpf Ur Random Sodium (30-90) mmol/L Crossmatch See Detail 05/30/17 05/30/17 Range/Units 12:09 16:30 RBC 2.68 L (3.80-5.40) m/uL Hgb 8.4 L D (11.4-16.0) gm/dL Hct 26.5 L (34.0-46.0) % MCV (80.0-100.0) fL RDW 16.5 H (11.5-15.5) % Lymphocytes # 0.7 L (1.0-4.8) k/uL Sodium (137-145) mmol/L Carbon Dioxide (22-30) mmol/L BUN (7-17) mg/dL Creatinine (0.52-1.04) mg/dL Glucose (74-99) mg/dL POC Glucose (mg/dL) 140 H (75-99) mg/dL Calcium (8.4-10.2) mg/dL Phosphorus (2.5-4.5) mg/dL Urine Appearance (Clear) Urine Blood (Negative) Ur Leukocyte Esterase (Negative) Urine RBC (0-5) /hpf Uric Acid Crystals (None) /hpf Amorphous Sediment (None) /hpf Urine Bacteria (None) /hpf Urine Mucus (None) /hpf Ur Random Sodium (30-90) mmol/L Crossmatch Microbiology - Last 24 Hours (Table) 05/25/17 19:00 Blood Culture - Preliminary Blood No Growth after 96 hours
--- NOTE | 2017-05-30 17:31 | P.PN ---
Progress Note - Text The patient remains in the ICU. She really has had no significant changes from yesterday. She continues received TPN. She may undergo another swallow evaluation today. On exam her vital signs are stable. Her abdomen soft. There is some liquid stool in the colostomy site. Status post heart procedure for obstructing colon cancer. Patient had aspiration pneumonia secondary to hiatal hernia. If the patient fails her swallow evaluation she will need a feeding J-tube. The feeding J-tube will be inserted once she is medically stable. We will follow with you.
[2017-05-30 18:26] LABS: Glucose,Whole Blood 135 mg/dL (75-99)
[2017-05-30] MEDS: ATORVASTATIN 20 MG TAB PO SCH (21:24)
[2017-05-31] MEDS: 1: MVI, ADULT NO.4 WITH VIT K 10 ML, TRACE (CONC-1ML/DOSE) 1 ML, PARENTERAL ELECTROLYTES IV SCH ×15 (00:01→23:18)
[2017-05-31] MEDS: METOCLOPRAMIDE 5 MG/ML 2 ML VIAL IVP SCH ×4 (00:02→17:04)
[2017-05-31] MEDS: HEPARIN SODIUM,PORCINE 5,000 UNIT/ML 1 ML VIAL SQ SCH ×4 (00:02→23:48)
[2017-05-31] MEDS: INSULIN LISPRO (humaLOG) 300 UNIT/3 ML VIAL SQ SCH ×4 (00:14→18:40)
[2017-05-31 00:16] LABS: Glucose,Whole Blood 135 mg/dL (75-99)
[2017-05-31] MEDS: IPRATROPIUM-ALBUTEROL 3 ML NEB INHALATION SCH ×6 (03:06→23:36)
[2017-05-31 05:55] LABS: Ionized Calcium 5.2 mg/dL (4.5-5.3)
[2017-05-31 06:28] LABS: Calcium 8.3 mg/dL (8.4-10.2); Magnesium 1.9 mg/dL (1.6-2.3); Phosphorous 4.7 mg/dL (2.5-4.5)
[2017-05-31 06:35] LABS: Glucose,Whole Blood 116 mg/dL (75-99)
[2017-05-31] MEDS: PIPERACILLIN-TAZOBACTAM 3.375 GM in DEXTROSE/WATER 1 50ML.BAG IVPB SCH ×2 (10:30→21:32)
[2017-05-31] MEDS: FAMOTIDINE 20 MG/2 ML VIAL IV SCH (10:32)
[2017-05-31] MEDS: SODIUM CHLORIDE 0.9% 99 ML with VASOPRESSIN 20 UNIT IV SCH ×4 (11:41→22:04)
[2017-05-31 11:52] LABS: Glucose,Whole Blood 137 mg/dL (75-99)
--- NOTE | 2017-05-31 12:53 | P.PN ---
Subjective 76-year-old female patient who presented to the hospital because of a high grade sigmoid colon obstruction with a suspicious mass. The patient underwent a colonoscopy by gastroenterology and the patient was found to have a partially obstructing mass in the distal sigmoid colon/rectosigmoid junction. The patient was having on and off rectal bleeding. She was rehabilitating at [facility] after a fall due to a generalized weakness. She was having some loose stools over the past few weeks but no significant abdominal pain or GI discomfort. The patient's hemoglobin had dropped down to 7.9 from a baseline of 12 and she was receiving transfusion. Based on all this, the patient was taken to the operating room on 05/23/2017 and the patient underwent a low AP resection with diverting colostomy. 2 abdominal drains also placed. Last night, the patient was found to be in acute respiratory distress.. The patient had a witnessed respiratory arrest and subsequent cardiac arrest. This occurred at around 1:50 AM this morning. Initially the pulse was identified. The patient was resuscitated for a total of 9 minutes and she was given 3 doses of epinephrine 1 mg. She was intubated and placed on a mechanical ventilator. She was given a triple lumen catheter in her right femoral vein. She was given a total of 2 L of IV fluids and her blood pressure remained low in the mid 60s. Following that she was started on pressors which ultimately titrated and she was placed on high-dose epinephrine infusion today to 60 g. The post intubation blood gas showed a pH of 7.15 with a pCO2 of 49 and pO2 of 205 this was an FiO2 of 100% with a PEEP of 5 and tidal volume of 350 and the rate of 14 Overnight the patient was given further fluid resuscitation and she has already received a total of 5 L of IV fluids. Currently she is on vasopressin 0.03 units per minute and she is also on norepinephrine infusion at 40 mics. She started making some urine output. Her urine output over the past 1 hour is around 100 mL an hour. The patient is sedated Diprivan at 40 mics. She would respond to painful stimuli and she would move all 4 extremities once she is taken to lower dose of Diprivan. Meanwhile, the necessity vent changes were done. I increased tidal volume to 450. I put the rate of 24 and drop the FiO2 down to 60%. Subsequent blood gases showed a pH of 7.36 with a pCO2 of 26 and pO2 of 123. Chest x-ray shows a large consolidation of the right lung involving the right middle lobe and right lower lobe. Orogastric tube was placed immediately following intubation and a total of 1600 mL of gastric aspirate was obtained. Note that the chest x-ray preoperatively had shown or the a large intrathoracic hiatal hernia. The patient subsequently had an abdominal x-ray yesterday that was indicating some ileus. The chest x-ray from this morning is showing that the patient has a right lung pneumonia and the OG tube is coiled in the hiatal hernia within the thorax. No gastric material is being suctioned from the TRACHEAL tube although is very much likely the patient could have aspirated. Her white cell count is up to 42. Venous lactate is at 1.7. The patient's colostomy site is functional. There is some minimal amount of fecal material collecting in the colostomy bag. Abdomen is nondistended at this point. Positive lower oximetry is palpable. On 05/26/2017 the patient is being seen in follow-up. The patient is still intubated on a mechanical ventilator. The patient is afebrile. She is doing well on a mechanical ventilator and she is in a assist-control mode at the rate of 24, tidal volume 450, FiO2 is down to 40% and PEEP of 5. Her morning blood gases with a pH of 7.38 with a pCO2 of 23 and pO2 150. Chest x-ray showing small bilateral pleural effusions and infiltrates in lung bases bilaterally. ET tube is in a good location. There is also a triple lumen catheter in place. The patient had a CAT scan of the abdomen and pelvis yesterday that showed lower lobe consolidation of the lungs along with pleural effusions. No intra- abdominal abscess. No other intra-abdominal abnormalities. The patient is a large hiatal hernia. Orogastric tube is in place and the patient will be started on tube feeds today. Colostomy site is healthy and viable looking. Hemodynamically she is improved compared to yesterday. She is on a vasopressin drip at physiologic dose and the patient is also on norepinephrine infusion that was weaned down to 20 mics. The patient is sedated with Diprivan and she is calm and comfortable. The patient remains on a combination of Zosyn and Levaquin and vancomycin. The blood cultures of been negative. The sputum culture been negative. White cell count is improving. Afebrile. Producing adequate amount of urine output. Echocardiogram showed a preserved LV function. There was a severe degree of mitral regurgitation secondary pulmonary hypertension. On 05/27/2017 the patient is being seen in follow-up. Earlier this morning the patient was still intubated on a mechanical ventilator. She was taken off the sedation and she woke up appropriately and she was able to follow commands and move her extremities without any limitation. She had a weak cough. Had rapid shallow breathing index was less than 100. She was given a spontaneous breathing trial with a pressure support of 5 and a PEEP of 5 and following that the patient was extubated to a nasal cannula. Note that the extubation blood gases showed a pH of 7.38 with a pCO2 of 22 and pO2 of 124 and this was done assist-control mode of ventilation with an FiO2 of 40%. The chest x-ray from earlier this morning shows interval improvement of the right lung pneumonia. His left-sided atelectasis and small effusion. Hemodynamically, the patient is still pressor dependent. The patient is on a physiologic dose of vasopressin 0.03 units per minute and the patient is levo fed has been weaned down to 12 mics. She is producing urine output in the order of 20-25 mL an hour. She has however developed an acute kidney injury, probably a hypotension-induced ATN with a creatinine is up to 1.6 and this is a non-oliguric renal failure. She is on broad-spectrum antibiotics which included a combination of Zosyn, Levaquin and vancomycin. Sputum analysis has yielded no positivity and there is no microbial growth for now. The patient has been tolerating her tube feeds. She is receiving enteral nutrition and her colostomy site is functional and intact at this point. No abdominal distention. Trace edema in the lower extremities bilaterally. On 05/28/2017 the patient remains extubated. She is awake and following simple commands. She has a congested cough and the chest x-ray from today shows worsening in the volume status and development of bilateral pleural effusions. There is haziness bilaterally nothing it's related to pleural effusion. The patient has not been fed enterally knowing that there is a concern of the positioning of the NG tube. I discussed this further with Dr. Tristian coy from surgery. We have decided not to feed again due to concern of recurrent aspiration knowing that the patient has a large hiatal hernia. Ultimately she may benefit from a PEG tube or NG tube if she is unable to swallow. She failed her swallow evaluation for the time being. Meanwhile, I thought is reasonable to start the patient on some hyperalimentation via TPN to meet her caloric requirements. She is hemodynamically improving however she has developed an acute kidney injury. Her pressors are much less and currently she is still on a physiologic dose vasopressin and 2-3 mics of norepinephrine infusion. She is however producing less urine output in the creatinine is up to 2.0. She is anemic with a hemoglobin of 7.0. Rest of the electrodes showed a component of non-anion gap metabolic acidosis. Her colostomy site is functional and intact at this point and is viable. No abdominal distention. WALTER drains are all in place. On 05/29/2017 the patient remains extubated. She is much more alert and interactive today. She is being treated with broad-spectrum antibiotics for aspiration pneumonia. Chest x-ray from today shows consolidation in bilateral pleural effusion in addition to a large intrathoracic hiatal hernia. Nevertheless, the volume status is slightly improved compared to yesterday knowing that the patient is being diuresis with IV Lasix 40 mg IV push every 12 hours. The patient has been producing more than 100 mL an hour of urine output on an hourly basis. Her creatinine is up to 2.4 however she is nonoliguric. Rest of the electrodes are all within normal limits. The patient's hemoglobin is stable at 7.1. White cell count is dropped down to 6. She is still on broad -spectrum antibiotics. Abdominal wound is clean and there is some minimal drainage from the WALTER insertion site. The colostomy site is functional and intact and viable. The patient is unable to swallow yet. TPN was started yesterday for nutritional support. IV fluids to KVO. Afebrile. Trying to do adequate pulmonate toileting however she is unable to cough up rest or secretions. Family is at the bedside. On 05/30/2017 the patient remains extubated. The patient is currently off norepinephrine infusion and currently she is only on vasopressin at a low physiologic dose which will hopefully get wean down the discontinued today. She was diuresis over the past 48 hours and I will stop the diuresis knowing that the patient is developing acute kidney injury secondary to prolonged hypotension and the patient is an nonoliguric acute renal failure. This swallow will be rechecked today although I have a high suspicion that the patient will failed the swallow evaluation. Her cough is weak. She has a congested cough. Unable to bring up much sputum. Chest exit shows a large intrathoracic hiatal hernia along with bilateral lower lobe pleural effusions and consolidations. The patient on oxygen at 3 L/m nasal cannula. Resting comfortably in bed. The patient on TPN for nutritional support. This surgical wound site is clean and intact. The patient has 2 WALTER drains with are not actively draining. The patient also has a colostomy site which is viable intact and healthy. The patient is afebrile. IV fluids are to KVO for now. She is on same antibiotic coverage. Her hemoglobin down to 6.9 today and the patient will be receiving a unit of packed RBC. On 05/31/2017 the patient remains extubated. Still on a physiologic dose of vasopressin which was still needed to maintain a blood pressure and a mean above 65. Urine output is adequate. The diuretics have been discontinued. Creatinine is down to 2.4. Received a unit of packed RBC yesterday and hemoglobin is above 8. Afebrile. Awake and alert. Conversing. Failed the swallow evaluation this will be repeated tomorrow. PICC line was inserted. The patient is receiving TPN for nutritional support. She is on 3 L of oxygen nasal cannula. Afebrile. On the same antibiotic coverage. No major swelling in the upper and lower extremities as the patient got diuresis over the past few days. No other significant events overnight. Family is at the bedside. WALTER drains are in place. The upper WALTER drain is not putting much a lot in the lower WALTER drain is having approximately 200 mL of serosanguineous drainage. The abdominal wound is clean and intact. Colostomy site has some liquidy material collecting in the back. The site is viable and functioning at this point. Objective - Vital Signs Vital signs: Vital Signs Temp 36.6 F L 05/31/17 08:30 Pulse 82 05/31/17 11:28 Resp 23 05/31/17 10:30 BP 105/59 05/31/17 10:30 Pulse Ox 98 05/31/17 10:30 Intake & Output 05/30/17 05/31/17 05/31/17 18:59 06:59 18:59 Intake Total 1865 778 32.5 Output Total 2825 1450 405 Balance -960 -672 -372.5 Weight 95.4 kg 93.8 kg 93.4 kg Intake: IV 1056 757 32.5 Amino Acid 4.25%-D10w+ 913 747 Lytes*E* 1,000 ml @ 83 mls/hr IV .BY [facility] Rx#:[id number] Dextrose 5%-0.9% NaCl 1, 110 10 10 000 ml @ 10 mls/hr IV . Q24H [facility] Rx#:[id number] Piperacillin-Tazobactam 3 12.5 .375 gm In Dextrose/Water 1 50ml.bag @ 12.5 mls/hr IVPB Q8HR [facility] Rx#: [id number] Sodium Chloride 0.9% 99 33 10 ml @ 0.03 UNITS/MIN 9 mls /hr IV .[id number] AMAN with Vasopressin 20 unit Rx#: [id number] Intake, IV Titration 189 21 Amount Fat Emulsion 20% 250 ml @ 189 21 21 mls/hr IV MoWeFr [facility] Rx#:[id number] Blood Product 620 Rc As-1 Unit 310 [id number] Output: Drainage 20 Left Abdomen 0 Right Abdomen 20 Urine 2525 1450 385 Stool 300 Other: Voiding Method Indwelling Catheter Indwelling Catheter Indwelling Catheter # Voids 1 ABP, PAP, CO, CI - Last Documented Arterial Blood Pressure 94/85 - Exam Head exam was generally normal. The patient is awake and following simple commands. The patient is extubated currently on oxygen by nasal cannula at 2 L/ m. There was no scleral icterus or corneal arcus. Mucous membranes were moist. Neck was supple and without jugular venous distension, thyromegaly, or carotid bruits. Carotids were easily palpable bilaterally. There was no adenopathy. Lung sounds are equal and symmetrical bilaterally and there is no significant wheezes overall currently crackles. Heart sounds are regular rate and rhythm normal S1-S2 and there is no significant murmurs appreciated. Abdomen is soft. Nondistended. Colostomy site is viable and functional. The patient has a infraumbilical incision with angella are being replaced. No active drainage. WALTER drains also in place and output is essentially serosanguineous and minimal. Extremities are showing diminished pulses and there is no cyanosis or clubbing. Neurologic the patient is awake. The cough and mechanism is weak. Unable to bring up her respiratory secretions yet. She has cerebral palsy and some chronic contractures in the upper extremities bilaterally. - Labs CBC & Chem 7: 05/30/17 16:30 05/31/17 05:36 Labs: Abnormal Lab Results - Last 24 Hours (Table) 05/30/17 05/30/17 05/30/17 Range/Units 07:46 16:30 18:25 RBC 2.68 L (3.80-5.40) m/uL Hgb 8.4 L D (11.4-16.0) gm/dL Hct 26.5 L (34.0-46.0) % RDW 16.5 H (11.5-15.5) % Lymphocytes # 0.7 L (1.0-4.8) k/uL Sodium (137-145) mmol/L Carbon Dioxide (22-30) mmol/L BUN (7-17) mg/dL Creatinine (0.52-1.04) mg/dL Glucose (74-99) mg/dL POC Glucose (mg/dL) 135 H (75-99) mg/dL Calcium (8.4-10.2) mg/dL Phosphorus (2.5-4.5) mg/dL Crossmatch See Detail 05/31/17 05/31/17 05/31/17 Range/Units 00:12 05:36 06:34 RBC (3.80-5.40) m/uL Hgb (11.4-16.0) gm/dL Hct (34.0-46.0) % RDW (11.5-15.5) % Lymphocytes # (1.0-4.8) k/uL Sodium 129 L (137-145) mmol/L Carbon Dioxide 17 L (22-30) mmol/L BUN 56 H (7-17) mg/dL Creatinine 2.50 H (0.52-1.04) mg/dL Glucose 111 H (74-99) mg/dL POC Glucose (mg/dL) 135 H 116 H (75-99) mg/dL Calcium 8.3 L (8.4-10.2) mg/dL Phosphorus 4.7 H (2.5-4.5) mg/dL Crossmatch 05/31/17 Range/Units 11:51 RBC (3.80-5.40) m/uL Hgb (11.4-16.0) gm/dL Hct (34.0-46.0) % RDW (11.5-15.5) % Lymphocytes # (1.0-4.8) k/uL Sodium (137-145) mmol/L Carbon Dioxide (22-30) mmol/L BUN (7-17) mg/dL Creatinine (0.52-1.04) mg/dL Glucose (74-99) mg/dL POC Glucose (mg/dL) 137 H (75-99) mg/dL Calcium (8.4-10.2) mg/dL Phosphorus (2.5-4.5) mg/dL Crossmatch Microbiology - Last 24 Hours (Table) 05/25/17 19:00 Blood Culture - Preliminary Blood No Growth after 120 hours Assessment and Plan Plan: Assessment 1 acute cardiopulmonary arrest. I think the patient essentially went to respiratory arrest with subsequent cardiac arrest and she was down for less than 10 minutes. The patient during the code received a total of 3 rounds of epinephrine and she was intubated placed on mechanical ventilator and got transferred to the intensive care unit. Patient has developed bilateral pneumonia involving the lower lobes. Rule out aspiration pneumonia. Rule out hospital-acquired pneumonia. The patient was intubated due to pneumonia, septic shock and hemodynamic collapse and the patient was aggressively resuscitated IV fluids and pressors and she had to be also intubated and placed on a mechanical ventilator and she remains extubated for now. 2 bilateral lower lobe pneumonia. Suspect aspiration pneumonia versus a hospital-acquired pneumonia 3 shock with profound hypotension and the patient is pressor dependent at this point with a combination of norepinephrine infusion and vasopressin. Echocardiogram showing preserved LV function. The patient's pressor requirements have improved considerably and currently she is nearly of pressors and she is only on vasopressin physiologic dose. 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 The patient underwent a low AP resection with diverting colostomy. The patient is postop day #9. 5 anemia secondary to lower gastrointestinal bleeding secondary to rectosigmoid mass, hemoglobin today is down to 6.9 and the patient will be receiving a unit of packed RBC. The subsequent hemoglobin from today is at 8.4 6 hyponatremia, mild, recovered 7 mild non-anion gap metabolic acidosis, improving 8 acute respiratory failure, currently intubated on a mechanical ventilator, secondary to above 9 cerebral palsy, history of with significant permanent AV performance and functional status 10 diabetes mellitus 11 hyperlipidemia, 12 acute kidney injury, possibly secondary to hypotension-induced ATN. The patient is nonoliguric and the patient's creatinine is down to 2.5 13 history of vasovagal syncope, scoliosis 14 frequent urine infections 15 Limited mobility and the patient has been using a walker based on the family members. The patient also had a limited range of motion the right hand and right wrist area. 16 large intrathoracic hiatal hernia as evident on the patient's chest x-ray. Unable to swallow. The patient is receiving TPN for nutritional support. 17 severe mitral regurgitation with a preserved LV function and secondary pulmonary hypertension. Plan Continue the supportive care. Aspiration precautions. Pulmonary toileting. Incentive spirometer. Repeat a swallow evaluation a.m. Continue TPN for Mr. support. Continue antibiotics. Monitor renal function. We'll continue to follow make further recommendations based on her progress. She'll be kept in ICU. We'll try also to wean off the vasopressin and discontinue if possible. No diuretics for now. The renal function is improving.
--- NOTE | 2017-05-31 17:24 | P.PN ---
Subjective Mr. Morel is a 76-year-old female who was recently admitted to the residential after sustaining fall due to generalized weakness. The patient was brought to the hospital with concerns for GI bleed. Patient had attempted colonoscopy initially on 05/19/2017 and scope could not be passed due to significant obstructing mass. On 05/20/2017 patient was taken to OR for low anterior resection of the sigmoid and colostomy bag placement was done. On 05/21/2017 Agent is more awake and oriented today. Patient is tolerating liquid diet but feels nauseous now, as her chest pain or short of breath. Hemoglobin is stable. Patient is on epidural. On 05/22/2017 Patient says that her nausea is improved. Epidural pain management is being discontinued today. No fever no chills. No complaints of abdominal pain. Patient is tolerating liquid diet today. Otherwise no chest pain or short of breath. On 05/23/2017 Patient is tolerating by mouth liquid diet. She has been moving her bowels and has some stool in the colostomy bag. On 05/24/2017 Patient has been tolerating liquid diet well. Patient has been transferred to a chair beside the bed. Patient has a small amount of stool in the colostomy bag and passing flatus. On 05/25/2017 Last night the patient developed respiratory failure and eventually had cardiac arrest. Patient was resuscitated for a total of 9 minutes. She received 3 doses of epinephrine and received 2 L of IV fluid bolus , intubated and taken to the ICU. As her blood pressure was running her she was also started on pressors . Overnight the patient was given 5 more Lt of IV fluids. Her blood pressure was still running low and she was started on Levophed and vasopressin. The patient subsequently had a chest x-ray was showing a large right lung consolidation, and the patient has a large intrathoracic had a hernia. So most likely that the patient might have aspirated overnight. On 05/26 - Pt is still intubated. CT abdomen was done showing post surgical ileus. Still on vasopressors. NG tube feeds have been started, She had a large bowel movement yesterday. on 05/27/17 Pt. was succcessfull extubated. Pt. is awake but could not speak at this time. Still on Pressor support. no fever/chills. Review of systems - could not be done as the patient is intubated 05/28/17 failed NG placement Continues to be on a trivial dose of levophed and vasopressin to be started on TPN today 05/29/2017 Patient is more awake Is still on a trivial dose of Levophed and vasopressin Still strict nothing by mouth No overnight events reported 05/30/17 of levophed more awake on trivial dose of vasopressin failed swallow eval 05/31/17 awake no new overnight events weak cough on vasopressin - Exam A 76-year-old female lying in bed in the ICU. awake HEENT: Atraumatic, normocephalic. NECK: Supple. No JVD. CVS: S1, S2 heard. No murmurs, no gallop, no rub. LUNGS: Coarse breath sounds bilaterally. ABDOMEN: Soft, nontender. Colostomy bag is in place. No active bleeding at the site. ELEMENT BURNER: Aable to move all extremities. EXTREMITIES: anasarca Pulses palpable bilaterally. No clubbing or cyanosis. Assessment and Plan Plan: ASSESSMENT Acute cardiopulmonary arrest -downtime of 9-10 mins Right Lung Pneumonia - most likely secondary to Aspiration Septic shock - most likley secondary to above. still on Pressor support Acute blood loss anemia secondary to lower gastrointestinal bleed secondary to sigmoid mass. Hemoglobin stable Sigmoid mass status post low anterior resection and colostomy bag placement colonic ileus. improved Hyponatremia Essential hypertension. Medical debility. Recent urinary tract infection. Chronic diarrhea. Vitamin D deficiency. Acute kidney injury likely multifactorial including ATN due to hypotension and diuretics therafter, improving plan TPN to continue Continue renal function monitoring, improving taper off vasopressin pulmonary hygeine once pt passes swallow eval midodrine could be offered abx Objective - Vital Signs Vital signs: Vital Signs Temp 36.6 F L 05/31/17 08:30 Pulse 82 05/31/17 16:06 Resp 38 H 05/31/17 16:00 BP 103/37 05/31/17 16:00 Pulse Ox 99 05/31/17 16:00 Intake & Output 05/30/17 05/31/17 05/31/17 18:59 06:59 18:59 Intake Total 3935 778 92.5 Output Total 2822 1450 940 Balance -960 -672 -847.5 Weight 95.4 kg 93.8 kg 93.4 kg Intake: IV 1056 757 92.5 Amino Acid 4.25%-D10w+ 913 747 Lytes*E* 1,000 ml @ 83 mls/hr IV .BY DURATION [facility] Rx#:[id number] Dextrose 5%-0.9% NaCl 1, 110 10 70 000 ml @ 10 mls/hr IV . Q24H [facility] Rx#:[id number] Piperacillin-Tazobactam 3 12.5 .375 gm In Dextrose/Water 1 50ml.bag @ 12.5 mls/hr IVPB Q8HR [facility] Rx#: [id number] Sodium Chloride 0.9% 99 33 10 ml @ 0.03 UNITS/MIN 9 mls /hr IV .[id number] AMAN with Vasopressin 20 unit Rx#: [id number] Intake, IV Titration 189 21 Amount Fat Emulsion 20% 250 ml @ 189 21 21 mls/hr IV MoWeFr [facility] Rx#:[id number] Blood Product 620 Rc As-1 Unit 310 [id number] Output: Drainage 40 Left Abdomen 0 Right Abdomen 40 Urine 2525 1450 750 Stool 300 150 Other: Voiding Method Indwelling Catheter Indwelling Catheter Indwelling Catheter # Voids 1 ABP, PAP, CO, CI - Last Documented Arterial Blood Pressure 94/85 - Labs CBC & Chem 7: 05/30/17 16:30 05/31/17 05:36 Labs: Abnormal Lab Results - Last 24 Hours (Table) 05/30/17 05/31/17 05/31/17 Range/Units 18:25 00:12 05:36 Sodium 129 L (137-145) mmol/L Carbon Dioxide 17 L (22-30) mmol/L BUN 56 H (7-17) mg/dL Creatinine 2.50 H (0.52-1.04) mg/dL Glucose 111 H (74-99) mg/dL POC Glucose (mg/dL) 135 H 135 H (75-99) mg/dL Calcium 8.3 L (8.4-10.2) mg/dL Phosphorus 4.7 H (2.5-4.5) mg/dL 05/31/17 05/31/17 Range/Units 06:34 11:51 Sodium (137-145) mmol/L Carbon Dioxide (22-30) mmol/L BUN (7-17) mg/dL Creatinine (0.52-1.04) mg/dL Glucose (74-99) mg/dL POC Glucose (mg/dL) 116 H 137 H (75-99) mg/dL Calcium (8.4-10.2) mg/dL Phosphorus (2.5-4.5) mg/dL Microbiology - Last 24 Hours (Table) 05/25/17 19:00 Blood Culture - Preliminary Blood No Growth after 120 hours
[2017-05-31 18:40] LABS: Glucose,Whole Blood 137 mg/dL (75-99)
--- NOTE | 2017-05-31 19:12 | P.PN ---
Progress Note - Text The patient remains unchanged. Apparently she is filled her recent swallow study. She is currently being weaned off her pressors. On exam her vital signs appear stable. Her abdomen is soft. Incision site is clean dry intact. Colostomy has small amount of stool and gas in it. Patient will have a feeding J-tube placement when she is medically stable. We will follow with you.
[2017-05-31] MEDS: ATORVASTATIN 20 MG TAB PO SCH (22:58)
[2017-05-31 23:59] LABS: Glucose,Whole Blood 128 mg/dL (75-99)
[2017-06-01] MEDS: DEXTROSE 5%-0.9% NACL 1,000 ML IV SCH ×2 (00:07→23:08)
[2017-06-01] MEDS: INSULIN LISPRO (humaLOG) 300 UNIT/3 ML VIAL SQ SCH ×4 (00:33→17:37)
[2017-06-01] MEDS: NOREPINEPHRIN 16 MG-0.9%NS PMX 16 MG/250 ML ML IV SCH (00:54)
[2017-06-01] MEDS: METOCLOPRAMIDE 5 MG/ML 2 ML VIAL IVP SCH ×4 (01:08→17:38)
[2017-06-01] MEDS: IPRATROPIUM-ALBUTEROL 3 ML NEB INHALATION SCH ×6 (03:56→23:30)
[2017-06-01 05:04] LABS: Ionized Calcium 5.3 mg/dL (4.5-5.3)
[2017-06-01 05:09] LABS: Calcium 8.5 mg/dL (8.4-10.2); Magnesium 1.8 mg/dL (1.6-2.3); Phosphorous 3.8 mg/dL (2.5-4.5); Potassium 3.8 mmol/L (3.5-5.1)
[2017-06-01 05:19] LABS: Glucose,Whole Blood 137 mg/dL (75-99)
[2017-06-01] MEDS ORDERED: 1: MVI, ADULT NO.4 WITH VIT K 10 ML, TRACE (CONC-1ML/DOSE) 1 ML, PARENTERAL ELECTROLYTES IV SCH ×5 (08:24)
--- NOTE | 2017-06-01 09:03 | XR ---
EXAMINATION TYPE: XR chest 1V portable DATE OF EXAM: 06/01/2017 HISTORY: aspiration. REFERENCE: Previous study dated 05/30/2017. FINDINGS: There is a left basilic PICC line in place. The heart is enlarged. There is bibasilar airspace disease. There is vascular congestion. I could not exclude some mild jayson a. There are bilateral effusions. There is a loculated air collection behind the heart which likely r epresents an intrathoracic stomach. IMPRESSION: 1. BIBASILAR AIRSPACE DISEASE. 2. BILATERAL EFFUSIONS. 3. CARDIOMEGALY. 4. I SUSPECT AN INTRATHORACIC STOMACH. 5. I COULD NOT EXCLUDE SOME MILD HEART FAILURE.
[2017-06-01] MEDS: FAT EMULSION 20% 250 ML IV SCH (09:32)
[2017-06-01] MEDS: LEVOFLOXACIN 250MG-D5W PMX 250 MG in DEXTROSE/WATER 1 50ML.BAG IVPB SCH (09:32)
[2017-06-01] MEDS: SODIUM CHLORIDE 0.9% 99 ML with VASOPRESSIN 20 UNIT IV SCH ×6 (09:34→20:44)
[2017-06-01] MEDS: HEPARIN SODIUM,PORCINE 5,000 UNIT/ML 1 ML VIAL SQ SCH ×2 (09:46→17:38)
[2017-06-01] MEDS: FAMOTIDINE 20 MG/2 ML VIAL IV SCH (09:48)
[2017-06-01] MEDS: PIPERACILLIN-TAZOBACTAM 3.375 GM in DEXTROSE/WATER 1 50ML.BAG IVPB SCH ×2 (10:31→20:28)
[2017-06-01 12:42] LABS: Glucose,Whole Blood 122 mg/dL (75-99)
--- NOTE | 2017-06-01 14:07 | P.PN ---
Subjective 76-year-old female patient who presented to the hospital because of a high grade sigmoid colon obstruction with a suspicious mass. The patient underwent a colonoscopy by gastroenterology and the patient was found to have a partially obstructing mass in the distal sigmoid colon/rectosigmoid junction. The patient was having on and off rectal bleeding. She was rehabilitating at [facility] after a fall due to a generalized weakness. She was having some loose stools over the past few weeks but no significant abdominal pain or GI discomfort. The patient's hemoglobin had dropped down to 7.9 from a baseline of 12 and she was receiving transfusion. Based on all this, the patient was taken to the operating room on 05/23/2017 and the patient underwent a low AP resection with diverting colostomy. 2 abdominal drains also placed. Last night, the patient was found to be in acute respiratory distress.. The patient had a witnessed respiratory arrest and subsequent cardiac arrest. This occurred at around 1:50 AM this morning. Initially the pulse was identified. The patient was resuscitated for a total of 9 minutes and she was given 3 doses of epinephrine 1 mg. She was intubated and placed on a mechanical ventilator. She was given a triple lumen catheter in her right femoral vein. She was given a total of 2 L of IV fluids and her blood pressure remained low in the mid 60s. Following that she was started on pressors which ultimately titrated and she was placed on high-dose epinephrine infusion today to 60 g. The post intubation blood gas showed a pH of 7.15 with a pCO2 of 49 and pO2 of 205 this was an FiO2 of 100% with a PEEP of 5 and tidal volume of 350 and the rate of 14 Overnight the patient was given further fluid resuscitation and she has already received a total of 5 L of IV fluids. Currently she is on vasopressin 0.03 units per minute and she is also on norepinephrine infusion at 40 mics. She started making some urine output. Her urine output over the past 1 hour is around 100 mL an hour. The patient is sedated Diprivan at 40 mics. She would respond to painful stimuli and she would move all 4 extremities once she is taken to lower dose of Diprivan. Meanwhile, the necessity vent changes were done. I increased tidal volume to 450. I put the rate of 24 and drop the FiO2 down to 60%. Subsequent blood gases showed a pH of 7.36 with a pCO2 of 26 and pO2 of 123. Chest x-ray shows a large consolidation of the right lung involving the right middle lobe and right lower lobe. Orogastric tube was placed immediately following intubation and a total of 1600 mL of gastric aspirate was obtained. Note that the chest x-ray preoperatively had shown or the a large intrathoracic hiatal hernia. The patient subsequently had an abdominal x-ray yesterday that was indicating some ileus. The chest x-ray from this morning is showing that the patient has a right lung pneumonia and the OG tube is coiled in the hiatal hernia within the thorax. No gastric material is being suctioned from the TRACHEAL tube although is very much likely the patient could have aspirated. Her white cell count is up to 42. Venous lactate is at 1.7. The patient's colostomy site is functional. There is some minimal amount of fecal material collecting in the colostomy bag. Abdomen is nondistended at this point. Positive lower oximetry is palpable. On 05/26/2017 the patient is being seen in follow-up. The patient is still intubated on a mechanical ventilator. The patient is afebrile. She is doing well on a mechanical ventilator and she is in a assist-control mode at the rate of 24, tidal volume 450, FiO2 is down to 40% and PEEP of 5. Her morning blood gases with a pH of 7.38 with a pCO2 of 23 and pO2 150. Chest x-ray showing small bilateral pleural effusions and infiltrates in lung bases bilaterally. ET tube is in a good location. There is also a triple lumen catheter in place. The patient had a CAT scan of the abdomen and pelvis yesterday that showed lower lobe consolidation of the lungs along with pleural effusions. No intra- abdominal abscess. No other intra-abdominal abnormalities. The patient is a large hiatal hernia. Orogastric tube is in place and the patient will be started on tube feeds today. Colostomy site is healthy and viable looking. Hemodynamically she is improved compared to yesterday. She is on a vasopressin drip at physiologic dose and the patient is also on norepinephrine infusion that was weaned down to 20 mics. The patient is sedated with Diprivan and she is calm and comfortable. The patient remains on a combination of Zosyn and Levaquin and vancomycin. The blood cultures of been negative. The sputum culture been negative. White cell count is improving. Afebrile. Producing adequate amount of urine output. Echocardiogram showed a preserved LV function. There was a severe degree of mitral regurgitation secondary pulmonary hypertension. On 05/27/2017 the patient is being seen in follow-up. Earlier this morning the patient was still intubated on a mechanical ventilator. She was taken off the sedation and she woke up appropriately and she was able to follow commands and move her extremities without any limitation. She had a weak cough. Had rapid shallow breathing index was less than 100. She was given a spontaneous breathing trial with a pressure support of 5 and a PEEP of 5 and following that the patient was extubated to a nasal cannula. Note that the extubation blood gases showed a pH of 7.38 with a pCO2 of 22 and pO2 of 124 and this was done assist-control mode of ventilation with an FiO2 of 40%. The chest x-ray from earlier this morning shows interval improvement of the right lung pneumonia. His left-sided atelectasis and small effusion. Hemodynamically, the patient is still pressor dependent. The patient is on a physiologic dose of vasopressin 0.03 units per minute and the patient is levo fed has been weaned down to 12 mics. She is producing urine output in the order of 20-25 mL an hour. She has however developed an acute kidney injury, probably a hypotension-induced ATN with a creatinine is up to 1.6 and this is a non-oliguric renal failure. She is on broad-spectrum antibiotics which included a combination of Zosyn, Levaquin and vancomycin. Sputum analysis has yielded no positivity and there is no microbial growth for now. The patient has been tolerating her tube feeds. She is receiving enteral nutrition and her colostomy site is functional and intact at this point. No abdominal distention. Trace edema in the lower extremities bilaterally. On 05/28/2017 the patient remains extubated. She is awake and following simple commands. She has a congested cough and the chest x-ray from today shows worsening in the volume status and development of bilateral pleural effusions. There is haziness bilaterally nothing it's related to pleural effusion. The patient has not been fed enterally knowing that there is a concern of the positioning of the NG tube. I discussed this further with Dr. Tristian coy from surgery. We have decided not to feed again due to concern of recurrent aspiration knowing that the patient has a large hiatal hernia. Ultimately she may benefit from a PEG tube or NG tube if she is unable to swallow. She failed her swallow evaluation for the time being. Meanwhile, I thought is reasonable to start the patient on some hyperalimentation via TPN to meet her caloric requirements. She is hemodynamically improving however she has developed an acute kidney injury. Her pressors are much less and currently she is still on a physiologic dose vasopressin and 2-3 mics of norepinephrine infusion. She is however producing less urine output in the creatinine is up to 2.0. She is anemic with a hemoglobin of 7.0. Rest of the electrodes showed a component of non-anion gap metabolic acidosis. Her colostomy site is functional and intact at this point and is viable. No abdominal distention. WALTER drains are all in place. On 05/29/2017 the patient remains extubated. She is much more alert and interactive today. She is being treated with broad-spectrum antibiotics for aspiration pneumonia. Chest x-ray from today shows consolidation in bilateral pleural effusion in addition to a large intrathoracic hiatal hernia. Nevertheless, the volume status is slightly improved compared to yesterday knowing that the patient is being diuresis with IV Lasix 40 mg IV push every 12 hours. The patient has been producing more than 100 mL an hour of urine output on an hourly basis. Her creatinine is up to 2.4 however she is nonoliguric. Rest of the electrodes are all within normal limits. The patient's hemoglobin is stable at 7.1. White cell count is dropped down to 6. She is still on broad -spectrum antibiotics. Abdominal wound is clean and there is some minimal drainage from the WALTER insertion site. The colostomy site is functional and intact and viable. The patient is unable to swallow yet. TPN was started yesterday for nutritional support. IV fluids to KVO. Afebrile. Trying to do adequate pulmonate toileting however she is unable to cough up rest or secretions. Family is at the bedside. On 05/30/2017 the patient remains extubated. The patient is currently off norepinephrine infusion and currently she is only on vasopressin at a low physiologic dose which will hopefully get wean down the discontinued today. She was diuresis over the past 48 hours and I will stop the diuresis knowing that the patient is developing acute kidney injury secondary to prolonged hypotension and the patient is an nonoliguric acute renal failure. This swallow will be rechecked today although I have a high suspicion that the patient will failed the swallow evaluation. Her cough is weak. She has a congested cough. Unable to bring up much sputum. Chest exit shows a large intrathoracic hiatal hernia along with bilateral lower lobe pleural effusions and consolidations. The patient on oxygen at 3 L/m nasal cannula. Resting comfortably in bed. The patient on TPN for nutritional support. This surgical wound site is clean and intact. The patient has 2 WALTER drains with are not actively draining. The patient also has a colostomy site which is viable intact and healthy. The patient is afebrile. IV fluids are to KVO for now. She is on same antibiotic coverage. Her hemoglobin down to 6.9 today and the patient will be receiving a unit of packed RBC. On 05/31/2017 the patient remains extubated. Still on a physiologic dose of vasopressin which was still needed to maintain a blood pressure and a mean above 65. Urine output is adequate. The diuretics have been discontinued. Creatinine is down to 2.4. Received a unit of packed RBC yesterday and hemoglobin is above 8. Afebrile. Awake and alert. Conversing. Failed the swallow evaluation this will be repeated tomorrow. PICC line was inserted. The patient is receiving TPN for nutritional support. She is on 3 L of oxygen nasal cannula. Afebrile. On the same antibiotic coverage. No major swelling in the upper and lower extremities as the patient got diuresis over the past few days. No other significant events overnight. Family is at the bedside. WALTER drains are in place. The upper WALTER drain is not putting much a lot in the lower WALTER drain is having approximately 200 mL of serosanguineous drainage. The abdominal wound is clean and intact. Colostomy site has some liquidy material collecting in the back. The site is viable and functioning at this point. On 06/01/2017 I'm seeing this patient in follow-up. The patient is awake and alert. After having some success with swallowing yesterday, this morning she failed her swallow evaluation again and based on that she was maintained on TPN for nutritional support. In addition there was a setback in terms of her hemodynamics knowing that as of 1:00 in the morning the patient was restarted back on norepinephrine infusion due to drop in the blood pressure. The vasopressin is still on board. The patient was placed as high as 15 mics of norepinephrine infusion and currently is down to 6 mics. She is producing adequate amount of urine output in the order of 35-50 mL an hour. She is also on TPN for nutritional support. IV fluids to KVO. She is on Zosyn and Levaquin. As mentioned earlier, the WALTER drain is above the colostomy site is nondraining and probably out of position and this will be conveyed to the surgeon and see if it's appropriate to put up completely. The lower WALTER drain in her suprapubic area is still draining approximately 40 mL of serosanguineous material per shift. Colostomy site is viable and functional. There is some liquidy material accumulating within the back. This surgical wound site is clean. The angella are all in place. Bowel sounds are hypoactive. Chest x- ray from today shows a large intrathoracic hiatal hernia with bilateral lower lobe pulmonary infiltrates and small effusions. The patient is afebrile for now. She is essentially weak and has poor ability to perform pulmonary toileting. Coughing is weak. We'll try to work with her in terms of incentive spirometer and try to get her into physical therapy with passive range of motion. The family understands the limitation that the patient has related to her disease knowing that she has an underlying cerebral palsy with severe kyphoscoliosis and she has been bedridden even at baseline. As such this may be hindering our ability to fast recovery. This may be an ongoing issue in terms of getting her in a better condition. In terms of her renal function, creatinine is up to 2.7. The patient is nonoliguric. She has suffered an ATN due to profound hypotension. Rest of the electrodes are all within normal limits. Sodium level is normalized up to 132. Objective - Vital Signs Vital signs: Vital Signs Temp 98.3 F 06/01/17 12:00 Pulse 86 06/01/17 13:30 Resp 18 06/01/17 13:30 BP 109/55 06/01/17 13:30 Pulse Ox 99 06/01/17 13:30 Intake & Output 05/31/17 06/01/17 06/01/17 18:59 06:59 18:59 Intake Total 1108.5 2163.453 979.250 Output Total 1250 675 270 Balance -141.5 1488.453 709.250 Weight 93.4 kg 93.4 kg Intake: IV 112.5 257.0 848.5 0.9 NS 150 Dextrose 5%-0.9% NaCl 1, 90 90 000 ml @ 10 mls/hr IV . Q24H [facility] Rx#:[id number] Fat Emulsion 20% 250 ml @ 84 21 mls/hr IV MoWeFr [facility] Rx#:[id number] Mvi, Adult No.4 with Vit 498 K 10 ml Trace (Conc-1Ml/ Dose) 1 ml Parenteral Electrolytes 20 ml Sodium Chloride 4Meq/ml Vial 20 meq In Amino Acid 4.25%- D10w 1,000 ml @ 83 mls/hr IV .BY DURATION [facility] Rx#: [id number] Norepinephrin 16 mg-0.9% 0 Ns Pmx 16 mg In 250 ml @ Titrate IV .Q0M [facility] Rx#: [id number] Piperacillin-Tazobactam 3 50.0 62.5 .375 gm In Dextrose/Water 1 50ml.bag @ 12.5 mls/hr IVPB Q12HR [facility] Rx#: [id number] Piperacillin-Tazobactam 3 12.5 .375 gm In Dextrose/Water 1 50ml.bag @ 12.5 mls/hr IVPB Q8HR [facility] Rx#: [id number] Sodium Chloride 0.9% 99 10 117 54 ml @ 0.03 UNITS/MIN 9 mls /hr IV .Q11H7M [facility] with Vasopressin 20 unit Rx#: [id number] Intake, IV Titration 996 827.453 130.750 Amount Levofloxacin 250Mg-D5w 100 Pmx 250 mg In Dextrose/ Water 1 50ml.bag @ 50 mls /hr IVPB Q48H [facility] Rx#: [id number] Mvi, Adult No.4 with Vit 996 K 10 ml Trace (Conc-1Ml/ Dose) 1 ml Parenteral Electrolytes 20 ml Sodium Chloride 4Meq/ml Vial 20 meq In Amino Acid 4.25%- D10w 1,000 ml @ 83 mls/hr IV .BY DURATION [facility] Rx#: [id number] Norepinephrin 16 mg-0.9% 65.236 30.750 Ns Pmx 16 mg In 250 ml @ Titrate IV .Q0M [facility] Rx#: [id number] Parenteral Electrolytes 762.217 20 ml Sodium Chloride 4Meq/ml Vial 12 meq In Amino Acid 4.25%-D10w 1, 000 ml @ 83 mls/hr IV .BY DURATION [facility] Rx#: [id number] TPN/PPN 1079 Mvi, Adult No.4 with Vit 1079 K 10 ml Trace (Conc-1Ml/ Dose) 1 ml Parenteral Electrolytes 20 ml Sodium Chloride 4Meq/ml Vial 16 meq In Amino Acid 4.25%- D10w 1,000 ml @ 83 mls/hr IV .BY DURATION [facility] Rx#: [id number] Output: Drainage 130 60 0 Left Abdomen 10 0 0 Right Abdomen 120 60 Urine 890 615 250 Stool 230 20 Other: Voiding Method Indwelling Catheter Indwelling Catheter Indwelling Catheter # Bowel Movements 1 ABP, PAP, CO, CI - Last Documented Arterial Blood Pressure 94/85 - Exam Head exam was generally normal. The patient is awake and following simple commands. The patient is extubated currently on oxygen by nasal cannula at 2 L/ m. There was no scleral icterus or corneal arcus. Mucous membranes were moist. Neck was supple and without jugular venous distension, thyromegaly, or carotid bruits. Carotids were easily palpable bilaterally. There was no adenopathy. Lung sounds are equal and symmetrical bilaterally and there is no significant wheezes overall currently crackles. Heart sounds are regular rate and rhythm normal S1-S2 and there is no significant murmurs appreciated. Abdomen is soft. Nondistended. Colostomy site is viable and functional. The patient has a infraumbilical incision with angella are being replaced. No active drainage. WALTER drains also in place and output is essentially serosanguineous and minimal. Extremities are showing diminished pulses and there is no cyanosis or clubbing. Neurologic the patient is awake. The cough and mechanism is weak. Unable to bring up her respiratory secretions yet. She has cerebral palsy and some chronic contractures in the upper extremities bilaterally. - Labs CBC & Chem 7: 05/30/17 16:30 06/01/17 04:50 Labs: Abnormal Lab Results - Last 24 Hours (Table) 05/31/17 05/31/17 06/01/17 Range/Units 18:39 23:55 04:50 Sodium 132 L (137-145) mmol/L Carbon Dioxide 16 L (22-30) mmol/L BUN 67 H (7-17) mg/dL Creatinine 2.70 H (0.52-1.04) mg/dL Glucose 134 H (74-99) mg/dL POC Glucose (mg/dL) 137 H 128 H (75-99) mg/dL 06/01/17 06/01/17 Range/Units 05:16 12:39 Sodium (137-145) mmol/L Carbon Dioxide (22-30) mmol/L BUN (7-17) mg/dL Creatinine (0.52-1.04) mg/dL Glucose (74-99) mg/dL POC Glucose (mg/dL) 137 H 122 H (75-99) mg/dL Microbiology - Last 24 Hours (Table) 05/25/17 19:00 Blood Culture - Final Blood No Growth after 144 hours Assessment and Plan Plan: Assessment 1 acute cardiopulmonary arrest. I think the patient essentially went to respiratory arrest with subsequent cardiac arrest and she was down for less than 10 minutes. The patient during the code received a total of 3 rounds of epinephrine and she was intubated placed on mechanical ventilator and got transferred to the intensive care unit. Patient has developed bilateral pneumonia involving the lower lobes. Rule out aspiration pneumonia. Rule out hospital-acquired pneumonia. Patient was treated adequately with broad- spectrum antibiotics. Cultures of been all negative. She remains on a combination of Zosyn and Levaquin. She is on oxygen at 2 L/m nasal cannula. A chest x-ray showing still persistent lower lobe pulmonary infiltrates and effusions and a large intrathoracic hiatal hernia. 3 shock with profound hypotension , the patient has a preserved LV function with moderate to severe degree of mitral regurgitation. Her shock is improved and the patient recovered nicely with antibiotics and fluids and pressors. Overnight she had to be placed back on norepinephrine infusion in conjunction vasopressin. We'll check her baseline cortisol level and see if there is any absolute or relative adrenal insufficiency. 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 The patient underwent a low AP resection with diverting colostomy. The patient is postop day #10. 5 anemia secondary to lower gastrointestinal bleeding secondary to rectosigmoid mass, 6 hyponatremia, mild, recovered 7 mild non-anion gap metabolic acidosis, improving 8 acute respiratory failure, currently intubated on a mechanical ventilator, secondary to above 9 cerebral palsy, history of with significant permanent AV performance and functional status 10 diabetes mellitus, currently on a sliding scale coverage 11 hyperlipidemia, 12 acute kidney injury, possibly secondary to hypotension-induced ATN. The patient is nonoliguric and the patient's creatinine is down to 2.7 13 history of vasovagal syncope, scoliosis 14 frequent urine infections 15 Limited mobility and the patient has been using a walker based on the family members. The patient also had a limited range of motion the right hand and right wrist area. 16 large intrathoracic hiatal hernia as evident on the patient's chest x-ray. Unable to swallow. The patient is receiving TPN for nutritional support. 17 severe mitral regurgitation with a preserved LV function and secondary pulmonary hypertension. Plan Restart IV fluids with normal saline today to have 75 mL an hour. Check a baseline cortisol level. Wean off norepinephrine infusion and possible. Continue the vasopressin drip. Continue same antibiotic coverage. Aggressive pulmonary toileting. TPN for nutritional support. Daily swallow evaluation. Physical therapy. Surgeries on the case. We'll continue to follow make further recommendations based on her progress. Recovery is somewhat limited based on her underlying comorbid conditions.
[2017-06-01] MEDS: 1: MVI, ADULT NO.4 WITH VIT K 10 ML, TRACE (CONC-1ML/DOSE) 1 ML, PARENTERAL ELECTROLYTES IV SCH ×5 (14:17)
--- NOTE | 2017-06-01 16:32 | P.PN ---
Subjective Mr. Morel is a 76-year-old female who was recently admitted to the [place] [facility] after sustaining fall due to generalized weakness. The patient was brought to the hospital with concerns for GI bleed. Patient had attempted colonoscopy initially on 05/19/2017 and scope could not be passed due to significant obstructing mass. On 05/20/2017 patient was taken to OR for low anterior resection of the sigmoid and colostomy bag placement was done. On 05/21/2017 Agent is more awake and oriented today. Patient is tolerating liquid diet but feels nauseous now, as her chest pain or short of breath. Hemoglobin is stable. Patient is on epidural. On 05/22/2017 Patient says that her nausea is improved. Epidural pain management is being discontinued today. No fever no chills. No complaints of abdominal pain. Patient is tolerating liquid diet today. Otherwise no chest pain or short of breath. On 05/23/2017 Patient is tolerating by mouth liquid diet. She has been moving her bowels and has some stool in the colostomy bag. On 05/24/2017 Patient has been tolerating liquid diet well. Patient has been transferred to a chair beside the bed. Patient has a small amount of stool in the colostomy bag and passing flatus. On 05/25/2017 Last night the patient developed respiratory failure and eventually had cardiac arrest. Patient was resuscitated for a total of 9 minutes. She received 3 doses of epinephrine and received 2 L of IV fluid bolus , intubated and taken to the ICU. As her blood pressure was running her she was also started on pressors . Overnight the patient was given 5 more Lt of IV fluids. Her blood pressure was still running low and she was started on Levophed and vasopressin. The patient subsequently had a chest x-ray was showing a large right lung consolidation, and the patient has a large intrathoracic had a hernia. So most likely that the patient might have aspirated overnight. On 05/26 - Pt is still intubated. CT abdomen was done showing post surgical ileus. Still on vasopressors. NG tube feeds have been started, She had a large bowel movement yesterday. on 05/27/17 Pt. was succcessfull extubated. Pt. is awake but could not speak at this time. Still on Pressor support. no fever/chills. Review of systems - could not be done as the patient is intubated 05/28/17 failed NG placement Continues to be on a trivial dose of levophed and vasopressin to be started on TPN today 05/29/2017 Patient is more awake Is still on a trivial dose of Levophed and vasopressin Still strict nothing by mouth No overnight events reported 05/30/17 of levophed more awake on trivial dose of vasopressin failed swallow eval 05/31/17 awake no new overnight events weak cough on vasopressin 06/01/17 overnight pt needed more vasopressor support failed swallow eval - Exam A 76-year-old female lying in bed in the ICU. awake HEENT: Atraumatic, normocephalic. NECK: Supple. No JVD. CVS: S1, S2 heard. No murmurs, no gallop, no rub. LUNGS: Coarse breath sounds bilaterally. ABDOMEN: Soft, nontender. Colostomy bag is in place. No active bleeding at the site. [employer]: Aable to move all extremities. EXTREMITIES: anasarca Pulses palpable bilaterally. No clubbing or cyanosis. Assessment and Plan Plan: ASSESSMENT Acute cardiopulmonary arrest -downtime of 9-10 mins Right Lung Pneumonia - most likely secondary to Aspiration Septic shock - most likley secondary to above. still on Pressor support Acute blood loss anemia secondary to lower gastrointestinal bleed secondary to sigmoid mass. Hemoglobin stable Sigmoid mass status post low anterior resection and colostomy bag placement colonic ileus. improved Hyponatremia Essential hypertension. Medical debility. Recent urinary tract infection. Chronic diarrhea. Vitamin D deficiency. Acute kidney injury likely multifactorial including ATN due to hypotension and diuretics therafter, improving plan TPN to continue Continue renal function monitoring, improving worsened overnight failed swallow eval obtain cortisol level prognosis is guarded discussed goals of care pulmonary hygeine abx Objective - Vital Signs Vital signs: Vital Signs Temp 98.3 F 06/01/17 12:00 Pulse 80 06/01/17 16:24 Resp 15 06/01/17 15:30 BP 103/45 06/01/17 15:30 Pulse Ox 99 06/01/17 16:13 Intake & Output 05/31/17 06/01/17 06/01/17 18:59 06:59 18:59 Intake Total 1108.5 2163.453 1373.468 Output Total 1250 675 360 Balance -141.5 4158.375 6141.468 Weight 93.4 kg 93.4 kg Intake: IV 112.5 257.0 1224.5 0.9 NS 300 Dextrose 5%-0.9% NaCl 1, 90 90 000 ml @ 10 mls/hr IV . Q24H [facility] Rx#:[id number] Fat Emulsion 20% 250 ml @ 126 21 mls/hr IV MoWeFr [facility] Rx#:[id number] Mvi, Adult No.4 with Vit 664 K 10 ml Trace (Conc-1Ml/ Dose) 1 ml Parenteral Electrolytes 20 ml Sodium Chloride 4Meq/ml Vial 20 meq In Amino Acid 4.25%- D10w 1,000 ml @ 83 mls/hr IV .BY DURATION [facility] Rx#: [id number] Norepinephrin 16 mg-0.9% 0 Ns Pmx 16 mg In 250 ml @ Titrate IV .Q0M [facility] Rx#: [id number] Piperacillin-Tazobactam 3 50.0 62.5 .375 gm In Dextrose/Water 1 50ml.bag @ 12.5 mls/hr IVPB Q12HR [facility] Rx#: [id number] Piperacillin-Tazobactam 3 12.5 .375 gm In Dextrose/Water 1 50ml.bag @ 12.5 mls/hr IVPB Q8HR [facility] Rx#: [id number] Sodium Chloride 0.9% 99 10 117 72 ml @ 0.03 UNITS/MIN 9 mls /hr IV .Q11H7M [facility] with Vasopressin 20 unit Rx#: [id number] Intake, IV Titration 996 827.453 148.968 Amount Levofloxacin 250Mg-D5w 100 Pmx 250 mg In Dextrose/ Water 1 50ml.bag @ 50 mls /hr IVPB Q48H [facility] Rx#: [id number] Mvi, Adult No.4 with Vit 996 K 10 ml Trace (Conc-1Ml/ Dose) 1 ml Parenteral Electrolytes 20 ml Sodium Chloride 4Meq/ml Vial 20 meq In Amino Acid 4.25%- D10w 1,000 ml @ 83 mls/hr IV .BY DURATION [facility] Rx#: [id number] Norepinephrin 16 mg-0.9% 65.236 48.968 Ns Pmx 16 mg In 250 ml @ Titrate IV .Q0M [facility] Rx#: [id number] Parenteral Electrolytes 762.217 20 ml Sodium Chloride 4Meq/ml Vial 12 meq In Amino Acid 4.25%-D10w 1, 000 ml @ 83 mls/hr IV .BY DURATION [facility] Rx#: [id number] TPN/PPN 1079 Mvi, Adult No.4 with Vit 1079 K 10 ml Trace (Conc-1Ml/ Dose) 1 ml Parenteral Electrolytes 20 ml Sodium Chloride 4Meq/ml Vial 16 meq In Amino Acid 4.25%- D10w 1,000 ml @ 83 mls/hr IV .BY DURATION [facility] Rx#: [id number] Output: Drainage 130 60 0 Left Abdomen 10 0 0 Right Abdomen 120 60 Urine 890 615 340 Stool 230 20 Other: Voiding Method Indwelling Catheter Indwelling Catheter Indwelling Catheter # Bowel Movements 1 ABP, PAP, CO, CI - Last Documented Arterial Blood Pressure 94/85 - Labs CBC & Chem 7: 05/30/17 16:30 06/01/17 04:50 Labs: Abnormal Lab Results - Last 24 Hours (Table) 05/31/17 05/31/17 06/01/17 Range/Units 18:39 23:55 04:50 Sodium 132 L (137-145) mmol/L Carbon Dioxide 16 L (22-30) mmol/L BUN 67 H (7-17) mg/dL Creatinine 2.70 H (0.52-1.04) mg/dL Glucose 134 H (74-99) mg/dL POC Glucose (mg/dL) 137 H 128 H (75-99) mg/dL 06/01/17 06/01/17 Range/Units 05:16 12:39 Sodium (137-145) mmol/L Carbon Dioxide (22-30) mmol/L BUN (7-17) mg/dL Creatinine (0.52-1.04) mg/dL Glucose (74-99) mg/dL POC Glucose (mg/dL) 137 H 122 H (75-99) mg/dL Microbiology - Last 24 Hours (Table) 05/25/17 19:00 Blood Culture - Final Blood No Growth after 144 hours
[2017-06-01 17:38] LABS: Glucose,Whole Blood 149 mg/dL (75-99)
[2017-06-01] MEDS: SODIUM CHLORIDE 0.9% 1,000 ML IV SCH (17:39)
[2017-06-01] MEDS: ATORVASTATIN 20 MG TAB PO SCH (20:28)
[2017-06-01 23:37] LABS: Glucose,Whole Blood 131 mg/dL (75-99)
[2017-06-02] MEDS: INSULIN LISPRO (humaLOG) 300 UNIT/3 ML VIAL SQ SCH ×4 (00:37→17:53)
[2017-06-02] MEDS: HEPARIN SODIUM,PORCINE 5,000 UNIT/ML 1 ML VIAL SQ SCH ×3 (00:38→17:36)
[2017-06-02] MEDS: METOCLOPRAMIDE 5 MG/ML 2 ML VIAL IVP SCH ×4 (00:38→17:53)
[2017-06-02] MEDS: 1: MVI, ADULT NO.4 WITH VIT K 10 ML, TRACE (CONC-1ML/DOSE) 1 ML, PARENTERAL ELECTROLYTES IV SCH ×10 (01:56→13:48)
[2017-06-02] MEDS: IPRATROPIUM-ALBUTEROL 3 ML NEB INHALATION SCH ×6 (03:21→23:27)
[2017-06-02 06:37] LABS: Glucose,Whole Blood 139 mg/dL (75-99)
[2017-06-02] MEDS: SODIUM CHLORIDE 0.9% 1,000 ML IV SCH ×2 (06:43→20:40)
[2017-06-02 07:26] LABS: Anisocytosis Slight; Basophils % (A) 0 %; CH 31.2; CHCM 31.8; Eosinophils # (A) 0.2 k/uL (0-0.7); Eosinophils % (A) 2 %; HCT 23.3 % (34.0-46.0); HDW 3.49; HGB 7.3 gm/dL (11.4-16.0); Hypochromasia Slight; Luc # (Auto) 0.18; Luc % (Auto) 2; Lymphocytes # (A) 0.8 k/uL (1.0-4.8); Lymphocytes % (A) 11 %; MCH 31.2 pg (25.0-35.0); MCHC 31.4 g/dL (31.0-37.0); MCV 99.1 fL (80.0-100.0); Macrocytosis Slight; Mean Platelet Volume 8.6; Monocytes # (A) 0.2 k/uL (0-1.0); Monocytes % (A) 3 %; Neutrophils # (A) 6.2 k/uL (1.3-7.7); Neutrophils % (A) 82 %; Poikilocytosis Slight; RBC 2.35 m/uL (3.80-5.40); RDW 16.5 % (11.5-15.5); WBC 7.6 k/uL (3.8-10.6); WBC (Perox) 7.74
[2017-06-02 07:44] LABS: Ionized Calcium 5.4 mg/dL (4.5-5.3)
[2017-06-02] MEDS: SODIUM CHLORIDE 0.9% 99 ML with VASOPRESSIN 20 UNIT IV SCH ×2 (07:56)
[2017-06-02 08:07] LABS: Calcium 8.2 mg/dL (8.4-10.2); Magnesium 1.8 mg/dL (1.6-2.3); Phosphorous 3.1 mg/dL (2.5-4.5); Potassium 3.7 mmol/L (3.5-5.1); Total Bilirubin 0.3 mg/dL (0.2-1.3); Total Protein 4.1 g/dL (6.3-8.2)
--- NOTE | 2017-06-02 08:43 | XR ---
EXAMINATION TYPE: XR chest 1V portable DATE OF EXAM: 06/02/2017 COMPARISON: Prior chest x-ray 06/01/2017 HISTORY: Congestive heart failure TECHNIQUE: Single frontal view of the chest is obtained. FINDINGS: Similar findings are present, there is bilateral airspace disease, prominence of the heart size, central vascularity and interstitium. Left-sided PICC line shows the distal tip overlying the level of the cavoatrial junction. No evident pneumothorax. IMPRESSION: Findings compatible with congestive heart failure, there may be basilar effusions. There is a large hiatal hernia with intrathoracic stomach.
[2017-06-02] MEDS: POTASSIUM CHLORIDE 10 MEQ in WATER FOR INJECTION 1 100ML.BAG IVPB SCH ×2 (09:41→11:03)
[2017-06-02] MEDS: FAMOTIDINE 20 MG/2 ML VIAL IV SCH (09:42)
[2017-06-02] MEDS: PIPERACILLIN-TAZOBACTAM 3.375 GM in DEXTROSE/WATER 1 50ML.BAG IVPB SCH ×2 (09:46→20:03)
[2017-06-02 12:12] LABS: Glucose,Whole Blood 117 mg/dL (75-99)
--- NOTE | 2017-06-02 12:30 | P.PN ---
Subjective 76-year-old female patient who presented to the hospital because of a high grade sigmoid colon obstruction with a suspicious mass. The patient underwent a colonoscopy by gastroenterology and the patient was found to have a partially obstructing mass in the distal sigmoid colon/rectosigmoid junction. The patient was having on and off rectal bleeding. She was rehabilitating at [facility] after a fall due to a generalized weakness. She was having some loose stools over the past few weeks but no significant abdominal pain or GI discomfort. The patient's hemoglobin had dropped down to 7.9 from a baseline of 12 and she was receiving transfusion. Based on all this, the patient was taken to the operating room on 05/23/2017 and the patient underwent a low AP resection with diverting colostomy. 2 abdominal drains also placed. Last night, the patient was found to be in acute respiratory distress.. The patient had a witnessed respiratory arrest and subsequent cardiac arrest. This occurred at around 1:50 AM this morning. Initially the pulse was identified. The patient was resuscitated for a total of 9 minutes and she was given 3 doses of epinephrine 1 mg. She was intubated and placed on a mechanical ventilator. She was given a triple lumen catheter in her right femoral vein. She was given a total of 2 L of IV fluids and her blood pressure remained low in the mid 60s. Following that she was started on pressors which ultimately titrated and she was placed on high-dose epinephrine infusion today to 60 g. The post intubation blood gas showed a pH of 7.15 with a pCO2 of 49 and pO2 of 205 this was an FiO2 of 100% with a PEEP of 5 and tidal volume of 350 and the rate of 14 Overnight the patient was given further fluid resuscitation and she has already received a total of 5 L of IV fluids. Currently she is on vasopressin 0.03 units per minute and she is also on norepinephrine infusion at 40 mics. She started making some urine output. Her urine output over the past 1 hour is around 100 mL an hour. The patient is sedated Diprivan at 40 mics. She would respond to painful stimuli and she would move all 4 extremities once she is taken to lower dose of Diprivan. Meanwhile, the necessity vent changes were done. I increased tidal volume to 450. I put the rate of 24 and drop the FiO2 down to 60%. Subsequent blood gases showed a pH of 7.36 with a pCO2 of 26 and pO2 of 123. Chest x-ray shows a large consolidation of the right lung involving the right middle lobe and right lower lobe. Orogastric tube was placed immediately following intubation and a total of 1600 mL of gastric aspirate was obtained. Note that the chest x-ray preoperatively had shown or the a large intrathoracic hiatal hernia. The patient subsequently had an abdominal x-ray yesterday that was indicating some ileus. The chest x-ray from this morning is showing that the patient has a right lung pneumonia and the OG tube is coiled in the hiatal hernia within the thorax. No gastric material is being suctioned from the TRACHEAL tube although is very much likely the patient could have aspirated. Her white cell count is up to 42. Venous lactate is at 1.7. The patient's colostomy site is functional. There is some minimal amount of fecal material collecting in the colostomy bag. Abdomen is nondistended at this point. Positive lower oximetry is palpable. On 05/26/2017 the patient is being seen in follow-up. The patient is still intubated on a mechanical ventilator. The patient is afebrile. She is doing well on a mechanical ventilator and she is in a assist-control mode at the rate of 24, tidal volume 450, FiO2 is down to 40% and PEEP of 5. Her morning blood gases with a pH of 7.38 with a pCO2 of 23 and pO2 150. Chest x-ray showing small bilateral pleural effusions and infiltrates in lung bases bilaterally. ET tube is in a good location. There is also a triple lumen catheter in place. The patient had a CAT scan of the abdomen and pelvis yesterday that showed lower lobe consolidation of the lungs along with pleural effusions. No intra- abdominal abscess. No other intra-abdominal abnormalities. The patient is a large hiatal hernia. Orogastric tube is in place and the patient will be started on tube feeds today. Colostomy site is healthy and viable looking. Hemodynamically she is improved compared to yesterday. She is on a vasopressin drip at physiologic dose and the patient is also on norepinephrine infusion that was weaned down to 20 mics. The patient is sedated with Diprivan and she is calm and comfortable. The patient remains on a combination of Zosyn and Levaquin and vancomycin. The blood cultures of been negative. The sputum culture been negative. White cell count is improving. Afebrile. Producing adequate amount of urine output. Echocardiogram showed a preserved LV function. There was a severe degree of mitral regurgitation secondary pulmonary hypertension. On 05/27/2017 the patient is being seen in follow-up. Earlier this morning the patient was still intubated on a mechanical ventilator. She was taken off the sedation and she woke up appropriately and she was able to follow commands and move her extremities without any limitation. She had a weak cough. Had rapid shallow breathing index was less than 100. She was given a spontaneous breathing trial with a pressure support of 5 and a PEEP of 5 and following that the patient was extubated to a nasal cannula. Note that the extubation blood gases showed a pH of 7.38 with a pCO2 of 22 and pO2 of 124 and this was done assist-control mode of ventilation with an FiO2 of 40%. The chest x-ray from earlier this morning shows interval improvement of the right lung pneumonia. His left-sided atelectasis and small effusion. Hemodynamically, the patient is still pressor dependent. The patient is on a physiologic dose of vasopressin 0.03 units per minute and the patient is levo fed has been weaned down to 12 mics. She is producing urine output in the order of 20-25 mL an hour. She has however developed an acute kidney injury, probably a hypotension-induced ATN with a creatinine is up to 1.6 and this is a non-oliguric renal failure. She is on broad-spectrum antibiotics which included a combination of Zosyn, Levaquin and vancomycin. Sputum analysis has yielded no positivity and there is no microbial growth for now. The patient has been tolerating her tube feeds. She is receiving enteral nutrition and her colostomy site is functional and intact at this point. No abdominal distention. Trace edema in the lower extremities bilaterally. On 05/28/2017 the patient remains extubated. She is awake and following simple commands. She has a congested cough and the chest x-ray from today shows worsening in the volume status and development of bilateral pleural effusions. There is haziness bilaterally nothing it's related to pleural effusion. The patient has not been fed enterally knowing that there is a concern of the positioning of the NG tube. I discussed this further with Dr. Tristian coy from surgery. We have decided not to feed again due to concern of recurrent aspiration knowing that the patient has a large hiatal hernia. Ultimately she may benefit from a PEG tube or NG tube if she is unable to swallow. She failed her swallow evaluation for the time being. Meanwhile, I thought is reasonable to start the patient on some hyperalimentation via TPN to meet her caloric requirements. She is hemodynamically improving however she has developed an acute kidney injury. Her pressors are much less and currently she is still on a physiologic dose vasopressin and 2-3 mics of norepinephrine infusion. She is however producing less urine output in the creatinine is up to 2.0. She is anemic with a hemoglobin of 7.0. Rest of the electrodes showed a component of non-anion gap metabolic acidosis. Her colostomy site is functional and intact at this point and is viable. No abdominal distention. WALTER drains are all in place. On 05/29/2017 the patient remains extubated. She is much more alert and interactive today. She is being treated with broad-spectrum antibiotics for aspiration pneumonia. Chest x-ray from today shows consolidation in bilateral pleural effusion in addition to a large intrathoracic hiatal hernia. Nevertheless, the volume status is slightly improved compared to yesterday knowing that the patient is being diuresis with IV Lasix 40 mg IV push every 12 hours. The patient has been producing more than 100 mL an hour of urine output on an hourly basis. Her creatinine is up to 2.4 however she is nonoliguric. Rest of the electrodes are all within normal limits. The patient's hemoglobin is stable at 7.1. White cell count is dropped down to 6. She is still on broad -spectrum antibiotics. Abdominal wound is clean and there is some minimal drainage from the WALTER insertion site. The colostomy site is functional and intact and viable. The patient is unable to swallow yet. TPN was started yesterday for nutritional support. IV fluids to KVO. Afebrile. Trying to do adequate pulmonate toileting however she is unable to cough up rest or secretions. Family is at the bedside. On 05/30/2017 the patient remains extubated. The patient is currently off norepinephrine infusion and currently she is only on vasopressin at a low physiologic dose which will hopefully get wean down the discontinued today. She was diuresis over the past 48 hours and I will stop the diuresis knowing that the patient is developing acute kidney injury secondary to prolonged hypotension and the patient is an nonoliguric acute renal failure. This swallow will be rechecked today although I have a high suspicion that the patient will failed the swallow evaluation. Her cough is weak. She has a congested cough. Unable to bring up much sputum. Chest exit shows a large intrathoracic hiatal hernia along with bilateral lower lobe pleural effusions and consolidations. The patient on oxygen at 3 L/m nasal cannula. Resting comfortably in bed. The patient on TPN for nutritional support. This surgical wound site is clean and intact. The patient has 2 WALTER drains with are not actively draining. The patient also has a colostomy site which is viable intact and healthy. The patient is afebrile. IV fluids are to KVO for now. She is on same antibiotic coverage. Her hemoglobin down to 6.9 today and the patient will be receiving a unit of packed RBC. On 05/31/2017 the patient remains extubated. Still on a physiologic dose of vasopressin which was still needed to maintain a blood pressure and a mean above 65. Urine output is adequate. The diuretics have been discontinued. Creatinine is down to 2.4. Received a unit of packed RBC yesterday and hemoglobin is above 8. Afebrile. Awake and alert. Conversing. Failed the swallow evaluation this will be repeated tomorrow. PICC line was inserted. The patient is receiving TPN for nutritional support. She is on 3 L of oxygen nasal cannula. Afebrile. On the same antibiotic coverage. No major swelling in the upper and lower extremities as the patient got diuresis over the past few days. No other significant events overnight. Family is at the bedside. WALTER drains are in place. The upper WALTER drain is not putting much a lot in the lower WALTER drain is having approximately 200 mL of serosanguineous drainage. The abdominal wound is clean and intact. Colostomy site has some liquidy material collecting in the back. The site is viable and functioning at this point. On 06/01/2017 I'm seeing this patient in follow-up. The patient is awake and alert. After having some success with swallowing yesterday, this morning she failed her swallow evaluation again and based on that she was maintained on TPN for nutritional support. In addition there was a setback in terms of her hemodynamics knowing that as of 1:00 in the morning the patient was restarted back on norepinephrine infusion due to drop in the blood pressure. The vasopressin is still on board. The patient was placed as high as 15 mics of norepinephrine infusion and currently is down to 6 mics. She is producing adequate amount of urine output in the order of 35-50 mL an hour. She is also on TPN for nutritional support. IV fluids to KVO. She is on Zosyn and Levaquin. As mentioned earlier, the WALTER drain is above the colostomy site is nondraining and probably out of position and this will be conveyed to the surgeon and see if it's appropriate to put up completely. The lower WALTER drain in her suprapubic area is still draining approximately 40 mL of serosanguineous material per shift. Colostomy site is viable and functional. There is some liquidy material accumulating within the back. This surgical wound site is clean. The angella are all in place. Bowel sounds are hypoactive. Chest x- ray from today shows a large intrathoracic hiatal hernia with bilateral lower lobe pulmonary infiltrates and small effusions. The patient is afebrile for now. She is essentially weak and has poor ability to perform pulmonary toileting. Coughing is weak. We'll try to work with her in terms of incentive spirometer and try to get her into physical therapy with passive range of motion. The family understands the limitation that the patient has related to her disease knowing that she has an underlying cerebral palsy with severe kyphoscoliosis and she has been bedridden even at baseline. As such this may be hindering our ability to fast recovery. This may be an ongoing issue in terms of getting her in a better condition. In terms of her renal function, creatinine is up to 2.7. The patient is nonoliguric. She has suffered an ATN due to profound hypotension. Rest of the electrodes are all within normal limits. Sodium level is normalized up to 132. On , the patient is awake and alert and conversing. A swallow evaluation will be done. He is on few mics of levo fed and I'm going to discontinue the vasopressin infusion today. The cortisol level has been within normal limits. She is still on TPN for nutritional support. Chest x-ray remains unchanged. She still on Zosyn and Levaquin. Abdominal wound and WALTER status is still unchanged. The patient's colostomy site is functional and there are some liquidy material collecting in the colostomy bag. Creatinine is down to 2.5 and the rest of the electrolytes show a component of mild non- [place] gap metabolic acidosis. Objective - Vital Signs Vital signs: Vital Signs Temp 98.1 F 06/02/17 00:00 Pulse 82 06/02/17 11:47 Resp 14 06/02/17 11:30 BP 98/46 06/02/17 11:30 Pulse Ox 100 06/02/17 11:30 Intake & Output 06/01/17 06/02/17 06/02/17 18:59 06:59 18:59 Intake Total 5920.963 2731.0 513 Output Total 485 760 490 Balance 0542.602 4620.0 23 Weight 93.4 kg 93.2 kg Intake: IV 1788.5 1838.0 513 0.9 NS 525 600 400 Fat Emulsion 20% 250 ml @ 189 84 21 21 mls/hr IV MoWeFr [facility] Rx#:[id number] Mvi, Adult No.4 with Vit 913 996 83 K 10 ml Trace (Conc-1Ml/ Dose) 1 ml Parenteral Electrolytes 20 ml Sodium Chloride 4Meq/ml Vial 20 meq In Amino Acid 4.25%- D10w 1,000 ml @ 83 mls/hr IV .BY DURATION [facility] Rx#: [id number] Piperacillin-Tazobactam 3 62.5 50.0 .375 gm In Dextrose/Water 1 50ml.bag @ 12.5 mls/hr IVPB Q12HR [facility] Rx#: [id number] Sodium Chloride 0.9% 99 99 108 9 ml @ 0.03 UNITS/MIN 9 mls /hr IV .Q11H7M [facility] with Vasopressin 20 unit Rx#: [id number] Intake, IV Titration 148.968 Amount Levofloxacin 250Mg-D5w 100 Pmx 250 mg In Dextrose/ Water 1 50ml.bag @ 50 mls /hr IVPB Q48H [facility] Rx#: [id number] Norepinephrin 16 mg-0.9% 48.968 Ns Pmx 16 mg In 250 ml @ Titrate IV .Q0M [facility] Rx#: [id number] Output: Drainage 0 40 120 Left Abdomen 0 0 0 Right Abdomen 40 120 Urine 465 620 370 Stool 20 100 Other: Voiding Method Indwelling Catheter Indwelling Catheter Indwelling Catheter # Voids 1 # Bowel Movements 1 ABP, PAP, CO, CI - Last Documented Arterial Blood Pressure 94/85 - Exam Head exam was generally normal. The patient is awake and following simple commands. The patient is extubated currently on oxygen by nasal cannula at 2 L/ m. There was no scleral icterus or corneal arcus. Mucous membranes were moist. Neck was supple and without jugular venous distension, thyromegaly, or carotid bruits. Carotids were easily palpable bilaterally. There was no adenopathy. Lung sounds are equal and symmetrical bilaterally and there is no significant wheezes overall currently crackles. Heart sounds are regular rate and rhythm normal S1-S2 and there is no significant murmurs appreciated. Abdomen is soft. Nondistended. Colostomy site is viable and functional. The patient has a infraumbilical incision with angella are being replaced. No active drainage. WALTER drains also in place and output is essentially serosanguineous and minimal. Extremities are showing diminished pulses and there is no cyanosis or clubbing. Neurologic the patient is awake. The cough and mechanism is weak. Unable to bring up her respiratory secretions yet. She has cerebral palsy and some chronic contractures in the upper extremities bilaterally. - Labs CBC & Chem 7: 06/02/17 07:12 06/02/17 07:12 Labs: Abnormal Lab Results - Last 24 Hours (Table) 06/01/17 06/01/17 06/01/17 Range/Units 12:39 17:37 23:34 RBC (3.80-5.40) m/uL Hgb (11.4-16.0) gm/dL Hct (34.0-46.0) % RDW (11.5-15.5) % Lymphocytes # (1.0-4.8) k/uL Sodium (137-145) mmol/L Chloride (98-107) mmol/L Carbon Dioxide (22-30) mmol/L BUN (7-17) mg/dL Creatinine (0.52-1.04) mg/dL Glucose (74-99) mg/dL POC Glucose (mg/dL) 122 H 149 H 131 H (75-99) mg/dL Calcium (8.4-10.2) mg/dL Ionized Calcium Misty (4.5-5.3) mg/dL AST (14-36) U/L Total Protein (6.3-8.2) g/dL Albumin (3.5-5.0) g/dL 06/02/17 06/02/17 06/02/17 Range/Units 06:34 07:12 07:12 RBC 2.35 L (3.80-5.40) m/uL Hgb 7.3 L (11.4-16.0) gm/dL Hct 23.3 L (34.0-46.0) % RDW 16.5 H (11.5-15.5) % Lymphocytes # 0.8 L (1.0-4.8) k/uL Sodium 132 L (137-145) mmol/L Chloride 108 H (98-107) mmol/L Carbon Dioxide 17 L (22-30) mmol/L BUN 75 H (7-17) mg/dL Creatinine 2.55 H (0.52-1.04) mg/dL Glucose 120 H (74-99) mg/dL POC Glucose (mg/dL) 139 H (75-99) mg/dL Calcium 8.2 L (8.4-10.2) mg/dL Ionized Calcium Misty 5.4 H (4.5-5.3) mg/dL AST 47 H (14-36) U/L Total Protein 4.1 L (6.3-8.2) g/dL Albumin 1.9 L (3.5-5.0) g/dL 06/02/17 Range/Units 12:10 RBC (3.80-5.40) m/uL Hgb (11.4-16.0) gm/dL Hct (34.0-46.0) % RDW (11.5-15.5) % Lymphocytes # (1.0-4.8) k/uL Sodium (137-145) mmol/L Chloride (98-107) mmol/L Carbon Dioxide (22-30) mmol/L BUN (7-17) mg/dL Creatinine (0.52-1.04) mg/dL Glucose (74-99) mg/dL POC Glucose (mg/dL) 117 H (75-99) mg/dL Calcium (8.4-10.2) mg/dL Ionized Calcium Misty (4.5-5.3) mg/dL AST (14-36) U/L Total Protein (6.3-8.2) g/dL Albumin (3.5-5.0) g/dL Assessment and Plan Plan: Assessment 1 acute cardiopulmonary arrest. I think the patient essentially went to respiratory arrest with subsequent cardiac arrest and she was down for less than 10 minutes. The patient during the code received a total of 3 rounds of epinephrine and she was intubated placed on mechanical ventilator and got transferred to the intensive care unit. Patient has developed bilateral pneumonia involving the lower lobes. Rule out aspiration pneumonia. Rule out hospital-acquired pneumonia. Patient was treated adequately with broad- spectrum antibiotics. Cultures of been all negative. She remains on a combination of Zosyn and Levaquin. She is on oxygen at 2 L/m nasal cannula. A chest x-ray showing still persistent lower lobe pulmonary infiltrates and effusions and a large intrathoracic hiatal hernia. 3 shock with profound hypotension , essentially improved and the patient is on a physiologic dose of vasopressin and a few mics of norepinephrine infusion. Cortisol level within normal limits. Echocardiogram shows a preserved LV function with moderate to severe degree of mitral regurgitation. 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 The patient underwent a low AP resection with diverting colostomy. The patient is postop day #11. 5 anemia secondary to lower gastrointestinal bleeding secondary to rectosigmoid mass, 6 hyponatremia, mild, recovered 7 mild non-anion gap metabolic acidosis, improving 8 acute respiratory failure, currently intubated on a mechanical ventilator, secondary to above 9 cerebral palsy, history of with significant permanent AV performance and functional status 10 diabetes mellitus, currently on a sliding scale coverage 11 hyperlipidemia, 12 acute kidney injury, possibly secondary to hypotension-induced ATN. The patient is nonoliguric and the patient's creatinine is down to 2.5 13 history of vasovagal syncope, scoliosis 14 frequent urine infections 15 Limited mobility and the patient has been using a walker based on the family members. The patient also had a limited range of motion the right hand and right wrist area. 16 large intrathoracic hiatal hernia as evident on the patient's chest x-ray. Unable to swallow. The patient is receiving TPN for nutritional support. 17 severe mitral regurgitation with a preserved LV function and secondary pulmonary hypertension. Plan Proceed with swallow evaluation and see the patient if she is able to pass the swallow test. Stop the vasopressin. Titrate the norepinephrine infusion to keep him map of above 65. Continue same antibiotic coverage. Discuss removing one of the WALTER drains with degenerative surgeon. Physical therapy. Monitor renal function. Avoid nephrotoxic agents. Monitor hemoglobin. Continue TPN for now. We'll continue to follow.
--- NOTE | 2017-06-02 15:52 | P.PN ---
Subjective Mr. Morel is a 76-year-old female who was recently admitted to the long-term after sustaining fall due to generalized weakness. The patient was brought to the hospital with concerns for GI bleed. Patient had attempted colonoscopy initially on 05/19/2017 and scope could not be passed due to significant obstructing mass. On 05/20/2017 patient was taken to OR for low anterior resection of the sigmoid and colostomy bag placement was done. On 05/21/2017 Agent is more awake and oriented today. Patient is tolerating liquid diet but feels nauseous now, as her chest pain or short of breath. Hemoglobin is stable. Patient is on epidural. On 05/22/2017 Patient says that her nausea is improved. Epidural pain management is being discontinued today. No fever no chills. No complaints of abdominal pain. Patient is tolerating liquid diet today. Otherwise no chest pain or short of breath. On 05/23/2017 Patient is tolerating by mouth liquid diet. She has been moving her bowels and has some stool in the colostomy bag. On 05/24/2017 Patient has been tolerating liquid diet well. Patient has been transferred to a chair beside the bed. Patient has a small amount of stool in the colostomy bag and passing flatus. On 05/25/2017 Last night the patient developed respiratory failure and eventually had cardiac arrest. Patient was resuscitated for a total of 9 minutes. She received 3 doses of epinephrine and received 2 L of IV fluid bolus , intubated and taken to the ICU. As her blood pressure was running her she was also started on pressors . Overnight the patient was given 5 more Lt of IV fluids. Her blood pressure was still running low and she was started on Levophed and vasopressin. The patient subsequently had a chest x-ray was showing a large right lung consolidation, and the patient has a large intrathoracic had a hernia. So most likely that the patient might have aspirated overnight. On 05/26 - Pt is still intubated. CT abdomen was done showing post surgical ileus. Still on vasopressors. NG tube feeds have been started, She had a large bowel movement yesterday. on 05/27/17 Pt. was succcessfull extubated. Pt. is awake but could not speak at this time. Still on Pressor support. no fever/chills. Review of systems - could not be done as the patient is intubated 05/28/17 failed NG placement Continues to be on a trivial dose of levophed and vasopressin to be started on TPN today 05/29/2017 Patient is more awake Is still on a trivial dose of Levophed and vasopressin Still strict nothing by mouth No overnight events reported 05/30/17 of levophed more awake on trivial dose of vasopressin failed swallow eval 05/31/17 awake no new overnight events weak cough on vasopressin 06/01/17 overnight pt needed more vasopressor support failed swallow eval 06/02/2017 Patient is awake however he still on these are pressor support Overall no significant change from yesterday - Exam A 76-year-old female lying in bed in the ICU. awake HEENT: Atraumatic, normocephalic. NECK: Supple. No JVD. CVS: S1, S2 heard. No murmurs, no gallop, no rub. LUNGS: Coarse breath sounds bilaterally. ABDOMEN: Soft, nontender. Colostomy bag is in place. No active bleeding at the site. RIGHT OF WAY CUTTER: Aable to move all extremities. EXTREMITIES: anasarca Pulses palpable bilaterally. No clubbing or cyanosis. Assessment and Plan Plan: ASSESSMENT Acute cardiopulmonary arrest -downtime of 9-10 mins Right Lung Pneumonia - most likely secondary to Aspiration Septic shock - most likley secondary to above. still on Pressor support Acute blood loss anemia secondary to lower gastrointestinal bleed secondary to sigmoid mass. Hemoglobin stable Sigmoid mass status post low anterior resection and colostomy bag placement colonic ileus. improved Hyponatremia Essential hypertension. Medical debility. Recent urinary tract infection. Chronic diarrhea. Vitamin D deficiency. Acute kidney injury likely multifactorial including ATN due to hypotension and diuretics therafter, improving plan TPN to continue Continue renal function monitoring, improving worsened overnight Patient is to undergo a swallow study if patient passes will be started on Midrin 10 mg 3 times a day Cortisol level is appropriately elevated there is no relative adrenal insufficiency that is seen with that isolated level pulmonary hygeine abx Objective - Vital Signs Vital signs: Vital Signs Temp 98.2 F 06/02/17 12:00 Pulse 85 06/02/17 14:30 Resp 18 06/02/17 14:30 BP 99/45 06/02/17 14:30 Pulse Ox 99 06/02/17 14:30 Intake & Output 06/01/17 06/02/17 06/02/17 18:59 06:59 18:59 Intake Total 2175.915 4528.0 1039 Output Total 485 760 790 Balance 7155.934 8394.0 249 Weight 93.4 kg 93.2 kg Intake: IV 1788.5 1838.0 839 0.9 NS 525 600 600 Fat Emulsion 20% 250 ml @ 189 84 147 21 mls/hr IV MoWeFr [facility] Rx#:[id number] Mvi, Adult No.4 with Vit 913 996 83 K 10 ml Trace (Conc-1Ml/ Dose) 1 ml Parenteral Electrolytes 20 ml Sodium Chloride 4Meq/ml Vial 20 meq In Amino Acid 4.25%- D10w 1,000 ml @ 83 mls/hr IV .BY DURATION [facility] Rx#: [id number] Piperacillin-Tazobactam 3 62.5 50.0 .375 gm In Dextrose/Water 1 50ml.bag @ 12.5 mls/hr IVPB Q12HR [facility] Rx#: [id number] Sodium Chloride 0.9% 99 99 108 9 ml @ 0.03 UNITS/MIN 9 mls /hr IV .Q11H7M AMAN with Vasopressin 20 unit Rx#: [id number] Intake, IV Titration 055.431 3813 200 Amount Levofloxacin 250Mg-D5w 100 Pmx 250 mg In Dextrose/ Water 1 50ml.bag @ 50 mls /hr IVPB Q48H [facility] Rx#: [id number] Mvi, Adult No.4 with Vit 1036 K 10 ml Trace (Conc-1Ml/ Dose) 1 ml Parenteral Electrolytes 20 ml Sodium Chloride 4Meq/ml Vial 20 meq In Amino Acid 4.25%- D10w 1,000 ml @ 83 mls/hr IV .BY DURATION [facility] Rx#: [id number] Norepinephrin 16 mg-0.9% 48.968 Ns Pmx 16 mg In 250 ml @ Titrate IV .Q0M [facility] Rx#: [id number] Potassium Chloride 10 meq 200 In Water For Injection 1 100ml.bag @ 100 mls/hr IVPB Q1H [facility] Rx#: [id number] Output: Drainage 0 40 120 Left Abdomen 0 0 0 Right Abdomen 40 120 Urine 465 620 670 Stool 20 100 Other: Voiding Method Indwelling Catheter Indwelling Catheter Indwelling Catheter # Voids 1 # Bowel Movements 1 ABP, PAP, CO, CI - Last Documented Arterial Blood Pressure 94/85 - Labs CBC & Chem 7: 06/02/17 07:12 06/02/17 07:12 Labs: Abnormal Lab Results - Last 24 Hours (Table) 06/01/17 06/01/17 06/02/17 Range/Units 17:37 23:34 06:34 RBC (3.80-5.40) m/uL Hgb (11.4-16.0) gm/dL Hct (34.0-46.0) % RDW (11.5-15.5) % Lymphocytes # (1.0-4.8) k/uL Sodium (137-145) mmol/L Chloride (98-107) mmol/L Carbon Dioxide (22-30) mmol/L BUN (7-17) mg/dL Creatinine (0.52-1.04) mg/dL Glucose (74-99) mg/dL POC Glucose (mg/dL) 149 H 131 H 139 H (75-99) mg/dL Calcium (8.4-10.2) mg/dL Ionized Calcium Misty (4.5-5.3) mg/dL AST (14-36) U/L Total Protein (6.3-8.2) g/dL Albumin (3.5-5.0) g/dL 06/02/17 06/02/17 06/02/17 Range/Units 07:12 07:12 12:10 RBC 2.35 L (3.80-5.40) m/uL Hgb 7.3 L (11.4-16.0) gm/dL Hct 23.3 L (34.0-46.0) % RDW 16.5 H (11.5-15.5) % Lymphocytes # 0.8 L (1.0-4.8) k/uL Sodium 132 L (137-145) mmol/L Chloride 108 H (98-107) mmol/L Carbon Dioxide 17 L (22-30) mmol/L BUN 75 H (7-17) mg/dL Creatinine 2.55 H (0.52-1.04) mg/dL Glucose 120 H (74-99) mg/dL POC Glucose (mg/dL) 117 H (75-99) mg/dL Calcium 8.2 L (8.4-10.2) mg/dL Ionized Calcium Misty 5.4 H (4.5-5.3) mg/dL AST 47 H (14-36) U/L Total Protein 4.1 L (6.3-8.2) g/dL Albumin 1.9 L (3.5-5.0) g/dL
--- NOTE | 2017-06-02 15:55 | CDI ---
In responding to this query, please exercise your independent professional judgment. The [facility] Coding Staff and Clinical Documentation Specialists appreciate your assistance in clarifying documentation, maintaining compliance with coding guidelines, accurately documenting patients condition and capturing severity of illness. The fact that a question is asked does not imply that any particular answer is desired or expected. Communication forms are a method of clarifying documentation and are not made part of the Legal Health Record. Thank you in advance for your clarification. Last Revision, January 2016 Mehrdad Caldwell [address] [facility] [place] [address] Documentation Clarification Form 3rd Request Date: 05/25/2017 12:00:00 PM From: Diamond Leone CCS, CCDS Admit Date: 05/17/2017 6:43:00 AM Patient Name: Venessa Morel I Visit Number: [id number] Dr. Venita De Anda 76 yo female, admitted with possible GI bleed, status post Sigmoidoscopy with biopsy for rectal mass, status post Stefan procedure with colostomy. Postoperative, patient went into acute respiratory & cardiac arrest requiring resuscitation, currently in ICU intubated & on mechanical ventilation. History/Risk Factors: DM II, Hypertension, Recurrent UTIs, Cerebral palsy, recent fall with admission to rehab. Clinical Indicators: VS postop 05/25: P 103-117, R 26-28, BP 122/69-77/51, PO 95 on nrb. Lung/Breathing assessment: SOB, labored, shallow, prior to intubation. ABG/CBG: pH 7.15*, pCO2 49^, pHCO3 16 Treatment: Intubated on vent, IV Dilaudid, IV Dextrose, Albuterol INH, IV Lasix , IV Narcan, IV Norepinephrine, IV Diprivan, IV Vanco, IV fluid bolus x2, IV MagSulfate. In your professional opinion, can you please clarify if these findings signify one of the following conditions regarding they type of Acute Respiratory failure , please also identify if the condition has resolved. Acuity: o Acute o Chronic o Acute on Chronic Respiratory Status: o Respiratory failure with hypercapnia o Respiratory failure with hypoxia o Other Diagnosis, please specify o Unable to determine Please document in your progress notes and discharge summary in order to capture severity of illness and risk of mortality. Include clinical findings that support your diagnosis. FYI: Press F11 to launch patient chart. Thank You. DWAIN
--- NOTE | 2017-06-02 16:12 | FL ---
Modified barium swallow. HISTORY: Dysphagia. Modified barium swallow was performed with the department of speech pathology. The patient was prese nted with various consistencies of barium. There is no evidence for aspiration. Mild transient penetration with nectar thick barium. Full report is to follow from the department of speech pathology. Impression: Mild transient penetration with nectar thick barium.
[2017-06-02] MEDS: MIDODRINE 5 MG TAB PO SCH (17:36)
--- NOTE | 2017-06-02 17:44 | P.PN ---
Progress Note - Text The patient remains in the ICU. She is resting comfortably in her bed. Apparently she is scheduled for another swallow evaluation. On exam her vital signs appear stable. She is almost entirely weaned off her pressors. Her abdomen is soft. Her stoma has some small amount of liquid stool in it. CARCINOMA ASPIRATION SECONDARY TO LARGE HIATAL HERNIA PATIENT WILL UNDERGO SWALLOW EVAL. IF SHE FAILS HER SWALLOW EVALUATION. WE WILL NEED TO PLACE A FEEDING J-TUBE. DUE TO HER POOR RAMIREZ STATUS THIS WILL BE DELAYED UNTIL HER PULMONARY FUNCTION HAS IMPROVED.
[2017-06-02 17:52] LABS: Glucose,Whole Blood 125 mg/dL (75-99)
[2017-06-02] MEDS: HYDROcodone/APAP 5-325MG 1 EACH TAB PO PRN (18:09)
[2017-06-02] MEDS: ATORVASTATIN 20 MG TAB PO SCH (21:34)
[2017-06-02 23:58] LABS: Glucose,Whole Blood 135 mg/dL (75-99)
[2017-06-03] MEDS: HEPARIN SODIUM,PORCINE 5,000 UNIT/ML 1 ML VIAL SQ SCH ×3 (00:16→15:21)
[2017-06-03] MEDS: METOCLOPRAMIDE 5 MG/ML 2 ML VIAL IVP SCH ×4 (00:16→19:58)
[2017-06-03] MEDS: INSULIN LISPRO (humaLOG) 300 UNIT/3 ML VIAL SQ SCH ×4 (00:17→18:30)
[2017-06-03] MEDS: 1: MVI, ADULT NO.4 WITH VIT K 10 ML, TRACE (CONC-1ML/DOSE) 1 ML, PARENTERAL ELECTROLYTES IV SCH ×5 (02:32)
[2017-06-03] MEDS: IPRATROPIUM-ALBUTEROL 3 ML NEB INHALATION SCH ×6 (03:53→23:38)
[2017-06-03 04:51] LABS: Ionized Calcium 5.5 mg/dL (4.5-5.3)
[2017-06-03 04:53] LABS: Anisocytosis Slight; Basophils % (A) 0 %; CH 30.7; CHCM 30.8; Eosinophils # (A) 0.4 k/uL (0-0.7); Eosinophils % (A) 3 %; HCT 27.8 % (34.0-46.0); HDW 3.57; Hypochromasia Marked; Luc # (Auto) 0.35; Luc % (Auto) 3; Lymphocytes # (A) 1.7 k/uL (1.0-4.8); Lymphocytes % (A) 13 %; MCH 31.6 pg (25.0-35.0); MCHC 31.4 g/dL (31.0-37.0); MCV 100.6 fL (80.0-100.0); Macrocytosis Slight; Mean Platelet Volume 7.8; Monocytes # (A) 0.4 k/uL (0-1.0); Monocytes % (A) 3 %; Neutrophils # (A) 10.7 k/uL (1.3-7.7); Neutrophils % (A) 79 %; Poikilocytosis Slight; RBC 2.77 m/uL (3.80-5.40); RDW 16.5 % (11.5-15.5); WBC 13.6 k/uL (3.8-10.6); WBC (Perox) 13.55
[2017-06-03 05:00] LABS: Calcium 8.7 mg/dL (8.4-10.2); Magnesium 1.8 mg/dL (1.6-2.3); Phosphorous 2.7 mg/dL (2.5-4.5)
[2017-06-03 05:08] LABS: HGB 8.8 gm/dL (11.4-16.0)
[2017-06-03] MEDS: NOREPINEPHRIN 16 MG-0.9%NS PMX 16 MG/250 ML ML IV SCH ×2 (05:27→23:09)
[2017-06-03 05:51] LABS: Glucose,Whole Blood 135 mg/dL (75-99)
--- NOTE | 2017-06-03 07:24 | XR ---
EXAMINATION TYPE: XR chest 1V portable DATE OF EXAM: 06/03/2017 HISTORY: pneumonia and CHF. REFERENCE: Previous study dated 06/02/2017. FINDINGS: A left basilic PICC line remains in place unchanged in appearance. The heart is enlarged. There is vascular congestion and pulmonary edema. There is confluent right bas ilar airspace opacity which may represent confluent edema or pneumonia. There are bilateral effusions . IMPRESSION: 1. CONTINUING CHANGES OF CONGESTIVE HEART FAILURE. 2. CARDIOMEGALY. 3. BILATERAL EFFUSIONS. 4. CONFLUENT, BIBASILAR AIRSPACE DISEASE.
[2017-06-03] MEDS: FAT EMULSION 20% 250 ML IV SCH (08:09)
[2017-06-03] MEDS: LEVOFLOXACIN 250MG-D5W PMX 250 MG in DEXTROSE/WATER 1 50ML.BAG IVPB SCH (08:09)
[2017-06-03] MEDS: MIDODRINE 5 MG TAB PO SCH ×3 (08:10→19:06)
[2017-06-03] MEDS: FAMOTIDINE 20 MG/2 ML VIAL IV SCH (08:11)
[2017-06-03] MEDS: PIPERACILLIN-TAZOBACTAM 3.375 GM in DEXTROSE/WATER 1 50ML.BAG IVPB SCH ×2 (09:54→20:24)
[2017-06-03 12:18] LABS: Glucose,Whole Blood 137 mg/dL (75-99)
[2017-06-03] MEDS: HYDROcodone/APAP 5-325MG 1 EACH TAB PO PRN (13:22)
[2017-06-03] MEDS: 1: MVI, ADULT NO.4 WITH VIT K 10 ML, TRACE (CONC-1ML/DOSE) 1 ML, POTASSIUM ACETATE 40 ME IV SCH ×7 (14:32)
[2017-06-03] MEDS: SODIUM CHLORIDE 0.9% 1,000 ML IV SCH (14:34)
--- NOTE | 2017-06-03 14:58 | P.PN ---
Subjective 76-year-old female patient who presented to the hospital because of a high grade sigmoid colon obstruction with a suspicious mass. The patient underwent a colonoscopy by gastroenterology and the patient was found to have a partially obstructing mass in the distal sigmoid colon/rectosigmoid junction. The patient was having on and off rectal bleeding. She was rehabilitating at [facility] after a fall due to a generalized weakness. She was having some loose stools over the past few weeks but no significant abdominal pain or GI discomfort. The patient's hemoglobin had dropped down to 7.9 from a baseline of 12 and she was receiving transfusion. Based on all this, the patient was taken to the operating room on 05/23/2017 and the patient underwent a low AP resection with diverting colostomy. 2 abdominal drains also placed. Last night, the patient was found to be in acute respiratory distress.. The patient had a witnessed respiratory arrest and subsequent cardiac arrest. This occurred at around 1:50 AM this morning. Initially the pulse was identified. The patient was resuscitated for a total of 9 minutes and she was given 3 doses of epinephrine 1 mg. She was intubated and placed on a mechanical ventilator. She was given a triple lumen catheter in her right femoral vein. She was given a total of 2 L of IV fluids and her blood pressure remained low in the mid 60s. Following that she was started on pressors which ultimately titrated and she was placed on high-dose epinephrine infusion today to 60 g. The post intubation blood gas showed a pH of 7.15 with a pCO2 of 49 and pO2 of 205 this was an FiO2 of 100% with a PEEP of 5 and tidal volume of 350 and the rate of 14 Overnight the patient was given further fluid resuscitation and she has already received a total of 5 L of IV fluids. Currently she is on vasopressin 0.03 units per minute and she is also on norepinephrine infusion at 40 mics. She started making some urine output. Her urine output over the past 1 hour is around 100 mL an hour. The patient is sedated Diprivan at 40 mics. She would respond to painful stimuli and she would move all 4 extremities once she is taken to lower dose of Diprivan. Meanwhile, the necessity vent changes were done. I increased tidal volume to 450. I put the rate of 24 and drop the FiO2 down to 60%. Subsequent blood gases showed a pH of 7.36 with a pCO2 of 26 and pO2 of 123. Chest x-ray shows a large consolidation of the right lung involving the right middle lobe and right lower lobe. Orogastric tube was placed immediately following intubation and a total of 1600 mL of gastric aspirate was obtained. Note that the chest x-ray preoperatively had shown or the a large intrathoracic hiatal hernia. The patient subsequently had an abdominal x-ray yesterday that was indicating some ileus. The chest x-ray from this morning is showing that the patient has a right lung pneumonia and the OG tube is coiled in the hiatal hernia within the thorax. No gastric material is being suctioned from the TRACHEAL tube although is very much likely the patient could have aspirated. Her white cell count is up to 42. Venous lactate is at 1.7. The patient's colostomy site is functional. There is some minimal amount of fecal material collecting in the colostomy bag. Abdomen is nondistended at this point. Positive lower oximetry is palpable. On 05/26/2017 the patient is being seen in follow-up. The patient is still intubated on a mechanical ventilator. The patient is afebrile. She is doing well on a mechanical ventilator and she is in a assist-control mode at the rate of 24, tidal volume 450, FiO2 is down to 40% and PEEP of 5. Her morning blood gases with a pH of 7.38 with a pCO2 of 23 and pO2 150. Chest x-ray showing small bilateral pleural effusions and infiltrates in lung bases bilaterally. ET tube is in a good location. There is also a triple lumen catheter in place. The patient had a CAT scan of the abdomen and pelvis yesterday that showed lower lobe consolidation of the lungs along with pleural effusions. No intra- abdominal abscess. No other intra-abdominal abnormalities. The patient is a large hiatal hernia. Orogastric tube is in place and the patient will be started on tube feeds today. Colostomy site is healthy and viable looking. Hemodynamically she is improved compared to yesterday. She is on a vasopressin drip at physiologic dose and the patient is also on norepinephrine infusion that was weaned down to 20 mics. The patient is sedated with Diprivan and she is calm and comfortable. The patient remains on a combination of Zosyn and Levaquin and vancomycin. The blood cultures of been negative. The sputum culture been negative. White cell count is improving. Afebrile. Producing adequate amount of urine output. Echocardiogram showed a preserved LV function. There was a severe degree of mitral regurgitation secondary pulmonary hypertension. On 05/27/2017 the patient is being seen in follow-up. Earlier this morning the patient was still intubated on a mechanical ventilator. She was taken off the sedation and she woke up appropriately and she was able to follow commands and move her extremities without any limitation. She had a weak cough. Had rapid shallow breathing index was less than 100. She was given a spontaneous breathing trial with a pressure support of 5 and a PEEP of 5 and following that the patient was extubated to a nasal cannula. Note that the extubation blood gases showed a pH of 7.38 with a pCO2 of 22 and pO2 of 124 and this was done assist-control mode of ventilation with an FiO2 of 40%. The chest x-ray from earlier this morning shows interval improvement of the right lung pneumonia. His left-sided atelectasis and small effusion. Hemodynamically, the patient is still pressor dependent. The patient is on a physiologic dose of vasopressin 0.03 units per minute and the patient is levo fed has been weaned down to 12 mics. She is producing urine output in the order of 20-25 mL an hour. She has however developed an acute kidney injury, probably a hypotension-induced ATN with a creatinine is up to 1.6 and this is a non-oliguric renal failure. She is on broad-spectrum antibiotics which included a combination of Zosyn, Levaquin and vancomycin. Sputum analysis has yielded no positivity and there is no microbial growth for now. The patient has been tolerating her tube feeds. She is receiving enteral nutrition and her colostomy site is functional and intact at this point. No abdominal distention. Trace edema in the lower extremities bilaterally. On 05/28/2017 the patient remains extubated. She is awake and following simple commands. She has a congested cough and the chest x-ray from today shows worsening in the volume status and development of bilateral pleural effusions. There is haziness bilaterally nothing it's related to pleural effusion. The patient has not been fed enterally knowing that there is a concern of the positioning of the NG tube. I discussed this further with Dr. Tristian coy from surgery. We have decided not to feed again due to concern of recurrent aspiration knowing that the patient has a large hiatal hernia. Ultimately she may benefit from a PEG tube or NG tube if she is unable to swallow. She failed her swallow evaluation for the time being. Meanwhile, I thought is reasonable to start the patient on some hyperalimentation via TPN to meet her caloric requirements. She is hemodynamically improving however she has developed an acute kidney injury. Her pressors are much less and currently she is still on a physiologic dose vasopressin and 2-3 mics of norepinephrine infusion. She is however producing less urine output in the creatinine is up to 2.0. She is anemic with a hemoglobin of 7.0. Rest of the electrodes showed a component of non-anion gap metabolic acidosis. Her colostomy site is functional and intact at this point and is viable. No abdominal distention. WALTER drains are all in place. On 05/29/2017 the patient remains extubated. She is much more alert and interactive today. She is being treated with broad-spectrum antibiotics for aspiration pneumonia. Chest x-ray from today shows consolidation in bilateral pleural effusion in addition to a large intrathoracic hiatal hernia. Nevertheless, the volume status is slightly improved compared to yesterday knowing that the patient is being diuresis with IV Lasix 40 mg IV push every 12 hours. The patient has been producing more than 100 mL an hour of urine output on an hourly basis. Her creatinine is up to 2.4 however she is nonoliguric. Rest of the electrodes are all within normal limits. The patient's hemoglobin is stable at 7.1. White cell count is dropped down to 6. She is still on broad -spectrum antibiotics. Abdominal wound is clean and there is some minimal drainage from the WALTER insertion site. The colostomy site is functional and intact and viable. The patient is unable to swallow yet. TPN was started yesterday for nutritional support. IV fluids to KVO. Afebrile. Trying to do adequate pulmonate toileting however she is unable to cough up rest or secretions. Family is at the bedside. On 05/30/2017 the patient remains extubated. The patient is currently off norepinephrine infusion and currently she is only on vasopressin at a low physiologic dose which will hopefully get wean down the discontinued today. She was diuresis over the past 48 hours and I will stop the diuresis knowing that the patient is developing acute kidney injury secondary to prolonged hypotension and the patient is an nonoliguric acute renal failure. This swallow will be rechecked today although I have a high suspicion that the patient will failed the swallow evaluation. Her cough is weak. She has a congested cough. Unable to bring up much sputum. Chest exit shows a large intrathoracic hiatal hernia along with bilateral lower lobe pleural effusions and consolidations. The patient on oxygen at 3 L/m nasal cannula. Resting comfortably in bed. The patient on TPN for nutritional support. This surgical wound site is clean and intact. The patient has 2 WALTER drains with are not actively draining. The patient also has a colostomy site which is viable intact and healthy. The patient is afebrile. IV fluids are to KVO for now. She is on same antibiotic coverage. Her hemoglobin down to 6.9 today and the patient will be receiving a unit of packed RBC. On 05/31/2017 the patient remains extubated. Still on a physiologic dose of vasopressin which was still needed to maintain a blood pressure and a mean above 65. Urine output is adequate. The diuretics have been discontinued. Creatinine is down to 2.4. Received a unit of packed RBC yesterday and hemoglobin is above 8. Afebrile. Awake and alert. Conversing. Failed the swallow evaluation this will be repeated tomorrow. PICC line was inserted. The patient is receiving TPN for nutritional support. She is on 3 L of oxygen nasal cannula. Afebrile. On the same antibiotic coverage. No major swelling in the upper and lower extremities as the patient got diuresis over the past few days. No other significant events overnight. Family is at the bedside. WALTER drains are in place. The upper WALTER drain is not putting much a lot in the lower WALTER drain is having approximately 200 mL of serosanguineous drainage. The abdominal wound is clean and intact. Colostomy site has some liquidy material collecting in the back. The site is viable and functioning at this point. On 06/01/2017 I'm seeing this patient in follow-up. The patient is awake and alert. After having some success with swallowing yesterday, this morning she failed her swallow evaluation again and based on that she was maintained on TPN for nutritional support. In addition there was a setback in terms of her hemodynamics knowing that as of 1:00 in the morning the patient was restarted back on norepinephrine infusion due to drop in the blood pressure. The vasopressin is still on board. The patient was placed as high as 15 mics of norepinephrine infusion and currently is down to 6 mics. She is producing adequate amount of urine output in the order of 35-50 mL an hour. She is also on TPN for nutritional support. IV fluids to KVO. She is on Zosyn and Levaquin. As mentioned earlier, the WALTER drain is above the colostomy site is nondraining and probably out of position and this will be conveyed to the surgeon and see if it's appropriate to put up completely. The lower WALTER drain in her suprapubic area is still draining approximately 40 mL of serosanguineous material per shift. Colostomy site is viable and functional. There is some liquidy material accumulating within the back. This surgical wound site is clean. The nela are all in place. Bowel sounds are hypoactive. Chest x- ray from today shows a large intrathoracic hiatal hernia with bilateral lower lobe pulmonary infiltrates and small effusions. The patient is afebrile for now. She is essentially weak and has poor ability to perform pulmonary toileting. Coughing is weak. We'll try to work with her in terms of incentive spirometer and try to get her into physical therapy with passive range of motion. The family understands the limitation that the patient has related to her disease knowing that she has an underlying cerebral palsy with severe kyphoscoliosis and she has been bedridden even at baseline. As such this may be hindering our ability to fast recovery. This may be an ongoing issue in terms of getting her in a better condition. In terms of her renal function, creatinine is up to 2.7. The patient is nonoliguric. She has suffered an ATN due to profound hypotension. Rest of the electrodes are all within normal limits. Sodium level is normalized up to 132. On , the patient is awake and alert and conversing. A swallow evaluation will be done. He is on few mics of levo fed and I'm going to discontinue the vasopressin infusion today. The cortisol level has been within normal limits. She is still on TPN for nutritional support. Chest x-ray remains unchanged. She still on Zosyn and Levaquin. Abdominal wound and WALTER status is still unchanged. The patient's colostomy site is functional and there are some liquidy material collecting in the colostomy bag. Creatinine is down to 2.5 and the rest of the electrolytes show a component of mild non- [place] gap metabolic acidosis. On 05/26/2017 I'm seeing this patient in follow-up. Hemodynamically she is off vasopressin however overnight her norepinephrine infusion had to be titrated to bring her mean arterial pressure above 65. She is currently up to 10 mics of levo fed infusion. She is producing adequate amount of urine output. Her creatinine is down to 2.4. She is producing urine output more than 20s to 30 mL an hour. She is awake and alert. She is conversing. She was able to swallow and she is taking applesauce today. She is still on TPN for dentures support which is being infused through a left upper extremity PICC line. No fever. No chills. Chest x-ray findings remain unchanged and the patient has a large hiatal hernia but the lower lobe consolidation. Her cough has somewhat subsided. The WALTER drain that was not active was removed and there is only one WALTER drain is in place. The surgical wound site is dry clean and intact. Nela are all in place. Colostomy site is viable and function and there is some minimal amount of drainage of gastric or gastrointestinal material. She is still on a combination of Zosyn and Levaquin. Family is at the bedside. The barium swallow was completed and the patient was found to have a mild transient penetration with nectar thick barium. Objective - Vital Signs Vital signs: Vital Signs Temp 97.1 F L 06/03/17 12:00 Pulse 91 06/03/17 13:30 Resp 24 06/03/17 13:30 BP 94/51 06/03/17 13:30 Pulse Ox 95 06/03/17 13:30 Intake & Output 06/02/17 06/03/17 06/03/17 18:59 06:59 18:59 Intake Total 2447 1811.564 636.5 Output Total 1250 1800 385 Balance 1197 11.564 251.5 Weight 93.2 kg Intake: IV 1223 1671.0 636.5 0.9 NS 900 625 50 Fat Emulsion 20% 250 ml @ 231 84 21 mls/hr IV MoWeFr [facility] Rx#:[id number] Mvi, Adult No.4 with Vit 83 K 10 ml Trace (Conc-1Ml/ Dose) 1 ml Parenteral Electrolytes 20 ml Sodium Chloride 4Meq/ml Vial 16 meq In Amino Acid 4.25%- D10w 1,000 ml @ 83 mls/hr IV .BY DURATION [facility] Rx#: [id number] Mvi, Adult No.4 with Vit 83 83 K 10 ml Trace (Conc-1Ml/ Dose) 1 ml Parenteral Electrolytes 20 ml Sodium Chloride 4Meq/ml Vial 20 meq In Amino Acid 4.25%- D10w 1,000 ml @ 83 mls/hr IV .BY DURATION [facility] Rx#: [id number] Parenteral Electrolytes 830 415 20 ml Sodium Chloride 4Meq/ml Vial 16 meq In Amino Acid 4.25%-D10w 1, 000 ml @ 83 mls/hr IV .BY DURATION [facility] Rx#: [id number] Piperacillin-Tazobactam 3 50.0 87.5 .375 gm In Dextrose/Water 1 50ml.bag @ 12.5 mls/hr IVPB Q12HR [facility] Rx#: [id number] Sodium Chloride 0.9% 99 9 ml @ 0.03 UNITS/MIN 9 mls /hr IV .Q11H7M [facility] with Vasopressin 20 unit Rx#: [id number] Intake, IV Titration 1224 140.564 Amount Norepinephrin 16 mg-0.9% 140.564 Ns Pmx 16 mg In 250 ml @ Titrate IV .Q0M [facility] Rx#: [id number] Parenteral Electrolytes 1024 20 ml Sodium Chloride 4Meq/ml Vial 16 meq In Amino Acid 4.25%-D10w 1, 000 ml @ 83 mls/hr IV .BY DURATION [facility] Rx#: [id number] Potassium Chloride 10 meq 200 In Water For Injection 1 100ml.bag @ 100 mls/hr IVPB Q1H [facility] Rx#: [id number] Output: Drainage 170 50 Left Abdomen 0 Right Abdomen 170 50 Urine 1030 1600 385 Stool 50 150 Other: Voiding Method Indwelling Catheter Indwelling Catheter Indwelling Catheter # Voids 1 1 ABP, PAP, CO, CI - Last Documented Arterial Blood Pressure 94/85 - Exam Head exam was generally normal. The patient is awake and following simple commands. The patient is extubated currently on oxygen by nasal cannula at 2 L/ m. There was no scleral icterus or corneal arcus. Mucous membranes were moist. Neck was supple and without jugular venous distension, thyromegaly, or carotid bruits. Carotids were easily palpable bilaterally. There was no adenopathy. Lung sounds are equal and symmetrical bilaterally and there is no significant wheezes overall currently crackles. Heart sounds are regular rate and rhythm normal S1-S2 and there is no significant murmurs appreciated. Abdomen is soft. Nondistended. Colostomy site is viable and functional. The patient has a infraumbilical incision with nela are being replaced. No active drainage. WALTER drains also in place and output is essentially serosanguineous and minimal. Extremities are showing diminished pulses and there is no cyanosis or clubbing. Neurologic the patient is awake. The cough and mechanism is weak. Unable to bring up her respiratory secretions yet. She has cerebral palsy and some chronic contractures in the upper extremities bilaterally. - Labs CBC & Chem 7: 06/03/17 04:22 06/03/17 04:22 Labs: Abnormal Lab Results - Last 24 Hours (Table) 06/02/17 06/02/17 06/03/17 Range/Units 17:51 23:57 04:22 WBC (3.8-10.6) k/uL RBC (3.80-5.40) m/uL Hgb (11.4-16.0) gm/dL Hct (34.0-46.0) % MCV (80.0-100.0) fL RDW (11.5-15.5) % Neutrophils # (1.3-7.7) k/uL Sodium 134 L (137-145) mmol/L Chloride 111 H (98-107) mmol/L Carbon Dioxide 13 L (22-30) mmol/L BUN 84 H* (7-17) mg/dL Creatinine 2.40 H (0.52-1.04) mg/dL Glucose 117 H (74-99) mg/dL POC Glucose (mg/dL) 125 H 135 H (75-99) mg/dL Ionized Calcium Misty 5.5 H (4.5-5.3) mg/dL 06/03/17 06/03/17 06/03/17 Range/Units 04:22 05:49 12:15 WBC 13.6 H (3.8-10.6) k/uL RBC 2.77 L (3.80-5.40) m/uL Hgb 8.8 L D (11.4-16.0) gm/dL Hct 27.8 L (34.0-46.0) % MCV 100.6 H (80.0-100.0) fL RDW 16.5 H (11.5-15.5) % Neutrophils # 10.7 H (1.3-7.7) k/uL Sodium (137-145) mmol/L Chloride (98-107) mmol/L Carbon Dioxide (22-30) mmol/L BUN (7-17) mg/dL Creatinine (0.52-1.04) mg/dL Glucose (74-99) mg/dL POC Glucose (mg/dL) 135 H 137 H (75-99) mg/dL Ionized Calcium Misty (4.5-5.3) mg/dL Assessment and Plan Plan: Assessment 1 acute cardiopulmonary arrest. I think the patient essentially went to respiratory arrest with subsequent cardiac arrest and she was down for less than 10 minutes. The patient during the code received a total of 3 rounds of epinephrine and she was intubated placed on mechanical ventilator and got transferred to the intensive care unit. Patient has developed bilateral pneumonia involving the lower lobes. Rule out aspiration pneumonia. Rule out hospital-acquired pneumonia. Patient was treated adequately with broad- spectrum antibiotics. Cultures of been all negative. She remains on a combination of Zosyn and Levaquin. She is on oxygen at 2 L/m nasal cannula. A chest x-ray showing still persistent lower lobe pulmonary infiltrates and effusions and a large intrathoracic hiatal hernia. 3 shock with profound hypotension , and the patient remains pressor dependent. The exact cause is not clear. Rule out underlying infection/septicemia. Note that at one point the patient was taken off the pressors and she had to be placed back again. She has moderate to severe degree of mitral regurgitation. She has a preserved LV function. She has normal cortisol levels. Zosyn and Levaquin are antibiotic coverage and all of the blood cultures of been negative. Surgical site is dry clean and intact. 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 The patient underwent a low AP resection with diverting colostomy. The patient is postop day #12. 5 anemia secondary to lower gastrointestinal bleeding secondary to rectosigmoid mass, 6 hyponatremia, mild, recovered 7 mild non-anion gap metabolic acidosis, improving 8 acute respiratory failure, currently intubated on a mechanical ventilator, secondary to above 9 cerebral palsy, history of with significant permanent AV performance and functional status 10 diabetes mellitus, currently on a sliding scale coverage 11 hyperlipidemia, 12 acute kidney injury, possibly secondary to hypotension-induced ATN. The patient is nonoliguric and the patient's creatinine is down to 2.4 13 history of vasovagal syncope, scoliosis 14 frequent urine infections 15 Limited mobility and the patient has been using a walker based on the family members. The patient also had a limited range of motion the right hand and right wrist area. 16 large intrathoracic hiatal hernia as evident on the patient's chest x-ray. Unable to swallow. The patient is receiving TPN for nutritional support. 17 severe mitral regurgitation with a preserved LV function and secondary pulmonary hypertension. Plan Gradually advance diet as tolerated. Continue TPN for now. Obtain 2 sets of blood cultures. Obtain a CAT scan of the chest without contrast to characterized abnormalities in her chest and see if there is any role for modifying antibiotics and or performing any thoracentesis should there be any significant pleural fluid accumulation. Monitor renal function. Physical therapy. We'll continue to follow.
[2017-06-03] MEDS: MAGNESIUM SULFATE-D5W PMX 1 GM in DEXTROSE/WATER 1 100ML.BAG IVPB SCH ×2 (15:20→16:59)
--- NOTE | 2017-06-03 16:15 | P.PN ---
Progress Note - Text The patient is seen on rounds for Dr. Levy. She's not doing well from a swallow standpoint. Nurses say that she's been approved for small amounts of thickened liquids. She does not appear to be tolerating that according to them. Abdomen: Soft, positive bowel sounds, incision healing Assessment: Status post sigmoid resection. Dysphagia/aspiration. Protein calorie malnutrition Plan: Continue TPN and supportive care for her respiratory status. Will likely need a jejunostomy tube next week once her pulmonary situation improves.
[2017-06-03] MEDS ORDERED: PROPOFOL 1,000 MG/100 ML VIAL IV ONE (16:34)
--- NOTE | 2017-06-03 16:52 | P.PN ---
Subjective Mr. Morel is a 76-year-old female who was recently admitted to the senior living after sustaining fall due to generalized weakness. The patient was brought to the hospital with concerns for GI bleed. Patient had attempted colonoscopy initially on 05/19/2017 and scope could not be passed due to significant obstructing mass. On 05/20/2017 patient was taken to OR for low anterior resection of the sigmoid and colostomy bag placement was done. On 05/21/2017 Agent is more awake and oriented today. Patient is tolerating liquid diet but feels nauseous now, as her chest pain or short of breath. Hemoglobin is stable. Patient is on epidural. On 05/22/2017 Patient says that her nausea is improved. Epidural pain management is being discontinued today. No fever no chills. No complaints of abdominal pain. Patient is tolerating liquid diet today. Otherwise no chest pain or short of breath. On 05/23/2017 Patient is tolerating by mouth liquid diet. She has been moving her bowels and has some stool in the colostomy bag. On 05/24/2017 Patient has been tolerating liquid diet well. Patient has been transferred to a chair beside the bed. Patient has a small amount of stool in the colostomy bag and passing flatus. On 05/25/2017 Last night the patient developed respiratory failure and eventually had cardiac arrest. Patient was resuscitated for a total of 9 minutes. She received 3 doses of epinephrine and received 2 L of IV fluid bolus , intubated and taken to the ICU. As her blood pressure was running her she was also started on pressors . Overnight the patient was given 5 more Lt of IV fluids. Her blood pressure was still running low and she was started on Levophed and vasopressin. The patient subsequently had a chest x-ray was showing a large right lung consolidation, and the patient has a large intrathoracic had a hernia. So most likely that the patient might have aspirated overnight. On 05/26 - Pt is still intubated. CT abdomen was done showing post surgical ileus. Still on vasopressors. NG tube feeds have been started, She had a large bowel movement yesterday. on 05/27/17 Pt. was succcessfull extubated. Pt. is awake but could not speak at this time. Still on Pressor support. no fever/chills. Review of systems - could not be done as the patient is intubated 05/28/17 failed NG placement Continues to be on a trivial dose of levophed and vasopressin to be started on TPN today 05/29/2017 Patient is more awake Is still on a trivial dose of Levophed and vasopressin Still strict nothing by mouth No overnight events reported 05/30/17 of levophed more awake on trivial dose of vasopressin failed swallow eval 05/31/17 awake no new overnight events weak cough on vasopressin 06/01/17 overnight pt needed more vasopressor support failed swallow eval 06/02/2017 Patient is awake however he still on these are pressor support Overall no significant change from yesterday 06/03/2017 Patient is awake however appears to be in respiratory distress - Exam A 76-year-old female lying in bed in the ICU. awake HEENT: Atraumatic, normocephalic. NECK: Supple. No JVD. CVS: S1, S2 heard. No murmurs, no gallop, no rub. LUNGS: Coarse breath sounds bilaterally. ABDOMEN: Soft, nontender. Colostomy bag is in place. No active bleeding at the site. MUSEUM ARCHIVIST: Aable to move all extremities. EXTREMITIES: anasarca Pulses palpable bilaterally. No clubbing or cyanosis. Assessment and Plan Plan: ASSESSMENT Acute cardiopulmonary arrest -downtime of 9-10 mins Right Lung Pneumonia - most likely secondary to Aspiration Septic shock - most likley secondary to above. still on Pressor support Acute blood loss anemia secondary to lower gastrointestinal bleed secondary to sigmoid mass. Hemoglobin stable Sigmoid mass status post low anterior resection and colostomy bag placement colonic ileus. improved Hyponatremia Essential hypertension. Medical debility. Recent urinary tract infection. Chronic diarrhea. Vitamin D deficiency. Acute kidney injury likely multifactorial including ATN due to hypotension and diuretics therafter, improving plan TPN to continue Continue renal function monitoring, improving worsened overnight Continues to be critically ill Discussed the patient's status abx to continue. Objective - Vital Signs Vital signs: Vital Signs Temp 97.1 F L 06/03/17 12:00 Pulse 98 06/03/17 16:15 Resp 24 06/03/17 13:30 BP 94/51 06/03/17 13:30 Pulse Ox 95 06/03/17 13:30 Intake & Output 06/02/17 06/03/17 06/03/17 18:59 06:59 18:59 Intake Total 2447 1811.564 636.5 Output Total 1250 1800 385 Balance 1197 11.564 251.5 Weight 93.2 kg Intake: IV 1223 1671.0 636.5 0.9 NS 900 625 50 Fat Emulsion 20% 250 ml @ 231 84 21 mls/hr IV MoWeFr [facility] Rx#:[id number] Mvi, Adult No.4 with Vit 83 K 10 ml Trace (Conc-1Ml/ Dose) 1 ml Parenteral Electrolytes 20 ml Sodium Chloride 4Meq/ml Vial 16 meq In Amino Acid 4.25%- D10w 1,000 ml @ 83 mls/hr IV .BY DURATION [facility] Rx#: [id number] Mvi, Adult No.4 with Vit 83 83 K 10 ml Trace (Conc-1Ml/ Dose) 1 ml Parenteral Electrolytes 20 ml Sodium Chloride 4Meq/ml Vial 20 meq In Amino Acid 4.25%- D10w 1,000 ml @ 83 mls/hr IV .BY DURATION [facility] Rx#: [id number] Parenteral Electrolytes 830 415 20 ml Sodium Chloride 4Meq/ml Vial 16 meq In Amino Acid 4.25%-D10w 1, 000 ml @ 83 mls/hr IV .BY DURATION [facility] Rx#: [id number] Piperacillin-Tazobactam 3 50.0 87.5 .375 gm In Dextrose/Water 1 50ml.bag @ 12.5 mls/hr IVPB Q12HR [facility] Rx#: [id number] Sodium Chloride 0.9% 99 9 ml @ 0.03 UNITS/MIN 9 mls /hr IV .Q11H7M [facility] with Vasopressin 20 unit Rx#: [id number] Intake, IV Titration 1224 140.564 Amount Norepinephrin 16 mg-0.9% 140.564 Ns Pmx 16 mg In 250 ml @ Titrate IV .Q0M [facility] Rx#: [id number] Parenteral Electrolytes 1024 20 ml Sodium Chloride 4Meq/ml Vial 16 meq In Amino Acid 4.25%-D10w 1, 000 ml @ 83 mls/hr IV .BY DURATION [facility] Rx#: [id number] Potassium Chloride 10 meq 200 In Water For Injection 1 100ml.bag @ 100 mls/hr IVPB Q1H [facility] Rx#: [id number] Output: Drainage 170 50 Left Abdomen 0 Right Abdomen 170 50 Urine 1030 1600 385 Stool 50 150 Other: Voiding Method Indwelling Catheter Indwelling Catheter Indwelling Catheter # Voids 1 1 ABP, PAP, CO, CI - Last Documented Arterial Blood Pressure 94/85 - Labs CBC & Chem 7: 06/03/17 04:22 06/03/17 04:22 Labs: Abnormal Lab Results - Last 24 Hours (Table) 06/02/17 06/02/17 06/03/17 Range/Units 17:51 23:57 04:22 WBC (3.8-10.6) k/uL RBC (3.80-5.40) m/uL Hgb (11.4-16.0) gm/dL Hct (34.0-46.0) % MCV (80.0-100.0) fL RDW (11.5-15.5) % Neutrophils # (1.3-7.7) k/uL Sodium 134 L (137-145) mmol/L Chloride 111 H (98-107) mmol/L Carbon Dioxide 13 L (22-30) mmol/L BUN 84 H* (7-17) mg/dL Creatinine 2.40 H (0.52-1.04) mg/dL Glucose 117 H (74-99) mg/dL POC Glucose (mg/dL) 125 H 135 H (75-99) mg/dL Ionized Calcium Misty 5.5 H (4.5-5.3) mg/dL 06/03/17 06/03/17 06/03/17 Range/Units 04:22 05:49 12:15 WBC 13.6 H (3.8-10.6) k/uL RBC 2.77 L (3.80-5.40) m/uL Hgb 8.8 L D (11.4-16.0) gm/dL Hct 27.8 L (34.0-46.0) % MCV 100.6 H (80.0-100.0) fL RDW 16.5 H (11.5-15.5) % Neutrophils # 10.7 H (1.3-7.7) k/uL Sodium (137-145) mmol/L Chloride (98-107) mmol/L Carbon Dioxide (22-30) mmol/L BUN (7-17) mg/dL Creatinine (0.52-1.04) mg/dL Glucose (74-99) mg/dL POC Glucose (mg/dL) 135 H 137 H (75-99) mg/dL Ionized Calcium Misty (4.5-5.3) mg/dL
--- NOTE | 2017-06-03 17:12 | P.PCN ---
Date of Procedure: 06/03/17 Preoperative Diagnosis: Preop diagnosis :Acute respiratory failure Postoperative Diagnosis: Postoperative diagnosis: Acute respiratory failure, suspect aspiration Procedure(s) Performed: Intubation Implants: Anesthesia: MAC Surgeon: Venita De Anda Mental Health Therapist #1: Deepali Valdivia Pathology: none sent Condition: stable Disposition: ICU Indications for Procedure: Operative Findings: Description of Procedure: This procedure was done in the intensive care unit. The patient was quite short of breath and she was becoming hypoxic with a pulse ox of 88% on 40 selection by nasal cannula. She was having nausea breathing and diffuse rhonchi heard throughout the lung hwang bilaterally. At that point, intubation was discussed with the patient and her family. After obtaining the consent, the patient was given a total of 50 mg of Diprivan IV push for sedation. The patient was ventilated and oxygenated by using a number back. The pulse ox was brought up to 97%. Following that, I used a #4 [place] blade to visualize the vocal cords and under direct visualization I was able to insert a #8 orotracheal tube past the vocal cords and positioned in the upper trachea. The balloon was inflated. The breath sounds were equal and bilateral. The plan was at 22 cm. The patient was ventilated and a CO2 indicator was positive confirming the positioning of the tube. Immediately following the intubation, frothy rest or secretions were suctioned out from his orotracheal tube and there were copious in amount. Orogastric tube was inserted and immediately 1 L of gastric output was suctioned out. No bedside, occasions. Oxidation remained above 90% throughout the procedure. Patient remained hemodynamically unchanged, still on pressors. Chest x-ray be done to assess tube placement.
--- NOTE | 2017-06-03 17:56 | P.PCN ---
Date of Procedure: 06/03/17 Preoperative Diagnosis: Acute respiratory failure Postoperative Diagnosis: Acute respiratory failure Procedure(s) Performed: Bronchoscopy, bronchioloalveolar lavage Implants: Anesthesia: MAC Surgeon: Venita De Anda Bundle Sorter #1: Deepali Valdivia Estimated Blood Loss (ml): 0 Pathology: other Condition: critical Disposition: ICU Indications for Procedure: Operative Findings: This procedure was done in the intensive care unit. The patient was already intubated in the mechanical ventilator. The patient was on 100% FiO2. Pulse ox is around 97%. The flexible bronchoscope was inserted through the orotracheal tube and was advanced into the lower trachea. The tip of the ET tube was seen around 2 cm above the ashley. The distal trachea was within normal limits. Ashley was sharp in the midline. Resume stem bronchi were patent and within normal limits. Airway inspection was completed today visualized airways included the right upper lobe bronchus, right middle lobe bronchus, right lower lobe bronchus, bronchus intermedius, left upper lobe bronchus, left lower lobe bronchus along with its various segments and subsegments. All of these airways were patent and within normal limits. Minimal amount of it for secretions were seen throughout the patient's tracheal bronchial tree and there were suctioned out. Following that the bronchoscope was moved to the right middle lobe and the bronchioloalveolar lavage was done. A total of 100 mL of fluid was infused at about 35-40 mL was suctioned back. No bedside Complications or bleeding. Pulse ox remained above 90% throughout the procedure. Patient remained quite sedated. Bronchoscope was removed and the sepsis was sent for microbial analysis and cultures. Description of Procedure:
[2017-06-03 17:57] LABS: ABG HCO3 14 mmol/L (21-25); ABG PCO2 36 mmHg (35-45); ABG PH 7.23 (7.35-7.45); ABG PO2 113 mmHg (83-108)
[2017-06-03 17:58] LABS: ABG Base Excess -11.8 mmol/L; ABG TCO2 16 mmol/L (19-24)
--- NOTE | 2017-06-03 18:17 | XR ---
EXAMINATION TYPE: XR chest 1V portable DATE OF EXAM: 06/03/2017 COMPARISON: Today HISTORY: Pneumonia TECHNIQUE: Single frontal view of the chest is obtained. FINDINGS: There is pulmonary edema. There is continued consolidation in the right lower lobe with ai r bronchograms. Endotracheal tube is in good position. There is left central venous catheter with tip in the superior vena cava. There is no pneumothorax. Nasogastric tube appears in good position. IMPRESSION: There are changes of congestive heart failure with pleural effusions and right lower lob e pneumonia. RDS should be considered. There is pulmonary edema. There is not a significant change co mpared to exam this morning.
[2017-06-03 18:29] LABS: Glucose,Whole Blood 193 mg/dL (75-99)
[2017-06-03] MEDS: PROPOFOL 1,000 MG/100 ML VIAL IV SCH (19:50)
--- NOTE | 2017-06-03 20:09 | XR ---
EXAMINATION TYPE: XR chest 1V portable DATE OF EXAM: 06/03/2017 COMPARISON: Today HISTORY: Reintubation and tube placement TECHNIQUE: Single frontal view of the chest is obtained. FINDINGS: Endotracheal tube is in good position. There is left subclavian catheter with tip in the s uperior vena cava. There are chest leads. There is nasogastric tube noted with the tip probably in th e gastric fundus. There is pulmonary edema. There is blunting of costophrenic angles. There is no sig n of pneumothorax. IMPRESSION: Pulmonary edema consistent with heart failure and RDS without change compared to exam 2 hours ago. Endotracheal tube is in good position.
[2017-06-03 20:18] LABS: RBC, Body Fluid 700 /uL
[2017-06-03] MEDS: CHLORHEXIDINE GLUCONATE 15 ML CUP MUCOUS MEM SCH (20:48)
[2017-06-03] MEDS: ATORVASTATIN 20 MG TAB PO SCH (20:48)
[2017-06-04 00:05] LABS: Glucose,Whole Blood 157 mg/dL (75-99)
[2017-06-04] MEDS: METOCLOPRAMIDE 5 MG/ML 2 ML VIAL IVP SCH ×4 (00:18→18:53)
[2017-06-04] MEDS: HEPARIN SODIUM,PORCINE 5,000 UNIT/ML 1 ML VIAL SQ SCH ×3 (00:19→16:02)
[2017-06-04] MEDS: INSULIN LISPRO (humaLOG) 300 UNIT/3 ML VIAL SQ SCH ×4 (00:19→18:54)
[2017-06-04] MEDS: PROPOFOL 1,000 MG/100 ML VIAL IV SCH ×3 (00:44→22:25)
[2017-06-04] MEDS: 1: MVI, ADULT NO.4 WITH VIT K 10 ML, TRACE (CONC-1ML/DOSE) 1 ML, POTASSIUM ACETATE 40 ME IV SCH ×20 (02:47→16:26)
[2017-06-04] MEDS: IPRATROPIUM-ALBUTEROL 3 ML NEB INHALATION SCH ×6 (03:31→23:08)
[2017-06-04 05:38] LABS: ABG Base Excess -11.6 mmol/L; ABG HCO3 15 mmol/L (21-25); ABG PCO2 36 mmHg (35-45); ABG PH 7.23 (7.35-7.45); ABG PO2 229 mmHg (83-108); ABG TCO2 16 mmol/L (19-24)
[2017-06-04 05:51] LABS: Ionized Calcium 5.8 mg/dL (4.5-5.3)
[2017-06-04 05:53] LABS: Glucose,Whole Blood 152 mg/dL (75-99)
[2017-06-04] MEDS: NOREPINEPHRIN 16 MG-0.9%NS PMX 16 MG/250 ML ML IV SCH ×2 (06:08→15:16)
[2017-06-04 06:23] LABS: Calcium 8.4 mg/dL (8.4-10.2); Magnesium 2.4 mg/dL (1.6-2.3); Phosphorous 2.3 mg/dL (2.5-4.5); Potassium 3.8 mmol/L (3.5-5.1)
--- NOTE | 2017-06-04 07:33 | PCN ---
PREOPERATIVE DIAGNOSIS: Acute respiratory failure. POSTOPERATIVE DIAGNOSIS: Acute respiratory failure. ARTERIAL LINE PLACEMENT Indication: Hemodynamic monitoring. A time-out was completed verifying correct patient, procedure, site, positioning , and implant(s) or special equipment if applicable. Allens test was performed to ensure adequate perfusion. The patients right groin was prepped and draped in sterile fashion. 1% Lidocaine was used to anesthetize the area. An 18G Arrow arterial line was introduced into the right femoral artery. The catheter was threaded over the guide wire and the needle was removed with appropriate pulsatile blood return. Blood loss was minimal. The catheter was then sutured in place to the skin and a sterile dressing applied. Perfusion to the extremity distal to the point of catheter insertion was checked and found to be adequate. The patient tolerated the procedure well and there were no complications. No bedside complications or bleeding. DWAIN
--- NOTE | 2017-06-04 07:34 | XR ---
EXAMINATION TYPE: XR chest 1V portable DATE OF EXAM: 06/04/2017 COMPARISON: Prior chest x-ray 06/03/2017 HISTORY: Pneumonia and congestive heart failure TECHNIQUE: Single frontal view of the chest is obtained. FINDINGS: Endotracheal tube, NG tube are overlying appropriate positions, left-sided PICC line is pr esent with the distal tip over the superior vena cava. There are overlying cardiac leads. Patient is rotated. Some improved aeration present at the left lung base, retrocardiac density, right basilar de nsity persists. Heart size is stable. IMPRESSION: Suspect some improved aeration at the left lung base.
[2017-06-04] MEDS: MIDODRINE 5 MG TAB PO SCH ×3 (08:16→18:53)
[2017-06-04] MEDS: FAMOTIDINE 20 MG/2 ML VIAL IV SCH (08:16)
[2017-06-04] MEDS: CHLORHEXIDINE GLUCONATE 15 ML CUP MUCOUS MEM SCH ×2 (08:16→21:06)
[2017-06-04] MEDS: PIPERACILLIN-TAZOBACTAM 3.375 GM in DEXTROSE/WATER 1 50ML.BAG IVPB SCH ×2 (08:18→21:06)
[2017-06-04 09:08] LABS: Anisocytosis Slight; CH 30.9; CHCM 31.6; HCT 26.4 % (34.0-46.0); HDW 3.71; HGB 8.4 gm/dL (11.4-16.0); Hypochromasia Moderate; MCH 31.5 pg (25.0-35.0); MCHC 31.9 g/dL (31.0-37.0); MCV 98.8 fL (80.0-100.0); Macrocytosis Slight; Mean Platelet Volume 8.6; Poikilocytosis Slight; RBC 2.68 m/uL (3.80-5.40); RDW 16.3 % (11.5-15.5); WBC 19.5 k/uL (3.8-10.6)
[2017-06-04] MEDS ORDERED: SODIUM PHOSPHATE 10 MMOL in SODIUM CHLORIDE 0.9% 250 ML IVPB ONE (11:00)
[2017-06-04 11:58] LABS: Glucose,Whole Blood 130 mg/dL (75-99)
--- NOTE | 2017-06-04 12:01 | P.PN ---
Progress Note - Text The patient underwent bronchoscopy. She is currently on TPN. Continue medical maximization. May be a candidate for a jejunostomy feeding tube next week.
--- NOTE | 2017-06-04 12:59 | P.PN ---
Subjective 76-year-old female patient who presented to the hospital because of a high grade sigmoid colon obstruction with a suspicious mass. The patient underwent a colonoscopy by gastroenterology and the patient was found to have a partially obstructing mass in the distal sigmoid colon/rectosigmoid junction. The patient was having on and off rectal bleeding. She was rehabilitating at [facility] after a fall due to a generalized weakness. She was having some loose stools over the past few weeks but no significant abdominal pain or GI discomfort. The patient's hemoglobin had dropped down to 7.9 from a baseline of 12 and she was receiving transfusion. Based on all this, the patient was taken to the operating room on 05/23/2017 and the patient underwent a low AP resection with diverting colostomy. 2 abdominal drains also placed. Last night, the patient was found to be in acute respiratory distress.. The patient had a witnessed respiratory arrest and subsequent cardiac arrest. This occurred at around 1:50 AM this morning. Initially the pulse was identified. The patient was resuscitated for a total of 9 minutes and she was given 3 doses of epinephrine 1 mg. She was intubated and placed on a mechanical ventilator. She was given a triple lumen catheter in her right femoral vein. She was given a total of 2 L of IV fluids and her blood pressure remained low in the mid 60s. Following that she was started on pressors which ultimately titrated and she was placed on high-dose epinephrine infusion today to 60 g. The post intubation blood gas showed a pH of 7.15 with a pCO2 of 49 and pO2 of 205 this was an FiO2 of 100% with a PEEP of 5 and tidal volume of 350 and the rate of 14 Overnight the patient was given further fluid resuscitation and she has already received a total of 5 L of IV fluids. Currently she is on vasopressin 0.03 units per minute and she is also on norepinephrine infusion at 40 mics. She started making some urine output. Her urine output over the past 1 hour is around 100 mL an hour. The patient is sedated Diprivan at 40 mics. She would respond to painful stimuli and she would move all 4 extremities once she is taken to lower dose of Diprivan. Meanwhile, the necessity vent changes were done. I increased tidal volume to 450. I put the rate of 24 and drop the FiO2 down to 60%. Subsequent blood gases showed a pH of 7.36 with a pCO2 of 26 and pO2 of 123. Chest x-ray shows a large consolidation of the right lung involving the right middle lobe and right lower lobe. Orogastric tube was placed immediately following intubation and a total of 1600 mL of gastric aspirate was obtained. Note that the chest x-ray preoperatively had shown or the a large intrathoracic hiatal hernia. The patient subsequently had an abdominal x-ray yesterday that was indicating some ileus. The chest x-ray from this morning is showing that the patient has a right lung pneumonia and the OG tube is coiled in the hiatal hernia within the thorax. No gastric material is being suctioned from the TRACHEAL tube although is very much likely the patient could have aspirated. Her white cell count is up to 42. Venous lactate is at 1.7. The patient's colostomy site is functional. There is some minimal amount of fecal material collecting in the colostomy bag. Abdomen is nondistended at this point. Positive lower oximetry is palpable. On 05/26/2017 the patient is being seen in follow-up. The patient is still intubated on a mechanical ventilator. The patient is afebrile. She is doing well on a mechanical ventilator and she is in a assist-control mode at the rate of 24, tidal volume 450, FiO2 is down to 40% and PEEP of 5. Her morning blood gases with a pH of 7.38 with a pCO2 of 23 and pO2 150. Chest x-ray showing small bilateral pleural effusions and infiltrates in lung bases bilaterally. ET tube is in a good location. There is also a triple lumen catheter in place. The patient had a CAT scan of the abdomen and pelvis yesterday that showed lower lobe consolidation of the lungs along with pleural effusions. No intra- abdominal abscess. No other intra-abdominal abnormalities. The patient is a large hiatal hernia. Orogastric tube is in place and the patient will be started on tube feeds today. Colostomy site is healthy and viable looking. Hemodynamically she is improved compared to yesterday. She is on a vasopressin drip at physiologic dose and the patient is also on norepinephrine infusion that was weaned down to 20 mics. The patient is sedated with Diprivan and she is calm and comfortable. The patient remains on a combination of Zosyn and Levaquin and vancomycin. The blood cultures of been negative. The sputum culture been negative. White cell count is improving. Afebrile. Producing adequate amount of urine output. Echocardiogram showed a preserved LV function. There was a severe degree of mitral regurgitation secondary pulmonary hypertension. On 05/27/2017 the patient is being seen in follow-up. Earlier this morning the patient was still intubated on a mechanical ventilator. She was taken off the sedation and she woke up appropriately and she was able to follow commands and move her extremities without any limitation. She had a weak cough. Had rapid shallow breathing index was less than 100. She was given a spontaneous breathing trial with a pressure support of 5 and a PEEP of 5 and following that the patient was extubated to a nasal cannula. Note that the extubation blood gases showed a pH of 7.38 with a pCO2 of 22 and pO2 of 124 and this was done assist-control mode of ventilation with an FiO2 of 40%. The chest x-ray from earlier this morning shows interval improvement of the right lung pneumonia. His left-sided atelectasis and small effusion. Hemodynamically, the patient is still pressor dependent. The patient is on a physiologic dose of vasopressin 0.03 units per minute and the patient is levo fed has been weaned down to 12 mics. She is producing urine output in the order of 20-25 mL an hour. She has however developed an acute kidney injury, probably a hypotension-induced ATN with a creatinine is up to 1.6 and this is a non-oliguric renal failure. She is on broad-spectrum antibiotics which included a combination of Zosyn, Levaquin and vancomycin. Sputum analysis has yielded no positivity and there is no microbial growth for now. The patient has been tolerating her tube feeds. She is receiving enteral nutrition and her colostomy site is functional and intact at this point. No abdominal distention. Trace edema in the lower extremities bilaterally. On 05/28/2017 the patient remains extubated. She is awake and following simple commands. She has a congested cough and the chest x-ray from today shows worsening in the volume status and development of bilateral pleural effusions. There is haziness bilaterally nothing it's related to pleural effusion. The patient has not been fed enterally knowing that there is a concern of the positioning of the NG tube. I discussed this further with Dr. Tristian coy from surgery. We have decided not to feed again due to concern of recurrent aspiration knowing that the patient has a large hiatal hernia. Ultimately she may benefit from a PEG tube or NG tube if she is unable to swallow. She failed her swallow evaluation for the time being. Meanwhile, I thought is reasonable to start the patient on some hyperalimentation via TPN to meet her caloric requirements. She is hemodynamically improving however she has developed an acute kidney injury. Her pressors are much less and currently she is still on a physiologic dose vasopressin and 2-3 mics of norepinephrine infusion. She is however producing less urine output in the creatinine is up to 2.0. She is anemic with a hemoglobin of 7.0. Rest of the electrodes showed a component of non-anion gap metabolic acidosis. Her colostomy site is functional and intact at this point and is viable. No abdominal distention. WALTER drains are all in place. On 05/29/2017 the patient remains extubated. She is much more alert and interactive today. She is being treated with broad-spectrum antibiotics for aspiration pneumonia. Chest x-ray from today shows consolidation in bilateral pleural effusion in addition to a large intrathoracic hiatal hernia. Nevertheless, the volume status is slightly improved compared to yesterday knowing that the patient is being diuresis with IV Lasix 40 mg IV push every 12 hours. The patient has been producing more than 100 mL an hour of urine output on an hourly basis. Her creatinine is up to 2.4 however she is nonoliguric. Rest of the electrodes are all within normal limits. The patient's hemoglobin is stable at 7.1. White cell count is dropped down to 6. She is still on broad -spectrum antibiotics. Abdominal wound is clean and there is some minimal drainage from the WALTER insertion site. The colostomy site is functional and intact and viable. The patient is unable to swallow yet. TPN was started yesterday for nutritional support. IV fluids to KVO. Afebrile. Trying to do adequate pulmonate toileting however she is unable to cough up rest or secretions. Family is at the bedside. On 05/30/2017 the patient remains extubated. The patient is currently off norepinephrine infusion and currently she is only on vasopressin at a low physiologic dose which will hopefully get wean down the discontinued today. She was diuresis over the past 48 hours and I will stop the diuresis knowing that the patient is developing acute kidney injury secondary to prolonged hypotension and the patient is an nonoliguric acute renal failure. This swallow will be rechecked today although I have a high suspicion that the patient will failed the swallow evaluation. Her cough is weak. She has a congested cough. Unable to bring up much sputum. Chest exit shows a large intrathoracic hiatal hernia along with bilateral lower lobe pleural effusions and consolidations. The patient on oxygen at 3 L/m nasal cannula. Resting comfortably in bed. The patient on TPN for nutritional support. This surgical wound site is clean and intact. The patient has 2 WALTER drains with are not actively draining. The patient also has a colostomy site which is viable intact and healthy. The patient is afebrile. IV fluids are to KVO for now. She is on same antibiotic coverage. Her hemoglobin down to 6.9 today and the patient will be receiving a unit of packed RBC. On 05/31/2017 the patient remains extubated. Still on a physiologic dose of vasopressin which was still needed to maintain a blood pressure and a mean above 65. Urine output is adequate. The diuretics have been discontinued. Creatinine is down to 2.4. Received a unit of packed RBC yesterday and hemoglobin is above 8. Afebrile. Awake and alert. Conversing. Failed the swallow evaluation this will be repeated tomorrow. PICC line was inserted. The patient is receiving TPN for nutritional support. She is on 3 L of oxygen nasal cannula. Afebrile. On the same antibiotic coverage. No major swelling in the upper and lower extremities as the patient got diuresis over the past few days. No other significant events overnight. Family is at the bedside. WALTER drains are in place. The upper WALTER drain is not putting much a lot in the lower WALTER drain is having approximately 200 mL of serosanguineous drainage. The abdominal wound is clean and intact. Colostomy site has some liquidy material collecting in the back. The site is viable and functioning at this point. On 06/01/2017 I'm seeing this patient in follow-up. The patient is awake and alert. After having some success with swallowing yesterday, this morning she failed her swallow evaluation again and based on that she was maintained on TPN for nutritional support. In addition there was a setback in terms of her hemodynamics knowing that as of 1:00 in the morning the patient was restarted back on norepinephrine infusion due to drop in the blood pressure. The vasopressin is still on board. The patient was placed as high as 15 mics of norepinephrine infusion and currently is down to 6 mics. She is producing adequate amount of urine output in the order of 35-50 mL an hour. She is also on TPN for nutritional support. IV fluids to KVO. She is on Zosyn and Levaquin. As mentioned earlier, the WALTER drain is above the colostomy site is nondraining and probably out of position and this will be conveyed to the surgeon and see if it's appropriate to put up completely. The lower WALTER drain in her suprapubic area is still draining approximately 40 mL of serosanguineous material per shift. Colostomy site is viable and functional. There is some liquidy material accumulating within the back. This surgical wound site is clean. The nela are all in place. Bowel sounds are hypoactive. Chest x- ray from today shows a large intrathoracic hiatal hernia with bilateral lower lobe pulmonary infiltrates and small effusions. The patient is afebrile for now. She is essentially weak and has poor ability to perform pulmonary toileting. Coughing is weak. We'll try to work with her in terms of incentive spirometer and try to get her into physical therapy with passive range of motion. The family understands the limitation that the patient has related to her disease knowing that she has an underlying cerebral palsy with severe kyphoscoliosis and she has been bedridden even at baseline. As such this may be hindering our ability to fast recovery. This may be an ongoing issue in terms of getting her in a better condition. In terms of her renal function, creatinine is up to 2.7. The patient is nonoliguric. She has suffered an ATN due to profound hypotension. Rest of the electrodes are all within normal limits. Sodium level is normalized up to 132. On , the patient is awake and alert and conversing. A swallow evaluation will be done. He is on few mics of levo fed and I'm going to discontinue the vasopressin infusion today. The cortisol level has been within normal limits. She is still on TPN for nutritional support. Chest x-ray remains unchanged. She still on Zosyn and Levaquin. Abdominal wound and WALTER status is still unchanged. The patient's colostomy site is functional and there are some liquidy material collecting in the colostomy bag. Creatinine is down to 2.5 and the rest of the electrolytes show a component of mild non- Polish gap metabolic acidosis. On 06/03/2017 I'm seeing this patient in follow-up. Hemodynamically she is off vasopressin however overnight her norepinephrine infusion had to be titrated to bring her mean arterial pressure above 65. She is currently up to 10 mics of levo fed infusion. She is producing adequate amount of urine output. Her creatinine is down to 2.4. She is producing urine output more than 20s to 30 mL an hour. She is awake and alert. She is conversing. She was able to swallow and she is taking applesauce today. She is still on TPN for dentures support which is being infused through a left upper extremity PICC line. No fever. No chills. Chest x-ray findings remain unchanged and the patient has a large hiatal hernia but the lower lobe consolidation. Her cough has somewhat subsided. The WALTER drain that was not active was removed and there is only one WALTER drain is in place. The surgical wound site is dry clean and intact. Nela are all in place. Colostomy site is viable and function and there is some minimal amount of drainage of gastric or gastrointestinal material. She is still on a combination of Zosyn and Levaquin. Family is at the bedside. The barium swallow was completed and the patient was found to have a mild transient penetration with nectar thick barium. The patient was seen again today 06/04/2000 1013 in follow-up. Last evening she had developed acute respiratory failure requiring intubation and placement on the mechanical ventilator. Her case and been reviewed and discussed with the patient's family who were willing to proceed with short-term ventilatory support. Her current settings are assist control of 20, tidal volume 400, FiO2 60% and a PEEP of 5. Morning blood gases revealed a pO2 of 229, pCO2 36, pH 7.23. Her FiO2 be decreased to 40%. She remains sedated on to prevent at 25 mcg/kg/m. She is also required norepinephrine currently at 30 mcg/m. She had developed significant hypotension throughout the evening. She did undergo bronchoscopy with BAL, cultures/cytology are pending. Right femoral arterial line was placed last evening as well. Continues to be nourished with TPN a left upper extremity PICC line. Today's chest x-ray reveals cardiomegaly with pulmonary venous congestion and scattered infiltrates as well as effusions most likely secondary to congestive heart failure. Her white count 19.5, hemoglobin 8.4. BUN 89, creatinine 2.58. Objective - Vital Signs Vital signs: Vital Signs Temp 97.8 F 06/04/17 12:00 Pulse 77 06/04/17 12:00 Resp 20 06/04/17 12:00 BP 100/42 06/04/17 00:00 Pulse Ox 98 06/04/17 12:00 Intake & Output 06/03/17 06/04/17 06/04/17 18:59 06:59 18:59 Intake Total 1585.5 1847.401 847.867 Output Total 695 3068 847 Balance 890.5 -1220.599 0.867 Weight 93.2 kg 93.2 kg Intake: IV 1285.5 1210.0 485 0.9 NS 50 80 20 Fat Emulsion 20% 250 ml @ 210 84 21 mls/hr IV MoWeFr [facility] Rx#:[id number] Parenteral Electrolytes 913 996 415 20 ml Sodium Chloride 4Meq/ml Vial 16 meq In Amino Acid 4.25%-D10w 1, 000 ml @ 83 mls/hr IV .BY DURATION [facility] Rx#: [id number] Piperacillin-Tazobactam 3 112.5 50.0 50 .375 gm In Dextrose/Water 1 50ml.bag @ 12.5 mls/hr IVPB Q12HR [facility] Rx#: [id number] Intake, IV Titration 300 637.401 362.867 Amount Magnesium Sulfate-D5w Pmx 300 1 gm In Dextrose/Water 1 100ml.bag @ 100 mls/hr IVPB Q1H [facility] Rx#: [id number] Norepinephrin 16 mg-0.9% 467.268 Ns Pmx 16 mg In 250 ml @ Titrate IV .Q0M [facility] Rx#: [id number] Propofol 1,000 mg In 100 170.133 29.867 ml @ Titrate IV .Q0M [facility] Rx#:[id number] Sodium Chloride 4Meq/ml 83 Vial 60 meq Sodium Phosphate 10 mmol In Amino Acid 4.25%-D10w 1, 000 ml @ 83 mls/hr IV .BY DURATION [facility] Rx#: [id number] Sodium Phosphate 10 mmol 250 In Sodium Chloride 0.9% 250 ml @ 125 mls/hr IVPB ONCE ONE Rx#:[id number] Output: Gastric Drainage 2300 500 Drainage 50 20 Right Abdomen 50 20 Urine 545 648 297 Stool 100 100 50 Other: Voiding Method Indwelling Catheter Indwelling Catheter Indwelling Catheter # Voids 1 ABP, PAP, CO, CI - Last Documented Arterial Blood Pressure 107/47 - Exam Intubated and sedated. Head exam was generally normal. There was no scleral icterus or corneal arcus. Mucous membranes were moist. Neck was supple and without jugular venous distension, thyromegaly, or carotid bruits. Carotids were easily palpable bilaterally. There was no adenopathy. Lung sounds are equal and symmetrical bilaterally and there is no significant wheezes overall currently crackles. Heart sounds are regular rate and rhythm normal S1-S2 and there is no significant murmurs appreciated. Abdomen is soft. Nondistended. Colostomy site is viable and functional. The patient has a infraumbilical incision with nela are being replaced. No active drainage. WALTER drains also in place and output is essentially serosanguineous and minimal. Extremities are showing diminished pulses and there is no cyanosis or clubbing. Neurologic the patient is awake. The cough and mechanism is weak. Unable to bring up her respiratory secretions yet. She has cerebral palsy and some chronic contractures in the upper extremities bilaterally. - Labs CBC & Chem 7: 06/04/17 08:45 06/04/17 04:35 Labs: Abnormal Lab Results - Last 24 Hours (Table) 06/03/17 06/03/17 06/04/17 Range/Units 17:49 18:25 00:03 WBC (3.8-10.6) k/uL RBC (3.80-5.40) m/uL Hgb (11.4-16.0) gm/dL Hct (34.0-46.0) % RDW (11.5-15.5) % ABG pH 7.23 L (7.35-7.45) ABG pO2 113 H (83-108) mmHg ABG HCO3 14 L (21-25) mmol/L ABG Total CO2 16 L (19-24) mmol/L ABG O2 Saturation 98.0 H (94-97) % Sodium (137-145) mmol/L Chloride (98-107) mmol/L Carbon Dioxide (22-30) mmol/L BUN (7-17) mg/dL Creatinine (0.52-1.04) mg/dL Glucose (74-99) mg/dL POC Glucose (mg/dL) 193 H 157 H (75-99) mg/dL Ionized Calcium Misty (4.5-5.3) mg/dL Phosphorus (2.5-4.5) mg/dL Magnesium (1.6-2.3) mg/dL 06/04/17 06/04/17 06/04/17 Range/Units 04:35 05:10 05:51 WBC (3.8-10.6) k/uL RBC (3.80-5.40) m/uL Hgb (11.4-16.0) gm/dL Hct (34.0-46.0) % RDW (11.5-15.5) % ABG pH 7.23 L (7.35-7.45) ABG pO2 229 H (83-108) mmHg ABG HCO3 15 L (21-25) mmol/L ABG Total CO2 16 L (19-24) mmol/L ABG O2 Saturation 100.0 H (94-97) % Sodium 135 L (137-145) mmol/L Chloride 111 H (98-107) mmol/L Carbon Dioxide 14 L (22-30) mmol/L BUN 89 H* (7-17) mg/dL Creatinine 2.58 H (0.52-1.04) mg/dL Glucose 136 H (74-99) mg/dL POC Glucose (mg/dL) 152 H (75-99) mg/dL Ionized Calcium Misty 5.8 H (4.5-5.3) mg/dL Phosphorus 2.3 L (2.5-4.5) mg/dL Magnesium 2.4 H (1.6-2.3) mg/dL 06/04/17 06/04/17 Range/Units 08:45 11:55 WBC 19.5 H (3.8-10.6) k/uL RBC 2.68 L (3.80-5.40) m/uL Hgb 8.4 L (11.4-16.0) gm/dL Hct 26.4 L (34.0-46.0) % RDW 16.3 H (11.5-15.5) % ABG pH (7.35-7.45) ABG pO2 (83-108) mmHg ABG HCO3 (21-25) mmol/L ABG Total CO2 (19-24) mmol/L ABG O2 Saturation (94-97) % Sodium (137-145) mmol/L Chloride (98-107) mmol/L Carbon Dioxide (22-30) mmol/L BUN (7-17) mg/dL Creatinine (0.52-1.04) mg/dL Glucose (74-99) mg/dL POC Glucose (mg/dL) 130 H (75-99) mg/dL Ionized Calcium Misty (4.5-5.3) mg/dL Phosphorus (2.5-4.5) mg/dL Magnesium (1.6-2.3) mg/dL Microbiology - Last 24 Hours (Table) 06/03/17 17:25 Gram Stain - Preliminary Bronchoalviolar Lavage - Right Bronchial Washings Culture - Preliminary 06/03/17 17:25 Fungal Culture - Preliminary Bronchoalviolar Lavage - Right 06/03/17 17:25 Acid Fast Bacilli Culture - Preliminary Bronchoalviolar Lavage - Right Assessment and Plan Plan: Assessment 1 acute cardiopulmonary arrest. I think the patient essentially went to respiratory arrest with subsequent cardiac arrest and she was down for less than 10 minutes. The patient during the code received a total of 3 rounds of epinephrine and she was intubated placed on mechanical ventilator and got transferred to the intensive care unit. Patient has developed bilateral pneumonia involving the lower lobes. Rule out aspiration pneumonia. Rule out hospital-acquired pneumonia. Patient was treated adequately with broad- spectrum antibiotics. Cultures of been all negative. She remains on a combination of Zosyn and Levaquin. Reevaluated today 06/04/2017 in the intensive care unit. On 06/03/2017 the patient had developed acute respiratory failure requiring reintubation and placed on mechanical ventilator. Bronchoscopy with BAL was performed. Cultures are pending. Right femoral arterial line was placed. 3 shock with profound hypotension , and the patient remains pressor dependent. The exact cause is not clear. Rule out underlying infection/septicemia. Note that at one point the patient was taken off the pressors and she had to be placed back again. She has moderate to severe degree of mitral regurgitation. She has a preserved LV function. She has normal cortisol levels. Zosyn and Levaquin are antibiotic coverage and all of the blood cultures of been negative. Surgical site is dry clean and intact. 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 The patient underwent a low AP resection with diverting colostomy. The patient is postop day #13 5 anemia secondary to lower gastrointestinal bleeding secondary to rectosigmoid mass, 6 hyponatremia, mild, recovered 7 mild non-anion gap metabolic acidosis, improving 8 acute respiratory failure, currently intubated on a mechanical ventilator, secondary to above 9 cerebral palsy, history of with significant permanent AV performance and functional status 10 diabetes mellitus, currently on a sliding scale coverage 11 hyperlipidemia, 12 acute kidney injury, possibly secondary to hypotension-induced ATN. The patient is nonoliguric and the patient's creatinine is down to 2.4 13 history of vasovagal syncope, scoliosis 14 frequent urine infections 15 Limited mobility and the patient has been using a walker based on the family members. The patient also had a limited range of motion the right hand and right wrist area. 16 large intrathoracic hiatal hernia as evident on the patient's chest x-ray. Unable to swallow. The patient is receiving TPN for nutritional support. 17 severe mitral regurgitation with a preserved LV function and secondary pulmonary hypertension. Plan The patient was seen and evaluated by Dr. Burciaga. Her chest x-ray and labs were reviewed. We will continue with her current vent settings for now. She has been decreased to an FiO2 40%. We'll continue with sedation. Continue with pressor support. Continue with nutrition via TPN. We will obtain a computed tomography scan without contrast of the chest abdomen and pelvis. Still no clear evidence of infection causing the sepsis. We'll continue with current antibiotics. She is on heparin for DVT prophylaxis and Pepcid for GI prophylaxis. Her overall prognosis remains quite poor and guarded. The family was agreeable to the reintubation however they are not willing to continue any long-term mechanical ventilatory support. We'll reevaluate in the next 24 hours. We'll continue to follow. Critical care time 38 minutes.
[2017-06-04] MEDS: IOHEXOL 350 MG/ML 25 ML BOTTLE (ORAL USE) PO PRN ×2 (13:52→14:46)
--- NOTE | 2017-06-04 15:56 | CT ---
EXAMINATION TYPE: CT ChestAbdPelvis wo con DATE OF EXAM: 06/04/2017 COMPARISON: Chest x-ray same date, prior chest abdomen pelvis 05/25/2017 HISTORY: Patient intubated at time of scan CT DLP: 1323.9 mGycm. Automated Exposure Control for Dose Reduction was Utilized. TECHNIQUE: CT scan of the thorax, abdomen and pelvis is performed without IV contrast. FINDINGS: LUNGS: The chest shows a similar appearance. There is endotracheal tube, NG tube are in appropriate p osition. Bibasilar effusions and associated atelectasis versus pneumonia again noted. There is airspa ce disease present within the upper lobes. Right middle lobe also shows findings suggestive of pneumo citlalli with air bronchograms. Intrathoracic stomach is again noted. MEDIASTINUM: There are no greater than 1 cm hilar or mediastinal lymph nodes. No pericardial effusi on is seen. OTHER: No additional significant abnormality is seen. LIVER/GB: No significant abnormality is appreciated. PANCREAS: No significant abnormality is seen. SPLEEN: No significant abnormality is seen. ADRENALS: No significant abnormality is seen. KIDNEYS: No significant abnormality is seen. BOWEL: No significant abnormality is seen. Within the rectum some hyperdense foci may represent tabl ets, correlate GENITAL ORGANS: No gross abnormality seen. LYMPH NODES: No greater than 1cm abdominal or pelvic lymph nodes are appreciated. OSSEOUS STRUCTURES: No significant abnormality is seen. OTHER: Drainage catheter is again present within the pelvis, there is a right femoral venous catheter . Galo catheter within the bladder. Anasarca changes are again noted. Posttraumatic change of the pu bic symphysis. IMPRESSION: Correlate for pneumonia, pulmonary edema with associated effusions. Noncontrast exam. Add itional findings described above
--- NOTE | 2017-06-04 16:02 | P.PN ---
Subjective Mr. Morel is a 76-year-old female who was recently admitted to the senior care after sustaining fall due to generalized weakness. The patient was brought to the hospital with concerns for GI bleed. Patient had attempted colonoscopy initially on 05/19/2017 and scope could not be passed due to significant obstructing mass. On 05/20/2017 patient was taken to OR for low anterior resection of the sigmoid and colostomy bag placement was done. On 05/21/2017 Agent is more awake and oriented today. Patient is tolerating liquid diet but feels nauseous now, as her chest pain or short of breath. Hemoglobin is stable. Patient is on epidural. On 05/22/2017 Patient says that her nausea is improved. Epidural pain management is being discontinued today. No fever no chills. No complaints of abdominal pain. Patient is tolerating liquid diet today. Otherwise no chest pain or short of breath. On 05/23/2017 Patient is tolerating by mouth liquid diet. She has been moving her bowels and has some stool in the colostomy bag. On 05/24/2017 Patient has been tolerating liquid diet well. Patient has been transferred to a chair beside the bed. Patient has a small amount of stool in the colostomy bag and passing flatus. On 05/25/2017 Last night the patient developed respiratory failure and eventually had cardiac arrest. Patient was resuscitated for a total of 9 minutes. She received 3 doses of epinephrine and received 2 L of IV fluid bolus , intubated and taken to the ICU. As her blood pressure was running her she was also started on pressors . Overnight the patient was given 5 more Lt of IV fluids. Her blood pressure was still running low and she was started on Levophed and vasopressin. The patient subsequently had a chest x-ray was showing a large right lung consolidation, and the patient has a large intrathoracic had a hernia. So most likely that the patient might have aspirated overnight. On 05/26 - Pt is still intubated. CT abdomen was done showing post surgical ileus. Still on vasopressors. NG tube feeds have been started, She had a large bowel movement yesterday. on 05/27/17 Pt. was succcessfull extubated. Pt. is awake but could not speak at this time. Still on Pressor support. no fever/chills. Review of systems - could not be done as the patient is intubated 05/28/17 failed NG placement Continues to be on a trivial dose of levophed and vasopressin to be started on TPN today 05/29/2017 Patient is more awake Is still on a trivial dose of Levophed and vasopressin Still strict nothing by mouth No overnight events reported 05/30/17 of levophed more awake on trivial dose of vasopressin failed swallow eval 05/31/17 awake no new overnight events weak cough on vasopressin 06/01/17 overnight pt needed more vasopressor support failed swallow eval 06/02/2017 Patient is awake however he still on these are pressor support Overall no significant change from yesterday 06/03/2017 Patient is awake however appears to be in respiratory distress 06/04/17 was intubated overnight on a higher dose of vasopressor - Exam A 76-year-old female lying in bed in the ICU. awake HEENT: Atraumatic, normocephalic. NECK: Supple. No JVD. CVS: S1, S2 heard. No murmurs, no gallop, no rub. LUNGS: Coarse breath sounds bilaterally. ABDOMEN: Soft, nontender. Colostomy bag is in place. No active bleeding at the site. INVENTORY TAKER: Aable to move all extremities. EXTREMITIES: anasarca Pulses palpable bilaterally. No clubbing or cyanosis. Assessment and Plan Plan: ASSESSMENT Acute cardiopulmonary arrest -downtime of 9-10 mins Right Lung Pneumonia - most likely secondary to Aspiration Septic shock - most likley secondary to above. still on Pressor support Acute blood loss anemia secondary to lower gastrointestinal bleed secondary to sigmoid mass. Hemoglobin stable Sigmoid mass status post low anterior resection and colostomy bag placement colonic ileus. improved Hyponatremia Essential hypertension. Medical debility. Recent urinary tract infection. Chronic diarrhea. Vitamin D deficiency. Acute kidney injury likely multifactorial including ATN due to hypotension and diuretics therafter, improving plan TPN to continue Continue renal function monitoring, improving worsened overnight Continues to be critically ill Discussed the patient's status with the family, and brother who is the DPOA abx to continue. Objective - Vital Signs Vital signs: Vital Signs Temp 97.8 F 06/04/17 12:00 Pulse 72 06/04/17 15:56 Resp 19 06/04/17 14:00 BP 100/42 06/04/17 00:00 Pulse Ox 99 06/04/17 14:00 Intake & Output 06/03/17 06/04/17 06/04/17 18:59 06:59 18:59 Intake Total 1585.5 2024.293 0838.976 Output Total 695 3068 1057 Balance 890.5 -1220.599 193.976 Weight 93.2 kg 93.2 kg Intake: IV 1285.5 1210.0 485 0.9 NS 50 80 20 Fat Emulsion 20% 250 ml @ 210 84 21 mls/hr IV MoWeFr [facility] Rx#:[id number] Parenteral Electrolytes 913 996 415 20 ml Sodium Chloride 4Meq/ml Vial 16 meq In Amino Acid 4.25%-D10w 1, 000 ml @ 83 mls/hr IV .BY DURATION [facility] Rx#: [id number] Piperacillin-Tazobactam 3 112.5 50.0 50 .375 gm In Dextrose/Water 1 50ml.bag @ 12.5 mls/hr IVPB Q12HR [facility] Rx#: [id number] Intake, IV Titration 300 637.401 765.976 Amount Magnesium Sulfate-D5w Pmx 300 1 gm In Dextrose/Water 1 100ml.bag @ 100 mls/hr IVPB Q1H [facility] Rx#: [id number] Mvi, Adult No.4 with Vit 166 K 10 ml Trace (Conc-1Ml/ Dose) 1 ml Potassium Acetate 40 meq Sodium Chloride 4Meq/ml Vial 52 meq In Amino Acid 4.25%- D10w 1,000 ml @ 83 mls/hr IV .BY DURATION [facility] Rx#: [id number] Norepinephrin 16 mg-0.9% 467.268 237.109 Ns Pmx 16 mg In 250 ml @ Titrate IV .Q0M [facility] Rx#: [id number] Propofol 1,000 mg In 100 170.133 29.867 ml @ Titrate IV .Q0M [facility] Rx#:[id number] Sodium Chloride 4Meq/ml 83 Vial 60 meq Sodium Phosphate 10 mmol In Amino Acid 4.25%-D10w 1, 000 ml @ 83 mls/hr IV .BY DURATION [facility] Rx#: [id number] Sodium Phosphate 10 mmol 250 In Sodium Chloride 0.9% 250 ml @ 125 mls/hr IVPB ONCE ONE Rx#:[id number] Output: Gastric Drainage 2300 500 Drainage 50 20 Right Abdomen 50 20 Urine 545 648 457 Stool 100 100 100 Other: Voiding Method Indwelling Catheter Indwelling Catheter Indwelling Catheter # Voids 1 1 ABP, PAP, CO, CI - Last Documented Arterial Blood Pressure 87/42 - Labs CBC & Chem 7: 06/04/17 08:45 06/04/17 04:35 Labs: Abnormal Lab Results - Last 24 Hours (Table) 06/03/17 06/03/17 06/04/17 Range/Units 17:49 18:25 00:03 WBC (3.8-10.6) k/uL RBC (3.80-5.40) m/uL Hgb (11.4-16.0) gm/dL Hct (34.0-46.0) % RDW (11.5-15.5) % ABG pH 7.23 L (7.35-7.45) ABG pO2 113 H (83-108) mmHg ABG HCO3 14 L (21-25) mmol/L ABG Total CO2 16 L (19-24) mmol/L ABG O2 Saturation 98.0 H (94-97) % Sodium (137-145) mmol/L Chloride (98-107) mmol/L Carbon Dioxide (22-30) mmol/L BUN (7-17) mg/dL Creatinine (0.52-1.04) mg/dL Glucose (74-99) mg/dL POC Glucose (mg/dL) 193 H 157 H (75-99) mg/dL Ionized Calcium Misty (4.5-5.3) mg/dL Phosphorus (2.5-4.5) mg/dL Magnesium (1.6-2.3) mg/dL 06/04/17 06/04/17 06/04/17 Range/Units 04:35 05:10 05:51 WBC (3.8-10.6) k/uL RBC (3.80-5.40) m/uL Hgb (11.4-16.0) gm/dL Hct (34.0-46.0) % RDW (11.5-15.5) % ABG pH 7.23 L (7.35-7.45) ABG pO2 229 H (83-108) mmHg ABG HCO3 15 L (21-25) mmol/L ABG Total CO2 16 L (19-24) mmol/L ABG O2 Saturation 100.0 H (94-97) % Sodium 135 L (137-145) mmol/L Chloride 111 H (98-107) mmol/L Carbon Dioxide 14 L (22-30) mmol/L BUN 89 H* (7-17) mg/dL Creatinine 2.58 H (0.52-1.04) mg/dL Glucose 136 H (74-99) mg/dL POC Glucose (mg/dL) 152 H (75-99) mg/dL Ionized Calcium Misty 5.8 H (4.5-5.3) mg/dL Phosphorus 2.3 L (2.5-4.5) mg/dL Magnesium 2.4 H (1.6-2.3) mg/dL 06/04/17 06/04/17 Range/Units 08:45 11:55 WBC 19.5 H (3.8-10.6) k/uL RBC 2.68 L (3.80-5.40) m/uL Hgb 8.4 L (11.4-16.0) gm/dL Hct 26.4 L (34.0-46.0) % RDW 16.3 H (11.5-15.5) % ABG pH (7.35-7.45) ABG pO2 (83-108) mmHg ABG HCO3 (21-25) mmol/L ABG Total CO2 (19-24) mmol/L ABG O2 Saturation (94-97) % Sodium (137-145) mmol/L Chloride (98-107) mmol/L Carbon Dioxide (22-30) mmol/L BUN (7-17) mg/dL Creatinine (0.52-1.04) mg/dL Glucose (74-99) mg/dL POC Glucose (mg/dL) 130 H (75-99) mg/dL Ionized Calcium Misty (4.5-5.3) mg/dL Phosphorus (2.5-4.5) mg/dL Magnesium (1.6-2.3) mg/dL Microbiology - Last 24 Hours (Table) 06/03/17 17:25 Gram Stain - Preliminary Bronchoalviolar Lavage - Right Bronchial Washings Culture - Preliminary 06/03/17 17:25 Fungal Culture - Preliminary Bronchoalviolar Lavage - Right 06/03/17 17:25 Acid Fast Bacilli Culture - Preliminary Bronchoalviolar Lavage - Right
[2017-06-04] MEDS: ATORVASTATIN 20 MG TAB PO SCH (21:06)
[2017-06-05] MEDS: METOCLOPRAMIDE 5 MG/ML 2 ML VIAL IVP SCH ×4 (00:24→18:09)
[2017-06-05] MEDS: HEPARIN SODIUM,PORCINE 5,000 UNIT/ML 1 ML VIAL SQ SCH ×3 (00:24→16:33)
[2017-06-05] MEDS: INSULIN LISPRO (humaLOG) 300 UNIT/3 ML VIAL SQ SCH ×4 (00:29→18:11)
[2017-06-05 00:30] LABS: Glucose,Whole Blood 124 mg/dL (75-99)
[2017-06-05] MEDS: IPRATROPIUM-ALBUTEROL 3 ML NEB INHALATION SCH ×6 (03:03→23:12)
[2017-06-05] MEDS: NOREPINEPHRIN 16 MG-0.9%NS PMX 16 MG/250 ML ML IV SCH (03:28)
[2017-06-05] MEDS: 1: MVI, ADULT NO.4 WITH VIT K 10 ML, TRACE (CONC-1ML/DOSE) 1 ML, POTASSIUM ACETATE 40 ME IV SCH ×19 (04:01→16:33)
[2017-06-05 04:29] LABS: Anisocytosis Slight; CH 31.2; CHCM 31.9; HCT 24.5 % (34.0-46.0); HDW 3.63; HGB 7.6 gm/dL (11.4-16.0); Hypochromasia Slight; MCH 30.7 pg (25.0-35.0); MCV 98.9 fL (80.0-100.0); Macrocytosis Slight; Mean Platelet Volume 9.1; Poikilocytosis Slight; RBC 2.48 m/uL (3.80-5.40); RDW 16.5 % (11.5-15.5); WBC 14.8 k/uL (3.8-10.6)
[2017-06-05 04:48] LABS: Calcium 8.2 mg/dL (8.4-10.2); Magnesium 2.1 mg/dL (1.6-2.3); Phosphorous 3.4 mg/dL (2.5-4.5); Potassium 3.9 mmol/L (3.5-5.1)
[2017-06-05 05:28] LABS: ABG HCO3 14 mmol/L (21-25); ABG PCO2 35 mmHg (35-45); ABG PH 7.22 (7.35-7.45); ABG PO2 161 mmHg (83-108); ABG TCO2 15 mmol/L (19-24)
[2017-06-05 06:18] LABS: Glucose,Whole Blood 141 mg/dL (75-99)
[2017-06-05] MEDS: MIDODRINE 5 MG TAB PO SCH ×3 (06:55→18:10)
--- NOTE | 2017-06-05 07:17 | XR ---
EXAMINATION TYPE: XR chest 1V portable DATE OF EXAM: 06/05/2017 COMPARISON: Prior chest x-ray 06/04/2017 HISTORY: Intubated TECHNIQUE: Single frontal view of the chest is obtained. FINDINGS: Endotracheal tube, PICC line, NG tube remain in place. Bilateral airspace disease again no pedro. No evident pneumothorax. Heart size is stable. IMPRESSION: Correlate for pneumonia, ARDS, pulmonary edema.
[2017-06-05] MEDS: LEVOFLOXACIN 250MG-D5W PMX 250 MG in DEXTROSE/WATER 1 50ML.BAG IVPB SCH (07:59)
[2017-06-05] MEDS: FAMOTIDINE 20 MG/2 ML VIAL IV SCH (08:05)
[2017-06-05] MEDS: PROPOFOL 1,000 MG/100 ML VIAL IV SCH (09:00)
[2017-06-05] MEDS: CHLORHEXIDINE GLUCONATE 15 ML CUP MUCOUS MEM SCH ×2 (10:06→21:06)
[2017-06-05] MEDS: PIPERACILLIN-TAZOBACTAM 3.375 GM in DEXTROSE/WATER 1 50ML.BAG IVPB SCH ×2 (10:06→21:06)
[2017-06-05] MEDS: SODIUM BICARBONATE TAB 650 MG TAB PO SCH ×3 (10:07→18:10)
--- NOTE | 2017-06-05 11:41 | P.PN ---
Progress Note - Text The patient has been doing poorly. She had to be reintubated. Discussions are in place with family regarding possible comfort care.
--- NOTE | 2017-06-05 11:49 | P.PN ---
Subjective Principal diagnosis: Acute cardiopulmonary arrest, high-grade bowel obstruction, acute sepsis. 76-year-old female patient who presented to the hospital because of a high grade sigmoid colon obstruction with a suspicious mass. The patient underwent a colonoscopy by gastroenterology and the patient was found to have a partially obstructing mass in the distal sigmoid colon/rectosigmoid junction. The patient was having on and off rectal bleeding. She was rehabilitating at [facility] after a fall due to a generalized weakness. She was having some loose stools over the past few weeks but no significant abdominal pain or GI discomfort. The patient's hemoglobin had dropped down to 7.9 from a baseline of 12 and she was receiving transfusion. Based on all this, the patient was taken to the operating room on 05/23/2017 and the patient underwent a low AP resection with diverting colostomy. 2 abdominal drains also placed. Last night, the patient was found to be in acute respiratory distress.. The patient had a witnessed respiratory arrest and subsequent cardiac arrest. This occurred at around 1:50 AM this morning. Initially the pulse was identified. The patient was resuscitated for a total of 9 minutes and she was given 3 doses of epinephrine 1 mg. She was intubated and placed on a mechanical ventilator. She was given a triple lumen catheter in her right femoral vein. She was given a total of 2 L of IV fluids and her blood pressure remained low in the mid 60s. Following that she was started on pressors which ultimately titrated and she was placed on high-dose epinephrine infusion today to 60 g. The post intubation blood gas showed a pH of 7.15 with a pCO2 of 49 and pO2 of 205 this was an FiO2 of 100% with a PEEP of 5 and tidal volume of 350 and the rate of 14 Overnight the patient was given further fluid resuscitation and she has already received a total of 5 L of IV fluids. Currently she is on vasopressin 0.03 units per minute and she is also on norepinephrine infusion at 40 mics. She started making some urine output. Her urine output over the past 1 hour is around 100 mL an hour. The patient is sedated Diprivan at 40 mics. She would respond to painful stimuli and she would move all 4 extremities once she is taken to lower dose of Diprivan. Meanwhile, the necessity vent changes were done. I increased tidal volume to 450. I put the rate of 24 and drop the FiO2 down to 60%. Subsequent blood gases showed a pH of 7.36 with a pCO2 of 26 and pO2 of 123. Chest x-ray shows a large consolidation of the right lung involving the right middle lobe and right lower lobe. Orogastric tube was placed immediately following intubation and a total of 1600 mL of gastric aspirate was obtained. Note that the chest x-ray preoperatively had shown or the a large intrathoracic hiatal hernia. The patient subsequently had an abdominal x-ray yesterday that was indicating some ileus. The chest x-ray from this morning is showing that the patient has a right lung pneumonia and the OG tube is coiled in the hiatal hernia within the thorax. No gastric material is being suctioned from the TRACHEAL tube although is very much likely the patient could have aspirated. Her white cell count is up to 42. Venous lactate is at 1.7. The patient's colostomy site is functional. There is some minimal amount of fecal material collecting in the colostomy bag. Abdomen is nondistended at this point. Positive lower oximetry is palpable. On 05/26/2017 the patient is being seen in follow-up. The patient is still intubated on a mechanical ventilator. The patient is afebrile. She is doing well on a mechanical ventilator and she is in a assist-control mode at the rate of 24, tidal volume 450, FiO2 is down to 40% and PEEP of 5. Her morning blood gases with a pH of 7.38 with a pCO2 of 23 and pO2 150. Chest x-ray showing small bilateral pleural effusions and infiltrates in lung bases bilaterally. ET tube is in a good location. There is also a triple lumen catheter in place. The patient had a CAT scan of the abdomen and pelvis yesterday that showed lower lobe consolidation of the lungs along with pleural effusions. No intra- abdominal abscess. No other intra-abdominal abnormalities. The patient is a large hiatal hernia. Orogastric tube is in place and the patient will be started on tube feeds today. Colostomy site is healthy and viable looking. Hemodynamically she is improved compared to yesterday. She is on a vasopressin drip at physiologic dose and the patient is also on norepinephrine infusion that was weaned down to 20 mics. The patient is sedated with Diprivan and she is calm and comfortable. The patient remains on a combination of Zosyn and Levaquin and vancomycin. The blood cultures of been negative. The sputum culture been negative. White cell count is improving. Afebrile. Producing adequate amount of urine output. Echocardiogram showed a preserved LV function. There was a severe degree of mitral regurgitation secondary pulmonary hypertension. On 05/27/2017 the patient is being seen in follow-up. Earlier this morning the patient was still intubated on a mechanical ventilator. She was taken off the sedation and she woke up appropriately and she was able to follow commands and move her extremities without any limitation. She had a weak cough. Had rapid shallow breathing index was less than 100. She was given a spontaneous breathing trial with a pressure support of 5 and a PEEP of 5 and following that the patient was extubated to a nasal cannula. Note that the extubation blood gases showed a pH of 7.38 with a pCO2 of 22 and pO2 of 124 and this was done assist-control mode of ventilation with an FiO2 of 40%. The chest x-ray from earlier this morning shows interval improvement of the right lung pneumonia. His left-sided atelectasis and small effusion. Hemodynamically, the patient is still pressor dependent. The patient is on a physiologic dose of vasopressin 0.03 units per minute and the patient is levo fed has been weaned down to 12 mics. She is producing urine output in the order of 20-25 mL an hour. She has however developed an acute kidney injury, probably a hypotension-induced ATN with a creatinine is up to 1.6 and this is a non-oliguric renal failure. She is on broad-spectrum antibiotics which included a combination of Zosyn, Levaquin and vancomycin. Sputum analysis has yielded no positivity and there is no microbial growth for now. The patient has been tolerating her tube feeds. She is receiving enteral nutrition and her colostomy site is functional and intact at this point. No abdominal distention. Trace edema in the lower extremities bilaterally. On 05/28/2017 the patient remains extubated. She is awake and following simple commands. She has a congested cough and the chest x-ray from today shows worsening in the volume status and development of bilateral pleural effusions. There is haziness bilaterally nothing it's related to pleural effusion. The patient has not been fed enterally knowing that there is a concern of the positioning of the NG tube. I discussed this further with Dr. Tristian coy from surgery. We have decided not to feed again due to concern of recurrent aspiration knowing that the patient has a large hiatal hernia. Ultimately she may benefit from a PEG tube or NG tube if she is unable to swallow. She failed her swallow evaluation for the time being. Meanwhile, I thought is reasonable to start the patient on some hyperalimentation via TPN to meet her caloric requirements. She is hemodynamically improving however she has developed an acute kidney injury. Her pressors are much less and currently she is still on a physiologic dose vasopressin and 2-3 mics of norepinephrine infusion. She is however producing less urine output in the creatinine is up to 2.0. She is anemic with a hemoglobin of 7.0. Rest of the electrodes showed a component of non-anion gap metabolic acidosis. Her colostomy site is functional and intact at this point and is viable. No abdominal distention. WALTER drains are all in place. On 05/29/2017 the patient remains extubated. She is much more alert and interactive today. She is being treated with broad-spectrum antibiotics for aspiration pneumonia. Chest x-ray from today shows consolidation in bilateral pleural effusion in addition to a large intrathoracic hiatal hernia. Nevertheless, the volume status is slightly improved compared to yesterday knowing that the patient is being diuresis with IV Lasix 40 mg IV push every 12 hours. The patient has been producing more than 100 mL an hour of urine output on an hourly basis. Her creatinine is up to 2.4 however she is nonoliguric. Rest of the electrodes are all within normal limits. The patient's hemoglobin is stable at 7.1. White cell count is dropped down to 6. She is still on broad -spectrum antibiotics. Abdominal wound is clean and there is some minimal drainage from the WALTER insertion site. The colostomy site is functional and intact and viable. The patient is unable to swallow yet. TPN was started yesterday for nutritional support. IV fluids to KVO. Afebrile. Trying to do adequate pulmonate toileting however she is unable to cough up rest or secretions. Family is at the bedside. On 05/30/2017 the patient remains extubated. The patient is currently off norepinephrine infusion and currently she is only on vasopressin at a low physiologic dose which will hopefully get wean down the discontinued today. She was diuresis over the past 48 hours and I will stop the diuresis knowing that the patient is developing acute kidney injury secondary to prolonged hypotension and the patient is an nonoliguric acute renal failure. This swallow will be rechecked today although I have a high suspicion that the patient will failed the swallow evaluation. Her cough is weak. She has a congested cough. Unable to bring up much sputum. Chest exit shows a large intrathoracic hiatal hernia along with bilateral lower lobe pleural effusions and consolidations. The patient on oxygen at 3 L/m nasal cannula. Resting comfortably in bed. The patient on TPN for nutritional support. This surgical wound site is clean and intact. The patient has 2 WALTER drains with are not actively draining. The patient also has a colostomy site which is viable intact and healthy. The patient is afebrile. IV fluids are to KVO for now. She is on same antibiotic coverage. Her hemoglobin down to 6.9 today and the patient will be receiving a unit of packed RBC. On 05/31/2017 the patient remains extubated. Still on a physiologic dose of vasopressin which was still needed to maintain a blood pressure and a mean above 65. Urine output is adequate. The diuretics have been discontinued. Creatinine is down to 2.4. Received a unit of packed RBC yesterday and hemoglobin is above 8. Afebrile. Awake and alert. Conversing. Failed the swallow evaluation this will be repeated tomorrow. PICC line was inserted. The patient is receiving TPN for nutritional support. She is on 3 L of oxygen nasal cannula. Afebrile. On the same antibiotic coverage. No major swelling in the upper and lower extremities as the patient got diuresis over the past few days. No other significant events overnight. Family is at the bedside. WALTER drains are in place. The upper WALTER drain is not putting much a lot in the lower WALTER drain is having approximately 200 mL of serosanguineous drainage. The abdominal wound is clean and intact. Colostomy site has some liquidy material collecting in the back. The site is viable and functioning at this point. On 06/01/2017 I'm seeing this patient in follow-up. The patient is awake and alert. After having some success with swallowing yesterday, this morning she failed her swallow evaluation again and based on that she was maintained on TPN for nutritional support. In addition there was a setback in terms of her hemodynamics knowing that as of 1:00 in the morning the patient was restarted back on norepinephrine infusion due to drop in the blood pressure. The vasopressin is still on board. The patient was placed as high as 15 mics of norepinephrine infusion and currently is down to 6 mics. She is producing adequate amount of urine output in the order of 35-50 mL an hour. She is also on TPN for nutritional support. IV fluids to KVO. She is on Zosyn and Levaquin. As mentioned earlier, the WALTER drain is above the colostomy site is nondraining and probably out of position and this will be conveyed to the surgeon and see if it's appropriate to put up completely. The lower WALTER drain in her suprapubic area is still draining approximately 40 mL of serosanguineous material per shift. Colostomy site is viable and functional. There is some liquidy material accumulating within the back. This surgical wound site is clean. The nela are all in place. Bowel sounds are hypoactive. Chest x- ray from today shows a large intrathoracic hiatal hernia with bilateral lower lobe pulmonary infiltrates and small effusions. The patient is afebrile for now. She is essentially weak and has poor ability to perform pulmonary toileting. Coughing is weak. We'll try to work with her in terms of incentive spirometer and try to get her into physical therapy with passive range of motion. The family understands the limitation that the patient has related to her disease knowing that she has an underlying cerebral palsy with severe kyphoscoliosis and she has been bedridden even at baseline. As such this may be hindering our ability to fast recovery. This may be an ongoing issue in terms of getting her in a better condition. In terms of her renal function, creatinine is up to 2.7. The patient is nonoliguric. She has suffered an ATN due to profound hypotension. Rest of the electrodes are all within normal limits. Sodium level is normalized up to 132. On , the patient is awake and alert and conversing. A swallow evaluation will be done. He is on few mics of levo fed and I'm going to discontinue the vasopressin infusion today. The cortisol level has been within normal limits. She is still on TPN for nutritional support. Chest x-ray remains unchanged. She still on Zosyn and Levaquin. Abdominal wound and WALTER status is still unchanged. The patient's colostomy site is functional and there are some liquidy material collecting in the colostomy bag. Creatinine is down to 2.5 and the rest of the electrolytes show a component of mild non- [place] gap metabolic acidosis. On 06/03/2017 I'm seeing this patient in follow-up. Hemodynamically she is off vasopressin however overnight her norepinephrine infusion had to be titrated to bring her mean arterial pressure above 65. She is currently up to 10 mics of levo fed infusion. She is producing adequate amount of urine output. Her creatinine is down to 2.4. She is producing urine output more than 20s to 30 mL an hour. She is awake and alert. She is conversing. She was able to swallow and she is taking applesauce today. She is still on TPN for dentures support which is being infused through a left upper extremity PICC line. No fever. No chills. Chest x-ray findings remain unchanged and the patient has a large hiatal hernia but the lower lobe consolidation. Her cough has somewhat subsided. The WALTER drain that was not active was removed and there is only one WALTER drain is in place. The surgical wound site is dry clean and intact. Nela are all in place. Colostomy site is viable and function and there is some minimal amount of drainage of gastric or gastrointestinal material. She is still on a combination of Zosyn and Levaquin. Family is at the bedside. The barium swallow was completed and the patient was found to have a mild transient penetration with nectar thick barium. The patient was seen again today 06/04/2000 1013 in follow-up. Last evening she had developed acute respiratory failure requiring intubation and placement on the mechanical ventilator. Her case and been reviewed and discussed with the patient's family who were willing to proceed with short-term ventilatory support. Her current settings are assist control of 20, tidal volume 400, FiO2 60% and a PEEP of 5. Morning blood gases revealed a pO2 of 229, pCO2 36, pH 7.23. Her FiO2 be decreased to 40%. She remains sedated on to prevent at 25 mcg/kg/m. She is also required norepinephrine currently at 30 mcg/m. She had developed significant hypotension throughout the evening. She did undergo bronchoscopy with BAL, cultures/cytology are pending. Right femoral arterial line was placed last evening as well. Continues to be nourished with TPN a left upper extremity PICC line. Today's chest x-ray reveals cardiomegaly with pulmonary venous congestion and scattered infiltrates as well as effusions most likely secondary to congestive heart failure. Her white count 19.5, hemoglobin 8.4. BUN 89, creatinine 2.58. Patient was reevaluated today on 06/05/2017, family and her legal guardian is at bedside, patient remains on mechanical ventilation, ABG continues to reflect significant metabolic acidosis renal profile is reflecting worsening renal failure, ventilator settings were reviewed and her FiO2 was cut down to 35%. ABG this morning showed a pO2 of 161 pCO2 of 35, pH of 7.22. BUN is up to 98 creatinine is 2.50 bicarb is only 14. WBC count is 14.8 hemoglobin is 7.6. Chest x-ray is showing definite improvement in her bilateral infiltrates. I am suspecting that the patient may have aspirated recently. Patient remains on propofol, and I have instructed the nurses to cut down on the dose, awake and the patient and assess his mental status. I also discussed her condition with her brother who is her legal guardian, and he is not quite ready to allow terminal weaning, but he was made aware that we could definitely consider terminal weaning upon his recommendation. Knowing in fact that mortality at this point is significantly high. And he was made aware of this. Objective - Vital Signs Vital signs: Vital Signs Temp 96.8 F L 06/05/17 08:00 Pulse 88 06/05/17 11:00 Resp 21 06/05/17 11:00 BP 100/42 06/04/17 00:00 Pulse Ox 97 06/05/17 11:00 Intake & Output 06/04/17 06/05/17 06/05/17 18:59 06:59 18:59 Intake Total 0391.461 6917.5 679.313 Output Total 1407 2095 670 Balance 275.976 232.5 9.313 Weight 93.2 kg Intake: IV 485 1033.5 465 0.9 NS 20 Levofloxacin 250Mg-D5w 50 Pmx 250 mg In Dextrose/ Water 1 50ml.bag @ 50 mls /hr IVPB Q48H [facility] Rx#: [id number] Mvi, Adult No.4 with Vit 664 K 10 ml Trace (Conc-1Ml/ Dose) 1 ml Potassium Acetate 40 meq Sodium Chloride 4Meq/ml Vial 52 meq In Amino Acid 4.25%- D10w 1,000 ml @ 83 mls/hr IV .BY DURATION [facility] Rx#: [id number] Mvi, Adult No.4 with Vit 166 K 10 ml Trace (Conc-1Ml/ Dose) 1 ml Potassium Acetate 40 meq Sodium Chloride 4Meq/ml Vial 52 meq Magnesium Sulfate 8 meq In Amino Acid 4.25%- D10w 1,000 ml @ 83 mls/hr IV .BY DURATION [facility] Rx#: [id number] Parenteral Electrolytes 415 20 ml Sodium Chloride 4Meq/ml Vial 16 meq In Amino Acid 4.25%-D10w 1, 000 ml @ 83 mls/hr IV .BY DURATION [facility] Rx#: [id number] Piperacillin-Tazobactam 3 50 37.5 .375 gm In Dextrose/Water 1 50ml.bag @ 12.5 mls/hr IVPB Q12HR [facility] Rx#: [id number] Sodium Chloride 4Meq/ml 166 415 Vial 60 meq Magnesium Sulfate 4 meq Sodium Phosphate 10 mmol In Amino Acid 4.25%-D10w 1, 000 ml @ 83 mls/hr IV .BY DURATION [facility] Rx#: [id number] Intake, IV Titration 5291.529 8563 214.313 Amount Mvi, Adult No.4 with Vit 415 1044 K 10 ml Trace (Conc-1Ml/ Dose) 1 ml Potassium Acetate 40 meq Sodium Chloride 4Meq/ml Vial 52 meq In Amino Acid 4.25%- D10w 1,000 ml @ 83 mls/hr IV .BY DURATION [facility] Rx#: [id number] Mvi, Adult No.4 with Vit 83 K 10 ml Trace (Conc-1Ml/ Dose) 1 ml Potassium Acetate 40 meq Sodium Chloride 4Meq/ml Vial 52 meq Magnesium Sulfate 8 meq In Amino Acid 4.25%- D10w 1,000 ml @ 83 mls/hr IV .BY DURATION [facility] Rx#: [id number] Norepinephrin 16 mg-0.9% 237.109 250 111.377 Ns Pmx 16 mg In 250 ml @ Titrate IV .Q0M [facility] Rx#: [id number] Propofol 1,000 mg In 100 129.867 102.936 ml @ Titrate IV .Q0M [facility] Rx#:[id number] Sodium Chloride 4Meq/ml 83 Vial 60 meq Sodium Phosphate 10 mmol In Amino Acid 4.25%-D10w 1, 000 ml @ 83 mls/hr IV .BY DURATION [facility] Rx#: [id number] Sodium Phosphate 10 mmol 250 In Sodium Chloride 0.9% 250 ml @ 125 mls/hr IVPB ONCE ONE Rx#:[id number] Output: Gastric Drainage 500 1000 250 Drainage 80 Right Abdomen 80 Urine 757 595 340 Stool 150 500 Other: Voiding Method Indwelling Catheter Indwelling Catheter # Voids 1 ABP, PAP, CO, CI - Last Documented Arterial Blood Pressure 122/41 - Exam Intubated and sedated. Head exam was generally normal. There was no scleral icterus or corneal arcus. Mucous membranes were moist. Neck was supple and without jugular venous distension, thyromegaly, or carotid bruits. Carotids were easily palpable bilaterally. There was no adenopathy. Lung sounds are equal and symmetrical bilaterally and there is no significant wheezes overall currently crackles. Heart sounds are regular rate and rhythm normal S1-S2 and there is no significant murmurs appreciated. Abdomen is soft. Nondistended. Colostomy site is viable and functional. The patient has a infraumbilical incision with nela are being replaced. No active drainage. WALTER drains also in place and output is essentially serosanguineous and minimal. Extremities are showing diminished pulses and there is no cyanosis or clubbing. Neurologic the patient is awake. The cough and mechanism is weak. Unable to bring up her respiratory secretions yet. She has cerebral palsy and some chronic contractures in the upper extremities bilaterally. - Labs CBC & Chem 7: 06/05/17 04:20 06/05/17 04:20 Labs: Abnormal Lab Results - Last 24 Hours (Table) 06/04/17 06/05/17 06/05/17 Range/Units 11:55 00:28 04:20 WBC (3.8-10.6) k/uL RBC (3.80-5.40) m/uL Hgb (11.4-16.0) gm/dL Hct (34.0-46.0) % RDW (11.5-15.5) % ABG pH (7.35-7.45) ABG pO2 (83-108) mmHg ABG HCO3 (21-25) mmol/L ABG Total CO2 (19-24) mmol/L ABG O2 Saturation (94-97) % Sodium 134 L (137-145) mmol/L Chloride 113 H (98-107) mmol/L Carbon Dioxide 14 L (22-30) mmol/L BUN 98 H* (7-17) mg/dL Creatinine 2.50 H (0.52-1.04) mg/dL Glucose 127 H (74-99) mg/dL POC Glucose (mg/dL) 130 H 124 H (75-99) mg/dL Calcium 8.2 L (8.4-10.2) mg/dL 06/05/17 06/05/17 06/05/17 Range/Units 04:20 05:27 06:17 WBC 14.8 H (3.8-10.6) k/uL RBC 2.48 L (3.80-5.40) m/uL Hgb 7.6 L (11.4-16.0) gm/dL Hct 24.5 L (34.0-46.0) % RDW 16.5 H (11.5-15.5) % ABG pH 7.22 L (7.35-7.45) ABG pO2 161 H (83-108) mmHg ABG HCO3 14 L (21-25) mmol/L ABG Total CO2 15 L (19-24) mmol/L ABG O2 Saturation 99.0 H (94-97) % Sodium (137-145) mmol/L Chloride (98-107) mmol/L Carbon Dioxide (22-30) mmol/L BUN (7-17) mg/dL Creatinine (0.52-1.04) mg/dL Glucose (74-99) mg/dL POC Glucose (mg/dL) 141 H (75-99) mg/dL Calcium (8.4-10.2) mg/dL Microbiology - Last 24 Hours (Table) 06/03/17 17:25 Acid Fast Bacilli Smear - Final Bronchoalviolar Lavage - Right Acid Fast Bacilli Culture - Preliminary 06/03/17 15:40 Blood Culture - Preliminary Blood No Growth after 24 hours 06/03/17 15:14 Blood Culture - Preliminary Blood No Growth after 24 hours Assessment and Plan Plan: 1 acute cardiopulmonary arrest. I think the patient essentially went to respiratory arrest with subsequent cardiac arrest and she was down for less than 10 minutes. The patient during the code received a total of 3 rounds of epinephrine and she was intubated placed on mechanical ventilator and got transferred to the intensive care unit. Patient has developed bilateral pneumonia involving the lower lobes. Rule out aspiration pneumonia. Rule out hospital-acquired pneumonia. Patient was treated adequately with broad- spectrum antibiotics. Cultures of been all negative. She remains on a combination of Zosyn and Levaquin. Reevaluated today 06/04/2017 in the intensive care unit. On 06/03/2017 the patient had developed acute respiratory failure requiring reintubation and placed on mechanical ventilator. Bronchoscopy with BAL was performed. Cultures are pending. Right femoral arterial line was placed. On 06/05/2017, patient remains on mechanical ventilation, still requiring pressors for hypotension, ABG is reflecting significant metabolic acidosis hence I started the patient on bicarb be a nasogastric tube. Had a long discussion with her family at bedside, seems to be inclined to consider treadmill feeling if no significant improvement is noted in the next 24-48 hours. Clearly no tracheostomy according to her power of attorney lawyer 3 shock with profound hypotension , and the patient remains pressor dependent. The exact cause is not clear. Rule out underlying infection/septicemia. Note that at one point the patient was taken off the pressors and she had to be placed back again. She has moderate to severe degree of mitral regurgitation. She has a preserved LV function. She has normal cortisol levels. Zosyn and Levaquin are antibiotic coverage and all of the blood cultures of been negative. Surgical site is dry clean and intact. 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 The patient underwent a low AP resection with diverting colostomy. The patient is postop day #13 5 anemia secondary to lower gastrointestinal bleeding secondary to rectosigmoid mass, 6 hyponatremia, mild, recovered 7 mild non-anion gap metabolic acidosis, improving 8 acute respiratory failure, currently intubated on a mechanical ventilator, secondary to above 9 cerebral palsy, history of with significant permanent AV performance and functional status 10 diabetes mellitus, currently on a sliding scale coverage 11 hyperlipidemia, 12 acute kidney injury, possibly secondary to hypotension-induced ATN. The patient is nonoliguric and the patient's creatinine is down to 2.4 13 history of vasovagal syncope, scoliosis 14 frequent urine infections 15 Limited mobility and the patient has been using a walker based on the family members. The patient also had a limited range of motion the right hand and right wrist area. 16 large intrathoracic hiatal hernia as evident on the patient's chest x-ray. Unable to swallow. The patient is receiving TPN for nutritional support. 17 severe mitral regurgitation with a preserved LV function and secondary pulmonary hypertension. Recommendation: Continue present supportive care measures, had a long discussion with family at bedside, continue nutritional support, antibiotics, bronchodilators, GI and DVT prophylaxis, patient will likely agree to terminal weaning in the next 24 hours. Prognosis is definitely poor and guarded. Critical care time is 40 minutes. Time with Patient: Greater than 30
[2017-06-05 12:13] LABS: Glucose,Whole Blood 110 mg/dL (75-99)
--- NOTE | 2017-06-05 16:47 | P.PN ---
Subjective Mr. Morel is a 76-year-old female who was recently admitted to the care home after sustaining fall due to generalized weakness. The patient was brought to the hospital with concerns for GI bleed. Patient had attempted colonoscopy initially on 05/19/2017 and scope could not be passed due to significant obstructing mass. On 05/20/2017 patient was taken to OR for low anterior resection of the sigmoid and colostomy bag placement was done. On 05/21/2017 Agent is more awake and oriented today. Patient is tolerating liquid diet but feels nauseous now, as her chest pain or short of breath. Hemoglobin is stable. Patient is on epidural. On 05/22/2017 Patient says that her nausea is improved. Epidural pain management is being discontinued today. No fever no chills. No complaints of abdominal pain. Patient is tolerating liquid diet today. Otherwise no chest pain or short of breath. On 05/23/2017 Patient is tolerating by mouth liquid diet. She has been moving her bowels and has some stool in the colostomy bag. On 05/24/2017 Patient has been tolerating liquid diet well. Patient has been transferred to a chair beside the bed. Patient has a small amount of stool in the colostomy bag and passing flatus. On 05/25/2017 Last night the patient developed respiratory failure and eventually had cardiac arrest. Patient was resuscitated for a total of 9 minutes. She received 3 doses of epinephrine and received 2 L of IV fluid bolus , intubated and taken to the ICU. As her blood pressure was running her she was also started on pressors . Overnight the patient was given 5 more Lt of IV fluids. Her blood pressure was still running low and she was started on Levophed and vasopressin. The patient subsequently had a chest x-ray was showing a large right lung consolidation, and the patient has a large intrathoracic had a hernia. So most likely that the patient might have aspirated overnight. On 05/26 - Pt is still intubated. CT abdomen was done showing post surgical ileus. Still on vasopressors. NG tube feeds have been started, She had a large bowel movement yesterday. on 05/27/17 Pt. was succcessfull extubated. Pt. is awake but could not speak at this time. Still on Pressor support. no fever/chills. Review of systems - could not be done as the patient is intubated 05/28/17 failed NG placement Continues to be on a trivial dose of levophed and vasopressin to be started on TPN today 05/29/2017 Patient is more awake Is still on a trivial dose of Levophed and vasopressin Still strict nothing by mouth No overnight events reported 05/30/17 of levophed more awake on trivial dose of vasopressin failed swallow eval 05/31/17 awake no new overnight events weak cough on vasopressin 06/01/17 overnight pt needed more vasopressor support failed swallow eval 06/02/2017 Patient is awake however he still on these are pressor support Overall no significant change from yesterday 06/03/2017 Patient is awake however appears to be in respiratory distress 06/04/17 was intubated overnight on a higher dose of vasopressor 06/05/17 intubated awake is able to follow commands on sedation vacation on pressor support - Exam A 76-year-old female lying in bed in the ICU. awake HEENT: Atraumatic, normocephalic. NECK: Supple. No JVD. CVS: S1, S2 heard. No murmurs, no gallop, no rub. LUNGS: Coarse breath sounds bilaterally. ABDOMEN: Soft, nontender. Colostomy bag is in place. No active bleeding at the site. 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 EXTREMITIES: anasarca, slightly improved Pulses palpable bilaterally. No clubbing or cyanosis. Assessment and Plan Plan: ASSESSMENT Acute cardiopulmonary arrest -downtime of 9-10 mins Right Lung Pneumonia - most likely secondary to Aspiration Septic shock - most likley secondary to above. still on Pressor support Acute blood loss anemia secondary to lower gastrointestinal bleed secondary to sigmoid mass. Hemoglobin stable Sigmoid mass status post low anterior resection and colostomy bag placement colonic ileus. improved Hyponatremia Essential hypertension. Medical debility. Recent urinary tract infection. Chronic diarrhea. Vitamin D deficiency. Acute kidney injury likely multifactorial including ATN due to hypotension and diuretics therafter, improving plan TPN to continue Continue renal function monitoring critically ill weaning trials lennie case discussed with the family Objective - Vital Signs Vital signs: Vital Signs Temp 96.8 F L 06/05/17 12:00 Pulse 89 06/05/17 16:00 Resp 21 06/05/17 16:00 BP 100/42 06/04/17 00:00 Pulse Ox 98 06/05/17 16:00 Intake & Output 06/04/17 06/05/17 06/05/17 18:59 06:59 18:59 Intake Total 8907.108 9885.5 1179.049 Output Total 1407 2095 925 Balance 275.976 232.5 254.049 Weight 93.2 kg Intake: IV 485 1033.5 714 0.9 NS 20 Levofloxacin 250Mg-D5w 50 Pmx 250 mg In Dextrose/ Water 1 50ml.bag @ 50 mls /hr IVPB Q48H [facility] Rx#: [id number] Mvi, Adult No.4 with Vit 664 K 10 ml Trace (Conc-1Ml/ Dose) 1 ml Potassium Acetate 40 meq Sodium Chloride 4Meq/ml Vial 52 meq In Amino Acid 4.25%- D10w 1,000 ml @ 83 mls/hr IV .BY DURATION [facility] Rx#: [id number] Mvi, Adult No.4 with Vit 166 K 10 ml Trace (Conc-1Ml/ Dose) 1 ml Potassium Acetate 40 meq Sodium Chloride 4Meq/ml Vial 52 meq Magnesium Sulfate 8 meq In Amino Acid 4.25%- D10w 1,000 ml @ 83 mls/hr IV .BY DURATION [facility] Rx#: [id number] Parenteral Electrolytes 415 20 ml Sodium Chloride 4Meq/ml Vial 16 meq In Amino Acid 4.25%-D10w 1, 000 ml @ 83 mls/hr IV .BY DURATION [facility] Rx#: [id number] Piperacillin-Tazobactam 3 50 37.5 .375 gm In Dextrose/Water 1 50ml.bag @ 12.5 mls/hr IVPB Q12HR [facility] Rx#: [id number] Sodium Chloride 4Meq/ml 166 664 Vial 60 meq Magnesium Sulfate 4 meq Sodium Phosphate 10 mmol In Amino Acid 4.25%-D10w 1, 000 ml @ 83 mls/hr IV .BY DURATION [facility] Rx#: [id number] Intake, IV Titration 1115.774 4373 465.049 Amount Mvi, Adult No.4 with Vit 415 1044 K 10 ml Trace (Conc-1Ml/ Dose) 1 ml Potassium Acetate 40 meq Sodium Chloride 4Meq/ml Vial 52 meq In Amino Acid 4.25%- D10w 1,000 ml @ 83 mls/hr IV .BY DURATION [facility] Rx#: [id number] Mvi, Adult No.4 with Vit 83 K 10 ml Trace (Conc-1Ml/ Dose) 1 ml Potassium Acetate 40 meq Sodium Chloride 4Meq/ml Vial 52 meq Magnesium Sulfate 8 meq In Amino Acid 4.25%- D10w 1,000 ml @ 83 mls/hr IV .BY DURATION [facility] Rx#: [id number] Norepinephrin 16 mg-0.9% 237.109 250 196.113 Ns Pmx 16 mg In 250 ml @ Titrate IV .Q0M [facility] Rx#: [id number] Propofol 1,000 mg In 100 129.867 102.936 ml @ Titrate IV .Q0M [facility] Rx#:[id number] Sodium Chloride 4Meq/ml 83 Vial 60 meq Sodium Phosphate 10 mmol In Amino Acid 4.25%-D10w 1, 000 ml @ 83 mls/hr IV .BY DURATION [facility] Rx#: [id number] Sodium Chloride 4Meq/ml 166 Vial 60 meq Sodium Phosphate 10 mmol Magnesium Sulfate 4 meq In Amino Acid 4.25%-D10w 1,000 ml @ 83 mls/hr IV . BY DURATION [facility] Rx#: [id number] Sodium Phosphate 10 mmol 250 In Sodium Chloride 0.9% 250 ml @ 125 mls/hr IVPB ONCE ONE Rx#:[id number] Output: Gastric Drainage 500 1000 250 Drainage 80 Right Abdomen 80 Urine 757 595 595 Stool 150 500 Other: Voiding Method Indwelling Catheter Indwelling Catheter Indwelling Catheter # Voids 1 ABP, PAP, CO, CI - Last Documented Arterial Blood Pressure 104/33 - Labs CBC & Chem 7: 06/05/17 04:20 06/05/17 04:20 Labs: Abnormal Lab Results - Last 24 Hours (Table) 06/05/17 06/05/17 06/05/17 Range/Units 00:28 04:20 04:20 WBC 14.8 H (3.8-10.6) k/uL RBC 2.48 L (3.80-5.40) m/uL Hgb 7.6 L (11.4-16.0) gm/dL Hct 24.5 L (34.0-46.0) % RDW 16.5 H (11.5-15.5) % ABG pH (7.35-7.45) ABG pO2 (83-108) mmHg ABG HCO3 (21-25) mmol/L ABG Total CO2 (19-24) mmol/L ABG O2 Saturation (94-97) % Sodium 134 L (137-145) mmol/L Chloride 113 H (98-107) mmol/L Carbon Dioxide 14 L (22-30) mmol/L BUN 98 H* (7-17) mg/dL Creatinine 2.50 H (0.52-1.04) mg/dL Glucose 127 H (74-99) mg/dL POC Glucose (mg/dL) 124 H (75-99) mg/dL Calcium 8.2 L (8.4-10.2) mg/dL 06/05/17 06/05/17 06/05/17 Range/Units 05:27 06:17 12:12 WBC (3.8-10.6) k/uL RBC (3.80-5.40) m/uL Hgb (11.4-16.0) gm/dL Hct (34.0-46.0) % RDW (11.5-15.5) % ABG pH 7.22 L (7.35-7.45) ABG pO2 161 H (83-108) mmHg ABG HCO3 14 L (21-25) mmol/L ABG Total CO2 15 L (19-24) mmol/L ABG O2 Saturation 99.0 H (94-97) % Sodium (137-145) mmol/L Chloride (98-107) mmol/L Carbon Dioxide (22-30) mmol/L BUN (7-17) mg/dL Creatinine (0.52-1.04) mg/dL Glucose (74-99) mg/dL POC Glucose (mg/dL) 141 H 110 H (75-99) mg/dL Calcium (8.4-10.2) mg/dL Microbiology - Last 24 Hours (Table) 06/03/17 17:25 Acid Fast Bacilli Smear - Final Bronchoalviolar Lavage - Right Acid Fast Bacilli Culture - Preliminary 06/03/17 15:40 Blood Culture - Preliminary Blood No Growth after 24 hours 06/03/17 15:14 Blood Culture - Preliminary Blood No Growth after 24 hours
[2017-06-05 18:12] LABS: Glucose,Whole Blood 102 mg/dL (75-99)
[2017-06-05] MEDS: ATORVASTATIN 20 MG TAB PO SCH (21:07)
[2017-06-06] MEDS: SODIUM BICARBONATE TAB 650 MG TAB PO SCH ×2 (00:11→08:55)
[2017-06-06 00:33] LABS: Glucose,Whole Blood 117 mg/dL (75-99)
[2017-06-06] MEDS: INSULIN LISPRO (humaLOG) 300 UNIT/3 ML VIAL SQ SCH ×3 (03:10→20:35)
[2017-06-06] MEDS: PROPOFOL 1,000 MG/100 ML VIAL IV SCH (03:10)
[2017-06-06] MEDS: METOCLOPRAMIDE 5 MG/ML 2 ML VIAL IVP SCH ×2 (03:11→05:38)
[2017-06-06] MEDS: HEPARIN SODIUM,PORCINE 5,000 UNIT/ML 1 ML VIAL SQ SCH ×2 (03:11→08:54)
[2017-06-06] MEDS: IPRATROPIUM-ALBUTEROL 3 ML NEB INHALATION SCH ×3 (03:19→12:19)
[2017-06-06] MEDS: NOREPINEPHRIN 16 MG-0.9%NS PMX 16 MG/250 ML ML IV SCH (04:11)
[2017-06-06 05:14] LABS: Anisocytosis Slight; Basophils % (A) 0 %; CH 31.1; CHCM 31.7; Eosinophils # (A) 0.3 k/uL (0-0.7); Eosinophils % (A) 2 %; HCT 20.1 % (34.0-46.0); HDW 3.53; Hypochromasia Slight; Luc # (Auto) 0.26; Luc % (Auto) 2; Lymphocytes # (A) 1.1 k/uL (1.0-4.8); Lymphocytes % (A) 10 %; MCH 30.6 pg (25.0-35.0); MCHC 30.9 g/dL (31.0-37.0); MCV 99.1 fL (80.0-100.0); Macrocytosis Slight; Mean Platelet Volume 8.6; Monocytes # (A) 0.3 k/uL (0-1.0); Monocytes % (A) 3 %; Neutrophils # (A) 9.2 k/uL (1.3-7.7); Neutrophils % (A) 82 %; Poikilocytosis Slight; RBC 2.03 m/uL (3.80-5.40); RDW 16.4 % (11.5-15.5); WBC 11.1 k/uL (3.8-10.6); WBC (Perox) 11.21
[2017-06-06 05:23] LABS: HGB 6.2 gm/dL (11.4-16.0)
[2017-06-06] MEDS: 1: MVI, ADULT NO.4 WITH VIT K 10 ML, TRACE (CONC-1ML/DOSE) 1 ML, POTASSIUM ACETATE 40 ME IV SCH ×14 (05:31→08:53)
[2017-06-06 05:32] LABS: Calcium 7.8 mg/dL (8.4-10.2); Phosphorous 3.6 mg/dL (2.5-4.5)
[2017-06-06 05:38] LABS: Glucose,Whole Blood 117 mg/dL (75-99)
[2017-06-06 08:28] LABS: ABG Base Excess -12.6 mmol/L; ABG HCO3 13 mmol/L (21-25); ABG PCO2 31 mmHg (35-45); ABG PH 7.26 (7.35-7.45); ABG PO2 146 mmHg (83-108); ABG TCO2 14 mmol/L (19-24)
[2017-06-06] MEDS: MIDODRINE 5 MG TAB PO SCH (08:53)
[2017-06-06] MEDS: FAMOTIDINE 20 MG/2 ML VIAL IV SCH (08:54)
[2017-06-06] MEDS: PIPERACILLIN-TAZOBACTAM 3.375 GM in DEXTROSE/WATER 1 50ML.BAG IVPB SCH (08:54)
[2017-06-06] MEDS: CHLORHEXIDINE GLUCONATE 15 ML CUP MUCOUS MEM SCH (08:55)
--- NOTE | 2017-06-06 09:08 | XR ---
EXAMINATION TYPE: XR chest 1V portable DATE OF EXAM: 06/06/2017 COMPARISON: Chest x-ray 06/05/2017 HISTORY: Intubated TECHNIQUE: Single frontal view of the chest is obtained. FINDINGS: Endotracheal tube, left-sided PICC line, NG tube are stable. There are overlying cardiac l tereso. There is blunting of the costophrenic angles. Heart size is stable. Interstitium is increased, suspect mixed alveolar density. IMPRESSION: Correlate for ARDS, pulmonary edema, pneumonia. Pleural effusions.
[2017-06-06 09:29] VITALS: BP 126/47; TEMP 97.5
--- NOTE | 2017-06-06 11:36 | P.PN ---
Subjective Mr. Morel is a 76-year-old female who was recently [facility] the [facility] after sustaining fall due to generalized weakness. The patient was brought to the hospital with concerns for GI bleed. Patient had attempted colonoscopy initially on 05/19/2017 and scope could not be passed due to significant obstructing mass. On 05/20/2017 patient was taken to OR for low anterior resection of the sigmoid and colostomy bag placement was done. On 05/21/2017 Agent is more awake and oriented today. Patient is tolerating liquid diet but feels nauseous now, as her chest pain or short of breath. Hemoglobin is stable. Patient is on epidural. On 05/22/2017 Patient says that her nausea is improved. Epidural pain management is being discontinued today. No fever no chills. No complaints of abdominal pain. Patient is tolerating liquid diet today. Otherwise no chest pain or short of breath. On 05/23/2017 Patient is tolerating by mouth liquid diet. She has been moving her bowels and has some stool in the colostomy bag. On 05/24/2017 Patient has been tolerating liquid diet well. Patient has been transferred to a chair beside the bed. Patient has a small amount of stool in the colostomy bag and passing flatus. On 05/25/2017 Last night the patient developed respiratory failure and eventually had cardiac arrest. Patient was resuscitated for a total of 9 minutes. She received 3 doses of epinephrine and received 2 L of IV fluid bolus , intubated and taken to the ICU. As her blood pressure was running her she was also started on pressors . Overnight the patient was given 5 more Lt of IV fluids. Her blood pressure was still running low and she was started on Levophed and vasopressin. The patient subsequently had a chest x-ray was showing a large right lung consolidation, and the patient has a large intrathoracic had a hernia. So most likely that the patient might have aspirated overnight. On 05/26 - Pt is still intubated. CT abdomen was done showing post surgical ileus. Still on vasopressors. NG tube feeds have been started, She had a large bowel movement yesterday. on 05/27/17 Pt. was succcessfull extubated. Pt. is awake but could not speak at this time. Still on Pressor support. no fever/chills. Review of systems - could not be done as the patient is intubated 05/28/17 failed NG placement Continues to be on a trivial dose of levophed and vasopressin to be started on TPN today 05/29/2017 Patient is more awake Is still on a trivial dose of Levophed and vasopressin Still strict nothing by mouth No overnight events reported 05/30/17 of levophed more awake on trivial dose of vasopressin failed swallow eval 05/31/17 awake no new overnight events weak cough on vasopressin 06/01/17 overnight pt needed more vasopressor support failed swallow eval 06/02/2017 Patient is awake however he still on these are pressor support Overall no significant change from yesterday 06/03/2017 Patient is awake however appears to be in respiratory distress 06/04/17 was intubated overnight on a higher dose of vasopressor 06/05/17 intubated awake is able to follow commands on sedation vacation on pressor support - Exam A 76-year-old female lying in bed in the ICU. awake HEENT: Atraumatic, normocephalic. NECK: Supple. No JVD. CVS: S1, S2 heard. No murmurs, no gallop, no rub. LUNGS: Coarse breath sounds bilaterally. ABDOMEN: Soft, nontender. Colostomy bag is in place. No active bleeding at the site. 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 EXTREMITIES: anasarca, slightly improved Pulses palpable bilaterally. No clubbing or cyanosis. Assessment and Plan Plan: ASSESSMENT Acute cardiopulmonary arrest -downtime of 9-10 mins Right Lung Pneumonia - most likely secondary to Aspiration Septic shock - most likley secondary to above. still on Pressor support Acute blood loss anemia secondary to lower gastrointestinal bleed secondary to sigmoid mass. Hemoglobin stable Sigmoid mass status post low anterior resection and colostomy bag placement colonic ileus. improved Hyponatremia Essential hypertension. Medical debility. Recent urinary tract infection. Chronic diarrhea. Vitamin D deficiency. 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 patient has not made any progress over the last 48 hours as was discussed previously with the DPO is her brother Withdrawal of care was chosen as her goal care Consult hospice The patient is comfortable thereafter Patient's family is at bedside Objective - Vital Signs Vital signs: Vital Signs Temp 97.5 F L 06/06/17 09:17 Pulse 86 06/06/17 10:00 Resp 21 06/06/17 10:00 BP 126/47 06/06/17 09:17 Pulse Ox 91 L 06/06/17 10:00 Intake & Output 06/05/17 06/06/17 06/06/17 18:59 06:59 18:59 Intake Total 0988.011 9594.866 80 Output Total 1005 830 240 Balance 820.737 8777.866 -160 Weight 91.7 kg Intake: IV 714 250.5 80 0.9 NS 130 30 Levofloxacin 250Mg-D5w 50 Pmx 250 mg In Dextrose/ Water 1 50ml.bag @ 50 mls /hr IVPB Q48H [facility] Rx#: [id number] Parenteral Electrolytes 83 20 ml Sodium Chloride 4Meq/ml Vial 16 meq In Amino Acid 4.25%-D10w 1, 000 ml @ 83 mls/hr IV .BY DURATION [facility] Rx#: [id number] Piperacillin-Tazobactam 3 37.5 50 .375 gm In Dextrose/Water 1 50ml.bag @ 12.5 mls/hr IVPB Q12HR [facility] Rx#: [id number] Sodium Chloride 4Meq/ml 664 Vial 60 meq Magnesium Sulfate 4 meq Sodium Phosphate 10 mmol In Amino Acid 4.25%-D10w 1, 000 ml @ 83 mls/hr IV .BY DURATION [facility] Rx#: [id number] Intake, IV Titration 789.602 2180.366 Amount Mvi, Adult No.4 with Vit 83 K 10 ml Trace (Conc-1Ml/ Dose) 1 ml Potassium Acetate 40 meq Sodium Chloride 4Meq/ml Vial 52 meq In Amino Acid 4.25%- D10w 1,000 ml @ 83 mls/hr IV .BY DURATION [facility] Rx#: [id number] Mvi, Adult No.4 with Vit 1047 K 10 ml Trace (Conc-1Ml/ Dose) 1 ml Potassium Acetate 40 meq Sodium Chloride 4Meq/ml Vial 60 meq Magnesium Sulfate 4 meq In Amino Acid 4.25%- D10w 1,000 ml @ 83 mls/hr IV .BY DURATION [facility] Rx#: [id number] Norepinephrin 16 mg-0.9% 196.113 58.153 Ns Pmx 16 mg In 250 ml @ Titrate IV .Q0M [facility] Rx#: [id number] Propofol 1,000 mg In 100 102.936 51.213 ml @ Titrate IV .Q0M [facility] Rx#:[id number] Sodium Chloride 4Meq/ml 332 581 Vial 60 meq Sodium Phosphate 10 mmol Magnesium Sulfate 4 meq In Amino Acid 4.25%-D10w 1,000 ml @ 83 mls/hr IV . BY DURATION [facility] Rx#: [id number] Blood Product 0 Rc Pheresis 2 As3 Unit 0 [id number] Output: Gastric Drainage 250 Drainage 80 Right Abdomen 80 Urine 675 580 240 Stool 250 Other: Voiding Method Indwelling Catheter Indwelling Catheter Indwelling Catheter # Voids 1 ABP, PAP, CO, CI - Last Documented Arterial Blood Pressure 120/44 - Labs CBC & Chem 7: 06/06/17 04:50 06/06/17 04:50 Labs: Abnormal Lab Results - Last 24 Hours (Table) 06/05/17 06/05/17 06/06/17 Range/Units 12:12 18:11 00:31 WBC (3.8-10.6) k/uL RBC (3.80-5.40) m/uL Hgb (11.4-16.0) gm/dL Hct (34.0-46.0) % MCHC (31.0-37.0) g/dL RDW (11.5-15.5) % Neutrophils # (1.3-7.7) k/uL ABG pH (7.35-7.45) ABG pCO2 (35-45) mmHg ABG pO2 (83-108) mmHg ABG HCO3 (21-25) mmol/L ABG Total CO2 (19-24) mmol/L ABG O2 Saturation (94-97) % Sodium (137-145) mmol/L Chloride (98-107) mmol/L Carbon Dioxide (22-30) mmol/L BUN (7-17) mg/dL Creatinine (0.52-1.04) mg/dL Glucose (74-99) mg/dL POC Glucose (mg/dL) 110 H 102 H 117 H (75-99) mg/dL Calcium (8.4-10.2) mg/dL Crossmatch 06/06/17 06/06/17 06/06/17 Range/Units 04:50 04:50 05:37 WBC 11.1 H (3.8-10.6) k/uL RBC 2.03 L (3.80-5.40) m/uL Hgb 6.2 L* (11.4-16.0) gm/dL Hct 20.1 L (34.0-46.0) % MCHC 30.9 L (31.0-37.0) g/dL RDW 16.4 H (11.5-15.5) % Neutrophils # 9.2 H (1.3-7.7) k/uL ABG pH (7.35-7.45) ABG pCO2 (35-45) mmHg ABG pO2 (83-108) mmHg ABG HCO3 (21-25) mmol/L ABG Total CO2 (19-24) mmol/L ABG O2 Saturation (94-97) % Sodium 135 L (137-145) mmol/L Chloride 113 H (98-107) mmol/L Carbon Dioxide 13 L (22-30) mmol/L BUN 106 H* (7-17) mg/dL Creatinine 2.71 H (0.52-1.04) mg/dL Glucose 104 H (74-99) mg/dL POC Glucose (mg/dL) 117 H (75-99) mg/dL Calcium 7.8 L (8.4-10.2) mg/dL Crossmatch 06/06/17 06/06/17 Range/Units 06:28 08:12 WBC (3.8-10.6) k/uL RBC (3.80-5.40) m/uL Hgb (11.4-16.0) gm/dL Hct (34.0-46.0) % MCHC (31.0-37.0) g/dL RDW (11.5-15.5) % Neutrophils # (1.3-7.7) k/uL ABG pH 7.26 L (7.35-7.45) ABG pCO2 31 L (35-45) mmHg ABG pO2 146 H (83-108) mmHg ABG HCO3 13 L (21-25) mmol/L ABG Total CO2 14 L (19-24) mmol/L ABG O2 Saturation 99.0 H (94-97) % Sodium (137-145) mmol/L Chloride (98-107) mmol/L Carbon Dioxide (22-30) mmol/L BUN (7-17) mg/dL Creatinine (0.52-1.04) mg/dL Glucose (74-99) mg/dL POC Glucose (mg/dL) (75-99) mg/dL Calcium (8.4-10.2) mg/dL Crossmatch See Detail Microbiology - Last 24 Hours (Table) 06/03/17 17:25 Gram Stain - Final Bronchoalviolar Lavage - Right Bronchial Washings Culture - Final 06/03/17 15:40 Blood Culture - Preliminary Blood No Growth after 48 hours 06/03/17 15:14 Blood Culture - Preliminary Blood No Growth after 48 hours
[2017-06-06 11:43] VITALS: BMI 39.4
[2017-06-06] MEDS ORDERED: MORPHINE SULFATE 4 MG/ML SYRINGE IVP ONE (12:42)
[2017-06-06] MEDS ORDERED: SCOPOLAMINE 1.5MG/72HR PATCH TRANSDERM PRN (12:42)
[2017-06-06] MEDS ORDERED: MORPHINE SULFATE (100 MG/2 ML) 100 MG in SODIUM CHLORIDE 0.9% 100 ML IV SCH (12:45)
[2017-06-06 15:04] VITALS: RESP 12
--- NOTE | 2017-06-06 16:06 | PN ---
This is a lady who was admitted way back on May 17. She initially came in with a GI bleed. The patient went to the operating room on May 20 and had an anterior resection of her sigmoid with colostomy and was found on pathology to have colon cancer. She apparently had an episode of emesis on May 15 and may have aspirated and required intubation. She was extubated on the and then reintubated on the for increasing secretions. She is a DNR. Today I had a long talk with the sister and the brother and it is clear to me that based on what they are telling me that this patient would want comfort measures at this time. Would not want tracheostomy or PEG placement and transfer to a specialized nursing facility. The patient herself is currently on the ventilator. Has not had any significant weaning since her reintubation on the . Currently on the AC mode rate of 20, tidal volume 400, FIO2 of 35% and PEEP of 5. Gases showed a PO2 of 146, PCO2 of 31, pH 7.26. She is currently on Propofol at 10 mcg/kg/minute, Levophed at 5 mcg/minute and TPN at 83 mL an hour. As I mentioned, she is a DNR. Currently can give no history herself. Her medical problem list includes acute cardiopulmonary arrest requiring intubation, mechanical ventilation status post exploratory laparotomy with anterior resection of sigmoid and colostomy for colon cancer, profound shock and hypotension, anemia, hyponatremia, nonanion gap metabolic acidosis, cerebral palsy, diabetes, hyperlipidemia, acute kidney injury, vasovagal syncope , frequent urinary tract infections, limited mobility, large intrathoracic hiatal hernia and severe valvular heart disease in the form of mitral regurgitation with pulmonary hypertension. Current vital signs include temperature 97.5, heart rate 86, respiratory rate 21 , blood pressure 126/47, saturations are 91-93%. Appears in no acute distress. Currently on a daily interruption of sedation. HEENT: Grossly unremarkable. Mucous membranes are moist. There is an orally placed endotracheal tube and NG tube. No oral lesions noted. NECK: Supple. Full range of motion. No adenopathy. CARDIOVASCULAR: Reveals regular rhythm and rate. S1/S2 normal. LUNGS: Reveal coarse rhonchi. Breath sounds are diminished. ABDOMEN: Soft. EXTREMITIES: Intact. SKIN: Without rash. NEUROLOGIC: Could not be adequately performed. As mentioned, the patient is on the assist control mode rate of 20, tidal volume 400, FIO2 of 35%, PEEP of 5. Her drips include Propofol at 10 mcg/kg/ minute, Levophed at 5 mcg per minute, TPN at 83 mL an hour. A chest x-ray from today shows diffuse infiltrates bilaterally consistent with either pneumonia, pulmonary edema or ARDS. Microbiology including blood, urine and sputum are all negative. Medications are reviewed. Labs are reviewed. Labs show a white count 11.1, hemoglobin 6.2, hematocrit 20.1, platelet count 300,000. Sodium 135, potassium 4, chloride 113, CO2 of 13. Anion gap 9. BUN and creatinine were 106 and 2.71. ASSESSMENT: 1. Status post cardiopulmonary arrest with hypoxemic respiratory failure requiring intubation, mechanical ventilation with initial intubation on the , extubation on the and reintubation on the . 2. Status post anterior resection with colostomy of the sigmoid for colon cancer. 3. Profound anemia. 4. Chronic kidney disease. 5. Profound shock and hypotension. 6. Hyponatremia. 7. Nonanion gap metabolic acidosis. 8. Cerebral palsy. 9. Diabetes mellitus. 10. Hyperlipidemia. 11. History of acute kidney injury secondary to acute tubular necrosis. 12. Vasovagal syncope. 13. Frequent urinary tract infections. 14. Large intrathoracic hiatal hernia. 15. Severe mitral regurgitation with secondary pulmonary hypertension. PLAN: Prognosis is poor. I had a long discussion with the family. They wish to make the patient comfort measures. Will do that as soon as one family member arrives and her groundskeeping maintenance worker arrives. No additional recommendations are made. Time spent with patient and family is about 38 minutes. [facility]ICBhupinder
[2017-06-06 17:41] VITALS: PULSE 88
--- NOTE | 2017-06-08 08:12 | CDI ---
In responding to this query, please exercise your independent professional judgment. The [facility] Coding Staff and Clinical Documentation Specialists appreciate your assistance in clarifying documentation, maintaining compliance with coding guidelines, accurately documenting patients condition and capturing severity of illness. The fact that a question is asked does not imply that any particular answer is desired or expected. Communication forms are a method of clarifying documentation and are not made part of the Legal Health Record. Thank you in advance for your clarification. Last Revision, September 2015 Mehrdad Caldwell [address] [facility] [facility] [place] [address] Documentation Clarification Form Date: 06/08/2017 8:00:00 AM From: Loulou Cornelio Admit Date: 05/17/2017 6:43:00 AM Patient Name: Venessa Morel I Visit Number: [id number] Discharge Date: 06/06/17 Dr. Maureen Alanis Malnutrition has been documented in 06/03 progress note. History/Risk Factors: hx of mild protein malnutrition Clinical Indicators: Labs: Albumin/Total Protein: 1.9/4.1 Current BMI: 39.5-40.1 Treatment: TPN Dietary Consult: Inadequate oral intake Supplements/TPN: started on TPN 05/28 In your professional opinion, can you please clarify if these findings signify one of the following conditions? Mild Protein Malnutrition Mild Protein-Calorie Malnutrition Moderate Protein Malnutrition Moderate Protein-Calorie Malnutrition Severe Protein Malnutrition Severe Protein-Calorie Malnutrition Malnutrition following GI surgery Malnutrition Other condition, please specify Unable to determine Please document addendum in your 06/03 progress note in order to capture severity of illness and risk of mortality. Include clinical findings that support your diagnosis. FYI: Press F11 to launch patient chart. If you have a question about this query, please contact Bridgette Sandy, Rubber Tubing Splicer, Mehrdad Caldwell at [phone] betweeen 8am and 5pm. DWAIN
[2017-06-25] MEDS ORDERED: EPINEPHrine 10 ML SYRINGE (0.1 MG/ML) ONE (13:36)
== END 2017-06-06 21:04 | disposition hospice, inpatient (51) | DRG 329 ==
LOC: EC 05:10 → 6SEL 06:43 → 4MS4W 05-18 20:20 → 6ICU 05-25 02:08 → 5ONC 06-06 17:28 → UNDODISIN 06-06 20:54
PROVIDERS: ADMIT Hospitalist; ATTEND Hospitalist
PROC: 0DBN8ZX Excision of Sigmoid Colon, Via Natural or Artificial Opening Endoscopic, Diagnostic (ICD-10-PCS; 2017-05-19)
PROC: 0D1N0Z4 Bypass Sigmoid Colon to Cutaneous, Open Approach (ICD-10-PCS; 2017-05-20)
PROC: 0DTN0ZZ Resection of Sigmoid Colon, Open Approach (ICD-10-PCS; principal; 2017-05-20 13:20)
PROC: 03HY32Z Insertion of Monitoring Device into Upper Artery, Percutaneous Approach (ICD-10-PCS; 2017-05-25)
PROC: 4A133B1 Monitoring of Arterial Pressure, Peripheral, Percutaneous Approach (ICD-10-PCS; 2017-05-25)
PROC: 4A133J1 Monitoring of Arterial Pulse, Peripheral, Percutaneous Approach (ICD-10-PCS; 2017-05-25)
PROC: 3E0436Z Introduction of Nutritional Substance into Central Vein, Percutaneous Approach (ICD-10-PCS; 2017-05-28)
PROC: 02HV33Z Insertion of Infusion Device into Superior Vena Cava, Percutaneous Approach (ICD-10-PCS; 2017-05-30)
PROC: B548ZZA Ultrasonography of Superior Vena Cava, Guidance (ICD-10-PCS; 2017-05-30)
PROC: 30233N1 Transfusion of Nonautologous Red Blood Cells into Peripheral Vein, Percutaneous Approach (ICD-10-PCS; 2017-05-30)
PROC: 0B9D8ZX Drainage of Right Middle Lung Lobe, Via Natural or Artificial Opening Endoscopic, Diagnostic (ICD-10-PCS; 2017-06-03)
PROC: 0BH17EZ Insertion of Endotracheal Airway into Trachea, Via Natural or Artificial Opening (ICD-10-PCS; 2017-06-03)
PROC: 5A1945Z Respiratory Ventilation, 24-96 Consecutive Hours (ICD-10-PCS; 2017-06-03)
PROC: 03HY32Z Insertion of Monitoring Device into Upper Artery, Percutaneous Approach (ICD-10-PCS; 2017-06-03)
PROC: 4A133B1 Monitoring of Arterial Pressure, Peripheral, Percutaneous Approach (ICD-10-PCS; 2017-06-03)
PROC: 4A133J1 Monitoring of Arterial Pulse, Peripheral, Percutaneous Approach (ICD-10-PCS; 2017-06-03)
PROC: 0BJ08ZZ Inspection of Tracheobronchial Tree, Via Natural or Artificial Opening Endoscopic (ICD-10-PCS; 2017-06-03)
DX: C18.7 Malignant neoplasm of sigmoid colon (principal); I46.9 Cardiac arrest, cause unspecified; R65.21 Severe sepsis with septic shock; N17.0 Acute kidney failure with tubular necrosis; J96.01 Acute respiratory failure with hypoxia; J69.0 Pneumonitis due to inhalation of food and vomit; A41.9 Sepsis, unspecified organism; E43 Unspecified severe protein-calorie malnutrition; E87.2 Acidosis; K56.7 Ileus, unspecified; I13.0 Hypertensive heart and chronic kidney disease with heart failure and stage 1 through stage 4 chronic kidney disease, or unspecified chronic kidney disease; I50.9 Heart failure, unspecified; E87.1 Hypo-osmolality and hyponatremia; D62 Acute posthemorrhagic anemia; J98.11 Atelectasis; E44.1 Mild protein-calorie malnutrition; Z51.5 Encounter for palliative care; Z66 Do not resuscitate; R13.10 Dysphagia, unspecified; I27.2 Other secondary pulmonary hypertension; E11.22 Type 2 diabetes mellitus with diabetic chronic kidney disease; M41.9 Scoliosis, unspecified; N18.3 Chronic kidney disease, stage 3 (moderate); I34.0 Nonrheumatic mitral (valve) insufficiency; D50.0 Iron deficiency anemia secondary to blood loss (chronic); E78.5 Hyperlipidemia, unspecified; M19.91 Primary osteoarthritis, unspecified site; G80.9 Cerebral palsy, unspecified; K52.9 Noninfective gastroenteritis and colitis, unspecified; E55.9 Vitamin D deficiency, unspecified; K44.9 Diaphragmatic hernia without obstruction or gangrene; Z79.82 Long term (current) use of aspirin; Z79.899 Other long term (current) drug therapy; Z87.440 Personal history of urinary (tract) infections; Z74.01 Bed confinement status
CPT/HCPCS: 36415; 36569; 36600; 45331; 71010; 71250; 74000; 74020; 74176; 74230; 76937; 80048; 80053; 81001; 82330; 82378; 82533; 82550; 82553; 82570; 82805; 83036; 83605; 83690; 83735; 83935; 84100; 84300; 84478; 84484; 85025; 85027; 85610; 85730; 86850; 86900; 86901; 86920; 87040; 87070; 87086; 87102; 87116; 87205; 87206; 87252; 87324; 87496; 87498; 87502; 87529; 87798; 88108; 88305; 88309; 89050; 93306; 94002; 94003; 94640; 94760; 96361; 96374; 99285

== ENCOUNTER 2017-06-06 21:05 | Inpatient (IN) | payer MEDICAID ==
[2017-06-06 21:37] VITALS: BMI 41.8
[2017-06-06] MEDS ORDERED: ONDANSETRON 4 MG/2 ML VIAL IVP PRN (21:37)
[2017-06-06] MEDS ORDERED: LORazepam 2 MG/ML SYRINGE IV PRN (21:37)
[2017-06-06] MEDS ORDERED: DRY MOUTH SPRAY 44.3 SPRAY/44.3 ML SPRAY MUCOUS MEM PRN (21:37)
[2017-06-06] MEDS ORDERED: SCOPOLAMINE 1.5MG/72HR PATCH TRANSDERM PRN (21:37)
[2017-06-06] MEDS ORDERED: ARTIFICIAL TEARS-HYPROMELLOSE DROPS 15 ML BTL BOTH EYES PRN (21:37)
[2017-06-06] MEDS ORDERED: ACETAMINOPHEN SUPPOSITORY 650 MG SUPP RECTAL PRN (21:37)
[2017-06-06] MEDS ORDERED: ATROPINE OPHTH SOLN 1% 5ML BTL SUBLINGUAL PRN (21:37)
[2017-06-06] MEDS: MORPHINE SULFATE (100 MG/2 ML) 100 MG in SODIUM CHLORIDE 0.9% 100 ML IV SCH (22:11)
[2017-06-07] MEDS ORDERED: LORazepam 2 MG/ML SYRINGE IV PRN (00:35)
[2017-06-07] MEDS: MORPHINE SULFATE (100 MG/2 ML) 100 MG in SODIUM CHLORIDE 0.9% 100 ML IV SCH (04:21)
[2017-06-07 08:11] VITALS: RESP 6
--- NOTE | 2017-06-07 11:37 | P.DS ---
Providers Date of admission: 06/06/17 21:05 Attending physician: Ramandeep Green Primary care physician: [facility] Course: 77 yr old was admitted to the hospital Has CP arrest after a surgical intervention was in septic shock pt had to be reintubated due to aspiration continued to be on pressors, was not able to weaned off after a discussion, pt was terminally weaned and made comfort measures only Cause of circulatory falilure due to sepsis multiorgan failure Plan - Discharge Summary New Discharge Prescriptions: No Action Simvastatin [Zocor] 40 mg PO HS@2100 Lisinopril-Hctz 20-12.5 mg [Zestoretic 20-12.5] 1 tab PO DAILY@0800 Aspirin 81 mg PO DAILY@1700 Calcium Carbonate/Vitamin D3 [Calcium 600-Vit D3 400 Tablet] 1 tab PO DAILY@ 1700 Multivitamins, Thera [Multivitamin (formulary)] 1 tab PO DAILY@1700 Nystatin 1 applic TOPICAL BID Bisacodyl [Dulcolax] 10 mg RECTAL DAILY PRN PRN Reason: Constipation Magnesium Hydroxide [Milk of Magnesia] 2,400 mg PO DAILY PRN PRN Reason: Constipation Loperamide HCl [Imodium A-D] 2 mg PO DIRECTED PRN MDD 8MG PRN Reason: Diarrhea Na Phos,M-B/Na Phos,Di-Ba [Fleet Adult] 133 ml RECTAL ONCE PRN PRN Reason: Constipation Ensure Clear 240 ml PO BID@0800,1700 Discharge Medication List Aspirin 81 mg PO DAILY@1700 02/15/15 [History] Calcium Carbonate/Vitamin D3 [Calcium 600-Vit D3 400 Tablet] 1 tab PO DAILY@ 1700 02/15/15 [History] Lisinopril-Hctz 20-12.5 mg [Zestoretic 20-12.5] 1 tab PO DAILY@0800 02/15/15 [ History] Simvastatin [Zocor] 40 mg PO HS@2100 02/15/15 [History] Bisacodyl [Dulcolax] 10 mg RECTAL DAILY PRN 05/17/17 [History] Ensure Clear 240 ml PO BID@0800,1700 05/17/17 [History] Loperamide HCl [Imodium A-D] 2 mg PO DIRECTED PRN MDD 8MG 05/17/17 [History] Magnesium Hydroxide [Milk of Magnesia] 2,400 mg PO DAILY PRN 05/17/17 [History] Multivitamins, Thera [Multivitamin (formulary)] 1 tab PO DAILY@1700 05/17/17 [ History] Na Phos,M-B/Na Phos,Di-Ba [Fleet Adult] 133 ml RECTAL ONCE PRN 05/17/17 [History ] Nystatin 1 applic TOPICAL BID 05/17/17 [History]
== END 2017-06-07 12:29 | disposition expired | DRG 871 ==
LOC: 5ONC 21:05
PROVIDERS: ADMIT Hospitalist; ATTEND Hospitalist
PROC: 0T9B70Z Drainage of Bladder with Drainage Device, Via Natural or Artificial Opening (ICD-10-PCS; principal; 2017-06-06)
DX: A41.9 Sepsis, unspecified organism (principal); R65.21 Severe sepsis with septic shock; Z99.11 Dependence on respirator [ventilator] status; L89.319 Pressure ulcer of right buttock, unspecified stage; B37.89 Other sites of candidiasis; E11.22 Type 2 diabetes mellitus with diabetic chronic kidney disease; K92.2 Gastrointestinal hemorrhage, unspecified; E44.1 Mild protein-calorie malnutrition; Z68.41 Body mass index [BMI] 40.0-44.9, adult; M41.9 Scoliosis, unspecified; Z86.74 Personal history of sudden cardiac arrest; Z51.5 Encounter for palliative care; Z66 Do not resuscitate; G80.9 Cerebral palsy, unspecified; N18.3 Chronic kidney disease, stage 3 (moderate); I12.9 Hypertensive chronic kidney disease with stage 1 through stage 4 chronic kidney disease, or unspecified chronic kidney disease; E11.622 Type 2 diabetes mellitus with other skin ulcer; D64.9 Anemia, unspecified; R29.6 Repeated falls; E55.9 Vitamin D deficiency, unspecified; K52.9 Noninfective gastroenteritis and colitis, unspecified; E66.9 Obesity, unspecified; R53.81 Other malaise; E78.5 Hyperlipidemia, unspecified; M19.90 Unspecified osteoarthritis, unspecified site; Z79.82 Long term (current) use of aspirin; Z79.899 Other long term (current) drug therapy; Z71.3 Dietary counseling and surveillance; Z91.81 History of falling; Z98.1 Arthrodesis status; Z82.49 Family history of ischemic heart disease and other diseases of the circulatory system; Z86.79 Personal history of other diseases of the circulatory system; Z87.81 Personal history of (healed) traumatic fracture; Z87.440 Personal history of urinary (tract) infections; Z80.6 Family history of leukemia; Z98.890 Other specified postprocedural states; Z87.39 Personal history of other diseases of the musculoskeletal system and connective tissue